=== PATIENT | male | born 1980 | race Caucasian/White ===

== ENCOUNTER 2016-08-07 13:08 | Inpatient (IN) | payer MEDICAID, OTHER ==
[2016-08-07] MEDS ORDERED: LORazepam 1 MG TAB PO STA ×2 (13:43→16:32)
--- NOTE | 2016-08-07 13:45 | ED ---
General Adult HPI - General Chief complaint: Psychiatric Symptoms Stated complaint: mental health Time Seen by Provider: 08/07/16 13:29 Source: patient, RN notes reviewed Mode of arrival: ambulatory Limitations: no limitations - History of Present Illness Initial comments: Patient's a 5-year-old male who presents emergency room today with a chief complaint of increased anxiety with depression and suicidal ideation. Patient states that has been under increased stress. States he forced to move. States she's been threats towards him and his family. States he's been out of his medication of Cymbalta over the last 3 or 4 months. States it's currently not seen a therapist or counselor. Patient states he has had thoughts of hurting himself. Does not give any specific examples but states "anything you can think of". Patient denies any homicidal thoughts or plans. Denies any other physical complaints. Patient denies any recent fever, chills, shortness of breath, chest pain, back pain, abdominal pain, nausea or vomiting, numbness or tingling, dysuria or hematuria, constipation or diarrhea, headaches or visual changes, or any other complaints. - Related Data Home Medications Medication Instructions Recorded Confirmed Albuterol Sulfate [Proair Hfa] 1 puff INHALATION RT-QID PRN 08/07/16 08/07/16 Amoxic-Pot Clav 875-125Mg 1 tab PO BID 08/07/16 08/07/16 [Augmentin 875-125] Allergies Allergy/AdvReac Type Severity Reaction Status Date / Time No Known Allergies Allergy Verified 08/07/16 16:56 Review of Systems ROS Statement: Those systems with pertinent positive or pertinent negative responses have been documented in the HPI. ROS Other: All systems not noted in ROS Statement are negative. Past Medical History Past Medical History: No Reported History History of Any Multi-Drug Resistant Organisms: None Reported Additional Past Surgical History / Comment(s): gastric bypass, craniotomy Past Psychological History: ADD/ADHD, Anxiety, Depression Smoking Status: Current every day smoker Past Alcohol Use History: Abuse Past Drug Use History: Opiates General Exam - General Exam Comments Initial Comments: General: The patient is awake and alert, in no distress, and does not appear acutely ill. Eye: Pupils are equal, round and reactive to light, extra-ocular movements are intact. No nystagmus. There is normal conjunctiva bilaterally. No signs of icterus. Ears, nose, mouth and throat: There are moist mucous membranes and no oral lesions. Neck: The neck is supple, there is no tenderness or JVD. Cardiovascular: There is a regular rate and rhythm. No murmur, rub or gallop is appreciated. Respiratory: Lungs are clear to auscultation, respirations are non-labored, breath sounds are equal. No wheezes, stridor, rales, or rhonchi. Musculoskeletal: Normal ROM, no tenderness. Strength 5/5. Sensation intact. Pulses equal bilaterally 2+. Neurological: A&O x 3. CN II-XII intact, There are no obvious motor or sensory deficits. Coordination appears grossly intact. Speech is normal. Skin: Skin is warm and dry and no rashes or lesions are noted. Psychiatric: Depressed affect. Limitations: no limitations Course Vital Signs 08/07/16 13:15 Temperature 98.7 F Pulse Rate 95 Respiratory 20 Rate Blood Pressure 142/93 O2 Sat by Pulse 97 Oximetry Medical Decision Making - Medical Decision Making Patient examined here in the emergency room by [facility]. They've recommended admission for the patient. He is willing to sign himself in. - Lab Data Lab Results 08/07/16 Range/Units 15:49 Urine Opiates Screen Not Detected (NotDetected) Ur Oxycodone Screen Not Detected (NotDetected) Urine Methadone Screen Not Detected (NotDetected) Ur Propoxyphene Screen Not Detected (NotDetected) Ur Barbiturates Screen Not Detected (NotDetected) U Tricyclic Antidepress Not Detected (NotDetected) Ur Phencyclidine Scrn Not Detected (NotDetected) Ur Amphetamines Screen Not Detected (NotDetected) U Methamphetamines Scrn Not Detected (NotDetected) U Benzodiazepines Scrn Not Detected (NotDetected) Urine Cocaine Screen Not Detected (NotDetected) U Marijuana (THC) Screen Detected H (NotDetected) Disposition Clinical Impression: Depression Disposition: TRANSFER TO PSYCH HOSP/UNIT Condition: Stable
[2016-08-07] MEDS ORDERED: ACETAMINOPHEN TAB 325 MG TAB PO PRN (17:24)
[2016-08-07] MEDS ORDERED: MAGNESIUM HYDROXIDE 2,400 MG/10 ML CUP PO PRN (17:24)
[2016-08-07 17:40] VITALS: BMI 33.2
[2016-08-07 18:26] LABS: Appearance,Urine Clear (Clear); Bilirubin,Urine Negative (Negative); Glucose,Urine (UA) Negative (Negative); Ketones,Urine Trace (Negative); Leukocyte Esterase,Urine Negative (Negative); Nitrite,Urine Negative (Negative); Protein,Urine Negative (Negative); UA Billing (MACRO vs. MICRO) CHEM; Urobilinogen,Urine <2.0 mg/dL (<2.0)
[2016-08-07] MEDS ORDERED: LORazepam 2 MG/ML SYRINGE IM PRN (19:35)
[2016-08-07] MEDS: LORazepam 1 MG TAB PO PRN (21:13)
[2016-08-07] MEDS ORDERED: ZIPRASIDONE 20 MG VIAL IM ONE (23:05)
[2016-08-07] MEDS: ZIPRASIDONE 20 MG VIAL IM PRN (23:05)
[2016-08-07] MEDS ORDERED: WATER FOR INJECTION, STERILE 10 ML IV ONE (23:05)
[2016-08-08] MEDS: NICOTINE 14MG/24HR PATCH TRANSDERM SCH (08:51)
[2016-08-08] MEDS: LORazepam 1 MG TAB PO PRN ×2 (08:52→16:42)
[2016-08-08 09:50] LABS: ALT 42 U/L (21-72); AST 80 U/L (17-59); Alkaline Phosphatase 49 U/L (38-126); Anion Gap 10 mmol/L; Blood Urea Nitrogen 9 mg/dL (9-20); Calcium 9.9 mg/dL (8.4-10.2); Carbon Dioxide 30 mmol/L (22-30); Chloride 103 mmol/L (98-107); Glucose 90 mg/dL (74-99); Non-African American GFR(MDRD) >60 (>60 ml/min/1.73 sqM); Potassium 5.1 mmol/L (3.5-5.1); Sodium 143 mmol/L (137-145); Total Protein 7.6 g/dL (6.3-8.2)
[2016-08-08 10:28] LABS: Anisocytosis Slight; CH 19.9; CHCM 27.7; HCT 39.8 % (39.0-53.0); HDW 3.34; HGB 11.3 gm/dL (13.0-17.5); Hypochromasia Marked; MCH 20.5 pg (25.0-35.0); MCHC 28.4 g/dL (31.0-37.0); MCV 72.1 fL (80.0-100.0); Mean Platelet Volume 7.2; Microcytosis Moderate; RBC 5.51 m/uL (4.30-5.90); RDW 17.6 % (11.5-15.5); WBC 3.9 k/uL (3.8-10.6); WBC (Perox) 4.03
[2016-08-08] MEDS ORDERED: traZODone HCL 50 MG TAB PO PRN (10:50)
--- NOTE | 2016-08-08 11:09 | P.HP ---
Psychiatric H&P - . H&P Date: 08/08/16 History & Physical: Allergies Allergy/AdvReac Type Severity Reaction Status Date / Time No Known Allergies Allergy Verified 08/07/16 16:56 Vital Signs Temp 97.7 F 08/08/16 06:46 Pulse 54 L 08/08/16 06:46 Resp 18 08/08/16 06:46 BP 129/70 08/08/16 06:46 Pulse Ox 97 08/07/16 17:34 Intake & Output 08/07/16 08/08/16 08/08/16 18:59 06:59 18:59 Weight 117.3 kg Laboratory Last Values WBC 3.9 k/uL (3.8-10.6) 08/08/16 08:57 RBC 5.51 m/uL (4.30-5.90) 08/08/16 08:57 Hgb 11.3 gm/dL (13.0-17.5) L 08/08/16 08:57 Hct 39.8 % (39.0-53.0) 08/08/16 08:57 MCV 72.1 fL (80.0-100.0) L 08/08/16 08:57 MCH 20.5 pg (25.0-35.0) L 08/08/16 08:57 MCHC 28.4 g/dL (31.0-37.0) L 08/08/16 08:57 RDW 17.6 % (11.5-15.5) H 08/08/16 08:57 Plt Count 324 k/uL (150-450) 08/08/16 08:57 Sodium 143 mmol/L (137-145) 08/08/16 08:57 Potassium 5.1 mmol/L (3.5-5.1) 08/08/16 08:57 Chloride 103 mmol/L (98-107) 08/08/16 08:57 Carbon Dioxide 30 mmol/L (22-30) 08/08/16 08:57 Anion Gap 10 mmol/L 08/08/16 08:57 BUN 9 mg/dL (9-20) 08/08/16 08:57 Creatinine 0.60 mg/dL (0.66-1.25) L 08/08/16 08:57 Est GFR (MDRD) Af Amer >60 (>60 ml/min/1.73 sqM) 08/08/16 08:57 Est GFR (MDRD) Non-Af >60 (>60 ml/min/1.73 sqM) 08/08/16 08:57 Glucose 90 mg/dL (74-99) 08/08/16 08:57 Calcium 9.9 mg/dL (8.4-10.2) 08/08/16 08:57 Total Bilirubin 1.0 mg/dL (0.2-1.3) 08/08/16 08:57 AST 80 U/L (17-59) H 08/08/16 08:57 ALT 42 U/L (21-72) 08/08/16 08:57 Alkaline Phosphatase 49 U/L (38-126) 08/08/16 08:57 Total Protein 7.6 g/dL (6.3-8.2) 08/08/16 08:57 Albumin 4.3 g/dL (3.5-5.0) 08/08/16 08:57 TSH 1.180 mIU/L (0.465-4.680) 08/08/16 08:57 Urine Color Yellow 08/07/16 15:49 Urine Appearance Clear (Clear) 08/07/16 15:49 Urine pH 6.0 (5.0-8.0) 08/07/16 15:49 Ur Specific Dumont 1.010 (1.001-1.035) 08/07/16 15:49 Urine Protein Negative (Negative) 08/07/16 15:49 Urine Glucose (UA) Negative (Negative) 08/07/16 15:49 Urine Ketones Trace (Negative) H 08/07/16 15:49 Urine Blood Negative (Negative) 08/07/16 15:49 Urine Nitrate Negative (Negative) 08/07/16 15:49 Urine Bilirubin Negative (Negative) 08/07/16 15:49 Urine Urobilinogen <2.0 mg/dL (<2.0) 08/07/16 15:49 Ur Leukocyte Esterase Negative (Negative) 08/07/16 15:49 Urine Opiates Screen Not Detected (NotDetected) 08/07/16 15:49 Ur Oxycodone Screen Not Detected (NotDetected) 08/07/16 15:49 Urine Methadone Screen Not Detected (NotDetected) 08/07/16 15:49 Ur Propoxyphene Screen Not Detected (NotDetected) 08/07/16 15:49 Ur Barbiturates Screen Not Detected (NotDetected) 08/07/16 15:49 U Tricyclic Antidepress Not Detected (NotDetected) 08/07/16 15:49 Ur Phencyclidine Scrn Not Detected (NotDetected) 08/07/16 15:49 Ur Amphetamines Screen Not Detected (NotDetected) 08/07/16 15:49 U Methamphetamines Scrn Not Detected (NotDetected) 08/07/16 15:49 U Benzodiazepines Scrn Not Detected (NotDetected) 08/07/16 15:49 Urine Cocaine Screen Not Detected (NotDetected) 08/07/16 15:49 U Marijuana (THC) Screen Detected (NotDetected) H 08/07/16 15:49 08/08/16 10:53 IDENTIFYING DATA: 35 year old single engaged patient HPI: Patient is admitted to the inpatient psychiatric unit [facility] on a voluntary basis with depression and concern of thoughts of suicide. Patient states he's been dealing with a lot of stress and he started getting really depressed. Regarding thoughts of suicide he states that there was no plan, but he had thoughts that he would be better off if he were not here. He says his fiance brought him to the hospital. He says the stressors of probably they are going to be homeless, they're losing the place that they are living in and threats have been thrown their way. He also relays some financial stress. He does also describe that he has anxiety and tends to be a worrier. PAST PSYCHIATRIC HISTORY: He has been on Cymbalta which was helpful for him and Adderall for history of ADHD but he's been off of those medications for 3-5 months. He has not had any previous psychiatric hospitalizations. He has no history of suicide attempts. With discussion of history of mood symptoms he initially does seem to relate to some manic-type symptoms, although I do not see historical evidence of acute type manic episodes and he then relays that he probably has a history of recurrent depression. He does give a history of trazodone helping him with sleep in the past. PMH: History of anemia ALLERGIES: No known ALLERGIES MEDICATIONS: Tylenol when necessary, Maalox when necessary, Ativan when necessary, milk of magnesia when necessary, Habitrol patch, Geodon when necessary CHEMICAL DEPENDENCY HISTORY: Patient reports recent alcohol use daily, says he started drinking again about 3 months ago. He did go to rehab in 2014 at [place] and had 11 months sobriety. He was on Vivitrol which seemed to be helpful for him. He does use marijuana kind of daily. FAMILY PSYCHIATRIC HISTORY: Mom with bipolar disorder. FAMILY CHEMICAL DEPENDENCY HISTORY: Not known at this time. SOCIAL HISTORY: Not currently working. He has been with his fiance for 5-6 years. He says the relationship is going well. He has been once and . He is [id number] son. Talks about recent stress of they're probably going to be homeless as they're losing the place that they are living in. MENTAL STATUS EXAM: He is alert and cooperative with the interview. Speech is fluent, not rapid or pressured. Thought processes organized. His mood is described as "tired." His affect is restricted. He does describe being a little bit of alcohol withdrawal with some shakiness and does appear to have some mild hand tremor he denies any thoughts of harm to self or others, he denies any hallucinations. Cognitively appears to be grossly intact. I do not note any significant disorientation or memory disturbance. Insight is adequate , judgment shows evidence of recent impairment. STRENGTHS/WEAKNESSES: Strengths-seeking treatment, support; weaknesses-coping skills INTELLECTUAL FUNCTIONING: Average IMPRESSIONS: AXIS I : Major depressive disorder, recurrent; generalized anxiety disorder; alcohol use disorder; rule out cannabis use disorder AXIS II: Deferred AXIS III: History of anemia AXIS IV: Living situation, unemployed, financial AXIS V: 30 PLAN: Patient will be admitted to the inpatient psychiatric unit at [facility] on a voluntary basis. He will be placed on SP 15 minute precautions. Baseline laboratory workup will be done the patient and medical consultation will be ordered. We will initiate low dose Effexor XR 37.5 mg daily to help with depression and anxiety, may also give benefit for history of ADHD. We will initiate trazodone 50 mg at bedtime as needed for insomnia. Monitor for any medication side effects and monitor his ongoing response. Continue to monitor regarding any suicidal ideations. We will look into support systems. Estimated length of stay is 3-5 days. We'll monitor for any alcohol withdrawal, he is on Ativan as needed. Dr. Prado will initiate care this patient starting tomorrow. Prognosis is guarded. We'll repeat liver enzymes tomorrow as he did have some elevation of AST at 80.
[2016-08-08 11:10] LABS: Add Differential Manual Differential
[2016-08-08] MEDS: VENLAFAXINE HCL ER 37.5 MG CAP PO SCH (11:17)
[2016-08-08 11:28] LABS: Nucleated Red Blood Cells 1 /100 WBC (0-0); Total Cells Counted 100
[2016-08-08 11:29] LABS: Large Platelets Present; Polychromasia Present; Target Cells Present
--- NOTE | 2016-08-08 11:32 | HP ---
DATE OF ADMISSION: CHIEF COMPLAINT: Depression with suicidal ideation. HISTORY OF PRESENT ILLNESS: This is a 35-year-old male with past medical history significant for depression and alcoholism, presents to the hospital with worsening depression and suicidal ideation, but no plan. The patient said that for the last one year he was sober from alcohol, went to the rehab and received detoxification and was successful for 11 months but 3 months ago, he went back to drinking and was drinking 1 to 2 pints a day of vodka. Patient felt very frustrated, depressed and had suicidal ideation and presented to the emergency department. REVIEW OF SYSTEMS: All 14 systems reviewed and negative except as above. ALLERGIES: No known drug allergies. HOME MEDICATIONS: None. SOCIAL HISTORY: Patient smokes half-pack per day. Drinks alcohol 1 to 2 pints every day of vodka, smokes marijuana on occasional basis. Used to have problem with opioid dependence but quit 5 years ago for good. PAST MEDICAL HISTORY: 1. Asthma as a child. 2. Gastroesophageal reflux disease with history of bleeding ulcer and peptic ulcer disease secondary to bleeding a few years ago. 3. Left shoulder pain. 4. Scoliosis. 5. Chronic back pain. 6. Lower extremity pain on the left. PAST SURGICAL HISTORY: 1. Positive for gastric bypass in 2005 as patient's weight was 550 pounds. 2. 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 3. Left tibia/fibula surgery with chronic lower extremity pain. FAMILY HISTORY: Mother with breast cancer. Father with pacemaker, grandfather with aneurysm and his son with diabetes type 1 age 10. PHYSICAL EXAMINATION: VITAL SIGNS: Reviewed and stable. GENERAL: In his stated age, in no acute distress. Head Atraumatic, normocephalic. PERRLA. NECK: Supple, no masses. No thyromegaly. LUNGS: Clear to auscultation bilaterally. HEART: S1, S2. No murmur, rubs, or gallops. Left shoulder positive for bulging bone on the upper part of his shoulder, limited range of motion as patient difficult to raise his left arm beyond his shoulder level. EXTREMITIES: Lower extremity no edema. Positive for a left knee deformities, which have been chronic since his surgery. PSYCH: Alert and oriented x3. Relaxed mood and affect. Normal remote and recent memory. NEURO: Cranial nerves 2 through 12 intact. Normal deep tendon reflexes and sensation. IMAGING AND LABS: CBC revealed hemoglobin 11.3 but normal otherwise. Chem-7 revealed normal findings. UA was negative. Urine drug screen was positive for marijuana only. ASSESSMENT AND PLAN: 1. Suicidal ideation with acute depression per your management. 2. Alcoholism. Patient said that he never had delirium tremens in the past and he can go days without drinking. Will monitor closely. If patient start having withdrawal symptoms, we would like to start him on CIWA protocol. Discussed with nursing staff. 3. Asthma. Will continue albuterol as needed. 4. Left shoulder pain. I would like to obtain x-ray of the left shoulder. Patient said that he received x-ray back in [place] 3 months ago and still having the pain. I would like to the repeat it and ensure safety and stability. 5. Insomnia per your management. 6. Tobacco dependency. Consultation regarding smoking cessation, offered nicotine patch on as-needed basis. 7. Alcohol dependence. Will continue counseling patient during this hospital stay. 8. History of gastroesophageal reflux disease and peptic ulcer disease. Will continue with Pepcid. 9. Chronic back pain, lower extremity pain and scoliosis. The patient said that he is not taking any pain medication at this point and will monitor closely.
--- NOTE | 2016-08-08 12:57 | XR ---
Left shoulder HISTORY: Trauma and pain 3 views of the left shoulder No comparisons There is superior displacement of the distal clavicle relation to the acromion. No evident fracture. Left lung apex as visualized is normal IMPRESSION: Acromioclavicular separation
[2016-08-08] MEDS: MAG HYDROX/AL HYDROX/SIMETH 30 ML CUP PO PRN (16:42)
[2016-08-08] MEDS ORDERED: WATER FOR INJECTION, STERILE 10 ML IV ONE (22:18)
[2016-08-08] MEDS ORDERED: ZIPRASIDONE 20 MG VIAL IM ONE (22:18)
[2016-08-08] MEDS: ZIPRASIDONE 20 MG VIAL IM PRN (22:29)
[2016-08-09] MEDS: VENLAFAXINE HCL ER 37.5 MG CAP PO SCH (08:39)
[2016-08-09] MEDS: NICOTINE 14MG/24HR PATCH TRANSDERM SCH (08:39)
[2016-08-09] MEDS: LORazepam 1 MG TAB PO PRN ×2 (08:40→17:37)
[2016-08-09 10:12] LABS: AST 99 U/L (17-59)
[2016-08-09 10:18] LABS: ALT 64 U/L (21-72)
--- NOTE | 2016-08-09 10:50 | P.PN ---
Progress Note - Text Interval history: The patient is found in group he follows me to an interview room. He was admitted over the weekend for hopeless thinking and suicidal ideation. This occurred in the context of being off of an antidepressant for 3 months and he had restarted alcohol use. He was started on Effexor XR by Dr. Ta we discussed that medication in detail. We also discussed his diagnosis and it does not appear he has had any history of hypomanic or manic episodes. He has previously been on Vivitrol and found that effective for maintaining abstinence from alcohol. Mental status exam: The patient is a overweight balding male he is dressed in his own clothing he has a disheveled appearance. He is missing his upper front teeth. He reports that his mood is better since he's in the hospital but has been struggling with depressive symptoms. He is reporting no current acute suicidal or homicidal ideation intent or plan there is no report or evidence of psychosis he endorses no auditory or visual hallucinations. He reports no specific delusions. He does not appear to have hypomanic or manic symptoms at this time. Insight and judgment limited. Cognitively he is alert and oriented to person place and date. Plan: The patient will continue on the Effexor XR we will titrate the dose to 75 mg. Social work was asked to see if he'll qualify for many mental health services. If we are able we could give the Vivitrol injection on the mental health unit or at least start naltrexone orally. Social work will arrange a support meeting. We will continue to monitor him for safety. I expect he'll be appropriate for discharge in the next 1-2 days and would benefit from transition back to outpatient psychiatric care. We discussed the importance of maintaining his psychotropic medication his questions were answered.
--- NOTE | 2016-08-09 20:30 | P.CNOR ---
History of Present Illness - [facility] Consult date: 08/09/16 Requesting physician: Thiago Marion Consult reason: joint pain History of present illness: Patient is 35 yo male seen today, 08/09/16 on floor in consultation for left shoulder pain. 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 He states he was seen at a hospital in [place] where he was discharged in a sling. He states that he has had intermittent shoulder discomfort since but has been able to use it. He denies numbness, tingling or weakness. His pain is minimal today. Symptoms worsen with lifting activities. ROS is negative for fever, chills, chest pain. shortness of breath or other. Review of Systems All systems: negative Constitutional: Denies chills, Denies fever Eyes: denies blurred vision, denies pain Ears, nose, mouth and throat: Denies headache, Denies sore throat Cardiovascular: Denies chest pain, Denies shortness of breath Respiratory: Denies cough Gastrointestinal: Denies abdominal pain, Denies diarrhea, Denies nausea, Denies vomiting Musculoskeletal: Denies myalgias Integumentary: Denies pruritus, Denies rash Neurological: Denies numbness, Denies weakness Psychiatric: Reports anxiety, Reports depression Endocrine: Denies fatigue, Denies weight change Past Medical History Past Medical History: No Reported History History of Any Multi-Drug Resistant Organisms: None Reported Additional Past Surgical History / Comment(s): gastric bypass, craniotomy-bron without a soft spot Past Anesthesia/Blood Transfusion Reactions: No Reported Reaction Past Psychological History: ADD/ADHD, Anxiety, Depression Smoking Status: Current every day smoker Past Alcohol Use History: Abuse Past Drug Use History: Opiates Medications and Allergies Home Medications Medication Instructions Recorded Confirmed Type Albuterol Sulfate [Proair Hfa] 1 puff INHALATION RT-QID PRN 08/07/16 08/07/16 History Amoxic-Pot Clav 875-125Mg 1 tab PO BID 08/07/16 08/07/16 History [Augmentin 875-125] Allergies Allergy/AdvReac Type Severity Reaction Status Date / Time No Known Allergies Allergy Verified 08/07/16 16:56 Physical Examination Inspection of left shoulder reveals a separation bump at the AC joint. There is no bruising, erythema or wounds. Mild tenderness to palpation at the AC joint. No fluid collection or edema. ROM of the shoulder includes active elevation to 160 degrees, abducion to 90, IR to 30, ER to 40. Negative Mccullough, Apprehension and Speeds. Negative lift off. Negative winged scapula. Motor is 5/5 throughout left upper extremity. Sensation C5-T1 intact to light touch. 2+ radial pulse and less than 2 sec cap refill present. Results - Labs Labs: Abnormal Lab Results - Last 24 Hours (Table) 08/09/16 Range/Units 09:20 AST 99 H (17-59) U/L H & H 08/08/16 Range/Units 08:57 Hgb 11.3 L (13.0-17.5) gm/dL Hct 39.8 (39.0-53.0) % Result Diagrams: 08/08/16 08:57 08/08/16 08:57 - Diagnostic results Shoulder x-ray: report reviewed, image reviewed (Grade III AC joint separation. No fractures) Assessment and Plan (1) Acromioclavicular joint separation, type 3 Narrative/Plan: The patient and his findings have been reviewed with Dr. Marion. No surgical intervention is warranted at this time regarding his AC joint separation. He may do activities as tolerated. He may follow up as an outpatient for evaluation and recommendations regarding possible rotator cuff injury should he worsen with symptoms. Thank you for the consultation. Status: Acute Time with Patient: Less than 30
[2016-08-09] MEDS: traZODone HCL 100 MG TAB PO SCH (22:02)
--- NOTE | 2016-08-10 08:51 | P.PN ---
Progress Note - Text Interval history: The patient is found in the hallway he follows me to an interview room. He reports that he slept better last evening getting 6-8 hours. Appetite stable. He reports she's been attending most groups. The internal medicine physician ordered a orthopedics consultation which was completed no surgical intervention is required at this time but there is noted acromioclavicular separation. The patient notes that his mood is improving. He is tolerating the Effexor without any side effects so far. He states that there is a support meeting scheduled for tomorrow. Mental status exam: The patient is alert he is an overweight balding male appearing his stated age. He is dressed in his own clothing he has a mildly disheveled appearance. Eye contact is appropriate speech is fluent spontaneous nonpressured. He is reporting some improvement of his depressed and anxious mood. Hopelessness thinking is improving. He states he does struggle with anger but feels that he is trying to gain insight into it. No auditory or visual hallucinations he does not appear hypomanic or manic. Insight and judgment improving. Plan: The patient will continue on his current medication Effexor XR has been titrated to 75 mg starting today. We will continue to monitor him for safety. We will consider discharging him tomorrow if he is clinically stable and demonstrates sufficient clinical improvement. He is encouraged to continue participating in the milieu. Vital signs reviewed.
[2016-08-10] MEDS: NICOTINE 14MG/24HR PATCH TRANSDERM SCH (08:53)
[2016-08-10] MEDS: VENLAFAXINE HCL ER 75 MG CAP PO SCH (08:54)
[2016-08-10] MEDS: LORazepam 1 MG TAB PO PRN ×2 (08:54→16:39)
[2016-08-10] MEDS: MAG HYDROX/AL HYDROX/SIMETH 30 ML CUP PO PRN (08:55)
[2016-08-10] MEDS: traZODone HCL 100 MG TAB PO SCH (21:00)
[2016-08-11] MEDS: LORazepam 1 MG TAB PO PRN (01:21)
[2016-08-11 03:31] VITALS: BP 122/79; PULSE 68; RESP 12; TEMP 97.5
--- NOTE | 2016-08-11 08:50 | P.DS ---
Providers Date of admission: 08/07/16 17:10 Expected date of discharge: 08/11/16 Attending physician: Jose Prado Consults: 08/07/16 17:24 Consult Physician Routine Consulting Provider: Amando Nino Reason/Comments: Follow up H & P-Please view left shoulder and varicose veins bilateral legs Do you want consulting provider notified?: Yes 08/08/16 16:18 Consult Physician Routine Consulting Provider: Thiago Marion Consult Reason/Comments: Acromiclavicular Separation Left side Do you want consulting provider notified?: Already Contacted Primary care physician: Stated None - Discharge Diagnosis(es) (1) Major depressive disorder, recurrent Current Visit: Yes Status: Acute (2) Generalized anxiety disorder Current Visit: Yes Status: Acute (3) Alcohol use disorder Current Visit: Yes Status: Acute Hospital Course: Brief summary of admission note: This patient is a 35-year-old male who was admitted to the mental health unit with worsening symptoms of depression and thoughts of suicide. Him and his fiance have been dealing with significant financial stress he expected that they will be losing their home and would be homeless. He described having excessive anxiety on a regular basis. The symptoms occur in the context of him having an alcohol use disorder with a recent increase in alcohol consumption. The patient was admitted by Dr. Ta please refer to his psychiatric evaluation dated 08/08/2016. Summary of hospital course: The patient was admitted to the mental health unit voluntarily. He was initially seen by Dr. Ta. The patient had previously been treated with Cymbalta and trazodone but his medication was changed to Effexor XR. Trazodone was continued for sleep and we increased the dose to 100 mg at bedtime. The Effexor XR was titrated to 75 mg daily. We discussed potential benefits and side effects of both medications and his questions were answered. The patient had previously been on Vivitrol injections and we were able to obtain a sample from [facility] and that will be administered today. He has found that medication very helpful and abstaining from alcohol in the past. The patient was seen by the community action worker for routine medical consultation. There was some concern related to an AC joint separation and orthopedics was subsequently consulted. They recommended no immediate intervention at this time. The patient demonstrated no agitated behavior. He reported a progressive improvement of symptoms while on the mental health unit and a resolution of any suicidal ideation. His fiance will be participating in a support meeting that will occur late this morning. Mental status exam: The patient is an alert male appearing his stated age. He is dressed in his own clothing eye contact is appropriate speech is fluent spontaneous nonpressured. He demonstrates no flight of ideas loose associations or tangential thinking. Thought process is linear. He reports his mood is "good" affect is euthymic in appearance. He denies having any suicidal or homicidal ideation intent or plan. He is endorsing no auditory or visual hallucinations he is endorsing no specific delusions. There is no evidence of psychosis. He does not appear hypomanic or manic. He demonstrates no verbal or physical aggressiveness. Cognitively he remains oriented to person place and date. There is no tremulous activity no other psychomotor agitation or slowing. Insight and judgment grossly intact. Impressions 1. Major depressive disorder recurrent severe without psychosis, generalized anxiety disorder, alcohol use disorder, rule out cannabis use disorder 2. History of anemia, suspected shoulder pathology that was evaluated by orthopedics 3. Psychosocial dysfunction due to psychiatric symptoms and recent financial stressors Plan: The patient will be discharged today to return home with his fiance. The patient will continue on Effexor XR 75 mg daily, trazodone 100 mg at bedtime. He will receive a Vivitrol 380 mg injection today. We discussed his use of alcohol he does not wish to participate in inpatient chemical dependency treatment. He plans on addressing his alcohol use symptoms with his outpatient clinician's when he follows up with [facility]. There is no imminent safety risk the patient is appropriate for transition back to outpatient care. We discussed that his safety risk is elevated with use of alcohol marijuana or other substances. He is instructed to return to the hospital with any acute safety concerns. He will follow-up with his primary care physician as needed. Patient Condition at Discharge: Stable Plan - Discharge Summary New Discharge Prescriptions: Nicotine 14Mg/24Hr Patch [Habitrol] 1 patch TRANSDERM DAILY #14 patch Venlafaxine HCl ER [Effexor XR] 75 mg PO DAILY #30 cap.er.24h traZODone HCL [Desyrel] 100 mg PO HS #30 tab Discharge Medication List Albuterol Sulfate [Proair Hfa] 1 puff INHALATION RT-QID PRN 08/07/16 [History] Nicotine 14Mg/24Hr Patch [Habitrol] 1 patch TRANSDERM DAILY #14 patch 08/11/16 [ Rx] Venlafaxine HCl ER [Effexor XR] 75 mg PO DAILY #30 cap.er.24h 08/11/16 [Rx] traZODone HCL [Desyrel] 100 mg PO HS #30 tab 08/11/16 [Rx] Follow up Appointment(s)/Referral(s): None,Stated [Primary Care Provider] - 1 Week Activity/Diet/Wound Care/Special Instructions: Information from your orthopedic consult report states that you may follow up as an outpatient for evaluation and recommendations regarding possible rotator cuff injury should your symptoms worsen.
[2016-08-11] MEDS ORDERED: VIVITROL IM SCH (09:00)
[2016-08-11] MEDS: VENLAFAXINE HCL ER 75 MG CAP PO SCH (09:10)
[2016-08-11] MEDS: NICOTINE 14MG/24HR PATCH TRANSDERM SCH (09:11)
[2016-08-11] MEDS: MAG HYDROX/AL HYDROX/SIMETH 30 ML CUP PO PRN (09:20)
== END 2016-08-11 12:00 | disposition home or self-care (01) | DRG 885 ==
LOC: EC 13:08 → 3MHU 17:10
PROVIDERS: ADMIT Psychiatry & Neurology Psychiatry; ATTEND Psychiatry & Neurology Psychiatry
DX: F33.2 Major depressive disorder, recurrent severe without psychotic features (principal); M41.9 Scoliosis, unspecified; R45.851 Suicidal ideations; F41.1 Generalized anxiety disorder; F10.20 Alcohol dependence, uncomplicated; F12.90 Cannabis use, unspecified, uncomplicated; G47.00 Insomnia, unspecified; G89.29 Other chronic pain; I83.93 Asymptomatic varicose veins of bilateral lower extremities; K21.9 Gastro-esophageal reflux disease without esophagitis; S43.109A Unspecified dislocation of unspecified acromioclavicular joint, initial encounter; Z59.0 Homelessness; Z81.8 Family history of other mental and behavioral disorders; Z98.84 Bariatric surgery status; F59 Unspecified behavioral syndromes associated with physiological disturbances and physical factors; J45.909 Unspecified asthma, uncomplicated; M54.9 Dorsalgia, unspecified; K27.9 Peptic ulcer, site unspecified, unspecified as acute or chronic, without hemorrhage or perforation; Z72.0 Tobacco use
CPT/HCPCS: 80053; 80306; 81003; 82075; 84443; 84450; 84460; 85025; 99285

== ENCOUNTER 2016-11-03 22:07 | Emergency (ER) | payer OTHER ==
[2016-11-03] MEDS ORDERED: SODIUM CHLORIDE 0.9% 1,000 ML IV STA (23:46)
--- NOTE | 2016-11-03 23:52 | ED ---
General Adult HPI - General Chief complaint: Anxiety Stated complaint: Hypertension Time Seen by Provider: 11/03/16 23:37 Source: patient, RN notes reviewed Mode of arrival: ambulatory Limitations: no limitations - History of Present Illness Initial comments: 36-year-old male presents to the emergency department with a chief complaint of hypertension. Patient has been having this started today with his teeth done by the dentist. The patient is an alcoholic as well as suffers from depression. Patient was recently placed on Flexeril. He did have vomiting earlier today. He states he has drank today as well. He states he just does not feel right. He states everything just feels off. He denies any falls he denies any head injury. Please see the resident. Please of weakness but he feels weak and he feels more agitated than normal. They state that he is talking a lot more than normal as well. Family states he is concerned because of his behavior so that they should be evaluated.Patient denies any recent fever , chills, shortness of breath, chest pain, back pain, abdominal pain, nausea vomiting, numbness or tingling, dysuria or hematuria, constipation or diarrhea, headaches or visual changes, or any other current symptoms. - Related Data Home Medications Medication Instructions Recorded Confirmed Gabapentin [Neurontin] 300 mg PO QID 11/03/16 11/03/16 Penicillin V Potassium [Pen Vee K] 500 mg PO Q6H 11/03/16 11/03/16 Venlafaxine HCl [Effexor XR] 300 mg PO QAM 11/03/16 11/03/16 Previous Rx's Medication Instructions Recorded traZODone HCL [Desyrel] 100 mg PO HS #30 tab 08/11/16 Allergies Allergy/AdvReac Type Severity Reaction Status Date / Time No Known Allergies Allergy Verified 11/03/16 23:47 Review of Systems ROS Statement: Those systems with pertinent positive or pertinent negative responses have been documented in the HPI. ROS Other: All systems not noted in ROS Statement are negative. Past Medical History Past Medical History: Hypertension Additional Past Medical History / Comment(s): morbid obesity 550lbs History of Any Multi-Drug Resistant Organisms: None Reported Additional Past Surgical History / Comment(s): gastric bypass, craniotomy-bron without a soft spot Past Anesthesia/Blood Transfusion Reactions: No Reported Reaction Past Psychological History: ADD/ADHD, Anxiety, Depression Smoking Status: Current every day smoker Past Alcohol Use History: Abuse Past Drug Use History: Opiates General Exam - General Exam Comments Initial Comments: General: The patient is awake and alert, in no distress, and does not appear acutely ill. Eye: Pupils are equal, round and reactive to light, extra-ocular movements are intact; there is normal conjunctiva bilaterally. No signs of icterus. Ears, nose, mouth and throat: There are moist mucous membranes and no oral lesions. Neck: The neck is supple, there is no tenderness. Cardiovascular: There is a regular rate and rhythm. No murmur, rub or gallop is appreciated. Respiratory: Lungs are clear to auscultation, respirations are non-labored, breath sounds are equal. No wheezes, stridor, rales, or rhonchi. Gastrointestinal: Soft, non-distended, non-tender abdomen without masses or organomegaly noted. There is no rebound or guarding present. No CVA tenderness. Bowel sounds are unremarkable. Back: There is no tenderness to palpation in the midline. There is no obvious deformity. No rashes noted. Musculoskeletal: Normal ROM, no tenderness, There is no pedal edema. There is no calf tenderness or swelling. Sensation intact. Pulses equal bilaterally 2+. Neurological: CN II-XII intact, There are no obvious motor or sensory deficits. Coordination appears grossly intact. Speech is normal. Skin: Skin is warm and dry and no rashes or lesions are noted. Psychiatric: Cooperative, appropriate mood & affect, normal judgment. Limitations: no limitations Course Vital Signs 11/03/16 11/03/16 11/04/16 22:42 23:34 00:57 Temperature 99.3 F 98.2 F 98.7 F Pulse Rate 100 99 79 Respiratory 20 20 16 Rate Blood Pressure 162/95 166/92 155/74 O2 Sat by Pulse 97 99 97 Oximetry Medical Decision Making - Medical Decision Making 36-year-old male presents emergency department with a chief complaint of hypertension. Coronary to all lab work being resulted and reviewed with the patient he stated that he wanted to leave. Patient left AGAINST MEDICAL ADVICE to the fact we do not know where his anxiety and hypertension are coming from we were unable to give him appropriate treatment. We did discuss the risks of leaving AGAINST MEDICAL ADVICE and the patient stated he understood and he takes monthly forward these risks. The fianc says that he takes responsibility for him as well. The Patient Left AGAINST MEDICAL ADVICE. - Lab Data Result diagrams: 11/04/16 00:34 11/04/16 00:34 Lab Results 11/04/16 11/04/16 11/04/16 Range/Units 00:34 00:34 00:34 WBC 7.4 (3.8-10.6) k/uL RBC 5.53 (4.30-5.90) m/uL Hgb 11.1 L (13.0-17.5) gm/dL Hct 39.0 (39.0-53.0) % MCV 70.5 L (80.0-100.0) fL MCH 20.1 L (25.0-35.0) pg MCHC 28.6 L (31.0-37.0) g/dL RDW 19.1 H (11.5-15.5) % Plt Count 354 (150-450) k/uL Neutrophils % 63 % Lymphocytes % 26 % Monocytes % 7 % Eosinophils % 1 % Basophils % 1 % Neutrophils # 4.7 (1.3-7.7) k/uL Lymphocytes # 1.9 (1.0-4.8) k/uL Monocytes # 0.6 (0-1.0) k/uL Eosinophils # 0.1 (0-0.7) k/uL Basophils # 0.1 (0-0.2) k/uL Hypochromasia Marked Poikilocytosis Slight Anisocytosis Slight Microcytosis Marked Sodium 142 (137-145) mmol/L Potassium 4.0 (3.5-5.1) mmol/L Chloride 104 (98-107) mmol/L Carbon Dioxide 25 (22-30) mmol/L Anion Gap 13 mmol/L BUN 6 L (9-20) mg/dL Creatinine 0.70 (0.66-1.25) mg/dL Est GFR (MDRD) Af Amer >60 (>60 ml/min/1.73 sqM) Est GFR (MDRD) Non-Af >60 (>60 ml/min/1.73 sqM) Glucose 92 (74-99) mg/dL Plasma Lactic Acid Shane 2.9 H* (0.7-2.0) mmol/L Calcium 9.3 (8.4-10.2) mg/dL Phosphorus 3.2 (2.5-4.5) mg/dL Magnesium 1.7 (1.6-2.3) mg/dL Total Bilirubin 0.7 (0.2-1.3) mg/dL AST 111 H (17-59) U/L ALT 47 (21-72) U/L Alkaline Phosphatase 62 (38-126) U/L Ammonia 14 (<30) umol/L Creatine Kinase 398 H (55-170) U/L Troponin I (0.000-0.034) ng/mL Total Protein 7.3 (6.3-8.2) g/dL Albumin 4.5 (3.5-5.0) g/dL Amylase 57 (30-110) U/L Lipase 383 H (23-300) U/L Urine Color Urine Appearance (Clear) Urine pH (5.0-8.0) Ur Specific [place] (1.001-1.035) Urine Protein (Negative) Urine Glucose (UA) (Negative) Urine Ketones (Negative) Urine Blood (Negative) Urine Nitrite (Negative) Urine Bilirubin (Negative) Urine Urobilinogen (<2.0) mg/dL Ur Leukocyte Esterase (Negative) Urine RBC (0-5) /hpf Urine WBC (0-5) /hpf Ur Squamous Epith Cells (0-4) /hpf Amorphous Sediment (None) /hpf Hyaline Casts (0-2) /lpf Urine Mucus (None) /hpf Urine Opiates Screen (NotDetected) Ur Oxycodone Screen (NotDetected) Urine Methadone Screen (NotDetected) Ur Propoxyphene Screen (NotDetected) Ur Barbiturates Screen (NotDetected) U Tricyclic Antidepress (NotDetected) Ur Phencyclidine Scrn (NotDetected) Ur Amphetamines Screen (NotDetected) U Methamphetamines Scrn (NotDetected) U Benzodiazepines Scrn (NotDetected) Urine Cocaine Screen (NotDetected) U Marijuana (THC) Screen (NotDetected) Serum Alcohol 182 mg/dL 11/04/16 11/04/16 Range/Units 00:34 00:34 WBC (3.8-10.6) k/uL RBC (4.30-5.90) m/uL Hgb (13.0-17.5) gm/dL Hct (39.0-53.0) % MCV (80.0-100.0) fL MCH (25.0-35.0) pg MCHC (31.0-37.0) g/dL RDW (11.5-15.5) % Plt Count (150-450) k/uL Neutrophils % % Lymphocytes % % Monocytes % % Eosinophils % % Basophils % % Neutrophils # (1.3-7.7) k/uL Lymphocytes # (1.0-4.8) k/uL Monocytes # (0-1.0) k/uL Eosinophils # (0-0.7) k/uL Basophils # (0-0.2) k/uL Hypochromasia Poikilocytosis Anisocytosis Microcytosis Sodium (137-145) mmol/L Potassium (3.5-5.1) mmol/L Chloride (98-107) mmol/L Carbon Dioxide (22-30) mmol/L Anion Gap mmol/L BUN (9-20) mg/dL Creatinine (0.66-1.25) mg/dL Est GFR (MDRD) Af Amer (>60 ml/min/1.73 sqM) Est GFR (MDRD) Non-Af (>60 ml/min/1.73 sqM) Glucose (74-99) mg/dL Plasma Lactic Acid Shane (0.7-2.0) mmol/L Calcium (8.4-10.2) mg/dL Phosphorus (2.5-4.5) mg/dL Magnesium (1.6-2.3) mg/dL Total Bilirubin (0.2-1.3) mg/dL AST (17-59) U/L ALT (21-72) U/L Alkaline Phosphatase (38-126) U/L Ammonia (<30) umol/L Creatine Kinase (55-170) U/L Troponin I <0.012 (0.000-0.034) ng/mL Total Protein (6.3-8.2) g/dL Albumin (3.5-5.0) g/dL Amylase (30-110) U/L Lipase (23-300) U/L Urine Color Yellow Urine Appearance Cloudy (Clear) Urine pH 6.0 (5.0-8.0) Ur Specific [place] 1.014 (1.001-1.035) Urine Protein 1+ H (Negative) Urine Glucose (UA) Negative (Negative) Urine Ketones Negative (Negative) Urine Blood Negative (Negative) Urine Nitrite Negative (Negative) Urine Bilirubin Negative (Negative) Urine Urobilinogen 4.0 (<2.0) mg/dL Ur Leukocyte Esterase Negative (Negative) Urine RBC 4 (0-5) /hpf Urine WBC 3 (0-5) /hpf Ur Squamous Epith Cells 2 (0-4) /hpf Amorphous Sediment Rare H (None) /hpf Hyaline Casts 5 H (0-2) /lpf Urine Mucus Moderate H (None) /hpf Urine Opiates Screen Not Detected (NotDetected) Ur Oxycodone Screen Not Detected (NotDetected) Urine Methadone Screen Not Detected (NotDetected) Ur Propoxyphene Screen Not Detected (NotDetected) Ur Barbiturates Screen Not Detected (NotDetected) U Tricyclic Antidepress Not Detected (NotDetected) Ur Phencyclidine Scrn Not Detected (NotDetected) Ur Amphetamines Screen Not Detected (NotDetected) U Methamphetamines Scrn Not Detected (NotDetected) U Benzodiazepines Scrn Not Detected (NotDetected) Urine Cocaine Screen Not Detected (NotDetected) U Marijuana (THC) Screen Detected H (NotDetected) Serum Alcohol mg/dL Disposition Clinical Impression: Hypertension, Alcohol use disorder Disposition: Left Against Medical Advice Instructions: Generalized Anxiety Disorder (ED) Referrals: Nonstaff,Physician [REFERRING] - 1-2 days
--- NOTE | 2016-11-04 00:44 | CT ---
History: Reason: Pain Exam: CT HEAD Without Contrast axial noncontrast images through the brain with multiplanar reformatted images Technique more: CTDI is 57.40 mGy and DLP is 1133.30 mGy-cm. Technique more: This CT exam was performed using one or more of the following dose reduction techniques: automated exposure control, adjustment of the mA and/or kV according to patient size, and/or use of iterative reconstruction technique. Comparison: None available FINDINGS: No intracranial hemorrhage, mass effect or CT evidence of acute infarct. The garcia-white differentiation appears preserved. The ventricles are within limits and midline. Mild convexity volume loss noted. Opacification of a right ethmoid air cell. The visualized mastoids and orbits appear within limits. IMPRESSION: No intracranial hemorrhage, mass effect or CT evidence of acute infarct.
[2016-11-04 01:15] VITALS: RESP 16
[2016-11-04 01:19] LABS: Anisocytosis Slight; Basophils # (A) 0.1 k/uL (0-0.2); Basophils % (A) 1 %; CHCM 28.6; Eosinophils # (A) 0.1 k/uL (0-0.7); Eosinophils % (A) 1 %; HDW 3.44; HGB 11.1 gm/dL (13.0-17.5); Hypochromasia Marked; Luc # (Auto) 0.19; Luc % (Auto) 3; Lymphocytes # (A) 1.9 k/uL (1.0-4.8); Lymphocytes % (A) 26 %; MCH 20.1 pg (25.0-35.0); MCHC 28.6 g/dL (31.0-37.0); MCV 70.5 fL (80.0-100.0); Mean Platelet Volume 7.1; Microcytosis Marked; Monocytes # (A) 0.6 k/uL (0-1.0); Monocytes % (A) 7 %; Neutrophils # (A) 4.7 k/uL (1.3-7.7); Neutrophils % (A) 63 %; Poikilocytosis Slight; RBC 5.53 m/uL (4.30-5.90); RDW 19.1 % (11.5-15.5); WBC 7.4 k/uL (3.8-10.6); WBC (Perox) 7.15
[2016-11-04 01:36] LABS: Amorphous Sediment,Urine Rare /hpf; Appearance,Urine Cloudy (Clear); Bilirubin,Urine Negative (Negative); Glucose,Urine (UA) Negative (Negative); Ketones,Urine Negative (Negative); Leukocyte Esterase,Urine Negative (Negative); Mucus,Urine Moderate /hpf; Nitrite,Urine Negative (Negative); Particle Count 8659; Protein,Urine 1+ (Negative); RBC,Urine 4 /hpf (0-5); Specific Gravity,Urine 1.014 (1.001-1.035); Squamous Epithelial Cell,Urine 2 /hpf (0-4); UA Billing (MACRO vs. MICRO) MICRO; WBC,Urine 3 /hpf (0-5)
[2016-11-04 01:44] LABS: ALT 47 U/L (21-72); AST 111 U/L (17-59); Alkaline Phosphatase 62 U/L (38-126); Amylase 57 U/L (30-110); Anion Gap 13 mmol/L; Blood Urea Nitrogen 6 mg/dL (9-20); Calcium 9.3 mg/dL (8.4-10.2); Carbon Dioxide 25 mmol/L (22-30); Chloride 104 mmol/L (98-107); Creatine Kinase 398 U/L (55-170); Glucose 92 mg/dL (74-99); Magnesium 1.7 mg/dL (1.6-2.3); Non-African American GFR(MDRD) >60 (>60 ml/min/1.73 sqM); Phosphorous 3.2 mg/dL (2.5-4.5); Sodium 142 mmol/L (137-145); Total Bilirubin 0.7 mg/dL (0.2-1.3); Total Protein 7.3 g/dL (6.3-8.2)
[2016-11-04] MEDS ORDERED: SODIUM CHLORIDE 0.9% 1,000 ML IV STA (01:44)
[2016-11-04 01:47] LABS: Alcohol 182 mg/dL
[2016-11-04 01:48] VITALS: TEMP 98.7
[2016-11-04 02:26] VITALS: BP 135/66; PULSE 76
== END 2016-11-04 02:23 | disposition left against medical advice (07) ==
LOC: EC 22:07
DX: I10 Essential (primary) hypertension (principal); F10.988 Alcohol use, unspecified with other alcohol-induced disorder; R11.10 Vomiting, unspecified; F41.9 Anxiety disorder, unspecified; F32.9 Major depressive disorder, single episode, unspecified; E66.01 Morbid (severe) obesity due to excess calories; F17.200 Nicotine dependence, unspecified, uncomplicated; Z79.899 Other long term (current) drug therapy; Z68.44 Body mass index [BMI] 60.0-69.9, adult
CPT/HCPCS: 36415; 70450; 80053; 80306; 80320; 81001; 82140; 82150; 82550; 83605; 83690; 83735; 84100; 84484; 85025; 93005; 99284

== ENCOUNTER 2016-11-09 12:50 | Inpatient (IN) | payer MEDICAID, OTHER ==
[2016-11-09] MEDS ORDERED: LORazepam 2 MG/ML SYRINGE IV STA (13:26)
--- NOTE | 2016-11-09 13:26 | ED ---
General Adult HPI - General Chief complaint: Psychiatric Symptoms Stated complaint: Psych Eval Time Seen by Provider: 11/09/16 13:03 Source: patient, family, RN notes reviewed Mode of arrival: ambulatory Limitations: no limitations - History of Present Illness Initial comments: Patient is a pleasant 36-year-old male presenting to the emergency department complaining of anxiety. Patient states symptoms have been severe for the past week. Patient does have a history of depression. Patient saw his doctor and had his Effexor increased from 150 mg now to 300 mg. Patient started becoming very anxious. Patient has not taken this however in the past 3-4 days. No improvement of symptoms. Patient did see his psychiatrist again for this and was told to restart it at 150 mg. Patient complaints of pain tends and shaking all over. Patient complains of diffuse aches and his body including the chest. This is also in his arms and legs. Patient is not sleeping well. Patient has racing thoughts. Patient is not eating or drinking well. Patient denies specific suicidal thoughts. No homicidal thoughts. Patient does drink alcohol. No street drug use. No hallucinations. - Related Data Home Medications Medication Instructions Recorded Confirmed Gabapentin [Neurontin] 300 mg PO QID 11/03/16 11/09/16 Venlafaxine HCl [Effexor XR] 300 mg PO QAM 11/03/16 11/09/16 Vivitrol 380 mg IM Q28D 11/09/16 11/09/16 cloNIDine HCL [Catapres] 0.1 mg PO BID@0800,1400 11/09/16 11/09/16 cloNIDine HCL [Catapres] 0.2 mg PO HS 11/09/16 11/09/16 Previous Rx's Medication Instructions Recorded traZODone HCL [Desyrel] 100 mg PO HS #30 tab 08/11/16 Allergies Allergy/AdvReac Type Severity Reaction Status Date / Time No Known Allergies Allergy Verified 11/09/16 13:01 Review of Systems ROS Statement: Those systems with pertinent positive or pertinent negative responses have been documented in the HPI. ROS Other: All systems not noted in ROS Statement are negative. Constitutional: Reports: other (Diffuse pain). Denies: fever Eyes: Denies: eye pain ENT: Denies: ear pain Respiratory: Denies: cough Cardiovascular: Reports: chest pain Endocrine: Denies: fatigue Gastrointestinal: Denies: abdominal pain Genitourinary: Denies: dysuria Musculoskeletal: Denies: arthralgia Skin: Denies: rash Neurological: Denies: weakness Psychiatric: Reports: anxiety, depression. Denies: auditory hallucinations, visual hallucinations Past Medical History Past Medical History: Hypertension Additional Past Medical History / Comment(s): morbid obesity 550lbs History of Any Multi-Drug Resistant Organisms: None Reported Additional Past Surgical History / Comment(s): gastric bypass, craniotomy-bron without a soft spot Past Anesthesia/Blood Transfusion Reactions: No Reported Reaction Past Psychological History: ADD/ADHD, Anxiety, Depression Smoking Status: Current every day smoker Past Alcohol Use History: Abuse Past Drug Use History: Opiates General Exam Limitations: no limitations Course Vital Signs 11/09/16 11/09/16 12:58 14:45 Temperature 98.5 F Pulse Rate 73 55 L Respiratory 18 18 Rate Blood Pressure 147/76 149/70 O2 Sat by Pulse 99 98 Oximetry - Reevaluation(s) Reevaluation #1: 11/09/16 14:53 Patient updated on labs. Patient is medically clear for psychiatric evaluation. EKG Findings - EKG Comments: EKG Findings:: Normal sinus rhythm at 66. MA 142. QRS 114. QTC 446. QTc 467. Normal axis. Normal QRS. Normal ST-T. Medical Decision Making - Medical Decision Making Patient was seen by mental health services, who will admit. - Lab Data Result diagrams: 11/09/16 13:45 11/09/16 13:45 Lab Results 11/09/16 11/09/16 11/09/16 Range/Units 13:45 13:45 13:45 WBC 3.5 L (3.8-10.6) k/uL RBC 4.80 (4.30-5.90) m/uL Hgb 10.0 L (13.0-17.5) gm/dL Hct 35.1 L (39.0-53.0) % MCV 73.2 L (80.0-100.0) fL MCH 20.9 L (25.0-35.0) pg MCHC 28.6 L (31.0-37.0) g/dL RDW 20.2 H (11.5-15.5) % Plt Count 180 (150-450) k/uL Neutrophils % 71 % Lymphocytes % 16 % Monocytes % 9 % Eosinophils % 2 % Basophils % 1 % Neutrophils # 2.5 (1.3-7.7) k/uL Lymphocytes # 0.6 L (1.0-4.8) k/uL Monocytes # 0.3 (0-1.0) k/uL Eosinophils # 0.1 (0-0.7) k/uL Basophils # 0.0 (0-0.2) k/uL Hypochromasia Marked Anisocytosis Moderate Microcytosis Marked PT (9.0-12.0) sec INR (<1.1) APTT (22.0-30.0) sec Sodium 142 (137-145) mmol/L Potassium 4.2 (3.5-5.1) mmol/L Chloride 108 H (98-107) mmol/L Carbon Dioxide 25 (22-30) mmol/L Anion Gap 9 mmol/L BUN 9 (9-20) mg/dL Creatinine 0.60 L (0.66-1.25) mg/dL Est GFR (MDRD) Af Amer >60 (>60 ml/min/1.73 sqM) Est GFR (MDRD) Non-Af >60 (>60 ml/min/1.73 sqM) Glucose 99 (74-99) mg/dL Calcium 8.6 (8.4-10.2) mg/dL Magnesium 1.6 (1.6-2.3) mg/dL Total Bilirubin 0.9 (0.2-1.3) mg/dL AST 227 H (17-59) U/L ALT 86 H (21-72) U/L Alkaline Phosphatase 57 (38-126) U/L Total Creatine Kinase 120 (55-170) U/L CK-MB (CK-2) 1.9 (0.0-2.4) ng/mL CK-MB (CK-2) Rel Index 1.6 Troponin I <0.012 (0.000-0.034) ng/mL Total Protein 6.1 L (6.3-8.2) g/dL Albumin 3.6 (3.5-5.0) g/dL Urine Opiates Screen (NotDetected) Ur Oxycodone Screen (NotDetected) Urine Methadone Screen (NotDetected) Ur Propoxyphene Screen (NotDetected) Ur Barbiturates Screen (NotDetected) U Tricyclic Antidepress (NotDetected) Ur Phencyclidine Scrn (NotDetected) Ur Amphetamines Screen (NotDetected) U Methamphetamines Scrn (NotDetected) U Benzodiazepines Scrn (NotDetected) Urine Cocaine Screen (NotDetected) U Marijuana (THC) Screen (NotDetected) Serum Alcohol 28 mg/dL 11/09/16 11/09/16 Range/Units 13:45 14:30 WBC (3.8-10.6) k/uL RBC (4.30-5.90) m/uL Hgb (13.0-17.5) gm/dL Hct (39.0-53.0) % MCV (80.0-100.0) fL MCH (25.0-35.0) pg MCHC (31.0-37.0) g/dL RDW (11.5-15.5) % Plt Count (150-450) k/uL Neutrophils % % Lymphocytes % % Monocytes % % Eosinophils % % Basophils % % Neutrophils # (1.3-7.7) k/uL Lymphocytes # (1.0-4.8) k/uL Monocytes # (0-1.0) k/uL Eosinophils # (0-0.7) k/uL Basophils # (0-0.2) k/uL Hypochromasia Anisocytosis Microcytosis PT 10.5 (9.0-12.0) sec INR 1.0 (<1.1) APTT 24.4 (22.0-30.0) sec Sodium (137-145) mmol/L Potassium (3.5-5.1) mmol/L Chloride (98-107) mmol/L Carbon Dioxide (22-30) mmol/L Anion Gap mmol/L BUN (9-20) mg/dL Creatinine (0.66-1.25) mg/dL Est GFR (MDRD) Af Amer (>60 ml/min/1.73 sqM) Est GFR (MDRD) Non-Af (>60 ml/min/1.73 sqM) Glucose (74-99) mg/dL Calcium (8.4-10.2) mg/dL Magnesium (1.6-2.3) mg/dL Total Bilirubin (0.2-1.3) mg/dL AST (17-59) U/L ALT (21-72) U/L Alkaline Phosphatase (38-126) U/L Total Creatine Kinase (55-170) U/L CK-MB (CK-2) (0.0-2.4) ng/mL CK-MB (CK-2) Rel Index Troponin I (0.000-0.034) ng/mL Total Protein (6.3-8.2) g/dL Albumin (3.5-5.0) g/dL Urine Opiates Screen Not Detected (NotDetected) Ur Oxycodone Screen Not Detected (NotDetected) Urine Methadone Screen Not Detected (NotDetected) Ur Propoxyphene Screen Not Detected (NotDetected) Ur Barbiturates Screen Not Detected (NotDetected) U Tricyclic Antidepress Not Detected (NotDetected) Ur Phencyclidine Scrn Not Detected (NotDetected) Ur Amphetamines Screen Not Detected (NotDetected) U Methamphetamines Scrn Not Detected (NotDetected) U Benzodiazepines Scrn Detected H (NotDetected) Urine Cocaine Screen Not Detected (NotDetected) U Marijuana (THC) Screen Detected H (NotDetected) Serum Alcohol mg/dL - Radiology Data Radiology results: image reviewed (Chest x-ray shows no acute process. Chronic left AC separation.) Disposition Clinical Impression: Depression, Generalized anxiety disorder Disposition: TRANSFER TO PSYCH HOSP/UNIT
[2016-11-09 13:59] LABS: Anisocytosis Moderate; Basophils % (A) 1 %; CH 20.3; Eosinophils # (A) 0.1 k/uL (0-0.7); Eosinophils % (A) 2 %; HCT 35.1 % (39.0-53.0); HDW 3.27; Hypochromasia Marked; Luc # (Auto) 0.07; Luc % (Auto) 2; Lymphocytes # (A) 0.6 k/uL (1.0-4.8); Lymphocytes % (A) 16 %; MCH 20.9 pg (25.0-35.0); MCHC 28.6 g/dL (31.0-37.0); MCV 73.2 fL (80.0-100.0); Mean Platelet Volume 9.7; Microcytosis Marked; Monocytes # (A) 0.3 k/uL (0-1.0); Monocytes % (A) 9 %; Neutrophils # (A) 2.5 k/uL (1.3-7.7); Neutrophils % (A) 71 %; RDW 20.2 % (11.5-15.5); WBC 3.5 k/uL (3.8-10.6); WBC (Perox) 3.19
[2016-11-09 14:04] LABS: ALT 86 U/L (21-72); AST 227 U/L (17-59); Alcohol 28 mg/dL; Alkaline Phosphatase 57 U/L (38-126); Anion Gap 9 mmol/L; Blood Urea Nitrogen 9 mg/dL (9-20); Calcium 8.6 mg/dL (8.4-10.2); Carbon Dioxide 25 mmol/L (22-30); Chloride 108 mmol/L (98-107); Glucose 99 mg/dL (74-99); Magnesium 1.6 mg/dL (1.6-2.3); Non-African American GFR(MDRD) >60 (>60 ml/min/1.73 sqM); Potassium 4.2 mmol/L (3.5-5.1); Sodium 142 mmol/L (137-145); Total Bilirubin 0.9 mg/dL (0.2-1.3); Total Protein 6.1 g/dL (6.3-8.2)
[2016-11-09 14:05] LABS: Partial Thromboplastin Time 24.4 sec (22.0-30.0); Prothrombin Time 10.5 sec (9.0-12.0)
[2016-11-09 14:19] LABS: Creatine Kinase 120 U/L (55-170)
[2016-11-09 14:32] LABS: Creatine Kinase MB 1.9 ng/mL (0.0-2.4); Troponin I <0.012 ng/mL (0.000-0.034)
--- NOTE | 2016-11-09 14:49 | XR ---
EXAMINATION TYPE: XR chest 2V DATE OF EXAM: 11/09/2016 2:26 PM COMPARISON: Left shoulder July HISTORY: Chest pain, anxiety TECHNIQUE: Frontal and lateral views of the chest are obtained on 3 images. FINDINGS: There is no focal air space opacity, pleural effusion, or pneumothorax seen. The cardiac silhouette size is within normal limits. The osseous structures are remarkable for superior displac ement of the left distal clavicle relation to the acromion. IMPRESSION: Acromioclavicular separation on the left shoulder as previously described. No acute card iopulmonary disease
[2016-11-09] MEDS ORDERED: ACETAMINOPHEN TAB 325 MG TAB PO PRN (17:08)
[2016-11-09] MEDS ORDERED: MAGNESIUM HYDROXIDE 2,400 MG/10 ML CUP PO PRN (17:08)
[2016-11-09] MEDS ORDERED: ZIPRASIDONE 20 MG VIAL IM PRN (17:08)
[2016-11-09] MEDS ORDERED: LORazepam 2 MG/ML SYRINGE IM PRN (17:13)
[2016-11-09 18:04] VITALS: BMI 34.0
[2016-11-09 18:31] LABS: Appearance,Urine Clear (Clear); Bilirubin,Urine Negative (Negative); Glucose,Urine (UA) Negative (Negative); Ketones,Urine Trace (Negative); Leukocyte Esterase,Urine Negative (Negative); Nitrite,Urine Negative (Negative); Protein,Urine Trace (Negative); Specific Gravity,Urine 1.022 (1.001-1.035); UA Billing (MACRO vs. MICRO) CHEM
[2016-11-09] MEDS: GABAPENTIN 300 MG CAP PO SCH ×2 (19:06→20:50)
[2016-11-09] MEDS ORDERED: PNEUMOCOCCAL VACC-PNEUMOVAX 23 25 MCG/0.5 ML VIAL IM ONE (20:13)
[2016-11-09] MEDS: cloNIDine HCL 0.2 MG TAB PO SCH (20:50)
[2016-11-09] MEDS: traZODone HCL 100 MG TAB PO SCH (20:50)
[2016-11-09] MEDS: LORazepam 1 MG TAB PO PRN (20:50)
[2016-11-10 06:49] VITALS: TEMP 98
[2016-11-10] MEDS: GABAPENTIN 300 MG CAP PO SCH ×4 (08:59→21:08)
[2016-11-10] MEDS: NALTREXONE HCL 50 MG TAB PO SCH (08:59)
[2016-11-10] MEDS: cloNIDine HCL 0.1 MG TAB PO SCH ×2 (08:59→13:49)
[2016-11-10] MEDS: NICOTINE 14MG/24HR PATCH TRANSDERM SCH ×2 (09:00→13:32)
[2016-11-10] MEDS: LORazepam 1 MG TAB PO PRN ×2 (09:01→17:33)
[2016-11-10] MEDS: MAG HYDROX/AL HYDROX/SIMETH 30 ML CUP PO PRN (09:01)
--- NOTE | 2016-11-10 13:07 | P.HP ---
Psychiatric H&P - . H&P Date: 11/10/16 History & Physical: IDENTIFYING DATA: Mr. Aguilar is 36-year-old male who presented to unit voluntarily with complaints of increased anxiety. HISTORY OF PRESENT ILLNESS: He complained of the acute onset of several symptoms including marked anxiety, restlessness, diaphoresis, poor sleep, tremor and muscle twitching since his outpatient psychiatrist increased venlafaxine to 300 mg per day. He presented to our ER and 11/03/2016 with the complaint of feeling unwell, feeling weak and being more agitated than normal. He also reported that he was talking more than usual and his family became concerned about his behavior. His blood pressure was elevated in the range of 155-162/74-95. His pulse rate ranged from 79-100. He left the emergency room AGAINST MEDICAL ADVICE. His discharge diagnoses were hypertension alcohol use disorder. He spoke with his brother, who is a physician, and his brother told him he thought that he was experiencing "serotonin syndrome" and recommended he stop Effexor. He stopped Effexor then met with outpatient psychiatrist. They outpatient psychiatrist recommended that he resume the Effexor but at a lower dose. However, he is afraid to restart medication. His outpatient psychotropic medications included Effexor XL 300 mg daily, trazodone 100 mg at bedtime, Catapres 0.1 mg twice a day and 0.2 mg at bedtime, Neurontin 300 mg 4 times a day and Vivitrol 380 mg IM every 28 days. He feels depressed but denied thoughts of or suicide. He is anxious about resuming treatment for his depression. He denied feelings of hopelessness , helplessness or worthlessness. He denied psychotic symptoms such as auditory or visual hallucinations, ideas reference, thought insertion, thought broadcasting or thought control. He denied obsessions or compulsions. She denied use of drugs with the exception of marijuana. He has a history of a alcohol use disorder. He stated that on the average she drinks about 1 pint of alcohol, usually vodka, per day but over the last week or 2 has been drinking up to one fifth of alcohol per day. The alcohol was the only treatment they decreased his anxiety, restlessness and hyperactivity. PAST PSYCHIATRIC HISTORY: He was discharged from this unit on 08/11/2016 with the diagnoses of major depressive disorder recurrent, generalized anxiety disorder and an alcohol use disorder. His discharge medications include Effexor ER 75 mg daily and trazodone 100 mg at bedtime. We referred him to [facility] for continued outpatient treatment. He stated that [facility] consumer insights intern referred him to the [facility]. PAST MEDICAL HISTORY: He has a history of hypertension and morbid obesity. His surgeries include gastric bypass. ALLERGIES: NO KNOWN DRUG ALLERGIES. SUBSTANCE USE HISTORY: His history of an alcohol use disorder. He began drinking when he was 15 or 16 years old. In retrospect, his alcohol use became a problem and he was 22 years old. He is attended 3 substance abuse treatment programs; one at [facility] and 2 at [facility]. His last admission to [facility] was " September or October" on 2016. He reported that he maintained one year of abstinence from 2014 to 2015 following his first discharge from [facility]. This is when he was first placed on Vivitrolfor the treatment of his alcohol use disorder. He has been inconsistent with Vivitrol injections since his discharge from this unit. He talked about some difficulty with obtaining the order from the physician at [facility] and recently held the injection because he had dental surgery. He smokes marijuana daily basis. He reported a problem with oral opiate drugs for several years. He stopped using oral opiates 5 years ago. He denied use of heroin. FAMILY PSYCHIATRIC/SUBSTANCE USE HISTORY: He is family history of substance use problems. His mother became severely addicted to narcotics after a automobile accident. She by and overdose with alcohol and prescription pain medications. LEGAL HISTORY: He has pending charges for driving on a suspended license. He is a past conviction eviction for disorderly conduct.. SOCIAL HISTORY: His born and raised by an intact family. He has 1 brother. His mother is and he has no strange relationship with his father. He completed high school and received some college education but not a degree. He is and has one child who is in the custody of his ex-. He is currently unemployed and has no income. He lives with his girlfriend's family. MENTAL STATUS EXAM: He presented as a casually groomed 36-year-old male who was pleasant on approach. He made eye contact and attended to the interview. He had no distinguishing features or prominent physical abnormalities. He had an anxious facial expression. He had a slight hand tremor but no abnormal involuntary movements. Speech was spontaneous with normal rate, rhythm and volume. His affect was anxious but stable and appropriate. He denied suicidal ideation or wishes. He denied homicidal ideation. He denied depressive cognitions such as hopelessness, helplessness or worthlessness. He ruminated about the physical symptoms that developed after increase in the Effexor. He did not express ideas reference, phobias, paranoid ideation or delusional beliefs. His thinking was abstract and associations were coherent and logical. He did not demonstrate clang associations, perseveration, neologisms or blocking. He denied hallucinations and did not appear to be responding to internal stimuli. Global impression of intellect is average to above. He is aware of his illness and need for mental health treatment. STRENGTHS: Stable housing, supportive relationship, involved with mental health treatment. WEAKNESSES: Alcohol use problems. IMPRESSION: He is a 36-year-old male who has a history of an alcohol use disorder. He presented with signs and symptoms consistent with serotonin syndrome. He was taking 2 antidepressants Effexor XR and trazodone. His symptoms developed after the Effexor dose was increased 300 mg per day. Since stopping the Effexor the symptoms have gradually abated. He also has a history of alcohol use disorder and described increased use of alcohol. We should discontinue Effexor and he requires treatment with antidepressant consider a single agent. 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 Suicide precautions with 15 minute checks. Continue Neurontin 300 mg by mouth 4 times a day for treatment of anxiety and alcohol use disorder, 50 mg daily for the treatment of alcohol use disorder, trazodone 100 mg at bedtime for sleep, clonidine 0.1 mg twice a day and 0.2 mg at bedtime for treatment of hypertension. If he requires an antidepressant consider changing trazodone to mirtazapine . Consult medicine for initial physical exam and medical history. Encourage participation in therapeutic groups and activities. Evaluate clinical status response to treatment on a daily basis Allergies Allergy/AdvReac Type Severity Reaction Status Date / Time No Known Allergies Allergy Verified 11/09/16 13:01 Vital Signs Temp 98.0 F 11/10/16 06:49 Pulse 49 L 11/10/16 06:49 Resp 16 11/10/16 06:49 BP 115/57 11/10/16 06:49 Pulse Ox 97 11/09/16 17:27 Intake & Output 11/09/16 11/10/16 11/10/16 18:59 06:59 18:59 Weight 120.208 kg Laboratory Last Values WBC 3.5 k/uL (3.8-10.6) L 11/09/16 13:45 RBC 4.80 m/uL (4.30-5.90) 11/09/16 13:45 Hgb 10.0 gm/dL (13.0-17.5) L 11/09/16 13:45 Hct 35.1 % (39.0-53.0) L 11/09/16 13:45 MCV 73.2 fL (80.0-100.0) L 11/09/16 13:45 MCH 20.9 pg (25.0-35.0) L 11/09/16 13:45 MCHC 28.6 g/dL (31.0-37.0) L 11/09/16 13:45 RDW 20.2 % (11.5-15.5) H 11/09/16 13:45 Plt Count 180 k/uL (150-450) 11/09/16 13:45 Neutrophils % 71 % 11/09/16 13:45 Lymphocytes % 16 % 11/09/16 13:45 Monocytes % 9 % 11/09/16 13:45 Eosinophils % 2 % 11/09/16 13:45 Basophils % 1 % 11/09/16 13:45 Neutrophils # 2.5 k/uL (1.3-7.7) 11/09/16 13:45 Lymphocytes # 0.6 k/uL (1.0-4.8) L 11/09/16 13:45 Monocytes # 0.3 k/uL (0-1.0) 11/09/16 13:45 Eosinophils # 0.1 k/uL (0-0.7) 11/09/16 13:45 Basophils # 0.0 k/uL (0-0.2) 11/09/16 13:45 Hypochromasia Marked 11/09/16 13:45 Anisocytosis Moderate 11/09/16 13:45 Microcytosis Marked 11/09/16 13:45 PT 10.5 sec (9.0-12.0) 11/09/16 13:45 INR 1.0 (<1.1) 11/09/16 13:45 APTT 24.4 sec (22.0-30.0) 11/09/16 13:45 Sodium 142 mmol/L (137-145) 11/09/16 13:45 Potassium 4.2 mmol/L (3.5-5.1) 11/09/16 13:45 Chloride 108 mmol/L (98-107) H 11/09/16 13:45 Carbon Dioxide 25 mmol/L (22-30) 11/09/16 13:45 Anion Gap 9 mmol/L 11/09/16 13:45 BUN 9 mg/dL (9-20) 11/09/16 13:45 Creatinine 0.60 mg/dL (0.66-1.25) L 11/09/16 13:45 Est GFR (MDRD) Af Amer >60 (>60 ml/min/1.73 sqM) 11/09/16 13:45 Est GFR (MDRD) Non-Af >60 (>60 ml/min/1.73 sqM) 11/09/16 13:45 Glucose 99 mg/dL (74-99) 11/09/16 13:45 Calcium 8.6 mg/dL (8.4-10.2) 11/09/16 13:45 Magnesium 1.6 mg/dL (1.6-2.3) 11/09/16 13:45 Total Bilirubin 0.9 mg/dL (0.2-1.3) 11/09/16 13:45 AST 227 U/L (17-59) H 11/09/16 13:45 ALT 86 U/L (21-72) H 11/09/16 13:45 Alkaline Phosphatase 57 U/L (38-126) 11/09/16 13:45 Total Creatine Kinase 120 U/L (55-170) 11/09/16 13:45 CK-MB (CK-2) 1.9 ng/mL (0.0-2.4) 11/09/16 13:45 CK-MB (CK-2) Rel Index 1.6 11/09/16 13:45 Troponin I <0.012 ng/mL (0.000-0.034) 11/09/16 13:45 Total Protein 6.1 g/dL (6.3-8.2) L 11/09/16 13:45 Albumin 3.6 g/dL (3.5-5.0) 11/09/16 13:45 TSH 0.332 mIU/L (0.465-4.680) L 11/09/16 13:45 Urine Color Yellow 11/09/16 14:50 Urine Appearance Clear (Clear) 11/09/16 14:50 Urine pH 8.0 (5.0-8.0) 11/09/16 14:50 Ur Specific Johnston 1.022 (1.001-1.035) 11/09/16 14:50 Urine Protein Trace (Negative) H 11/09/16 14:50 Urine Glucose (UA) Negative (Negative) 11/09/16 14:50 Urine Ketones Trace (Negative) H 11/09/16 14:50 Urine Blood Negative (Negative) 11/09/16 14:50 Urine Nitrite Negative (Negative) 11/09/16 14:50 Urine Bilirubin Negative (Negative) 11/09/16 14:50 Urine Urobilinogen 6.0 mg/dL (<2.0) 11/09/16 14:50 Ur Leukocyte Esterase Negative (Negative) 11/09/16 14:50 Urine Opiates Screen Not Detected (NotDetected) 11/09/16 14:30 Ur Oxycodone Screen Not Detected (NotDetected) 11/09/16 14:30 Urine Methadone Screen Not Detected (NotDetected) 11/09/16 14:30 Ur Propoxyphene Screen Not Detected (NotDetected) 11/09/16 14:30 Ur Barbiturates Screen Not Detected (NotDetected) 11/09/16 14:30 U Tricyclic Antidepress Not Detected (NotDetected) 11/09/16 14:30 Ur Phencyclidine Scrn Not Detected (NotDetected) 11/09/16 14:30 Ur Amphetamines Screen Not Detected (NotDetected) 11/09/16 14:30 U Methamphetamines Scrn Not Detected (NotDetected) 11/09/16 14:30 U Benzodiazepines Scrn Detected (NotDetected) H 11/09/16 14:30 Urine Cocaine Screen Not Detected (NotDetected) 11/09/16 14:30 U Marijuana (THC) Screen Detected (NotDetected) H 11/09/16 14:30 Serum Alcohol 28 mg/dL 11/09/16 13:45 11/10/16 07:58 11/10/16 12:30
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
[2016-11-10] MEDS: traZODone HCL 100 MG TAB PO SCH (21:08)
[2016-11-10] MEDS: cloNIDine HCL 0.2 MG TAB PO SCH (21:08)
[2016-11-11] MEDS: NALTREXONE HCL 50 MG TAB PO SCH (09:14)
[2016-11-11] MEDS: cloNIDine HCL 0.1 MG TAB PO SCH (09:14)
[2016-11-11] MEDS: GABAPENTIN 300 MG CAP PO SCH (09:14)
[2016-11-11] MEDS: NICOTINE 14MG/24HR PATCH TRANSDERM SCH (09:14)
[2016-11-11 09:17] VITALS: BP 135/81; PULSE 104; RESP 20
[2016-11-11] MEDS: MAG HYDROX/AL HYDROX/SIMETH 30 ML CUP PO PRN (09:23)
--- NOTE | 2016-11-11 12:27 | P.DS ---
Providers Date of admission: 11/09/16 17:04 Attending physician: Amando Parrish MD Consults: 11/09/16 17:08 Consult Physician Routine Consulting Provider: Blane Melara Consult Reason/Comments: Follow UP H & P Do you want consulting provider notified?: Yes Primary care physician: Stated None - Discharge Diagnosis(es) (1) Serotonin syndrome Current Visit: Yes Status: Acute Priority: High (2) Acromioclavicular joint separation, type 3 Current Visit: No Status: Chronic Priority: Low (3) Alcohol use disorder Current Visit: No Status: Chronic Priority: High (4) Hypertension Current Visit: No Status: Chronic Priority: Medium Hospital Course: Mr. Aguilar is 36-year-old male who presented to unit voluntarily with complaints of increased anxiety. He complained of the acute onset of several symptoms including marked anxiety, restlessness, diaphoresis, poor sleep, tremor and muscle twitching since his outpatient psychiatrist increased venlafaxine to 300 mg per day. He presented to our ER and 11/03/2016 with the complaint of feeling unwell, feeling weak and being more agitated than normal. He also reported that he was talking more than usual and his family became concerned about his behavior. His blood pressure was elevated in the range of 155-162/74-95. His pulse rate ranged from 79-100. He left the emergency room AGAINST MEDICAL ADVICE. His discharge diagnoses were hypertension alcohol use disorder. He spoke with his brother, who is a physician, and his brother told him he thought that he was experiencing "serotonin syndrome" and recommended he stop Effexor. He stopped Effexor then met with outpatient psychiatrist. They outpatient psychiatrist recommended that he resume the Effexor but at a lower dose. However, he is afraid to restart medication. His outpatient psychotropic medications included Effexor XL 300 mg daily, trazodone 100 mg at bedtime, Catapres 0.1 mg twice a day and 0.2 mg at bedtime, Neurontin 300 mg 4 times a day and Vivitrol 380 mg IM every 28 days. He feels depressed but denied thoughts of or suicide. He is anxious about resuming treatment for his depression. He denied feelings of hopelessness , helplessness or worthlessness. He denied psychotic symptoms such as auditory or visual hallucinations, ideas reference, thought insertion, thought broadcasting or thought control. He denied obsessions or compulsions. She denied use of drugs with the exception of marijuana. He has a history of a alcohol use disorder. He stated that on the average she drinks about 1 pint of alcohol, usually vodka, per day but over the last week or 2 has been drinking up to one fifth of alcohol per day. The alcohol was the only treatment they decreased his anxiety, restlessness and hyperactivity. He was discharged from this unit on 08/11/2016 with the diagnoses of major depressive disorder recurrent, generalized anxiety disorder and an alcohol use disorder. His discharge medications include Effexor ER 75 mg daily and trazodone 100 mg at bedtime. We referred him to [facility] for continued outpatient treatment. He stated that [facility] academic intern referred him to the [facility]. He has a history of an alcohol use disorder. He began drinking when he was 15 or 16 years old. In retrospect, his alcohol use became a problem and he was 22 years old. He is attended 3 substance abuse treatment programs; one at [facility] and 2 at [facility]. His last admission to [facility] was" September or October" on 2016. He reported that he maintained one year of abstinence from 2014 to 2015 following his first discharge from [facility]. This is when he was first placed on Vivitrol for the treatment of his alcohol use disorder. He has been inconsistent with Vivitrol injections since his discharge from this unit. He talked about some difficulty with obtaining the order from the physician at [facility] and recently held the injection because he had dental surgery. He smokes marijuana daily basis. He reported a problem with oral opiate drugs for several years. He stopped using oral opiates 5 years ago. He denied use of heroin. We admitted him to the psychiatric unit under the care of this science writer. Provided a biopsychosocial assessment. The supply chain consultant completed the initial physical exam and medical history and diagnosed alcohol abuse with withdrawal, abdominal discomfort and vomiting possibly related to mild pancreatitis, tobacco use disorder, deformity of left clavicle and marijuana use. We discontinued venlafaxine of concern that his presenting complaints were related to a serotonin syndrome but continue trazodone 100 mg at bedtime. We treated his alcohol withdrawal with a CIWA protocol and lorazepam. He had mild symptoms of alcohol withdrawal uncomplicated by delirium or psychosis. The presenting complaints including anxiety, tremor, restlessness and poor sleep resolved once he stopped the venlafaxine. He recommended ReVia 50 mg daily for the treatment of his alcohol use disorder because he can can discontinue the ReVia 3 days before his oral surgery and once he stops the oral pain medications he can resume ReVia. Once his oral surgery is complete he can resume Vivatrol. At the time of discharge denied feeling depressed or having thoughts of or suicide. He denied anxiety. He denied psychotic symptoms. He denied alcohol withdrawal symptoms. 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 He will follow-up with his outpatient mental health clinic. Patient Condition at Discharge: Stable Plan - Discharge Summary New Discharge Prescriptions: Naltrexone HCl [Revia] 50 mg PO DAILY #30 tab Nicotine 14Mg/24Hr Patch [Habitrol] 1 patch TRANSDERM DAILY #14 patch Discharge Medication List traZODone HCL [Desyrel] 100 mg PO HS #30 tab 08/11/16 [Rx] Gabapentin [Neurontin] 300 mg PO QID 11/03/16 [History] Vivitrol 380 mg IM Q28D 11/09/16 [History] cloNIDine HCL [Catapres] 0.1 mg PO BID@0800,1400 11/09/16 [History] cloNIDine HCL [Catapres] 0.2 mg PO HS 11/09/16 [History] Naltrexone HCl [Revia] 50 mg PO DAILY #30 tab 11/11/16 [Rx] Nicotine 14Mg/24Hr Patch [Habitrol] 1 patch TRANSDERM DAILY #14 patch 11/11/16 [ Rx] Follow up Appointment(s)/Referral(s): [facility] [Outside] - 11/26/16 10:00 am ([place] due to holiday past 7 day window. ) None,Stated [Primary Care Provider] - 1-2 days Patient Instructions/Handouts: How to Stop Smoking (DC), Generalized Anxiety Disorder (DC), Suicide Prevention for Adults (DC) Activity/Diet/Wound Care/Special Instructions: Activity and diet as tolerated. No alcohol or street drugs, remove firearms from the home. Follow up with your outpatient provider and PCP within 1-2 days. Call 911 or the crisis hotline ( ) if you feel like harming yourself or someone else. Discharge Disposition: HOME SELF-CARE
== END 2016-11-11 12:10 | disposition home or self-care (01) | DRG 884 ==
LOC: EC 12:50 → 3MHU 17:04
PROVIDERS: ADMIT Psychiatry & Neurology Psychiatry; ATTEND Psychiatry & Neurology Psychiatry
DX: F06.4 Anxiety disorder due to known physiological condition (principal); F33.9 Major depressive disorder, recurrent, unspecified; I10 Essential (primary) hypertension; F10.10 Alcohol abuse, uncomplicated; T50.995A Adverse effect of other drugs, medicaments and biological substances, initial encounter; F12.90 Cannabis use, unspecified, uncomplicated; F17.200 Nicotine dependence, unspecified, uncomplicated; S43.109A Unspecified dislocation of unspecified acromioclavicular joint, initial encounter; Z79.899 Other long term (current) drug therapy; Z98.84 Bariatric surgery status
CPT/HCPCS: 36415; 71020; 80053; 80306; 80320; 81003; 82075; 82550; 82553; 83690; 83735; 84443; 84484; 85025; 85610; 85730; 90732; 93005; 96374; 99285

== ENCOUNTER 2016-12-13 09:31 | Day surgery (SDC) | payer OTHER ==
[2016-12-10 14:03] VITALS: BMI 32.9
[~2016-12-13 09:31] MED LIST: HEPARIN SODIUM,PORCINE 5,000 UNIT/ML 1 ML VIAL SQ ONE
--- NOTE | 2016-12-13 09:42 | P.GSHP ---
History of Present Illness H&P Date: 12/13/16 Chief Complaint: Right upper quadrant pain Is a 36-year-old male who presents today for laparoscopic cholecystectomy. Patient complaints of abdominal pain. His recent HIDA scan shows abnormal ejection fraction consistent with cholecystitis. 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 Mother Family Medical History: Cancer Additional Family Medical History / Comment(s): breast Brother(s) Additional Family Medical History / Comment(s): Patient has one brother with history of anxiety and depression. Patient does not have any sisters. Patient has 1 son that is 10 years old with diabetes mellitus type 1. Medications and Allergies Home Medications Medication Instructions Recorded Confirmed Type Gabapentin [Neurontin] 300 mg PO QID 11/03/16 12/10/16 History Acetaminophen [Tylenol Extra 1,000 mg PO DIRECTED PRN 12/10/16 12/10/16 History Strength] Calcium Carbonate [Tums] 500 mg PO TID PRN 12/10/16 12/10/16 History Allergies Allergy/AdvReac Type Severity Reaction Status Date / Time No Known Allergies Allergy Verified 12/10/16 13:47 Surgical - Exam - General well developed, no distress - Eyes PERRL - ENT normal pinna - Neck no masses - Respiratory normal expansion - Cardiovascular Rhythm: regular - Abdomen Abdomen: soft, non tender Assessment and Plan Plan: Chronic cholecystitis. We'll perform laparoscopic cholecystectomy.
[2016-12-13] MEDS ORDERED: LACTATED RINGERS 1,000 ML IV ONE ×2 (09:53→10:52)
[2016-12-13] MEDS ORDERED: LIDOCAINE 1% 20 ML VIAL (10MG/ML) FOR IV START SQ ONE (09:53)
[2016-12-13] MEDS ORDERED: DEXAMETHASONE SOD PHOSPHATE 10 MG/ML 1 ML VIAL IV ONE (09:54)
[2016-12-13] MEDS ORDERED: ONDANSETRON 4 MG/2 ML VIAL IVP ONE (09:54)
[2016-12-13] MEDS ORDERED: BUPIVACAIN-EPI 0.5%-1:200,000 30 ML VIAL SQ ONE ×2 (10:01→10:39)
[2016-12-13 10:16] LABS: ALT 197 U/L (21-72); AST 373 U/L (17-59); Alkaline Phosphatase 57 U/L (38-126); Anion Gap 13 mmol/L; Blood Urea Nitrogen 9 mg/dL (9-20); Carbon Dioxide 27 mmol/L (22-30); Chloride 107 mmol/L (98-107); Glucose 87 mg/dL (74-99); Non-African American GFR(MDRD) >60 (>60 ml/min/1.73 sqM); Potassium 3.9 mmol/L (3.5-5.1); Sodium 147 mmol/L (137-145); Total Bilirubin 0.8 mg/dL (0.2-1.3); Total Protein 7.5 g/dL (6.3-8.2)
[2016-12-13] MEDS ORDERED: MIDAZOLAM 2 MG/2 ML VIAL ONE (10:18)
[2016-12-13] MEDS ORDERED: LIDOCAINE 1% INJ 10MG/ML (20 ML MDV) ONE (10:18)
[2016-12-13] MEDS ORDERED: SUCCINYLCHOLINE CHLORIDE 100 MG/5 ML SYR IV ONE (10:18)
[2016-12-13] MEDS ORDERED: PROPOFOL 10 MG/ML 20 ML VIAL IV ONE (10:18)
[2016-12-13] MEDS ORDERED: ROCURONIUM BROMIDE 10 MG/ML 10 ML VIAL IV ONE (10:18)
[2016-12-13] MEDS ORDERED: fentaNYL (PF) 50 MCG/ML 2 ML AMP ONE (10:18)
[2016-12-13] MEDS ORDERED: HYDROmorphone (PF) 1 MG/ML ONE (10:18)
[2016-12-13] MEDS ORDERED: NEOSTIGMINE 1 MG/ML 10 ML VIAL ONE (10:18)
[2016-12-13] MEDS ORDERED: GLYCOPYRROLATE 0.2 MG/ML 2 ML VIAL ONE (10:18)
[2016-12-13 10:19] LABS: Anisocytosis Slight; Basophils # (A) 0.1 k/uL (0-0.2); Basophils % (A) 1 %; CH 20.9; CHCM 27.9; Eosinophils # (A) 0.2 k/uL (0-0.7); Eosinophils % (A) 5 %; HCT 41.1 % (39.0-53.0); HDW 3.04; HGB 11.5 gm/dL (13.0-17.5); Hypochromasia Marked; Luc # (Auto) 0.17; Luc % (Auto) 4; Lymphocytes # (A) 1.1 k/uL (1.0-4.8); Lymphocytes % (A) 27 %; MCH 21.2 pg (25.0-35.0); MCHC 28.1 g/dL (31.0-37.0); MCV 75.4 fL (80.0-100.0); Mean Platelet Volume 8.3; Microcytosis Moderate; Monocytes # (A) 0.3 k/uL (0-1.0); Monocytes % (A) 8 %; Neutrophils # (A) 2.2 k/uL (1.3-7.7); Neutrophils % (A) 54 %; RBC 5.44 m/uL (4.30-5.90); RDW 19.6 % (11.5-15.5); WBC (Perox) 4.46
[2016-12-13] MEDS: ceFAZolin 2 GM in SODIUM CHLORIDE 0.9% 100 ML IVPB ONE ×2 (10:20→10:21)
--- NOTE | 2016-12-13 11:02 | P.OP ---
Date of Procedure: 12/13/16 Preoperative Diagnosis: Cholecystitis Postoperative Diagnosis: Cholecystitis Procedure(s) Performed: Laparoscopic cholecystectomy Implants: Anesthesia: CHELLE Surgeon: Anand Arias Estimated Blood Loss (ml): 5 Pathology: other (Gallbladder) Condition: stable Disposition: PACU Indications for Procedure: Operative Findings: Description of Procedure: The patient was placed on the operating table. The patient received a general endotracheal tube anesthesia. The patients abdomen was prepped and draped in the usual sterile fashion. Through an infraumbilical stab incision, the fascia of the anterior abdominal wall was grasped with a pair of Kochers and then the Veress needle was placed in the peritoneal cavity. Position of the Veress needle was confirmed with positive drop test. The abdomen was then insufflated. After adequate insufflation, the 10 mm trocar was placed in the peritoneal cavity. Following this the laparoscope was placed in the peritoneal cavity. The patient was placed in the head-up, right side up position and then a 5 mm trocar was placed in the right lateral and right subcostal position under direct visualization. A 8 mm trocar was placed in the epigastric position. The gallbladder was grasped in the fundus and infundibulum. Traction on the gallbladder was placed in the lateral and the cephalad positions. The triangle of Calot was visualized.. The cystic duct was bluntly dissected until the union of the cystic duct and common bile duct was seen. The cystic duct was then divided and sealed with the Harmonic scissors. A PDS Endoloop was then placed throughout the cystic duct stump. The cystic artery divided and sealed with the Harmonic scissors. The gallbladder was then removed from the liver bed using Harmonic scissors. The gallbladder was then extracted through the epigastric port site. Operative field was checked for any bleeding spots and Harmonic scissors was used to coagulate the liver bed. The abdomen was irrigated. The trocars were removed. The skin was closed using interrupted 3-0 Vicryl suture. Dermabond dressing were applied. The patient tolerated the procedure well.
[2016-12-13 11:19] VITALS: TEMP 98
[2016-12-13 11:32] VITALS: RESP 16
[2016-12-13] MEDS ORDERED: HYDROmorphone 1 MG/ML 1 ML SYRINGE IVP ONE ×4 (11:40→12:53)
[2016-12-13] MEDS ORDERED: KETOROLAC 30 MG/ML 1 ML VIAL IVP ONE (11:43)
[2016-12-13 13:53] VITALS: BP 135/71; PULSE 61
== END 2016-12-13 14:10 | disposition home or self-care (01) ==
LOC: OR 09:31
PROVIDERS: ATTEND Surgery
DX: K81.1 Chronic cholecystitis (principal); I10 Essential (primary) hypertension; K21.9 Gastro-esophageal reflux disease without esophagitis; M19.90 Unspecified osteoarthritis, unspecified site; F17.200 Nicotine dependence, unspecified, uncomplicated; Z79.899 Other long term (current) drug therapy; Z98.84 Bariatric surgery status
CPT/HCPCS: 47562; 93005; 88304; 80053; 85025; J2250; J1644; J1100; J2710; J0690; J2405; J2001; J3010; J1885; J1170; J0330; J2704

== ENCOUNTER 2018-06-27 14:58 | Emergency (ER) | payer OTHER ==
[2018-06-27] MEDS ORDERED: THIAMINE 100 MG/ML 2 ML VIAL IM STA (15:46)
[2018-06-27] MEDS ORDERED: LORazepam 2 MG/ML INJ IV PRN ×2 (15:46)
[2018-06-27] MEDS ORDERED: SODIUM CHLORIDE 0.9% 1,000 ML with MVI, ADULT NO.4 WITH VIT K 10 ML, THIAMINE 100 MG, F... IV ONE ×4 (15:47)
[2018-06-27 15:52] LABS: Appearance,Urine Clear (Clear); Bilirubin,Urine Negative (Negative); Blood,Urine Negative (Negative); Color,Urine Light Yellow; Glucose,Urine (UA) Negative (Negative); Ketones,Urine Negative (Negative); Leukocyte Esterase,Urine Negative (Negative); Nitrite,Urine Negative (Negative); PH, Urine 6.5 (5.0-8.0); Protein,Urine Negative (Negative); Specific Gravity,Urine 1.002 (1.001-1.035); Urobilinogen,Urine <2.0 mg/dL (<2.0)
[2018-06-27 16:01] LABS: Amphetamine Screen,Urine Not Detected (NotDetected); Barbiturate Screen,Urine Not Detected (NotDetected); Benzodiazepines Screen,Urine Not Detected (NotDetected); Cocaine Screen,Urine Not Detected (NotDetected); Methadone Screen, Urine Not Detected (NotDetected); Opiate Screen,Urine Not Detected (NotDetected); Oxycodone Screen, Urine Not Detected (NotDetected); Phencyclidine Screen,Urine Not Detected (NotDetected); Tricyclic Antidepressant,Urine Not Detected (NotDetected); Urn Cannabinoid Scrn Detected (NotDetected)
--- NOTE | 2018-06-27 16:38 | ED ---
Psych HPI <David Choe - Last Filed: 06/28/18 05:26> - General Source: patient, police Mode of arrival: ambulatory <Josette Rodriguez - Last Filed: 06/28/18 18:47> - General Chief Complaint: Psychiatric Symptoms Stated Complaint: Mental health Time Seen by Provider: 06/27/18 15:07 - History of Present Illness Initial Comments: 37-year-old male presenting today brought in by [place] [employer] for suicidal thoughts. Patient states he woke up this morning feeling not right. He states he felt sad and had suicidal thoughts. He expressed these thoughts to a friend who called the [place] placed department. Patient denies any specific plan. He does not express how he would commit suicide. Patient states he occasionally has these thoughts about once a year. Patient states he struggles with alcohol addiction, states he drinks vodka daily. Patient states he's been drinking back all morning, with last drink 30 minutes ago. Patient states he has a family history of addiction and would like help. Patient denies any ingestion of drugs, pills or attempts at suicide today. Patient denies any homicidal ideations. Patient denies any inciting events to cause increased depression and sadness today. Remainder of ROS negative, patient denies any health issues aside from a previous left shoulder injury. Patient denies any recent fever, chills, shortness of breath, chest pain, back pain, abdominal pain, nausea or vomiting, numbness or tingling, dysuria or hematuria, constipation or diarrhea, headaches or visual changes, or any other complaints. Upon arrival I consult a call on patient's breath. Breathalyzer revealed a call level of 0.307. Patient's blood pressure, and heart rate are elevated. (Josette Rodriguez) - Related Data Home Medications Medication Instructions Recorded Confirmed Gabapentin [Neurontin] 300 mg PO BID 11/03/16 06/27/18 DULoxetine HCL [Cymbalta] 60 mg PO DAILY 06/27/18 06/27/18 Dextroamphetamine/Amphetamine 30 mg PO BID 06/27/18 06/27/18 [Adderall] traZODone HCL 50 mg PO HS 06/27/18 06/27/18 Previous Rx's Medication Instructions Recorded LORazepam [Ativan] 1 mg PO TID 3 Days #9 tab 06/28/18 Allergies Allergy/AdvReac Type Severity Reaction Status Date / Time No Known Allergies Allergy Verified 06/27/18 16:07 Review of Systems ROS Other: All systems not noted in ROS Statement are negative. <David Choe - Last Filed: 06/28/18 05:26> ROS Other: All systems not noted in ROS Statement are negative. <Josette Rodriguez - Last Filed: 06/28/18 18:47> ROS Statement: Those systems with pertinent positive or pertinent negative responses have been documented in the HPI. 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 Mother Family Medical History: Cancer Additional Family Medical History / Comment(s): breast Brother(s) Additional Family Medical History / Comment(s): Patient has one brother with history of anxiety and depression. Patient does not have any sisters. Patient has 1 son that is 10 years old with diabetes mellitus type 1. <MichaelJosette L - Last Filed: 06/28/18 18:47> General Exam <David Choe - Last Filed: 06/28/18 05:26> Limitations: no limitations <JungenaroMarianneJosette L - Last Filed: 06/28/18 18:47> - General Exam Comments Initial Comments: General: The patient is awake and alert, in no distress, and does not appear acutely ill. No evidence of tremor. Eye: +3 mm pupils are equal, round and reactive to light, extra-ocular movements are intact. No nystagmus. There is normal conjunctiva bilaterally. No signs of icterus. Ears, nose, mouth and throat: There are moist mucous membranes and no oral lesions. Neck: The neck is supple, there is no tenderness or JVD. Cardiovascular: There is a regular rate and rhythm. No murmur, rub or gallop is appreciated. Respiratory: Lungs are clear to auscultation, respirations are non-labored, breath sounds are equal. No wheezes, stridor, rales, or rhonchi. Gastrointestinal: Soft, non-distended, non-tender abdomen without masses or organomegaly noted. There is no rebound or guarding present. No CVA tenderness. Bowel sounds are unremarkable. Musculoskeletal: Normal ROM, no tenderness. Strength 5/5. Sensation intact. Pulses equal bilaterally 2+. Neurological: A&O x 3. CN II-XII intact, There are no obvious motor or sensory deficits. Coordination appears grossly intact. Speech is normal. Skin: Skin is warm and dry and no rashes or lesions are noted. Psychiatric: Cooperative, appropriate mood & affect, normal judgment. (Josette Rodriguez) Course <David Choe - Last Filed: 06/28/18 05:26> <Josette Rodriguez - Last Filed: 06/28/18 18:47> Vital Signs 06/27/18 06/27/18 06/28/18 15:01 22:09 05:14 Temperature 97.3 F L 97.8 F 97.7 F Pulse Rate 108 H 79 72 Respiratory 18 17 18 Rate Blood Pressure 166/100 128/68 136/63 O2 Sat by Pulse 98 97 96 Oximetry - Reevaluation(s) Reevaluation #1: Patient alcohol 0.307. Patient is placed on CIWA protocols. Patient given a banana bag as well as 100 mg of IM thiamine. 06/27/18 (Josette Rodriguez) Medical Decision Making <David Choe - Last Filed: 06/28/18 05:26> <Josette Rodriguez - Last Filed: 06/28/18 18:47> - Medical Decision Making 37-year-old male presented for suicidal ideations. Patient intoxicated. CIWA protocols initiated. Patient not sober for EPS evaluation until 3:30 AM. Patient care physician at end of shift with who will evaluate/treat patient going forward. (Josette Rodriguez) - Lab Data Lab Results 06/27/18 Range/Units 15:29 Urine Color Light Yellow Urine Appearance Clear (Clear) Urine pH 6.5 (5.0-8.0) Ur Specific Vass 1.002 (1.001-1.035) Urine Protein Negative (Negative) Urine Glucose (UA) Negative (Negative) Urine Ketones Negative (Negative) Urine Blood Negative (Negative) Urine Nitrite Negative (Negative) Urine Bilirubin Negative (Negative) Urine Urobilinogen <2.0 (<2.0) mg/dL Ur Leukocyte Esterase Negative (Negative) Urine Opiates Screen Not Detected (NotDetected) Ur Oxycodone Screen Not Detected (NotDetected) Urine Methadone Screen Not Detected (NotDetected) Ur Propoxyphene Screen Not Detected (NotDetected) Ur Barbiturates Screen Not Detected (NotDetected) U Tricyclic Antidepress Not Detected (NotDetected) Ur Phencyclidine Scrn Not Detected (NotDetected) Ur Amphetamines Screen Not Detected (NotDetected) U Methamphetamines Scrn Not Detected (NotDetected) U Benzodiazepines Scrn Not Detected (NotDetected) Urine Cocaine Screen Not Detected (NotDetected) U Marijuana (THC) Screen Detected H (NotDetected) Disposition Is patient prescribed a controlled substance at d/c from ED?: No <David Choe - Last Filed: 06/28/18 05:26> <Josette Rodriguez - Last Filed: 06/28/18 18:47> Clinical Impression: Alcohol intoxication, Mood disorder Disposition: HOME SELF-CARE Condition: Fair Instructions: Mood Disorders (ED), Alcohol Intoxication (ED) Prescriptions: LORazepam [Ativan] 1 mg PO TID 3 Days #9 tab Referrals: None,Stated [Primary Care Provider] - 1-2 days
[2018-06-27] MEDS ORDERED: THIAMINE 100 MG TAB PO SCH (17:00)
[2018-06-27] MEDS: LORazepam 2 MG/ML INJ IV PRN ×2 (19:56→21:55)
[2018-06-28] MEDS: LORazepam 2 MG/ML INJ IV PRN (04:40)
[2018-06-28 05:15] VITALS: BP 136/63; PULSE 72; RESP 18; TEMP 97.7
== END 2018-06-28 05:38 | disposition home or self-care (01) ==
LOC: EC 14:58
DX: F10.129 Alcohol abuse with intoxication, unspecified (principal); F39 Unspecified mood [affective] disorder; F90.9 Attention-deficit hyperactivity disorder, unspecified type; F32.9 Major depressive disorder, single episode, unspecified; F41.9 Anxiety disorder, unspecified; F17.200 Nicotine dependence, unspecified, uncomplicated; Z79.899 Other long term (current) drug therapy
CPT/HCPCS: 82075; 81003; 80306; 99285; 96365; 96366 ×8; 96375; 96376; 96372; J2060 ×2; J3411

== ENCOUNTER 2019-04-08 19:06 | Observation (INO) | payer OTHER ==
[2019-04-08] MEDS ORDERED: ASPIRIN 81 MG PO STA (19:16)
[2019-04-08] MEDS ORDERED: SODIUM CHLORIDE 0.9% 500 ML 500 ML IV STA (19:16)
[2019-04-08] MEDS ORDERED: ONDANSETRON 4 MG/2 ML VIAL IVP STA (19:16)
--- NOTE | 2019-04-08 19:20 | ED ---
General Adult HPI - General Chief complaint: Chest Pain Stated complaint: NVD Time Seen by Provider: 04/08/19 19:10 Source: patient, EMS Mode of arrival: EMS Limitations: no limitations - History of Present Illness Initial comments: Dictation was produced using [employer] dictation software. please excuse any grammatical, word or spelling errors. Chief Complaint: 38-year-old male presents with chest pain. History of Present Illness: 38-year-old male presents today with chest pain. Patient states his symptoms have been ongoing today. He also has been having flulike symptoms. Patient describes the pain as a burning sensation to the substernal area. Patient reports no radiation of symptoms to his extremities, back or jaw. No associated diaphoresis. Patient reports that he's been having mild runny nose. He does report a family history of cardiac disease. His father was diagnosed with heart problems at the age of 55. Patient called EMS because he felt like he was having a heart attack. Patient reports that he is a alcohol drinker. He had some alcohol today. The ROS documented in this emergency department record has been reviewed and confirmed by me. Those systems with pertinent positive or negative responses have been documented in the HPI. All other systems are other negative and/or noncontributory. PHYSICAL EXAM: General Impression: Alert and oriented x3, not in acute distress HEENT: Normocephalic atraumatic, extra-ocular movements intact, pupils equal and reactive to light bilaterally, mucous membranes moist. Cardiovascular: Heart regular rate and rhythm, S1&S2 audible, no murmurs, rubs or gallops Chest: Lungs clear to auscultation bilaterally, no rhonchi, no wheeze, no rales Abdomen: Bowel sounds present, abdomen soft, non-tender, non-distended, no organomegaly Musculoskeletal: Pulses present and equal in all extremities, no peripheral edema Motor: no focal deficits noted Neurological: CN II-XII grossly intact, no focal motor or sensory deficits noted Skin: Intact with no visualized rashes Psych: Anxious ED course: 38-year-old male presents with atypical chest pain with typical features. Vital signs upon arrival shows heart rate of 106, rest of vital signs within acceptable limits. EKG does not show any signs of ischemia or infarction. Patient's fianc was at bedside and patient was reevaluated. He did mention that he was feeling suicidal for the last week. He has no specific plan. Patient isn't suicidal past. Patient also has been having visual hallucinations where he has been seeing flies on the wall. Laboratory evaluation obtained. CBC, coag panel unremarkable. Patient has a hemoglobin of 9.2. This appears to be around patient's baseline. Metabolic p keyshawn shows sodium 146. Anion gap. Lipase is 363. Her enzymes elevated with predilection for a STD. Serum alcohol is 43. Patient will be admitted for suicidal ideation, acute EtOH intoxication, acute psychosis and chest pain. We will order serial troponins, consultation to psychiatry. EKG interpretation: Ventricular rate 107, sinus tachycardia,. 176, QRS 108, QTC 488. No CA prolongation, no QTC prolongation, no ST or T-wave changes noted. EKG compared to 12/13/2016 showing no changes. Overall, this EKG is unremarkable - Related Data Home Medications Medication Instructions Recorded Confirmed No Known Home Medications 04/08/19 04/08/19 Allergies Allergy/AdvReac Type Severity Reaction Status Date / Time No Known Allergies Allergy Verified 04/08/19 19:45 Review of Systems ROS Statement: Those systems with pertinent positive or pertinent negative responses have been documented in the HPI. ROS Other: All systems not noted in ROS Statement are negative. 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 Mother Family Medical History: Cancer Additional Family Medical History / Comment(s): breast Brother(s) Additional Family Medical History / Comment(s): Patient has one brother with history of anxiety and depression. Patient does not have any sisters. Patient has 1 son that is 10 years old with diabetes mellitus type 1. 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4 (1.0-4.8) k/uL Monocytes # 0.4 (0-1.0) k/uL Eosinophils # 0.1 (0-0.7) k/uL Basophils # 0.0 (0-0.2) k/uL Hypochromasia Marked Anisocytosis Slight Microcytosis Marked PT 10.6 (9.0-12.0) sec INR 1.0 (<1.2) APTT 25.2 (22.0-30.0) sec Sodium 146 H (137-145) mmol/L Potassium 4.0 (3.5-5.1) mmol/L Chloride 109 H (98-107) mmol/L Carbon Dioxide 23 (22-30) mmol/L Anion Gap 14 mmol/L BUN 7 L (9-20) mg/dL Creatinine 0.60 L (0.66-1.25) mg/dL Est GFR (CKD-EPI)AfAm >90 (>60 ml/min/1.73 sqM) Est GFR (CKD-EPI)NonAf >90 (>60 ml/min/1.73 sqM) Glucose 118 H (74-99) mg/dL Calcium 8.7 (8.4-10.2) mg/dL Magnesium 1.7 (1.6-2.3) mg/dL Total Bilirubin 1.0 (0.2-1.3) mg/dL AST 236 H (17-59) U/L ALT 104 H (21-72) U/L Alkaline Phosphatase 51 (38-126) U/L Troponin I (0.000-0.034) ng/mL Total Protein 7.1 (6.3-8.2) g/dL Albumin 4.1 (3.5-5.0) g/dL Lipase 363 H (23-300) U/L Serum Alcohol 403 H* mg/dL Influenza Type A RNA (Not Detectd) Influenza Type B (PCR) (Not Detectd) 04/08/19 04/08/19 Range/Units 19:09 19:21 WBC (3.8-10.6) k/uL RBC (4.30-5.90) m/uL Hgb (13.0-17.5) gm/dL Hct (39.0-53.0) % MCV (80.0-100.0) fL MCH (25.0-35.0) pg MCHC (31.0-37.0) g/dL RDW (11.5-15.5) % Plt Count (150-450) k/uL Neutrophils % % Lymphocytes % % Monocytes % % Eosinophils % % Basophils % % Neutrophils # (1.3-7.7) k/uL Lymphocytes # (1.0-4.8) k/uL Monocytes # (0-1.0) k/uL Eosinophils # (0-0.7) k/uL Basophils # (0-0.2) k/uL Hypochromasia Anisocytosis Microcytosis PT (9.0-12.0) sec INR (<1.2) APTT (22.0-30.0) sec Sodium (137-145) mmol/L Potassium (3.5-5.1) mmol/L Chloride (98-107) mmol/L Carbon Dioxide (22-30) mmol/L Anion Gap mmol/L BUN (9-20) mg/dL Creatinine (0.66-1.25) mg/dL Est GFR (CKD-EPI)AfAm (>60 ml/min/1.73 sqM) Est GFR (CKD-EPI)NonAf (>60 ml/min/1.73 sqM) Glucose (74-99) mg/dL Calcium (8.4-10.2) mg/dL Magnesium (1.6-2.3) mg/dL Total Bilirubin (0.2-1.3) mg/dL AST (17-59) U/L ALT (21-72) U/L Alkaline Phosphatase (38-126) U/L Troponin I <0.012 (0.000-0.034) ng/mL Total Protein (6.3-8.2) g/dL Albumin (3.5-5.0) g/dL Lipase (23-300) U/L Serum Alcohol mg/dL Influenza Type A RNA Not Detected (Not Detectd) Influenza Type B (PCR) Not Detected (Not Detectd) Disposition Clinical Impression: Alcohol intoxication, Suicidal ideations, Visual hallucination, Chest pain Disposition: ADMITTED IP TO THIS HOSP Condition: Fair Referrals: Angeline Nelson MD [Primary Care Provider] - 1-2 days Decision Time: 20:21
[2019-04-08 19:39] LABS: Anisocytosis Slight; Basophils % (A) 1 %; Eosinophils # (A) 0.1 k/uL (0-0.7); Eosinophils % (A) 2 %; HCT 33.9 % (39.0-53.0); HGB 9.2 gm/dL (13.0-17.5); Hypochromasia Marked; Lymphocytes # (A) 1.4 k/uL (1.0-4.8); Lymphocytes % (A) 30 %; MCH 18.4 pg (25.0-35.0); MCHC 27.2 g/dL (31.0-37.0); MCV 67.4 fL (80.0-100.0); Mean Platelet Volume 7.5; Microcytosis Marked; Monocytes # (A) 0.4 k/uL (0-1.0); Monocytes % (A) 8 %; Neutrophils # (A) 2.7 k/uL (1.3-7.7); Neutrophils % (A) 57 %; Platelet Count 247 k/uL (150-450); RBC 5.03 m/uL (4.30-5.90); RDW 18.7 % (11.5-15.5); WBC 4.7 k/uL (3.8-10.6)
[2019-04-08] MEDS ORDERED: LORazepam 2 MG/ML INJ IV STA (19:49)
[2019-04-08 19:50] LABS: ALT 104 U/L (21-72); AST 236 U/L (17-59); African American GFR (CKD) >90 (>60 ml/min/1.73 sqM); Albumin 4.1 g/dL (3.5-5.0); Alkaline Phosphatase 51 U/L (38-126); Anion Gap 14 mmol/L; Blood Urea Nitrogen 7 mg/dL (9-20); Calcium 8.7 mg/dL (8.4-10.2); Carbon Dioxide 23 mmol/L (22-30); Chloride 109 mmol/L (98-107); Glucose 118 mg/dL (74-99); Magnesium 1.7 mg/dL (1.6-2.3); Non-African American GFR(CKD) >90 (>60 ml/min/1.73 sqM); Partial Thromboplastin Time 25.2 sec (22.0-30.0); Prothrombin Time 10.6 sec (9.0-12.0); Sodium 146 mmol/L (137-145); Total Protein 7.1 g/dL (6.3-8.2)
[2019-04-08 20:09] LABS: Alcohol 403 mg/dL
[2019-04-08 20:23] LABS: Amphetamine Screen,Urine Detected (NotDetected); Barbiturate Screen,Urine Not Detected (NotDetected); Benzodiazepines Screen,Urine Not Detected (NotDetected); Cocaine Screen,Urine Not Detected (NotDetected); Methadone Screen, Urine Not Detected (NotDetected); Opiate Screen,Urine Not Detected (NotDetected); Oxycodone Screen, Urine Not Detected (NotDetected); Phencyclidine Screen,Urine Not Detected (NotDetected); Tricyclic Antidepressant,Urine Not Detected (NotDetected); Urn Cannabinoid Scrn Detected (NotDetected)
--- NOTE | 2019-04-08 20:48 | XR ---
EXAMINATION TYPE: XR chest 2V DATE OF EXAM: 04/08/2019 COMPARISON: 11/09/2016 HISTORY: Chest pain TECHNIQUE: Frontal and lateral views of the chest are obtained. FINDINGS: Heart and mediastinum are normal. Lungs are clear. Diaphragm is normal. Bony thorax appear s normal. Pulmonary vascularity is normal. IMPRESSION: Normal chest. No change.
[2019-04-08] MEDS ORDERED: LORazepam 2 MG/ML INJ IV PRN (23:06)
[2019-04-08] MEDS: chlordiazePOXIDE 25 MG CAP PO SCH (23:22)
[2019-04-08] MEDS: LORazepam 2 MG/ML INJ IV PRN (23:22)
[2019-04-09] MEDS ORDERED: SODIUM CHLORIDE 0.9% 1,000 ML with MVI, ADULT NO.4 WITH VIT K 10 ML, THIAMINE 100 MG, F... IV SCH ×4
[2019-04-09] MEDS: LORazepam 2 MG/ML INJ IV PRN ×7 (02:00→23:00)
[2019-04-09] MEDS: [UNRECOGNIZED DRUG - REMARK] IV SCH ×8 (06:30→16:16)
--- NOTE | 2019-04-09 08:16 | P.CRDCN ---
History of Present Illness Consult date: 04/09/19 Requesting physician: Javier Harris Consult reason: chest pain Chief complaint: Chest pain History of present illness: This is a pleasant 38-year-old gentleman with history of alcohol abuse nicotine dependence, prior gastric surgery with Jonatan-en-Y, subsequent chronic anemia, patient also had a history of GI bleed approximately 3 years ago, hemoglobin was down to 3 at that time, who presents to the hospital with symptoms of chest discomfort. Patient describes his discomfort as a dull ache in the center of his chest, he states that it was coming and going over the past couple of days. He did get some mild associated diaphoresis and shortness of breath with this. He denies any prior history of any cardiac problems. No significant family history of premature coronary artery disease. Patient states that he had a problem with alcohol in the past, he had been clean for approxim ately 6 months, and recently lost his best friend and states that he started drinking again. His chest x-ray on presentation here showed a sinus tachycardia with nonspecific ST-T wave changes, morning EKG shows a normal sinus rhythm with no acute changes. Chest x-ray is normal. Blood pressure on arrival 150/80 with a heart rate of 106, 98% on room air. Let pressure this morning 148/70 with a h eart rate in the 80s, 95% on room air. He is afebrile. White blood cell count 4.7, hemoglobin 9.2, platelet count 247. Sodium 146, potassium 4.0, BUN 7 and creatinine 0.6. Magnesium 1.7. AST 236, ALT 104, lipase 363, troponins are negative 3. Drug screen positive for amphetamines and marijuana, alcohol level on admission 403. Influenza A and B-. At the time of my examination this morning, the patient denies any chest discomfort, he is noted to have some mild tremors and is mildly diaphoretic. 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, corrective surgery as child for pigeon toe on bilat legs, corrective surgery on leg and shoulder Past Anesthesia/Blood Transfusion Reactions: No Reported Reaction Past Psychological History: ADD/ADHD, Anxiety, Bipolar, Depression, PTSD Additional Psychological History / Comment(s): borderline personality disorder Smoking Status: Current every day smoker Past Alcohol Use History: Abuse, Heavy Additional Past Alcohol Use History / Comment(s): smokes 1/2 PPD for 14 yrs, Daily alcohol use- 1 pint daily Past Drug Use History: None Reported Additional Drug Use History / Comment(s): occ use - Past Family History Father Additional Family Medical History / Comment(s): Father is alive at age 60 with heart problems including a pacemaker ordered for later. Mother Family Medical History: Cancer Additional Family Medical History / Comment(s): breast Brother(s) Additional Family Medical History / Comment(s): Patient has one brother with h istory of anxiety and depression. Patient does not have any sisters. Patient has 1 son that is 10 years old with diabetes mellitus type 1. Medications and Allergies Home Medications Medication Instructions Recorded Confirmed Type No Known Home Medications 04/08/19 04/08/19 History Allergies Allergy/AdvReac Type Severity Reaction Status Date / Time No Known Allergies Allergy Verified 04/08/19 19:45 Physical Exam Vitals: Vital Signs Temp Pulse Pulse Resp BP BP Pulse Ox 04/09/19 03:00 97.7 F 85 18 148/72 95 04/09/19 02:59 91 18 04/09/19 00:00 98.0 F 91 18 135/75 93 L 04/08/19 22:38 98.1 F 96 18 148/78 95 04/08/19 22:34 96 18 04/08/19 21:00 97.8 F 102 H 18 122/78 98 04/08/19 19:19 106 H 04/08/19 19:11 98.1 F 106 H 16 151/86 98 Intake and Output 04/08/19 04/09/19 04/09/19 22:59 06:59 14:59 Other: Voiding Method Toilet Toilet # Voids 1 Weight 116.12 kg 114.3 kg PHYSICAL EXAMINATION: GENERAL: 38-year-old gentleman in no acute distress at the time of my examination HEENT: Head is atraumatic, normocephalic. Pupils equal, round. Sclera anicteric. Conjunctiva are clear. Mucous membranes of the mouth are moist. Neck is supple. There is no elevated jugular venous pressure. No carotid bruit is heard. HEART EXAMINATION: Heart S1, S2 normal. No murmur or gallop heard. CHEST EXAMINATION: Lungs are clear to auscultation and precussion. No chest wall tenderness is noted on palpation or with deep breathing. ABDOMEN: Soft, nontender. Bowel sounds are heard. No organomegaly noted. EXTREMITIES: 2+ peripheral pulses with no evidence of peripheral edema and no calf tenderness noted. NEUROLOGIC patient is awake, alert and oriented 3 . . Results 04/08/19 19:09 04/08/19 19:09 Cardiac Enzymes 04/08/19 04/08/19 04/09/19 Range/Units 19:09 19:09 00:53 AST 236 H (17-59) U/L Troponin I <0.012 <0.012 (0.000-0.034) ng/mL 04/09/19 Range/Units 06:46 AST (17-59) U/L Troponin I <0.012 (0.000-0.034) ng/mL Coagulation 04/08/19 Range/Units 19:09 PT 10.6 (9.0-12.0) sec APTT 25.2 (22.0-30.0) sec CBC 04/08/19 Range/Units 19:09 WBC 4.7 (3.8-10.6) k/uL RBC 5.03 (4.30-5.90) m/uL Hgb 9.2 L (13.0-17.5) gm/dL Hct 33.9 L (39.0-53.0) % Plt Count 247 (150-450) k/uL Comprehensive Metabolic Panel 04/08/19 Range/Units 19:09 Sodium 146 H (137-145) mmol/L Potassium 4.0 (3.5-5.1) mmol/L Chloride 109 H (98-107) mmol/L Carbon Dioxide 23 (22-30) mmol/L BUN 7 L (9-20) mg/dL Creatinine 0.60 L (0.66-1.25) mg/dL Glucose 118 H (74-99) mg/dL Calcium 8.7 (8.4-10.2) mg/dL AST 236 H (17-59) U/L ALT 104 H (21-72) U/L Alkaline Phosphatase 51 (38-126) U/L Total Protein 7.1 (6.3-8.2) g/dL Albumin 4.1 (3.5-5.0) g/dL Current Medications Generic Name Dose Route Start Last Admin Trade Name Freq PRN Reason Stop Dose Admin Chlordiazepoxide HCl 25 mg 04/08/19 23:15 04/08/19 23:22 Librium PO 25 mg TID ARLIN Administration Parenteral Vitamin Supplement 1,011.2 mls @ 150 mls/hr 04/09/19 06:45 10 ml/ Folic Acid 1 mg/ IV Thiamine HCl 100 mg/ Sodium .BY DURATION ARLIN Chloride Sodium Chloride 1,000 mls @ 150 mls/hr 04/09/19 06:45 04/09/19 06:30 Saline 0.9% IV 150 mls/hr .BY DURATION ARLIN Administration Lorazepam 1 mg 04/08/19 23:06 04/09/19 02:00 Ativan IV 1 mg Q2HR PRN Administration CIWA 8 or 9 Lorazepam 1 mg 04/08/19 23:06 04/09/19 05:23 Ativan IV 1 mg Q1HR PRN Administration CIWA 10 to 15 Lorazepam 2 mg 04/08/19 23:06 Ativan IV 04/10/19 23:07 Q10M PRN CIWA 16 or higher Intake and Output 04/08/19 04/09/19 04/09/19 22:59 06:59 14:59 Other: Voiding Method Toilet Toilet # Voids 1 Weight 116.12 kg 114.3 kg 04/08/19 19:09 04/08/19 19:09 EKG Interpretations (text) Initial EKG showed a sinus tachycardia with no acute changes. Assessment and Plan Plan: Assessment and plan #1 chest pain, with atypical features for acute coronary syndrome. Troponins were negative 3. Initial EKG showed a sinus tachycardia, subsequent sinus rhythm with no acute changes. #2 nicotine dependence #3 alcohol abuse #4 history of gastric surgery with Jonatan-en-Y, subsequent chronic anemia Plan We will obtain an echocardiogram with Doppler study. Discontinue the aspirin. Patient has been recommended to undergo stress testing however he is having some mild tremors with associated diaphoresis likely from withdrawal of alcohol this morning. Further recommendations to follow. DNP note has been reviewed, I agree with a documented findings and plan of care. Patient was seen and examined.
[2019-04-09] MEDS: chlordiazePOXIDE 25 MG CAP PO SCH ×3 (08:52→20:06)
[2019-04-09 12:35] LABS: African American GFR (CKD) >90 (>60 ml/min/1.73 sqM); Anion Gap 9 mmol/L; Blood Urea Nitrogen 9 mg/dL (9-20); Calcium 8.6 mg/dL (8.4-10.2); Carbon Dioxide 24 mmol/L (22-30); Chloride 107 mmol/L (98-107); Glucose 84 mg/dL (74-99); Non-African American GFR(CKD) >90 (>60 ml/min/1.73 sqM); Potassium 4.1 mmol/L (3.5-5.1); Sodium 140 mmol/L (137-145)
[2019-04-09 12:36] LABS: Anisocytosis Slight; Basophils # (A) 0.1 k/uL (0-0.2); Basophils % (A) 2 %; Eosinophils # (A) 0.1 k/uL (0-0.7); Eosinophils % (A) 3 %; HCT 29.9 % (39.0-53.0); HGB 7.8 gm/dL (13.0-17.5); Hypochromasia Marked; Lymphocytes # (A) 0.9 k/uL (1.0-4.8); Lymphocytes % (A) 28 %; MCH 18.4 pg (25.0-35.0); MCHC 26.2 g/dL (31.0-37.0); MCV 70.2 fL (80.0-100.0); Mean Platelet Volume 7.3; Microcytosis Marked; Monocytes # (A) 0.3 k/uL (0-1.0); Monocytes % (A) 9 %; Neutrophils # (A) 1.8 k/uL (1.3-7.7); Neutrophils % (A) 57 %; Platelet Count 164 k/uL (150-450); RBC 4.25 m/uL (4.30-5.90); RDW 18.9 % (11.5-15.5); WBC 3.2 k/uL (3.8-10.6)
[2019-04-09] MEDS: FAMOTIDINE 20 MG/2 ML VIAL IV SCH ×2 (16:15→20:06)
[2019-04-09] MEDS: FOLIC ACID 1 MG TAB PO SCH (16:15)
[2019-04-09] MEDS: THIAMINE 100 MG TAB PO SCH (16:15)
[2019-04-09] MEDS: SODIUM CHLORIDE 0.9% 1,000 ML IV SCH (16:16)
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
[2019-04-09 21:06] LABS: Ferritin 8.4 ng/mL (22.0-322.0); Iron Saturation 3.49 (15.00-50.00)
--- NOTE | 2019-04-09 21:45 | P.HPIM ---
History of Present Illness H&P Date: 04/09/19 Chief Complaint: Chest pain Patient is a 38-year-old male with a known history of GI bleed, hypertension, osteoarthritis, ADD/ADHD, anxiety/depression, bipolar and PTSD and severe alcohol abuse with 1 pint of alcohol daily and prior history of gastric bypass surgery and subsequent chronic anemia came to ER with complaints of chest pain mainly left retrosternal and epigastric region. Patient has been having dull pain for the past 3 days. Associated with shortness of breath and diaphoresis. Patient was also having nausea and no episodes of vomiting or hematemesis. P atient denied any cough or sputum production. No fever no chills. No headache or dizziness or lightheadedness. On admission patient was confused and hallucinating. Patient continues to drink otherwise. Alcohol level was greater than 400 on admission. Lipase level 363 EKG showed sinus tachycardia with nonspecific ST-T wave changes. Chest x-ray showed no acute cardiopulmonary process. UDS is positive for amphetamines, marijuana, Influenza A and B- Troponin 3 negative Review of Systems Constitutional: Patient denies any fever or chills . No generalized weakness or weight loss. Abdomen: Patient denied nausea vomiting and diarrhea and abdominal pain. Cardiovascular: Patient denies any chest pain or short of breath no palpitations. Respiratory: patient denied any cough is from production. No shortness of breath Neurologic: Patient denied any numbness or tingling headache. Musculoskeletal: Patient denies any complaints of joint swelling or deformity. Skin: Negative Psychiatric: Negative Endocrine: No heat or cold intolerance. No recent weight gain. Genitourinary: No dysuria or hematuria. 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, corrective surgery as child for pigeon toe on bilat legs, corrective surgery on leg and shoulder Past Anesthesia/Blood Transfusion Reactions: No Reported Reaction Past Psychological History: ADD/ADHD, Anxiety, Bipolar, Depression, PTSD Additional Psychological History / Comment(s): borderline personality disorder Smoking Status: Current every day smoker Past Alcohol Use History: Abuse, Heavy Additional Past Alcohol Use History / Comment(s): smokes 1/2 PPD for 14 yrs, Daily alcohol use- 1 pint daily Past Drug Use History: None Reported Additional Drug Use History / Comment(s): occ use - Past Family History Father Additional Family Medical History / Comment(s): Father is alive at age 60 with heart problems including a pacemaker ordered for later. Mother Family Medical History: Cancer Additional Family Medical History / Comment(s): breast Brother(s) Additional Family Medical History / Comment(s): Patient has one brother with history of anxiety and depression. Patient does not have any sisters. Patient has 1 son that is 10 years old with diabetes mellitus type 1. Medications and Allergies Home Medications Medication Instructions Recorded Confirmed Type No Known Home Medications 04/08/19 04/08/19 History Allergies Allergy/AdvReac Type Severity Reaction Status Date / Time No Known Allergies Allergy Verified 04/08/19 19:45 Physical Exam Vitals: Vital Signs Temp Pulse Pulse Resp BP BP Pulse Ox 04/09/19 03:00 97.7 F 85 18 148/72 95 04/09/19 02:59 91 18 04/09/19 00:00 98.0 F 91 18 135/75 93 L 04/08/19 22:38 98.1 F 96 18 148/78 95 04/08/19 22:34 96 18 04/08/19 21:00 97.8 F 102 H 18 122/78 98 04/08/19 19:19 106 H 04/08/19 19:11 98.1 F 106 H 16 151/86 98 Intake and Output 04/08/19 04/09/19 04/09/19 22:59 06:59 14:59 Intake Total 0 Balance 0 Intake: Oral 0 Other: Voiding Method Toilet Toilet # Voids 1 Weight 116.12 kg 114.3 kg PHYSICAL EXAMINATION: Patient is lying in the bed comfortably, no acute distress, awake alert and oriented.. HEENT: Normocephalic. Neck is supple. Pupils reactive. Nostrils clear. Oral cavity is moist. Ears reveal no drainage. Neck reveals no JVD, carotid bruits, or thyromegaly. CHEST EXAMINATION: Trachea is central. Symmetrical expansion. Lung rangel clear to auscultation and percussion. CARDIAC: Normal S1, S2 with no gallops. No murmurs ABDOMEN: Soft. Mild epigastric tenderness. No guarding no rigidity. Bowel sounds normal. No organomegaly. No abdominal bruits. Extremities: reveal no edema. No clubbing or cyanosis Neurologically awake, alert, oriented x3 with well-coordinated movements. No focal deficits noted Skin: No rash or skin lesions. Psychiatric: Coperative. Nonsuicidal. Anxious Musculoskeletal: No joint swelling or deformity. Normal range of motion. Results CBC & Chem 7: 04/09/19 06:46 04/09/19 06:46 Labs: Abnormal Lab Results - Last 24 Hours (Table) 04/08/19 04/08/19 04/08/19 Range/Units 19:09 19:09 19:59 Hgb 9.2 L (13.0-17.5) gm/dL Hct 33.9 L (39.0-53.0) % MCV 67.4 L (80.0-100.0) fL MCH 18.4 L (25.0-35.0) pg MCHC 27.2 L (31.0-37.0) g/dL RDW 18.7 H (11.5-15.5) % Sodium 146 H (137-145) mmol/L Chloride 109 H (98-107) mmol/L BUN 7 L (9-20) mg/dL Creatinine 0.60 L (0.66-1.25) mg/dL Glucose 118 H (74-99) mg/dL AST 236 H (17-59) U/L ALT 104 H (21-72) U/L Lipase 363 H (23-300) U/L Ur Amphetamines Screen Detected H (NotDetected) U Marijuana (THC) Screen Detected H (NotDetected) Serum Alcohol 403 H* mg/dL Thrombosis Risk Factor Assmnt - DVT/VTE Prophylaxis DVT/VTE Prophylaxis: Pharmacologic Prophylaxis ordered - Choose All That Apply Any of the Below Risk Factors Present?: No Other Risk Factors: No Other congenital or acquired thrombophilia - If yes, enter type in comment: No Thrombosis Risk Factor Assessment Level: Very Low Risk Assessment and Plan Assessment: Epigastric abdominal pain. Possible alcoholic gastritis Mild acute pancreatitis likely alcohol induced Atypical chest pain. Ruled out ACS. Acute on chronic anemia with Iron deficiency Acute alcohol intoxication on admission Acute alcohol withdrawal symptoms Severe alcohol abuse Hallucinations and suicidal ideation on admission currently denied any suicidal thoughts. History of gastric bypass surgery History of cholecystectomy Ongoing nicotine addiction Hypertension History of GI bleed and bleeding ulcer Bradycardia, was on heart monitor. Osteoarthritis Anxiety/depression/bipolar/PTSD DVT prophylaxis with SCDs Plan: Patient will be converted on IV hydration and thiamine, multivitamins. Monitor for alcohol withdrawal symptoms. Continue with Protonix IV twice a day.. Cardiac Cardiology has seen the patient and ACS has been ruled out. Follow-up 2-D echocardiogram. Recommends stress test was clinically stable. Continue with alcohol withdrawal symptoms protocol Monitor H&H and follow up closely. Further recommendations based on the clinical course. Time with Patient: Greater than 30
[2019-04-09] MEDS: PANTOPRAZOLE 40 MG/10 ML VIAL IVP SCH (22:50)
[2019-04-09] MEDS ORDERED: diphenhydrAMINE 25 MG CAP PO STA (23:17)
[2019-04-10] MEDS: [UNRECOGNIZED DRUG - REMARK] IV SCH ×12 (02:26→08:23)
[2019-04-10] MEDS: LORazepam 2 MG/ML INJ IV PRN ×2 (03:05→08:23)
[2019-04-10] MEDS: SODIUM CHLORIDE 0.9% 1,000 ML IV SCH (04:17)
[2019-04-10 08:13] LABS: African American GFR (CKD) >90 (>60 ml/min/1.73 sqM); Anion Gap 9 mmol/L; Blood Urea Nitrogen 7 mg/dL (9-20); Calcium 9.2 mg/dL (8.4-10.2); Carbon Dioxide 25 mmol/L (22-30); Chloride 105 mmol/L (98-107); Glucose 138 mg/dL (74-99); Non-African American GFR(CKD) >90 (>60 ml/min/1.73 sqM); Potassium 3.9 mmol/L (3.5-5.1); Sodium 139 mmol/L (137-145)
[2019-04-10] MEDS: THIAMINE 100 MG TAB PO SCH (08:15)
[2019-04-10] MEDS: chlordiazePOXIDE 25 MG CAP PO SCH (08:15)
[2019-04-10] MEDS: PANTOPRAZOLE 40 MG/10 ML VIAL IVP SCH (08:15)
[2019-04-10] MEDS: FOLIC ACID 1 MG TAB PO SCH (08:15)
[2019-04-10 08:39] VITALS: RESP 16; TEMP 98
[2019-04-10 08:48] LABS: Anisocytosis Slight; Basophils % (A) 1 %; Eosinophils # (A) 0.1 k/uL (0-0.7); Eosinophils % (A) 4 %; HCT 30.6 % (39.0-53.0); HGB 8.3 gm/dL (13.0-17.5); Hypochromasia Marked; Lymphocytes # (A) 0.8 k/uL (1.0-4.8); Lymphocytes % (A) 27 %; MCH 18.8 pg (25.0-35.0); MCHC 27.1 g/dL (31.0-37.0); MCV 69.3 fL (80.0-100.0); Mean Platelet Volume 7.4; Microcytosis Marked; Monocytes # (A) 0.2 k/uL (0-1.0); Monocytes % (A) 8 %; Neutrophils # (A) 1.7 k/uL (1.3-7.7); Neutrophils % (A) 57 %; Platelet Count 148 k/uL (150-450); RBC 4.41 m/uL (4.30-5.90); RDW 18.8 % (11.5-15.5)
[2019-04-10] MEDS ORDERED: SODIUM FERRIC GLUCONAT-SUCROSE 125 MG in SODIUM CHLORIDE 0.9% 100 ML IVPB SCH (09:00)
[2019-04-10] MEDS ORDERED: MAGNESIUM SULFATE-D5W PMX 1 GM in DEXTROSE/WATER 1 100ML.BAG IVPB SCH (14:00)
[2019-04-10 14:04] VITALS: BP 137/86; PULSE 79
--- NOTE | 2019-04-10 14:58 | P.PN ---
Subjective Progress Note Date: 04/10/19 This is a pleasant 38-year-old gentleman with history of alcohol abuse nicotine dependence, prior gastric surgery with Jonatan-en-Y, subsequent chronic anemia, patient also had a history of GI bleed approximately 3 years ago, hemoglobin was down to 3 at that time, who presents to the hospital with symptoms of chest discomfort. Patient describes his discomfort as a dull ache in the center of his chest, he states that it was coming and going over the past couple of days. He did get some mild associated diaphoresis and shortness of breath with this. He denies any prior history of any cardiac problems. No significant family history of premature coronary artery disease. Patient states that he had a problem with alcohol in the past, he had been clean for approximately 6 months, and recently lost his best friend and states that he started drinking again. His chest x-ray on presentation here showed a sinus tachycardia with nonspecific ST-T wave changes, morning EKG shows a normal sinus rhythm with no acute changes. Chest x-ray is normal. Blood pressure on arrival 150/80 with a heart rate of 106, 98% on room air. Let pressure this morning 148/70 with a heart rate in the 80s, 95% on room air. He is afebrile. White blood cell count 4.7, hemoglobin 9.2, platelet count 247. Sodium 146, potassium 4.0, BUN 7 and creatinine 0.6. Magnesium 1.7. AST 236, ALT 104, lipase 363, troponins are negative 3. Drug screen positive for amphetamines and marijuana, alcohol level on admission 403. Influenza A and B-. At the time of my examination this morning, the patient denies any chest discomfort, he is noted to have some mild tremors and is mildly diaphoretic. 04/10/2019 Patient was seen and examined this morning, denies any chest pain, breathing is stable. His echocardiogram with Doppler study was performed, the verbal report we received is at his LV function was normal, the actual report has not yet come through. Patient was also noted to have 2 episodes of pauses of 3 seconds, asymptomatic. He is currently on Librium which can cause significant bradycardia. Our recommendations as at the Librium be discontinued. From our perspective once the patient is off the Librium he may be able to be discharged home. Objective - Vital Signs Vital signs: Vital Signs Temp 98 F 04/10/19 12:00 Pulse 79 04/10/19 12:00 Resp 16 04/10/19 12:00 BP 137/86 04/10/19 12:00 Pulse Ox 99 04/10/19 12:00 Intake & Output 04/09/19 04/10/19 04/10/19 18:59 06:59 18:59 Intake Total 555 240 Balance 555 240 Weight 114.6 kg Intake: Intake, IV Titration 75 Amount Sodium Chloride 0.9% 1, 75 000 ml @ 75 mls/hr IV . [id number] [facility] Rx#:[id number] Oral 480 240 Other: Voiding Method Toilet Toilet # Voids 1 - Exam PHYSICAL EXAMINATION: GENERAL: 38-year-old gentleman in no acute distress at the time of my examination HEENT: Head is atraumatic, normocephalic. Pupils equal, round. Sclera anicteric. Conjunctiva are clear. Mucous membranes of the mouth are moist. Neck is supple. There is no elevated jugular venous pressure. No carotid bruit is heard. HEART EXAMINATION: Heart S1, S2 normal. No murmur or gallop heard. CHEST EXAMINATION: Lungs are clear to auscultation and precussion. No chest wall tenderness is noted on palpation or with deep breathing. ABDOMEN: Soft, nontender. Bowel sounds are heard. No organomegaly noted. EXTREMITIES: 2+ peripheral pulses with no evidence of peripheral edema and no calf tenderness noted. NEUROLOGIC patient is awake, alert and oriented 3 . - Labs CBC & Chem 7: 04/10/19 07:18 04/10/19 07:18 Labs: Abnormal Lab Results - Last 24 Hours (Table) 04/09/19 04/10/19 04/10/19 Range/Units 06:46 07:18 07:18 WBC 3.0 L (3.8-10.6) k/uL Hgb 8.3 L (13.0-17.5) gm/dL Hct 30.6 L (39.0-53.0) % MCV 69.3 L (80.0-100.0) fL MCH 18.8 L (25.0-35.0) pg MCHC 27.1 L (31.0-37.0) g/dL RDW 18.8 H (11.5-15.5) % Plt Count 148 L (150-450) k/uL Lymphocytes # 0.8 L (1.0-4.8) k/uL BUN 7 L (9-20) mg/dL Creatinine 0.58 L (0.66-1.25) mg/dL Glucose 138 H (74-99) mg/dL Iron 15 L (65-175) ug/dL Iron Saturation 3.49 L (15.00-50.00) Ferritin 8.4 L (22.0-322.0) ng/mL Assessment and Plan Plan: Assessment and plan #1 chest pain, with atypical features for acute coronary syndrome. Troponins were negative 3. Initial EKG showed a sinus tachycardia, subsequent sinus rhythm with no acute changes. #2 nicotine dependence #3 alcohol abuse #4 history of gastric surgery with Jonatan-en-Y, subsequent chronic anemia #5 sinus pauses, likely secondary Librium Plan Verbal report on echocardiogram with Doppler study was that the patient had a normal LV function. From our perspective patient may be able to be discharged home, off of Librium. DNP note has been reviewed, I agree with a documented findings and plan of care. Patient was seen and examined.
--- NOTE | 2019-04-10 17:49 | ECHOF ---
Referral Reason:chest pain MEASUREMENTS -------- HEIGHT: 162.6 cm WEIGHT: 114.3 kg BP: 143/83 RVIDd: 3.5 cm (< 3.3) IVSd: 1.6 cm (0.6 - 1.1) LVIDd: 4.5 cm (3.9 - 5.3) LVPWd: 1.9 cm (0.6 - 1.1) IVSs: 2.4 cm LVIDs: 3.1 cm LVPWs: 2.4 cm LAESV Index (A-L): 31.42 ml/m Ao Diam: 4.0 cm (2.0 - 3.7) AV Cusp: 2.9 cm (1.5 - 2.6) LA Diam: 3.4 cm (2.7 - 3.8) MV EXCURSION: 24.599 mm (> 18.000) MV EF SLOPE: 121 mm/s (70 - 150) EPSS: 1.1 cm MV E Sunday: 0.88 m/s MV DecT: 287 ms MV A Sunday: 0.59 m/s MV E/A Ratio: 1.50 RAP: 5.00 mmHg RVSP: 15.48 mmHg TAPSE: 26.79 mm FINDINGS -------- Sinus rhythm. This was a technically adequate study. The left ventricular size is normal. There is moderate concentric left ventricular hypertrophy. O verall left ventricular systolic function is low-normal with, an EF between 50 - 55 %. The diastoli c filling pattern is normal for the age of the patient 11.66. The right ventricle is mildly enlarged. LA is midly dilated 29-33ml/m2. The right atrial size is normal. The aortic valve is trileaflet and appears structurally normal. The mitral valve is normal. The mitral valve leaflets are mildly thickened. Mild mitral regurgita tion is present. The tricuspid valve appears structurally normal. Trace tricuspid regurgitation present. Right boubacar tricular systolic pressure is normal at < 35 mmHg. There is no pulmonic regurgitation present. The aortic root size is normal. IVC Not well visulized. There is no pericardial effusion. CONCLUSIONS -------- 1. Sinus rhythm. 2. This was a technically adequate study. 3. The left ventricular size is normal. 4. There is moderate concentric left ventricular hypertrophy. 5. Overall left ventricular systolic function is low-normal with, an EF between 50 - 55 %. 6. The diastolic filling pattern is normal for the age of the patient 11.66 7. The right ventricle is mildly enlarged. 8. LA is midly dilated 29-33ml/m2. 9. The right atrial size is normal. 10. The aortic valve is trileaflet and appears structurally normal. 11. The mitral valve is normal. 12. The mitral valve leaflets are mildly thickened. 13. Mild mitral regurgitation is present. 14. The tricuspid valve appears structurally normal. 15. Trace tricuspid regurgitation present. 16. Right ventricular systolic pressure is normal at < 35 mmHg. 17. There is no pulmonic regurgitation present. 18. The aortic root size is normal. 19. IVC Not well visulized. 20. There is no pericardial effusion. MICROBIOLOGY LAB ASSISTANT: Farida Ramon RDCS
--- NOTE | 2019-04-22 22:11 | P.DS ---
Providers Date of admission: 04/08/19 20:19 Expected date of discharge: 04/10/19 Attending physician: Javier Harris Consults: 04/08/19 20:13 Consult Physician Routine Consulting Provider: Travis Pham Consult Reason/Comments: suicidal, visual hallucinations Do you want consulting provider notified?: Yes 04/08/19 23:07 Consult Physician Routine Consulting Provider: Riley Gaitan Consult Reason/Comments: Chest Pain Do you want consulting provider notified?: Yes, Notify in am Primary care physician: Angeline Clifton-Fine Hospital Course: Discharge diagnosis Epigastric abdominal pain. Possible alcoholic gastritis Mild acute pancreatitis likely alcohol induced Atypical chest pain. Ruled out ACS. Acute on chronic anemia with Iron deficiency Acute alcohol intoxication on admission Acute alcohol withdrawal symptoms Severe alcohol abuse Hallucinations and suicidal ideation on admission currently denied any suicidal thoughts. History of gastric bypass surgery History of cholecystectomy Ongoing nicotine addiction Hypertension History of GI bleed and bleeding ulcer Bradycardia, was on heart monitor. Osteoarthritis Anxiety/depression/bipolar/PTSD DVT prophylaxis with SCDs Hospital course. Patient is a 38-year-old male with a known history of GI bleed, hypertension, osteoarthritis, ADD/ADHD, anxiety/depression, bipolar and PTSD and severe alcohol abuse with 1 pint of alcohol daily and prior history of gastric bypass surgery and subsequent chronic anemia came to ER with complaints of chest pain mainly left retrosternal and epigastric region. Patient has been having dull pain for the past 3 days. Associated with shortness of breath and diaphoresis. Patient was also having nausea and no episodes of vomiting or hematemesis. Patient denied any cough or sputum production. No fever no chills. No headache or dizziness or lightheadedness. On admission patient was confused and hallucinating. Patient continues to drink otherwise. Alcohol level was greater than 400 on admission. Lipase level 363 EKG showed sinus tachycardia with nonspecific ST-T wave changes. Chest x-ray showed no acute cardiopulmonary process. UDS is positive for amphetamines, marijuana, Influenza A and B- Troponin 3 negative Patient was continued on IV hydration and thiamine, multivitamins. Monitor for alcohol withdrawal symptoms. Continue with Protonix IV twice a day.. Cardiac Cardiology has seen the patient and ACS has been ruled out. Follow-up 2-D echocardiogram. Recommends stress test was clinically stable. Continue with alcohol withdrawal symptoms protocol. Patient was seen by cardiology intake once 2D echocardiogram. 2D echocardiogram showed normal ejection fraction and no significant wall motion abnormalities noted. Patient did not improve clinically. Patient was cleared from cardiology standpoint. Librium has been discontinued due to pauses in the EKG. Vital Signs Temp 98 F 04/10/19 12:00 Pulse 79 04/10/19 12:00 Resp 16 04/10/19 12:00 BP 137/86 04/10/19 12:00 Pulse Ox 99 04/10/19 12:00 Intake & Output 04/09/19 04/10/19 04/10/19 18:59 06:59 18:59 Intake Total 555 240 Balance 555 240 Weight 114.6 kg Intake: Intake, IV Titration 75 Amount Sodium Chloride 0.9% 1, 75 000 ml @ 75 mls/hr IV . [id number] [facility] Rx#:[id number] Oral 480 240 Other: Voiding Method Toilet Toilet # Voids 1 - Exam PHYSICAL EXAMINATION: GENERAL: 38-year-old gentleman in no acute distress at the time of my examination HEENT: Head is atraumatic, normocephalic. Pupils equal, round. Sclera anicteric. Conjunctiva are clear. Mucous membranes of the mouth are moist. Neck is supple. There is no elevated jugular venous pressure. No carotid bruit is heard. HEART EXAMINATION: Heart S1, S2 normal. No murmur or gallop heard. CHEST EXAMINATION: Lungs are clear to auscultation and precussion. No chest wall tenderness is noted on palpation or with deep breathing. ABDOMEN: Soft, nontender. Bowel sounds are heard. No organomegaly noted. EXTREMITIES: 2+ peripheral pulses with no evidence of peripheral edema and no calf tenderness noted. NEUROLOGIC patient is awake, alert and oriented 3 . - Labs CBC & Chem 7: 04/10/19 07:18 04/10/19 07:18 Labs: Abnormal Lab Results - Last 24 Hours (Table) 04/09/19 04/10/19 04/10/19 Range/Units 06:46 07:18 07:18 WBC 3.0 L (3.8-10.6) k/uL Hgb 8.3 L (13.0-17.5) gm/dL Hct 30.6 L (39.0-53.0) % MCV 69.3 L (80.0-100.0) fL MCH 18.8 L (25.0-35.0) pg MCHC 27.1 L (31.0-37.0) g/dL RDW 18.8 H (11.5-15.5) % Plt Count 148 L (150-450) k/uL Lymphocytes # 0.8 L (1.0-4.8) k/uL BUN 7 L (9-20) mg/dL Creatinine 0.58 L (0.66-1.25) mg/dL Glucose 138 H (74-99) mg/dL Iron 15 L (65-175) ug/dL Iron Saturation 3.49 L (15.00-50.00) Ferritin 8.4 L (22.0-322.0) ng/mL Patient Condition at Discharge: Stable Plan - Discharge Summary Discharge Rx Participant: No New Discharge Prescriptions: New Ferrous Sulfate [Feosol] 325 mg PO DAILY #30 tab Folic Acid 1 mg PO DAILY #30 tab Pantoprazole Sodium [Protonix] 40 mg PO AC-BRKFST #30 tablet. Thiamine [Vitamin B-1] 100 mg PO DAILY #30 tab No Action DULoxetine HCL [Cymbalta] 60 mg PO DAILY traZODone HCL [TraZODone HCl] 50 mg PO HS PRN PRN Reason: SLEEP Gabapentin [Neurontin] 300 mg PO BID Dextroamphetamine/Amphetamine [Adderall] 30 mg PO BID Acetaminophen [Tylenol] 650 mg PO Q4H PRN PRN Reason: Pain Naltrexone HCl [Revia] 50 mg PO DAILY chlordiazePOXIDE HCl [Librium] 20 mg PO HS 15 Days #24 capsule Discharge Medication List Ferrous Sulfate [Feosol] 325 mg PO DAILY #30 tab 04/10/19 [Rx] Folic Acid 1 mg PO DAILY #30 tab 04/10/19 [Rx] Pantoprazole Sodium [Protonix] 40 mg PO AC-BRKFST #30 tablet. 04/10/19 [Rx] Thiamine [Vitamin B-1] 100 mg PO DAILY #30 tab 04/10/19 [Rx] Acetaminophen [Tylenol] 650 mg PO Q4H PRN 04/11/19 [History] DULoxetine HCL [Cymbalta] 60 mg PO DAILY 04/11/19 [History] Dextroamphetamine/Amphetamine [Adderall] 30 mg PO BID 04/11/19 [History] Gabapentin [Neurontin] 300 mg PO BID 04/11/19 [History] Naltrexone HCl [Revia] 50 mg PO DAILY 04/11/19 [History] chlordiazePOXIDE HCl [Librium] 20 mg PO HS 15 Days #24 capsule 04/11/19 [Rx] traZODone HCL [TraZODone HCl] 50 mg PO HS PRN 04/11/19 [History] Follow up Appointment(s)/Referral(s): Greg Armas MD [STAFF PHYSICIAN] - (Please bring in photo ID, insurance card and a list of your medications. Office will call with a follow up appointment before noon.) Angeline Nelson MD [Primary Care Provider] - 04/16/19 10:30 am () Patient Instructions/Handouts: Chest Pain (DC), Abuse of Alcohol (DC) Activity/Diet/Wound Care/Special Instructions: Please continue outpatient counseling, and continue your current medications. Discharge Disposition: HOME SELF-CARE
== END 2019-04-10 16:50 | disposition home or self-care (01) ==
LOC: EC 19:06 → 3SCARD 20:19
PROVIDERS: ADMIT Hospitalist; ATTEND Hospitalist
DX: R07.89 Other chest pain (principal); F10.129 Alcohol abuse with intoxication, unspecified; R10.13 Epigastric pain; F23 Brief psychotic disorder; Y90.8 Blood alcohol level of 240 mg/100 ml or more; K85.90 Acute pancreatitis without necrosis or infection, unspecified; R82.5 Elevated urine levels of drugs, medicaments and biological substances; R45.851 Suicidal ideations; M19.90 Unspecified osteoarthritis, unspecified site; I10 Essential (primary) hypertension; D50.9 Iron deficiency anemia, unspecified; R00.1 Bradycardia, unspecified; I83.90 Asymptomatic varicose veins of unspecified lower extremity; F90.9 Attention-deficit hyperactivity disorder, unspecified type; F17.200 Nicotine dependence, unspecified, uncomplicated; R61 Generalized hyperhidrosis; R06.02 Shortness of breath; R00.0 Tachycardia, unspecified; F43.10 Post-traumatic stress disorder, unspecified; F31.9 Bipolar disorder, unspecified; F41.9 Anxiety disorder, unspecified; F60.3 Borderline personality disorder; F17.210 Nicotine dependence, cigarettes, uncomplicated; Z87.11 Personal history of peptic ulcer disease; Z90.49 Acquired absence of other specified parts of digestive tract; Z87.19 Personal history of other diseases of the digestive system; Z98.84 Bariatric surgery status; Z80.3 Family history of malignant neoplasm of breast; Z83.3 Family history of diabetes mellitus; Z82.49 Family history of ischemic heart disease and other diseases of the circulatory system; Z81.8 Family history of other mental and behavioral disorders
CPT/HCPCS: 93005 ×2; 96361 ×2; 96365; 96375 ×3; 96376 ×3; 82075; 99285; 36415; 93306; 80053; 80048 ×2; 82728; 83540; 83550; 83690; 83735; 84443; 84484 ×2; 85025 ×3; 85610; 85730; 80306; 87502; 71046; G0378 ×3; G0480; J2060 ×3; J3411; J2405; J2916; J3475; C9113; 80320

== ENCOUNTER 2019-04-11 13:25 | Emergency (ER) | payer OTHER ==
[2019-04-11 14:56] LABS: Anisocytosis Slight; Basophils % (A) 1 %; Eosinophils % (A) 0 %; HCT 31.4 % (39.0-53.0); HGB 8.7 gm/dL (13.0-17.5); Hypochromasia Marked; Lymphocytes # (A) 0.7 k/uL (1.0-4.8); Lymphocytes % (A) 9 %; MCH 18.9 pg (25.0-35.0); MCHC 27.6 g/dL (31.0-37.0); MCV 68.5 fL (80.0-100.0); Mean Platelet Volume 7.1; Microcytosis Marked; Monocytes # (A) 0.7 k/uL (0-1.0); Monocytes % (A) 8 %; Neutrophils # (A) 6.3 k/uL (1.3-7.7); Neutrophils % (A) 80 %; Platelet Count 236 k/uL (150-450); RBC 4.58 m/uL (4.30-5.90); WBC 7.9 k/uL (3.8-10.6)
[2019-04-11 14:57] LABS: Partial Thromboplastin Time 23.1 sec (22.0-30.0); Prothrombin Time 10.7 sec (9.0-12.0)
--- NOTE | 2019-04-11 14:59 | ED ---
Dizziness HPI - General Chief Complaint: Dizziness Stated Complaint: poss med reaction/dizzines, leg & arm cramping Time Seen by Provider: 04/11/19 13:58 Source: patient Mode of arrival: ambulatory Limitations: no limitations - History of Present Illness Initial Comments: 38-year-old male presenting today for chief complaint of cramping of the upper or lower extremities x 1 month, pre-syncopal episode x 1 day. Patient states that earlier today he felt shaky, he had cramping of the upper or lower extremities that has been going on for quite some time (>1 month). He states that earlier while working on his apartment he felt sweaty and warm, he states he felt like he was going to pass out. He states he is unsure if he did pass out. Patient states he hadnt had anything to eat all day. Patient Patient states he was recently admitted for ETOH intoxication, and was "detoxed" in the hospital. Patient denies chest pain or shortness of breath. States he felt light headed earlier. He denies dizziness or sensation that the room is spinning. Denies vomiting, visual changes. Patient also states around the time he was light headed he had impede doom feeling as though he was going to and high anxiety. Patient states what really made him come to the ER was that he cannot tolerate the cramping that has been ongoing greater than 1 month. Patient re maining ROS (-) Upon arrival patient appears well there is no signs of acute distress. - Related Data Home Medications Medication Instructions Recorded Confirmed Acetaminophen [Tylenol] 650 mg PO Q4H PRN 04/11/19 04/11/19 DULoxetine HCL [Cymbalta] 60 mg PO DAILY 04/11/19 04/11/19 Dextroamphetamine/Amphetamine 30 mg PO BID 04/11/19 04/11/19 [Adderall] Gabapentin [Neurontin] 300 mg PO BID 04/11/19 04/11/19 Naltrexone HCl [Revia] 50 mg PO DAILY 04/11/19 04/11/19 traZODone HCL [TraZODone HCl] 50 mg PO HS PRN 04/11/19 04/11/19 Previous Rx's Medication Instructions Recorded Ferrous Sulfate [Feosol] 325 mg PO DAILY #30 tab 04/10/19 Folic Acid 1 mg PO DAILY #30 tab 04/10/19 Pantoprazole Sodium [Protonix] 40 mg PO AC-BRKFST #30 tablet. 04/10/19 Thiamine [Vitamin B-1] 100 mg PO DAILY #30 tab 04/10/19 chlordiazePOXIDE HCl [Librium] 20 mg PO HS 15 Days #24 capsule 04/11/19 Allergies Allergy/AdvReac Type Severity Reaction Status Date / Time No Known Allergies Allergy Verified 04/11/19 15:00 Review of Systems ROS Statement: Those systems with pertinent positive or pertinent negative responses have been documented in the HPI. ROS Other: All systems not noted in ROS Statement are negative. 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 Mother Family Medical History: Cancer Additional Family Medical History / Comment(s): breast Brother(s) Additional Family Medical History / Comment(s): Patient has one brother with history of anxiety and depression. Patient does not have any sisters. Patient has 1 son that is 10 years old with diabetes mellitus type 1. General Exam - General Exam Comments Initial Comments: General: The patient is awake and alert, in no distress, and does not appear acutely ill. Eye: +3 mm pupils are equal, round and reactive to light, extra-ocular movements are intact. No nystagmus. There is normal conjunctiva bilaterally. No signs of icterus. Ears, nose, mouth and throat: There are moist mucous membranes and no oral lesions. No raccoon or Leyva sign. No scalp hematomas noted. Neck: The neck is supple, there is no tenderness or JVD. No midline tenderness to patient the cervical spine full range of motion of the cervical spine. Cardiovascular: There is a regular rate and rhythm. No murmur, rub or gallop is appreciated. Respiratory: Lungs are clear to auscultation, respirations are non-labored, breath sounds are equal. No wheezes, stridor, rales, or rhonchi. Gastrointestinal: Soft, non-distended, non-tender abdomen without masses or organomegaly noted. There is no rebound or guarding present. Musculoskeletal: Normal ROM, no tenderness. Strength 5/5. Sensation intact. Radial and DP pulses equal bilaterally 2+. Neurological: A&O x 3. CN II-XII intact, There are no obvious motor or sensory deficits. Coordination appears grossly intact. Speech is normal. No tremors Skin: Skin is warm and dry and no rashes or lesions are noted. No lower extremity edema. Negative Homans sign no masses or redness of the calf bilaterally. Psychiatric: Cooperative, anxious appearing Limitations: no limitations Course Vital Signs 04/11/19 04/11/19 04/11/19 13:54 15:00 16:00 Temperature 99.3 F Pulse Rate 124 H 100 Respiratory 20 20 Rate Blood Pressure 137/82 149/104 144/106 O2 Sat by Pulse 98 97 Oximetry 04/11/19 04/11/19 04/11/19 16:30 17:00 17:30 Temperature Pulse Rate 98 101 H 92 Respiratory 20 17 17 Rate Blood Pressure 150/91 145/95 149/104 O2 Sat by Pulse 98 98 98 Oximetry 04/11/19 18:00 Temperature 97.3 F L Pulse Rate 91 Respiratory 20 Rate Blood Pressure 142/93 O2 Sat by Pulse 99 Oximetry EKG Findings - EKG Comments: EKG Findings:: Ventricular rate 102 beats minute, DC interval 184 ms, QR administration 110 ms, QT/QTC 364/476 ms, no ST eelvation or depression. Sinus. Low voltage. artifact noed. Medical Decision Making - Medical Decision Making 38[facility] cramping of the upper and lower extremities has been ongoing for months as well as a lightheaded sensation, syncope vs presyncope. Unsure if he passed out or had head injury. CT (-). No focal deficits. No tremors. No nystagmus. Patient recently admitted for detox. Increased in Cr. 1.68, patient producing urine. No flank pain/abdominal pain. Fever. Patient has normal BUN. Dry on exam. CK (-). Given IVF. EKG no acute findings, no Chest pain, troponin (-), low risk factors. Co rosita (-) urine. CXR WNL. No murmur on heart exam. Patient case discussed at length with Dr. Huynh who reviewed labs and evaluated the patient in person. He recommends discharge of patient. Patient will be discharged with Librium qhs 20mg x 15 days. Patient family member at bedside states she will ensure repeat lab draw of Cr/BUN and have patient f/u with PCP. Patient is agreeable with discharge at this time. Return parameters discussed patient discharged appearing well. - Lab Data Result diagrams: 04/11/19 14:30 04/11/19 14:30 Lab Results 04/11/19 04/11/19 04/11/19 Range/Units 14:30 14:30 14:30 WBC 7.9 (3.8-10.6) k/uL RBC 4.58 (4.30-5.90) m/uL Hgb 8.7 L (13.0-17.5) gm/dL Hct 31.4 L (39.0-53.0) % MCV 68.5 L (80.0-100.0) fL MCH 18.9 L (25.0-35.0) pg MCHC 27.6 L (31.0-37.0) g/dL RDW 20.0 H (11.5-15.5) % Plt Count 236 (150-450) k/uL Neutrophils % 80 % Lymphocytes % 9 % Monocytes % 8 % Eosinophils % 0 % Basophils % 1 % Neutrophils # 6.3 (1.3-7.7) k/uL Lymphocytes # 0.7 L (1.0-4.8) k/uL Monocytes # 0.7 (0-1.0) k/uL Eosinophils # 0.0 (0-0.7) k/uL Basophils # 0.0 (0-0.2) k/uL Hypochromasia Marked Anisocytosis Slight Microcytosis Marked PT (9.0-12.0) sec INR (<1.2) APTT (22.0-30.0) sec Sodium 141 (137-145) mmol/L Potassium 3.6 (3.5-5.1) mmol/L Chloride 106 (98-107) mmol/L Carbon Dioxide 20 L (22-30) mmol/L Anion Gap 15 mmol/L BUN 19 (9-20) mg/dL Creatinine 1.67 H (0.66-1.25) mg/dL Est GFR (CKD-EPI)AfAm 60 (>60 ml/min/1.73 sqM) Est GFR (CKD-EPI)NonAf 52 (>60 ml/min/1.73 sqM) Glucose 92 (74-99) mg/dL Plasma Lactic Acid Shane 1.3 (0.7-2.0) mmol/L Calcium 10.4 H (8.4-10.2) mg/dL Magnesium 1.8 (1.6-2.3) mg/dL Total Bilirubin 2.2 H (0.2-1.3) mg/dL AST 93 H (17-59) U/L ALT 89 H (21-72) U/L Alkaline Phosphatase 53 (38-126) U/L Creatine Kinase (55-170) U/L Troponin I (0.000-0.034) ng/mL Total Protein 8.0 (6.3-8.2) g/dL Albumin 4.6 (3.5-5.0) g/dL Urine Color Urine Appearance (Clear) Urine pH (5.0-8.0) Ur Specific [place] (1.001-1.035) Urine Protein (Negative) Urine Glucose (UA) (Negative) Urine Ketones (Negative) Urine Blood (Negative) Urine Nitrite (Negative) Urine Bilirubin (Negative) Urine Urobilinogen (<2.0) mg/dL Ur Leukocyte Esterase (Negative) Urine RBC (0-5) /hpf Urine WBC (0-5) /hpf Ur Squamous Epith Cells (0-4) /hpf Urine Bacteria (None) /hpf Hyaline Casts (0-2) /lpf Urine Mucus (None) /hpf Urine Opiates Screen (NotDetected) Ur Oxycodone Screen (NotDetected) Urine Methadone Screen (NotDetected) Ur Propoxyphene Screen (NotDetected) Ur Barbiturates Screen (NotDetected) U Tricyclic Antidepress (NotDetected) Ur Phencyclidine Scrn (NotDetected) Ur Amphetamines Screen (NotDetected) U Methamphetamines Scrn (NotDetected) U Benzodiazepines Scrn (NotDetected) Urine Cocaine Screen (NotDetected) U Marijuana (THC) Screen (NotDetected) Serum Alcohol mg/dL 04/11/19 04/11/19 04/11/19 Range/Units 14:30 14:30 14:30 WBC (3.8-10.6) k/uL RBC (4.30-5.90) m/uL Hgb (13.0-17.5) gm/dL Hct (39.0-53.0) % MCV (80.0-100.0) fL MCH (25.0-35.0) pg MCHC (31.0-37.0) g/dL RDW (11.5-15.5) % Plt Count (150-450) k/uL Neutrophils % % Lymphocytes % % Monocytes % % Eosinophils % % Basophils % % Neutrophils # (1.3-7.7) k/uL Lymphocytes # (1.0-4.8) k/uL Monocytes # (0-1.0) k/uL Eosinophils # (0-0.7) k/uL Basophils # (0-0.2) k/uL Hypochromasia Anisocytosis Microcytosis PT 10.7 (9.0-12.0) sec INR 1.0 (<1.2) APTT 23.1 (22.0-30.0) sec Sodium (137-145) mmol/L Potassium (3.5-5.1) mmol/L Chloride (98-107) mmol/L Carbon Dioxide (22-30) mmol/L Anion Gap mmol/L BUN (9-20) mg/dL Creatinine (0.66-1.25) mg/dL Est GFR (CKD-EPI)AfAm (>60 ml/min/1.73 sqM) Est GFR (CKD-EPI)NonAf (>60 ml/min/1.73 sqM) Glucose (74-99) mg/dL Plasma Lactic Acid Shane (0.7-2.0) mmol/L Calcium (8.4-10.2) mg/dL Magnesium (1.6-2.3) mg/dL Total Bilirubin (0.2-1.3) mg/dL AST (17-59) U/L ALT (21-72) U/L Alkaline Phosphatase (38-126) U/L Creatine Kinase 170 (55-170) U/L Troponin I 0.012 (0.000-0.034) ng/mL Total Protein (6.3-8.2) g/dL Albumin (3.5-5.0) g/dL Urine Color Urine Appearance (Clear) Urine pH (5.0-8.0) Ur Specific [place] (1.001-1.035) Urine Protein (Negative) Urine Glucose (UA) (Negative) Urine Ketones (Negative) Urine Blood (Negative) Urine Nitrite (Negative) Urine Bilirubin (Negative) Urine Urobilinogen (<2.0) mg/dL Ur Leukocyte Esterase (Negative) Urine RBC (0-5) /hpf Urine WBC (0-5) /hpf Ur Squamous Epith Cells (0-4) /hpf Urine Bacteria (None) /hpf Hyaline Casts (0-2) /lpf Urine Mucus (None) /hpf Urine Opiates Screen (NotDetected) Ur Oxycodone Screen (NotDetected) Urine Methadone Screen (NotDetected) Ur Propoxyphene Screen (NotDetected) Ur Barbiturates Screen (NotDetected) U Tricyclic Antidepress (NotDetected) Ur Phencyclidine Scrn (NotDetected) Ur Amphetamines Screen (NotDetected) U Methamphetamines Scrn (NotDetected) U Benzodiazepines Scrn (NotDetected) Urine Cocaine Screen (NotDetected) U Marijuana (THC) Screen (NotDetected) Serum Alcohol mg/dL 04/11/19 04/11/19 Range/Units 14:40 15:51 WBC (3.8-10.6) k/uL RBC (4.30-5.90) m/uL Hgb (13.0-17.5) gm/dL Hct (39.0-53.0) % MCV (80.0-100.0) fL MCH (25.0-35.0) pg MCHC (31.0-37.0) g/dL RDW (11.5-15.5) % Plt Count (150-450) k/uL Neutrophils % % Lymphocytes % % Monocytes % % Eosinophils % % Basophils % % Neutrophils # (1.3-7.7) k/uL Lymphocytes # (1.0-4.8) k/uL Monocytes # (0-1.0) k/uL Eosinophils # (0-0.7) k/uL Basophils # (0-0.2) k/uL Hypochromasia Anisocytosis Microcytosis PT (9.0-12.0) sec INR (<1.2) APTT (22.0-30.0) sec Sodium (137-145) mmol/L Potassium (3.5-5.1) mmol/L Chloride (98-107) mmol/L Carbon Dioxide (22-30) mmol/L Anion Gap mmol/L BUN (9-20) mg/dL Creatinine (0.66-1.25) mg/dL Est GFR (CKD-EPI)AfAm (>60 ml/min/1.73 sqM) Est GFR (CKD-EPI)NonAf (>60 ml/min/1.73 sqM) Glucose (74-99) mg/dL Plasma Lactic Acid Shane (0.7-2.0) mmol/L Calcium (8.4-10.2) mg/dL Magnesium (1.6-2.3) mg/dL Total Bilirubin (0.2-1.3) mg/dL AST (17-59) U/L ALT (21-72) U/L Alkaline Phosphatase (38-126) U/L Creatine Kinase (55-170) U/L Troponin I (0.000-0.034) ng/mL Total Protein (6.3-8.2) g/dL Albumin (3.5-5.0) g/dL Urine Color [place] Urine Appearance Cloudy (Clear) Urine pH 5.5 (5.0-8.0) Ur Specific [place] 1.025 (1.001-1.035) Urine Protein 1+ H (Negative) Urine Glucose (UA) Negative (Negative) Urine Ketones 1+ H (Negative) Urine Blood Negative (Negative) Urine Nitrite Negative (Negative) Urine Bilirubin 1+ H (Negative) Urine Urobilinogen 6.0 (<2.0) mg/dL Ur Leukocyte Esterase Small H (Negative) Urine RBC 2 (0-5) /hpf Urine WBC 14 H (0-5) /hpf Ur Squamous Epith Cells 7 H (0-4) /hpf Urine Bacteria Rare H (None) /hpf Hyaline Casts 49 H (0-2) /lpf Urine Mucus Many H (None) /hpf Urine Opiates Screen Not Detected (NotDetected) Ur Oxycodone Screen Detected H (NotDetected) Urine Methadone Screen Not Detected (NotDetected) Ur Propoxyphene Screen Not Detected (NotDetected) Ur Barbiturates Screen Not Detected (NotDetected) U Tricyclic Antidepress Not Detected (NotDetected) Ur Phencyclidine Scrn Not Detected (NotDetected) Ur Amphetamines Screen Detected H (NotDetected) U Methamphetamines Scrn Not Detected (NotDetected) U Benzodiazepines Scrn Detected H (NotDetected) Urine Cocaine Screen Not Detected (NotDetected) U Marijuana (THC) Screen Detected H (NotDetected) Serum Alcohol <10 mg/dL Disposition Clinical Impression: Leg cramping, Pre-syncope, Weakness, Elevated serum creatinine Disposition: HOME SELF-CARE Condition: Good Instructions (If sedation given, give patient instructions): Leg Cramps (ED), Impaired Kidney Function (ED) Additional Instructions: Please use medication as discussed. Please follow-up with family doctor in the next 24 hours, recommend laboratory draw of creatinine, BUN-as this was elevated today. Please return to emergency room if the symptoms increase or worsen or for any other concerns. Prescriptions: chlordiazePOXIDE HCl [Librium] 20 mg PO HS 15 Days #24 capsule Is patient prescribed a controlled substance at d/c from ED?: No Referrals: Angeline Nelson MD [Primary Care Provider] - 1-2 days Time of Disposition: 18:01
[2019-04-11 15:02] LABS: Potassium 3.6 mmol/L (3.5-5.1)
[2019-04-11 15:03] LABS: Albumin 4.6 g/dL (3.5-5.0); Calcium 10.4 mg/dL (8.4-10.2); Magnesium 1.8 mg/dL (1.6-2.3); Total Bilirubin 2.2 mg/dL (0.2-1.3)
--- NOTE | 2019-04-11 15:19 | CT ---
EXAMINATION TYPE: CT brain wo con DATE OF EXAM: 04/11/2019 COMPARISON: Prior CT brain 11/04/2016 HISTORY: headache and dizziness CT DLP: 1169.4 mGycm. Automated Exposure Control for Dose Reduction was Utilized. TECHNIQUE: CT scan of the head is performed without contrast. FINDINGS: There is no acute intracranial hemorrhage, mass effect, or midline shift identified. The ventricles and sulci are within normal limits in size. The globes are intact and the visualized sin uses are stable, inflammatory change present within the ethmoid air cells. IMPRESSION: No acute intracranial hemorrhage, mass effect, or midline shift is seen.
[2019-04-11] MEDS ORDERED: SODIUM CHLORIDE 0.9% 1,000 ML IV ONE (15:30)
--- NOTE | 2019-04-11 15:50 | XR ---
EXAMINATION TYPE: XR chest 2V DATE OF EXAM: 04/11/2019 COMPARISON: Chest x-ray 3 days ago. HISTORY: Weakness and syncope. TECHNIQUE: Frontal and lateral views of the chest are obtained. FINDINGS: Overlying EKG leads are present. There is no focal air space opacity, pleural effusion, or pneumothorax seen. The cardiac silhouette size is upper limits of normal. The osseous structures a re intact. IMPRESSION: No acute cardiopulmonary process. No significant change from recent prior.
[2019-04-11 16:06] LABS: Appearance,Urine Cloudy (Clear); Bacteria,Urine Rare /hpf; Bilirubin,Urine 1+ (Negative); Blood,Urine Negative (Negative); Color,Urine Orange; Glucose,Urine (UA) Negative (Negative); Hyaline Casts,Urine 49 /lpf (0-2); Ketones,Urine 1+ (Negative); Leukocyte Esterase,Urine Small (Negative); Mucus,Urine Many /hpf; Nitrite,Urine Negative (Negative); PH, Urine 5.5 (5.0-8.0); Protein,Urine 1+ (Negative); RBC,Urine 2 /hpf (0-5); Specific Gravity,Urine 1.025 (1.001-1.035); Squamous Epithelial Cell,Urine 7 /hpf (0-4); WBC,Urine 14 /hpf (0-5)
[2019-04-11 16:18] LABS: Amphetamine Screen,Urine Detected (NotDetected); Barbiturate Screen,Urine Not Detected (NotDetected); Benzodiazepines Screen,Urine Detected (NotDetected); Cocaine Screen,Urine Not Detected (NotDetected); Methadone Screen, Urine Not Detected (NotDetected); Opiate Screen,Urine Not Detected (NotDetected); Oxycodone Screen, Urine Detected (NotDetected); Phencyclidine Screen,Urine Not Detected (NotDetected); Tricyclic Antidepressant,Urine Not Detected (NotDetected); Urn Cannabinoid Scrn Detected (NotDetected)
[2019-04-11] MEDS ORDERED: LORazepam 2 MG/ML INJ IV STA (16:43)
[2019-04-11 18:16] VITALS: BP 142/93; PULSE 91; RESP 20; TEMP 97.3
== END 2019-04-11 18:15 | disposition home or self-care (01) ==
LOC: EC 13:25
DX: R53.1 Weakness (principal); R79.89 Other specified abnormal findings of blood chemistry; R55 Syncope and collapse; R25.2 Cramp and spasm; M19.90 Unspecified osteoarthritis, unspecified site; F31.9 Bipolar disorder, unspecified; F41.9 Anxiety disorder, unspecified; F90.9 Attention-deficit hyperactivity disorder, unspecified type; F17.200 Nicotine dependence, unspecified, uncomplicated; Z79.891 Long term (current) use of opiate analgesic; Z79.899 Other long term (current) drug therapy; Z87.76 Personal history of (corrected) congenital malformations of integument, limbs and musculoskeletal system
CPT/HCPCS: 99284; 96374; 96361; 36415; 93005; 80053; 82550; 83605; 83735; 84484; 85025; 85610; 85730; 81001; 80306; 71046; 70450; G0480; J2060; 80320

== ENCOUNTER 2019-08-06 14:45 | Observation (INO) | payer OTHER ==
[2019-08-06] MEDS ORDERED: DIAZEPAM 5 MG/ML 2 ML INJ IVP STA (15:06)
[2019-08-06] MEDS ORDERED: LORazepam 2 MG/ML INJ IV PRN (15:06)
[2019-08-06] MEDS ORDERED: THIAMINE 100 MG/ML 2 ML VIAL IM STA (15:06)
--- NOTE | 2019-08-06 15:42 | ED ---
General Adult HPI - General Chief complaint: Psychiatric Symptoms Stated complaint: mental health evaluation Time Seen by Provider: 08/06/19 14:53 Source: patient, RN notes reviewed Mode of arrival: ambulatory Limitations: no limitations - History of Present Illness Initial comments: 38-year-old male history of depression, alcoholism presenting for evaluation of suicidal ideation. [facility] [place] with several weeks of thoughts of suicide one to kill himself by over ingestion of alcohol. He states his last drink was 48 hours ago he's been in rehab for the past 48 hours. He denies alcohol consumption today, denies suicide attempt. Denies any physical complaints. He admits to drinking half gallon of liquor daily. - Related Data Home Medications Medication Instructions Recorded Confirmed Acetaminophen [Tylenol] 650 mg PO Q4H PRN 04/11/19 04/11/19 DULoxetine HCL [Cymbalta] 60 mg PO DAILY 04/11/19 04/11/19 Dextroamphetamine/Amphetamine 30 mg PO BID 04/11/19 04/11/19 [Adderall] Gabapentin [Neurontin] 300 mg PO BID 04/11/19 04/11/19 Naltrexone HCl [Revia] 50 mg PO DAILY 04/11/19 04/11/19 traZODone HCL [TraZODone HCl] 50 mg PO HS PRN 04/11/19 04/11/19 Previous Rx's Medication Instructions Recorded Ferrous Sulfate [Feosol] 325 mg PO DAILY #30 tab 04/10/19 Folic Acid 1 mg PO DAILY #30 tab 04/10/19 Pantoprazole Sodium [Protonix] 40 mg PO GRACE-BRKFST #30 tablet. 04/10/19 Thiamine [Vitamin B-1] 100 mg PO DAILY #30 tab 04/10/19 chlordiazePOXIDE HCl [Librium] 20 mg PO HS 15 Days #24 capsule 04/11/19 Allergies Allergy/AdvReac Type Severity Reaction Status Date / Time No Known Allergies Allergy Verified 08/06/19 14:51 Review of Systems ROS Statement: Those systems with pertinent positive or pertinent negative responses have been documented in the HPI. ROS Other: All systems not noted in ROS Statement are negative. 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 Mother Family Medical History: Cancer Additional Family Medical History / Comment(s): breast Brother(s) Additional Family Medical History / Comment(s): Patient has one brother with history of anxiety and depression. Patient does not have any sisters. Patient has 1 son that is 10 years old with diabetes mellitus type 1. General Exam Limitations: no limitations General appearance: alert, in distress Head exam: Present: atraumatic, normocephalic Eye exam: Present: normal appearance, PERRL Neck exam: Present: normal inspection. Absent: tenderness, meningismus Respiratory exam: Present: normal lung sounds bilaterally. Absent: respiratory distress Cardiovascular Exam: Present: normal rhythm, tachycardia GI/Abdominal exam: Present: soft. Absent: distended, tenderness, guarding Extremities exam: Present: normal inspection, normal capillary refill. Absent: pedal edema Neurological exam: Present: alert, oriented X3, CN II-XII intact. Absent: motor sensory deficit Psychiatric exam: Present: depressed, anxious, suicidal ideation Skin exam: Present: warm, dry, intact. Absent: cyanosis, diaphoretic Course Vital Signs 08/06/19 08/06/19 14:49 14:52 Temperature 98.1 F Pulse Rate 104 H Respiratory 20 Rate Blood Pressure 172/108 156/96 O2 Sat by Pulse 100 Oximetry Medical Decision Making - Medical Decision Making 38-year-old male presenting with alcohol withdrawal, concern for impending DTs, suicidal ideation. He started on benzodiazepines he will be admitted with psychiatry on consult. Case is discussed with the admitting physician Dr. Harris. Laboratory studies will be obtained these are pending. - Lab Data Result diagrams: 08/06/19 15:13 Lab Results 08/06/19 08/06/19 08/06/19 Range/Units 15:00 15:13 15:13 PT 11.0 (9.0-12.0) sec INR 1.1 (<1.2) APTT 23.4 (22.0-30.0) sec Sodium 137 (137-145) mmol/L Potassium 4.2 (3.5-5.1) mmol/L Chloride 104 (98-107) mmol/L Carbon Dioxide 21 L (22-30) mmol/L Anion Gap 12 mmol/L BUN 8 L (9-20) mg/dL Creatinine 0.48 L (0.66-1.25) mg/dL Est GFR (CKD-EPI)AfAm >90 (>60 ml/min/1.73 sqM) Est GFR (CKD-EPI)NonAf >90 (>60 ml/min/1.73 sqM) Glucose 71 L (74-99) mg/dL Calcium 9.6 (8.4-10.2) mg/dL Magnesium 1.7 (1.6-2.3) mg/dL Total Bilirubin 2.7 H (0.2-1.3) mg/dL AST 135 H (17-59) U/L ALT 79 H (4-49) U/L Alkaline Phosphatase 55 (38-126) U/L Total Protein 7.7 (6.3-8.2) g/dL Albumin 4.4 (3.5-5.0) g/dL Urine Opiates Screen Not Detected (NotDetected) Ur Oxycodone Screen Not Detected (NotDetected) Urine Methadone Screen Not Detected (NotDetected) Ur Propoxyphene Screen Not Detected (NotDetected) Ur Barbiturates Screen Detected H (NotDetected) U Tricyclic Antidepress Not Detected (NotDetected) Ur Phencyclidine Scrn Not Detected (NotDetected) Ur Amphetamines Screen Not Detected (NotDetected) U Methamphetamines Scrn Not Detected (NotDetected) U Benzodiazepines Scrn Detected H (NotDetected) Urine Cocaine Screen Not Detected (NotDetected) U Marijuana (THC) Screen Detected H (NotDetected) Disposition Clinical Impression: Suicidal ideations, Attempted suicide, Alcohol withdrawal Disposition: ADMITTED IP TO THIS HOSP Condition: Stable Is patient prescribed a controlled substance at d/c from ED?: No Referrals: Angeline Nelson MD [Primary Care Provider] - 1-2 days Decision to Admit Reason: Admit from EC Decision Date: 08/06/19 Decision Time: 16:14
[2019-08-06 15:43] LABS: Amphetamine Screen,Urine Not Detected (NotDetected); Barbiturate Screen,Urine Detected (NotDetected); Benzodiazepines Screen,Urine Detected (NotDetected); Cocaine Screen,Urine Not Detected (NotDetected); Methadone Screen, Urine Not Detected (NotDetected); Opiate Screen,Urine Not Detected (NotDetected); Oxycodone Screen, Urine Not Detected (NotDetected); Phencyclidine Screen,Urine Not Detected (NotDetected); Tricyclic Antidepressant,Urine Not Detected (NotDetected); Urn Cannabinoid Scrn Detected (NotDetected)
[2019-08-06] MEDS ORDERED: NALOXONE 0.4 MG/ML 1 ML VIAL IV PRN (15:54)
[2019-08-06 15:57] LABS: INR 1.1 (<1.2); Partial Thromboplastin Time 23.4 sec (22.0-30.0)
[2019-08-06 16:00] LABS: ALT 79 U/L (4-49); AST 135 U/L (17-59); African American GFR (CKD) >90 (>60 ml/min/1.73 sqM); Albumin 4.4 g/dL (3.5-5.0); Alkaline Phosphatase 55 U/L (38-126); Anion Gap 12 mmol/L; Blood Urea Nitrogen 8 mg/dL (9-20); Calcium 9.6 mg/dL (8.4-10.2); Carbon Dioxide 21 mmol/L (22-30); Chloride 104 mmol/L (98-107); Glucose 71 mg/dL (74-99); Magnesium 1.7 mg/dL (1.6-2.3); Non-African American GFR(CKD) >90 (>60 ml/min/1.73 sqM); Potassium 4.2 mmol/L (3.5-5.1); Sodium 137 mmol/L (137-145); Total Bilirubin 2.7 mg/dL (0.2-1.3); Total Protein 7.7 g/dL (6.3-8.2)
[2019-08-06 16:22] LABS: Anisocytosis Moderate; HCT 36.7 % (39.0-53.0); HGB 10.4 gm/dL (13.0-17.5); Hypochromasia Marked; MCH 20.5 pg (25.0-35.0); MCHC 28.2 g/dL (31.0-37.0); MCV 72.5 fL (80.0-100.0); Mean Platelet Volume 9.2; Microcytosis Marked; Platelet Count 114 k/uL (150-450); RBC 5.06 m/uL (4.30-5.90); RDW 20.8 % (11.5-15.5); WBC 4.2 k/uL (3.8-10.6)
[2019-08-06 16:55] LABS: Lymphocytes # (M) 0.88 k/uL (1.0-4.8); Monocytes # (M) 0.25 k/uL (0-1.0); Neutrophils # (M) 3.07 k/uL (1.3-7.7); Neutrophils % (M) 73 %; Nucleated Red Blood Cells 0 /100 WBC (0-0); Poikilocytosis (M) Present; Polychromasia Present; Target Cells Present; Total Cells Counted 100
[2019-08-06] MEDS: THIAMINE 100 MG TAB PO SCH (18:24)
[2019-08-06] MEDS: SODIUM CHLORIDE 0.9% 1,000 ML IV SCH (18:24)
[2019-08-06] MEDS ORDERED: traZODone HCL 50 MG TAB PO PRN (19:17)
[2019-08-06] MEDS ORDERED: HALOPERIDOL LACTATE 5 MG/ML 1 ML VIAL IM PRN (19:18)
[2019-08-06] MEDS ORDERED: METOCLOPRAMIDE 5 MG/ML 2 ML VIAL IVP PRN (19:19)
[2019-08-06] MEDS: LORazepam 2 MG/ML INJ IV PRN ×3 (19:41→23:45)
--- NOTE | 2019-08-06 20:03 | XR ---
EXAMINATION TYPE: XR chest 1V portable DATE OF EXAM: 08/06/2019 COMPARISON: 04/11/2019 HISTORY: Short of breath TECHNIQUE: FINDINGS: Heart is normal. Lungs are clear. Diaphragm is normal. There are chest leads. There is no h eart failure. Bony thorax is intact. IMPRESSION: Normal chest. No change.
[2019-08-06] MEDS: HYDROcodone/APAP 5-325MG 1 EACH TAB PO PRN (21:22)
[2019-08-06] MEDS: NICOTINE 14MG/24HR PATCH TRANSDERM SCH (21:24)
[2019-08-06] MEDS: HEPARIN SODIUM,PORCINE 5,000 UNIT/ML 1 ML VIAL SQ SCH (21:26)
[2019-08-06] MEDS: GABAPENTIN 300 MG CAP PO SCH (21:26)
--- NOTE | 2019-08-07 00:56 | HP ---
HISTORY AND PHYSICAL DATE OF SERVICE: 08/06/2019. CHIEF COMPLAINT: Alcohol withdrawals and as well as suicidal ideations and depression. HISTORY OF PRESENT ILLNESS: This 38-year-old gentleman with a past medical history of significant alcohol, patient drinks half a gallon alcohol, history hypertension, history of DJD, history of GI bleed, history of bariatric surgery, cholecystectomy, history of ADD, ADHD, anxiety, bipolar depression PTSD being followed by Dr. Nelson in the outpatient setting, was admitted with suicidal ideations. The patient thinking of suicidal and thoughts of suicide according to her and the patient also had significant ingestion of alcohol. The last drink was about 48 hours ago. The patient had significant tremors and other difficulties. The patient came to [facility] and was admitted for further evaluation and treatment. The patient has a water safety teacher. There is no history of fever, rigors or chills. No history of headache, loss of consciousness, seizures. PAST MEDICAL HISTORY: History of hypertension, history of GI bleed, history of bariatric surgery, cholecystectomy, multiple psychiatric issues and alcohol intake history. MEDICATION: Home medications are: 1. Trazodone 50 mg q.h.s. p.r.n. 2. Thiamine 100 mg. 3. Omeprazole 20 mg daily. 4. Ativan 0.5 mg p.o. b.i.d. 5. Neurontin 300 mg p.o. b.i.d. 6. Folic acid 1 mg. 7. Iron sulfate 325 p.o. daily. 8. Adderall 30 mg p.o. b.i.d. ALLERGIES: None. FAMILY HISTORY: History of breast cancer in the family. SOCIAL HISTORY: 1. History of smoking, continued ongoing. 2. History of THC. 3. History of alcohol. REVIEW OF SYSTEMS: ENT: No diminished vision. No diminished hearing. CARDIOVASCULAR: No angina or palpitations. RESPIRATION: No cough or hemoptysis. GI no nausea or vomiting. no dysuria. Nervous system: As mentioned earlier. Allergy/Immunology: No asthma or hayfever. MUSCULOSKELETAL: As mentioned earlier. HEMATOLOGY/ONCOLOGY: No history of anemia. ENDOCRINE: No history of diabetes or hypothyroidism. DERMATOLOGY: Negative. CONSTITUTIONAL: As mentioned earlier. RHEUMATOLOGY: Negative. PSYCHIATRIC: As mentioned earlier. PHYSICAL EXAMINATION: The patient is alert and oriented times three. Pulse 119, regular. Blood pressure is 148/86, respirations 17, temperature 98.7, pulse ox 98% on room air. HEENT: Conjunctivae normal. Oral mucosa moist. NECK is no jugular venous distention. No carotid bruit. No lymph node enlargement. Cardiovascular system: S1, S2 muffled. RESPIRATORY: Breath sounds diminished in the bases. A few scattered rhonchi. No crackles. ABDOMEN: Soft, nontender. No mass palpable, obese. LEGS: No edema. No swelling. NERVOUS SYSTEM: Higher functions as mentioned earlier. Moves all four limbs. No focal motor or sensory deficits. SKIN: No ulcer, no rashes and no bleeding. JOINTS: No active deforming arthropathy. LABS: WBC 4.2, hemoglobin 10.4, platelets 114. Otherwise sodium 137, potassium 4.2, creatinine 0.48, total bilirubin is 2.7, AST is 135, ALT 79. The urine drug screen is positive for benzos, marijuana and as well as barbiturates. ASSESSMENT: 1. Acute alcohol withdrawal and acute delirium tremens. 2. Depression, with suicidal ideations. 3. Acute alcoholic hepatitis with elevated bilirubin, AST, ALT. 4. Anemia, microcytic possibly nutritional. 5. Thrombocytopenia possibly related to alcohol. 6. History of gastrointestinal bleed. 7. Hypertension. 8. History of degenerative joint disease. 9. History of bleeding ulcer. 10.History of bradycardia. 11.History of bariatric surgery. 12.History of cholecystectomy. 13.History attention-deficit disorder, attention-deficit/hyperactivity disorder, anxiety, bipolar depression PTSD. 14.History of borderline personality disorder. 15.History of nicotine dependence. 16.History of THC. 17.FULL CODE. RECOMMENDATIONS AND DISCUSSION: This 38-year-old gentleman who presented with multiple complex medical issues, we will monitor the patient closely, continue the current medications, management and symptomatic treatment. The patient had features of early delirium tremens. At this time, I recommend continue with current medications. Otherwise, [facility] protocol p.r.n. Haldol use in case of extreme emergencies. Otherwise, I would also recommend psychiatric consultation and possible water safety teacher. Resume the rest of the medication. Alcohol cessation. Advised rehab. Social Work consult. Prognosis guarded because of multiple complex medical issues. Copy of this being forwarded to Dr. Nelson who is the primary physician. MMODL / IJN: [id number] /
[2019-08-07] MEDS: LORazepam 2 MG/ML INJ IV PRN ×3 (03:06→20:38)
[2019-08-07] MEDS: HYDROcodone/APAP 5-325MG 1 EACH TAB PO PRN ×2 (03:07→15:39)
[2019-08-07] MEDS: SODIUM CHLORIDE 0.9% 1,000 ML IV SCH ×2 (06:17→20:47)
[2019-08-07] MEDS: FOLIC ACID 1 MG TAB PO SCH (08:08)
[2019-08-07] MEDS: NON FORMULARY DRUG (Dextroamphetamine/Amphetamine [Adderall] 30 MG) PO SCH ×2 (08:08→15:22)
[2019-08-07] MEDS: PANTOPRAZOLE 40 MG TABLET PO SCH (08:08)
[2019-08-07] MEDS: THIAMINE 100 MG TAB PO SCH ×2 (08:08→17:39)
[2019-08-07] MEDS: GABAPENTIN 300 MG CAP PO SCH ×2 (08:08→20:38)
[2019-08-07] MEDS: FERROUS SULFATE 325 MG TAB PO SCH (08:08)
[2019-08-07] MEDS: HEPARIN SODIUM,PORCINE 5,000 UNIT/ML 1 ML VIAL SQ SCH ×2 (08:09→20:38)
[2019-08-07] MEDS: NICOTINE 14MG/24HR PATCH TRANSDERM SCH (08:09)
[2019-08-07 08:36] LABS: ALT 65 U/L (4-49); AST 100 U/L (17-59); African American GFR (CKD) >90 (>60 ml/min/1.73 sqM); Albumin 3.7 g/dL (3.5-5.0); Alkaline Phosphatase 43 U/L (38-126); Anion Gap 6 mmol/L; Blood Urea Nitrogen 7 mg/dL (9-20); Calcium 8.7 mg/dL (8.4-10.2); Carbon Dioxide 27 mmol/L (22-30); Chloride 105 mmol/L (98-107); Glucose 84 mg/dL (74-99); Non-African American GFR(CKD) >90 (>60 ml/min/1.73 sqM); Potassium 3.9 mmol/L (3.5-5.1); Sodium 138 mmol/L (137-145); Total Bilirubin 1.9 mg/dL (0.2-1.3); Total Protein 6.6 g/dL (6.3-8.2)
[2019-08-07 08:58] LABS: Anisocytosis Moderate; Basophils % (A) 1 %; Eosinophils # (A) 0.1 k/uL (0-0.7); Eosinophils % (A) 3 %; HGB 9.6 gm/dL (13.0-17.5); Hypochromasia Marked; Lymphocytes # (A) 1.1 k/uL (1.0-4.8); Lymphocytes % (A) 32 %; MCHC 28.4 g/dL (31.0-37.0); Mean Platelet Volume 11.1; Microcytosis Marked; Monocytes # (A) 0.3 k/uL (0-1.0); Monocytes % (A) 8 %; Neutrophils # (A) 1.8 k/uL (1.3-7.7); Neutrophils % (A) 53 %; Platelet Count 130 k/uL (150-450); RBC 4.59 m/uL (4.30-5.90); RDW 21.1 % (11.5-15.5); WBC 3.3 k/uL (3.8-10.6)
[2019-08-07] MEDS ORDERED: NON FORMULARY DRUG (Omeprazole [Omeprazole] 20 MG) PO SCH (09:00)
[2019-08-07 11:30] LABS: Polychromasia Present
[2019-08-07 11:31] LABS: Target Cells Present
--- NOTE | 2019-08-07 13:51 | P.CN ---
Psychiatric Consult - . Consult date: 08/07/19 Consult:: 08/07/19 13:36 IDENTIFYING DATA: This patient is a 38-year-old male who is currently engaged has 1 kid and is . HISTORY OF PRESENT ILLNESS: The patient [facility] due to concerns of depression and alcohol use. Patient states that he was in rehab for 48 hours and claims that he's also been suicidal and having depressive thoughts for several weeks. He states that he had thoughts of drinking himself to and claims to been drinking approximately 1/2 gallon of vodka a day and states that he struggled with alcohol for approximately 12 years and is gone to rehab a times in the past. Patient states that he has been off of his psychiatric medications for weeks now. Psychiatry was consulted for alcohol use and suicidal ideations. Nurse taking care patient states that julieta diaz is currently withdrawing from alcohol and on CIWA and taking Ativan. Patient was seen at the bedside by radio script writer and eats that he "does not want to live anymore". He states that he's been feeling this for the past 2 weeks. He endorses an increase in his drinking and depression along with anhedonia. He endorses poor sleep. He states that he is feeling more irritable and hopeless at [place]. He describes feeling emotional and and was tearful during the interview. Patient had a soft tone was guarded at times and appeared to be disheveled and sweating. Patient is continuing to have suicidal thoughts however no current plan and endorsed having visual hallucinations seeing "rain inside". He denies any auditory hallucinations at this time and denies any use homicidal ideations intent or plan. He does not endorse any paranoia or delusions. Patients admits to using marijuana occasionally and also cigarettes daily. Patient admitted to having a significant history of delirium tremens including visual hallucinations and tremors. PAST PSYCHIATRIC HISTORY: Depression, significant polysubstance abuse, PTSD, ADHD. He states that he does not have an outpatient psychiatrist that he fo llows up with and states that he was last admitted to a psychiatric hospital several years ago. Patient was previously on trazodone, ReVia, Neurontin, Adderall and Cymbalta. PAST MEDICAL HISTORY: DJD, GI bleeds. ALLERGIES: as per EMR. CHEMICAL DEPENDENCY HISTORY: as per HPI. FAMILY PSYCHIATRIC/SUBSTANCE USE HISTORY: Patient's mother abused opiates and overdosed SOCIAL HISTORY: He states that he was born and raised in [place] and now lives in [place]. She has 1 brother and his mother is . He has some college, completed high school is currently and is now engaged to his fianc. He has 1 kid. MENTAL STATUS EXAM: General Appearance: Patient appears to be tall/overweight, older than stated age is lethargic and attempts to cooperate. Patient appears to have poor hygiene and grooming wearing hospital gown with poor eye contact. Behavior: Patient is calmly lying in bed without any agitated behavior. Guarded. Speech: Patient's speech is fluent and nonpressured. Soft tone. Mood/Affect: Patient reports their mood is "depressed", affect is congruent Suicidality/Homicidality: Patient denies having any homicidal ideation intent or plan. He admits to thoughts of suicide, No intent plan. Perceptions: Patient denies any auditory hallucinations or does endorse visual hallucinations of "seeing a rain inside". Though content/process: There is no evidence of any delusional thought content and thought process is linear and goal-directed. Rambles at times. Memory and concentration: AOX3, grossly intact for the purposes of this session. Can spell "WORLD" backwards Judgment and insight: poor IMPRESSIONS: Major depressive disorder, recurrent, severe Anxiety disorder unspecified Alcohol use disorder, severe, currently in withdrawal Cannabis abuse History of ADHD Nicotine dependence PLAN: -At this time patient DOES meet criteria for inpatient psychiatric admission. Patient is agreeable to sign himself for voluntary admission. -Continue with alcohol withdrawal treatment including CIWA and Ativan when necessary. Continue to monitor vitals and symptoms. Patient has a complicated history of delirium tremens and given the amount of alcohol he consumes he is at high risk for this during this admission. -Would recommend the following medication changes/additions: We'll start Zoloft 50 mg daily for mood/anxiety, trazodone 50 mg daily at bedtime when necessary for insomnia/mood. Will hold off on anti-craving medications at this time given the patient is on opiates and also has elevated LFTs. -Thiamine, folic acid, multivitamin for chronic alcohol use. -Continue 1:1 sitter for safety -Will continue to follow along -When medically stable including consistently stable vitals signs and no IV Ativan, patient is eligible for transfer to a psych bed when available. We'll also order CMP for tomorrow. Anticipate patient will be out of delirium tremens window in approximately 48 hours. 08/07/19 13:51
[2019-08-07] MEDS: MULTIVITAMINS, THERA 1 EACH TAB PO SCH (15:35)
[2019-08-07] MEDS: SERTRALINE 50 MG TAB PO SCH (15:36)
--- NOTE | 2019-08-07 16:38 | P.CRDCN ---
History of Present Illness History of present illness: This is Agatha Eason PA-C dictating a consult on this patient The patient was interviewed and examined by me as well as by Dr. Gaitan Case discussed with Dr. Gaitan and he agrees with the plan of care HPI Patient is a 38-year-old male is a history of alcoholism and depression who was transferred to [facility] from his rehab facility after expressing suicidal ideation. He was admitted for treatment of alcohol withdrawal. Cardiology has been asked to evaluate him for second degree heart block. Telemetry strips reviewed, patient had Mobitz type I and Mobitz type II second-degree heart block overnight while he was sleeping. Patient seen and examined. States he feels a little bit shaky and a some mild intermittent chest tightness. States he has never passed out before. He did not have any symptoms overnight. ROS: positive for tremors no cough, phlegm or expectoration, no nausea, vomiting or diarrhea, no hematuria, dysuria, no musculoskeletal complaints, no strokes or seizures, no skin lesions. EXAMINATION: Patient is afebrile, pulse in the 70s, respirations 16, blood pressure 120/69, oxygen saturation 99% on room air Patient seen and examined resting in bed, not appear to be in any acute distress Lungs are clear to auscultation bilaterally Heart is regular, no audible murmurs No lower extremity edema REVIEW OF LABS, ECG & MEDICAL DATA WBC 3.3, hemoglobin 9.6, platelet 130, sodium 138, potassium 3.9, BUN 7, creatinine 0.5, AST 100, ALT 55 EKG shows sinus mechanism with normal CT IMPRESSION / ASSESSMENT: Second-degree heart block at night, asymptomatic, not on any AV frankie blocking drugs Alcohol abuse, receiving treatment for alcohol withdrawal PLAN: Repeat EKG Continue to monitor telemetry, monitor for symptomatic bradycardia Outpatient assessment for sleep apnea Avoid AV frankie blocking drugs 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, corrective surgery as child for pigeon toe on bilat legs, corrective surgery on leg and shoulder Past Anesthesia/Blood Transfusion Reactions: No Reported Reaction Past Psychological History: ADD/ADHD, Anxiety, Bipolar, Depression, PTSD Additional Psychological History / Comment(s): borderline personality disorder Smoking Status: Current every day smoker Past Alcohol Use History: Abuse, Heavy Additional Past Alcohol Use History / Comment(s): smokes 1/2 PPD for 14 yrs, Daily alcohol use- 1 pint daily Past Drug Use History: Marijuana Additional Drug Use History / Comment(s): occ use - Past Family History Father Additional Family Medical History / Comment(s): Father is alive at age 60 with heart problems including a pacemaker ordered for later. Mother Family Medical History: Cancer Additional Family Medical History / Comment(s): breast Brother(s) Additional Family Medical History / Comment(s): Patient has one brother with history of anxiety and depression. Patient does not have any sisters. Patient has 1 son that is 10 years old with diabetes mellitus type 1. Medications and Allergies Home Medications Medication Instructions Recorded Confirmed Type Ferrous Sulfate [Feosol] 325 mg PO DAILY #30 tab 04/10/19 08/06/19 Rx Folic Acid 1 mg PO DAILY #30 tab 04/10/19 08/06/19 Rx Thiamine [Vitamin B-1] 100 mg PO DAILY #30 tab 04/10/19 08/06/19 Rx Dextroamphetamine/Amphetamine 30 mg PO BID 04/11/19 08/06/19 History [Adderall] Gabapentin [Neurontin] 300 mg PO BID 04/11/19 08/06/19 History traZODone HCL [TraZODone HCl] 50 mg PO HS PRN 04/11/19 08/06/19 History LORazepam [Ativan] 0.5 mg PO BID 08/06/19 08/06/19 History Omeprazole 20 mg PO DAILY 08/06/19 08/06/19 History Allergies Allergy/AdvReac Type Severity Reaction Status Date / Time No Known Allergies Allergy Verified 08/06/19 14:51 Physical Exam Vitals: Vital Signs Temp Pulse Resp BP Pulse Ox 08/07/19 12:35 97.7 F 70 16 120/69 99 08/07/19 05:24 98.7 F 64 16 127/78 91 L 08/06/19 21:18 99.1 F 90 18 150/95 99 08/06/19 17:48 98.7 F 119 H 17 148/86 98 Intake and Output 08/07/19 08/07/19 08/07/19 06:59 14:59 22:59 Intake Total 590 600 Balance 590 600 Intake: Intake, IV Titration 600 Amount Sodium Chloride 0.9% 1, 600 000 ml @ 75 mls/hr IV . [id number] [facility] Rx#:[id number] Oral 590 Other: Voiding Method Toilet # Voids 4 3 Results 08/07/19 07:49 08/07/19 07:49 Cardiac Enzymes 08/07/19 Range/Units 07:49 AST 100 H (17-59) U/L CBC 08/07/19 Range/Units 07:49 WBC 3.3 L (3.8-10.6) k/uL RBC 4.59 (4.30-5.90) m/uL Hgb 9.6 L (13.0-17.5) gm/dL Hct 34.0 L (39.0-53.0) % Plt Count 130 L (150-450) k/uL Comprehensive Metabolic Panel 08/07/19 Range/Units 07:49 Sodium 138 (137-145) mmol/L Potassium 3.9 (3.5-5.1) mmol/L Chloride 105 (98-107) mmol/L Carbon Dioxide 27 (22-30) mmol/L BUN 7 L (9-20) mg/dL Creatinine 0.50 L (0.66-1.25) mg/dL Glucose 84 (74-99) mg/dL Calcium 8.7 (8.4-10.2) mg/dL AST 100 H (17-59) U/L ALT 65 H (4-49) U/L Alkaline Phosphatase 43 (38-126) U/L Total Protein 6.6 (6.3-8.2) g/dL Albumin 3.7 (3.5-5.0) g/dL Current Medications Generic Name Dose Route Start Last Admin Trade Name Freq PRN Reason Stop Dose Admin Hydrocodone Bitart/Acetaminophen 1 each 08/06/19 19:19 08/07/19 15:39 [place] 5-325 PO 1 each Q6HR PRN Administration Pain Ferrous Sulfate 325 mg 08/07/19 08:30 08/07/19 08:08 Feosol PO 325 mg PC-BRKFST ARLIN Administration Folic Acid 1 mg 08/07/19 09:00 08/07/19 08:08 Folic Acid PO 1 mg DAILY ARLIN Administration Gabapentin 300 mg 08/06/19 21:00 08/07/19 08:08 Neurontin PO 300 mg BID ARLIN Administration Haloperidol Lactate 5 mg 08/06/19 19:18 Haldol IM Q6HR PRN Agitation or Acute Psychosis Heparin Sodium (Porcine) 5,000 unit 08/06/19 21:00 08/07/19 08:09 Heparin SQ 5,000 unit Q12HR ARLIN Administration Sodium Chloride 1,000 mls @ 75 mls/hr 08/06/19 16:00 08/07/19 06:17 Saline 0.9% IV 75 mls/hr .[id number] ARLIN Administration Lorazepam 1 mg 08/06/19 15:06 08/07/19 08:26 Ativan IV 1 mg Q2HR PRN Administration CIWA 8 or 9 Lorazepam 1 mg 08/06/19 15:06 08/06/19 21:22 Ativan IV 1 mg Q1HR PRN Administration CIWA 10 to 15 Lorazepam 2 mg 08/06/19 15:06 Ativan IV 08/08/19 15:06 Q10M PRN CIWA 16 or higher Metoclopramide HCl 5 mg 08/06/19 19:19 Reglan IVP Q6HR PRN Nausea And Vomiting Multivitamins 1 each 08/07/19 13:45 08/07/19 15:35 Theragran PO 1 each DAILY ARLIN Administration Naloxone HCl 0.2 mg 08/06/19 15:54 Narcan IV Q2M PRN Opioid Reversal Nicotine 1 patch 08/06/19 19:30 08/07/19 08:09 Habitrol 14mg/24hr Patch TRANSDERM 1 patch DAILY ARLIN Administration Non-Formulary Medication 30 mg 08/07/19 07:30 08/07/19 15:22 Dextroamphetamine/Amphetamine [Adderall] PO Not Given AC-BID ARLIN Pantoprazole Sodium 40 mg 08/07/19 07:30 08/07/19 08:08 Protonix PO 40 mg AC-BRKFST ARLIN Administration Sertraline HCl 50 mg 08/07/19 13:45 08/07/19 15:36 Zoloft PO 50 mg DAILY ARLIN Administration Thiamine HCl 100 mg 08/06/19 17:30 08/07/19 08:08 Vitamin B-1 PO 100 mg BID-W/MEALS ARLIN Administration Trazodone HCl 50 mg 08/06/19 19:17 Desyrel PO HS PRN SLEEP Intake and Output 08/07/19 08/07/19 08/07/19 06:59 14:59 22:59 Intake Total 590 600 Balance 590 600 Intake: Intake, IV Titration 600 Amount Sodium Chloride 0.9% 1, 600 000 ml @ 75 mls/hr IV . [id number] [facility] Rx#:[id number] Oral 590 Other: Voiding Method Toilet # Voids 4 3 08/07/19 07:49 08/07/19 07:49
--- NOTE | 2019-08-08 00:08 | PN ---
PROGRESS NOTE DATE OF SERVICE: 08/07/2019 This 38-year-old gentleman admitted with acute alcohol withdrawal syndrome also had suicidal ideations. The patient is still slightly tremulous and is also complaining of left knee pain, possibly musculoskeletal. Patient had previous surgery at that site. The patient also had a second-degree type 1 AV block while the patient was sleeping after Tate, which the patient took for the leg pain. No chest pain or palpitations. Past medical history reviewed. REVIEW OF SYSTEMS: CARDIOVASCULAR SYSTEM: As mentioned earlier. RESPIRATORY SYSTEM: As mentioned earlier. GI: No nausea, vomiting. : No dysuria or retention. NERVOUS SYSTEM: No numbness, weakness. CURRENT MEDICATIONS: Reviewed. They include: 1. Tate 5 mg. 2. Iron sulfate. 3. Folic acid. 4. Neurontin 300 mg b.i.d. 5. Haldol p.r.n. 6. Heparin. 7. Ativan. 8. Reglan. 9. Multivitamins. 10.Narcan. 11.Protonix. 12.Zoloft. 13.Vitamin B1. 14.Desyrel. PHYSICAL EXAMINATION: Patient is alert, oriented x3. Pulse is 70, blood pressure 120/69, respirations 16, temperature 97.7, pulse ox 99% on room air. HEENT: Conjunctivae normal. NECK: No jugular venous distention. CARDIOVASCULAR SYSTEM: S1, S2 muffled. RESPIRATORY SYSTEM: Breath sounds diminished at the bases. Scattered rhonchi and crackles. ABDOMEN: Soft, non-tender. LEGS: Minimal tenderness on the left knee. NERVOUS SYSTEM: Diffuse tremors present. LABS: WBC 3.3, hemoglobin 9.6, platelets are 130. Sodium 138, potassium 3.9, creatinine 0.5. Total bilirubin is 1.9, AST is 100, ALT is 65. Drug screen is positive for benzodiazepines and THC, barbiturates. ASSESSMENT: 1. Acute alcohol withdrawal as well as acute delirium tremens. 2. Depression with suicidal ideations. 3. Acute alcoholic hepatitis with elevated bilirubin, AST, ALT. 4. Second-degree type 1 AV block. 5. Anemia, microcytic; possibly nutritional. 6. Thrombocytopenia, possibly related to alcohol. 7. History of gastrointestinal bleed. 8. Mild leukopenia. 9. Hypertension. 10.History of degenerative joint disease. 11.History of bleeding ulcer. 12.History of bradycardia. 13.History of bariatric surgery. 14.History of cholecystectomy. 15.History of attention deficit disorder, attention deficit hyperactivity disorder, anxiety, bipolar, depression, post-traumatic stress disorder. 16.History of borderline personality disorder. 17.History of nicotine dependence. 18.History of tetrahydrocannabinol. 19.FULL CODE. RECOMMENDATIONS AND DISCUSSION: I recommend to continue current medications, continue with the monitoring, symptomatic treatment. This 38-year-old gentleman also had multiple other medical problems, including cardiac issues. At this time we will continue to monitor, continue the telemetry and otherwise continue with ADRIANA Flannery protocol. The prognosis is guarded because of multiple complex medical issues. Further recommendations to follow. MMODL / IJN: [id number] /
[2019-08-08] MEDS: HYDROcodone/APAP 5-325MG 1 EACH TAB PO PRN ×3 (00:25→20:23)
[2019-08-08] MEDS: LORazepam 2 MG/ML INJ IV PRN ×2 (02:41→11:05)
[2019-08-08] MEDS: NICOTINE 14MG/24HR PATCH TRANSDERM SCH (08:33)
[2019-08-08] MEDS: THIAMINE 100 MG TAB PO SCH ×2 (08:33→18:16)
[2019-08-08] MEDS: FOLIC ACID 1 MG TAB PO SCH (08:33)
[2019-08-08] MEDS: PANTOPRAZOLE 40 MG TABLET PO SCH (08:33)
[2019-08-08] MEDS: GABAPENTIN 300 MG CAP PO SCH ×2 (08:33→20:18)
[2019-08-08] MEDS: MULTIVITAMINS, THERA 1 EACH TAB PO SCH (08:33)
[2019-08-08] MEDS: FERROUS SULFATE 325 MG TAB PO SCH (08:34)
[2019-08-08] MEDS: SERTRALINE 50 MG TAB PO SCH (08:34)
[2019-08-08] MEDS: HEPARIN SODIUM,PORCINE 5,000 UNIT/ML 1 ML VIAL SQ SCH ×2 (08:34→20:18)
[2019-08-08 08:55] LABS: Anisocytosis Moderate; Basophils % (A) 1 %; Eosinophils # (A) 0.1 k/uL (0-0.7); Eosinophils % (A) 3 %; HCT 33.3 % (39.0-53.0); HGB 9.4 gm/dL (13.0-17.5); Hypochromasia Marked; Lymphocytes # (A) 1.1 k/uL (1.0-4.8); Lymphocytes % (A) 26 %; MCH 20.9 pg (25.0-35.0); MCHC 28.1 g/dL (31.0-37.0); MCV 74.2 fL (80.0-100.0); Mean Platelet Volume 8.8; Microcytosis Marked; Monocytes # (A) 0.4 k/uL (0-1.0); Monocytes % (A) 9 %; Neutrophils # (A) 2.5 k/uL (1.3-7.7); Neutrophils % (A) 58 %; Platelet Count 141 k/uL (150-450); RBC 4.49 m/uL (4.30-5.90); RDW 21.6 % (11.5-15.5); WBC 4.3 k/uL (3.8-10.6)
[2019-08-08 08:56] LABS: ALT 57 U/L (4-49); AST 88 U/L (17-59); African American GFR (CKD) >90 (>60 ml/min/1.73 sqM); Albumin 3.3 g/dL (3.5-5.0); Alkaline Phosphatase 40 U/L (38-126); Anion Gap 4 mmol/L; Blood Urea Nitrogen 8 mg/dL (9-20); Calcium 8.4 mg/dL (8.4-10.2); Carbon Dioxide 25 mmol/L (22-30); Chloride 108 mmol/L (98-107); Glucose 83 mg/dL (74-99); Non-African American GFR(CKD) >90 (>60 ml/min/1.73 sqM); Sodium 137 mmol/L (137-145); Total Bilirubin 1.6 mg/dL (0.2-1.3); Total Protein 6.3 g/dL (6.3-8.2)
[2019-08-08] MEDS: NON FORMULARY DRUG (Dextroamphetamine/Amphetamine [Adderall] 30 MG) PO SCH ×2 (09:04→18:09)
[2019-08-08] MEDS: SODIUM CHLORIDE 0.9% 1,000 ML IV SCH ×2 (09:05→20:19)
[2019-08-08 10:24] LABS: Poikilocytosis (M) Present
--- NOTE | 2019-08-08 11:34 | P.PN ---
Subjective This is a pleasant 38-year-old male past medical history significant for alcoholism, chronic nicotine dependence and depression. He is seen and examined sitting up in bed in no acute distress. Denies symptoms of chest pain, shortness of breath, dizziness or palpitations. Repeat EKG reveals sinus bradycardia with no acute ST or T wave abnormalities noted. Laboratory data reviewed, WBC 4.3, hemoglobin 9.4, platelets 141, sodium 137, potassium 4.0, creatinine 0.51, total bilirubin 1.6, AST 88, ALT 57. Blood pressure 135/85 heart rate 71 afebrile maintaining oxygen saturation on room air. GENERAL: Well-appearing, well-nourished and in no acute distress. NECK: Supple without JVD or thyromegaly. LUNGS: Breath sounds clear to auscultation bilaterally. Respiration equal and unlabored. No wheezes, rales or rhonchi. HEART: Regular rate and rhythm without murmurs, rubs or gallops. S1 and S2 heard. EXTREMITIES: Normal range of motion, no edema. No clubbing or cyanosis. Peripheral pulses intact. ASSESSMENT Second-degree heart block while sleeping, asymptomatic Alcohol abuse currently receiving treatment for alcohol withdrawal PLAN Stable from a cardiac perspective. Avoid AV frankie blocking drugs. Outpatient assessment for sleep apnea. We will continue to follow as needed, please feel free to call with further questions or concerns. Nurse Practitioner note has been reviewed, I agree with a documented findings and plan of care. Patient was seen and examined. Objective - Vital Signs Vital signs: Vital Signs Temp 98.2 F 08/08/19 05:00 Pulse 71 08/08/19 05:00 Resp 18 08/08/19 05:00 BP 135/85 08/08/19 05:00 Pulse Ox 98 08/08/19 05:00 Intake & Output 08/07/19 08/08/19 08/08/19 18:59 06:59 18:59 Intake Total 1180 900 Balance 1180 900 Intake: Intake, IV Titration 600 900 Amount Sodium Chloride 0.9% 1, 600 900 000 ml @ 75 mls/hr IV . [id number] ARLIN Rx#:[id number] Oral 580 Other: Voiding Method Toilet # Voids 3 4 - Labs CBC & Chem 7: 08/08/19 08:04 08/08/19 08:04 Labs: Abnormal Lab Results - Last 24 Hours (Table) 08/07/19 08/08/19 08/08/19 Range/Units 07:49 08:04 08:04 WBC 3.3 L (3.8-10.6) k/uL Hgb 9.6 L 9.4 L (13.0-17.5) gm/dL Hct 34.0 L 33.3 L (39.0-53.0) % MCV 74.0 L 74.2 L (80.0-100.0) fL MCH 21.0 L 20.9 L (25.0-35.0) pg MCHC 28.4 L 28.1 L (31.0-37.0) g/dL RDW 21.1 H 21.6 H (11.5-15.5) % Plt Count 130 L 141 L (150-450) k/uL Chloride 108 H (98-107) mmol/L BUN 8 L (9-20) mg/dL Creatinine 0.51 L (0.66-1.25) mg/dL Total Bilirubin 1.6 H (0.2-1.3) mg/dL AST 88 H (17-59) U/L ALT 57 H (4-49) U/L Albumin 3.3 L (3.5-5.0) g/dL
[2019-08-08] MEDS: SIMETHICONE 80 MG CHEWABLE PO SCH ×3 (12:13→21:46)
--- NOTE | 2019-08-08 16:09 | P.PN ---
Subjective Progress Note Date: 08/08/19 Principal diagnosis: This is a 38-year-old male who was recently admitted with acute alcohol withdrawal symptoms and also was found to have suicidal ideations. Cardiology is following as there was an episode of possible second-degree type I AV block while at rest. No reports of chest pain or palpitations at this time. Patient is maintained on the CIWA although is being transitioned to oral Ativan. Patient states that he has been having suicidal ideations although he feels safe in the hospital and his denying any thoughts of suicidal ideation at this time. Patient is to continue the one-to-one sitter. Objective - Vital Signs Vital signs: Vital Signs Temp 98.7 F 08/08/19 11:27 Pulse 75 08/08/19 11:27 Resp 18 08/08/19 11:27 BP 130/78 08/08/19 11:27 Pulse Ox 97 08/08/19 11:27 Intake & Output 08/07/19 08/08/19 08/08/19 18:59 06:59 18:59 Intake Total 6913 084 1941 Balance 8163 854 0950 Intake: Intake, IV Titration 600 900 525 Amount Sodium Chloride 0.9% 1, 600 900 525 000 ml @ 75 mls/hr IV . [id number] A[facility]IN Rx#:[id number] Oral 580 600 Other: Voiding Method Toilet # Voids 3 4 3 - Exam Gen: This is a 38-year-old male lying in bed awake, alert and oriented 3, well- developed, well-nourished. HEENT: Head is atraumatic, normocephalic. Pupils equal, round. Sclerae is anicteric. NECK: Supple. No JVD. No lymphadenopathy. No thyromegaly. LUNGS: Clear to auscultation. No wheezes or rhonchi. No intercostal retractions. HEART: Regular rate and rhythm. No murmur. ABDOMEN: Soft. Bowel sounds are present. No masses. No tenderness. EXTREMITIES: No pedal edema. No calf tenderness. NEUROLOGICAL: Patient is awake, alert and oriented x3. Cranial nerves 2 through 12 are grossly intact. - Labs CBC & Chem 7: 08/08/19 08:04 08/08/19 08:04 Labs: Abnormal Lab Results - Last 24 Hours (Table) 08/08/19 08/08/19 Range/Units 08:04 08:04 Hgb 9.4 L (13.0-17.5) gm/dL Hct 33.3 L (39.0-53.0) % MCV 74.2 L (80.0-100.0) fL MCH 20.9 L (25.0-35.0) pg MCHC 28.1 L (31.0-37.0) g/dL RDW 21.6 H (11.5-15.5) % Plt Count 141 L (150-450) k/uL Chloride 108 H (98-107) mmol/L BUN 8 L (9-20) mg/dL Creatinine 0.51 L (0.66-1.25) mg/dL Total Bilirubin 1.6 H (0.2-1.3) mg/dL AST 88 H (17-59) U/L ALT 57 H (4-49) U/L Albumin 3.3 L (3.5-5.0) g/dL Assessment and Plan Assessment: Acute alcohol withdrawal as well as acute delirium tremens Depression with suicidal ideations acute alcoholic hepatitis with elevated bilirubin, ALT, AST Second-degree type I AV block Anemia,Microcytic, possibly nutritional History of GI bleed Mild Pini on Hypertension History of DJD History of bleeding ulcer History of bradycardia history of bariatric surgery history of cholecystectomy History of attention deficit disorder, attention deficit hyperactivity disorder History of Anxiety, bipolar, depression, posterior medics stress disorder History of borderline personality disorder History of nicotine dependence History of THC use Full code Plan: Plan is to continue monitoring for any acute alcohol withdrawal symptoms. Ativan has been transitioned oral and will continue to monitor closely. Patient to continue with 1:1 sitter for suicidal ideations. Psychiatry is following. Once patient is stabilized, patient will be transferred to the inpatient psychiatric unit. Patient denies any thoughts of suicide at this time and states that he feels safe while in the hospital. Further recommendations to follow. Possible discharge to inpatient psychiatric unit in 24 hours.
[2019-08-08] MEDS: LORazepam 1 MG TAB PO PRN (18:24)
[2019-08-09] MEDS: LORazepam 1 MG TAB PO PRN ×2 (01:20→10:38)
[2019-08-09] MEDS: HYDROcodone/APAP 5-325MG 1 EACH TAB PO PRN ×2 (01:23→11:35)
[2019-08-09 08:07] LABS: Anisocytosis Moderate; Basophils % (A) 1 %; Eosinophils # (A) 0.1 k/uL (0-0.7); Eosinophils % (A) 3 %; HCT 32.4 % (39.0-53.0); HGB 9.2 gm/dL (13.0-17.5); Hypochromasia Marked; Lymphocytes # (A) 1.1 k/uL (1.0-4.8); Lymphocytes % (A) 28 %; MCH 21.2 pg (25.0-35.0); MCHC 28.3 g/dL (31.0-37.0); MCV 74.7 fL (80.0-100.0); Mean Platelet Volume 8.7; Microcytosis Marked; Monocytes # (A) 0.5 k/uL (0-1.0); Monocytes % (A) 11 %; Neutrophils # (A) 2.2 k/uL (1.3-7.7); Neutrophils % (A) 54 %; Platelet Count 149 k/uL (150-450); RBC 4.33 m/uL (4.30-5.90); RDW 23.2 % (11.5-15.5); WBC 4.2 k/uL (3.8-10.6)
[2019-08-09 08:22] LABS: ALT 55 U/L (4-49); AST 85 U/L (17-59); African American GFR (CKD) >90 (>60 ml/min/1.73 sqM); Albumin 3.3 g/dL (3.5-5.0); Alkaline Phosphatase 40 U/L (38-126); Anion Gap 4 mmol/L; Blood Urea Nitrogen 8 mg/dL (9-20); Calcium 8.5 mg/dL (8.4-10.2); Carbon Dioxide 26 mmol/L (22-30); Chloride 108 mmol/L (98-107); Glucose 82 mg/dL (74-99); Non-African American GFR(CKD) >90 (>60 ml/min/1.73 sqM); Potassium 4.2 mmol/L (3.5-5.1); Sodium 138 mmol/L (137-145); Total Bilirubin 1.5 mg/dL (0.2-1.3); Total Protein 6.1 g/dL (6.3-8.2)
[2019-08-09 08:58] LABS: Poikilocytosis (M) Present
[2019-08-09] MEDS: FERROUS SULFATE 325 MG TAB PO SCH (10:29)
[2019-08-09] MEDS: MULTIVITAMINS, THERA 1 EACH TAB PO SCH (10:29)
[2019-08-09] MEDS: PANTOPRAZOLE 40 MG TABLET PO SCH (10:29)
[2019-08-09] MEDS: FOLIC ACID 1 MG TAB PO SCH (10:29)
[2019-08-09] MEDS: SERTRALINE 50 MG TAB PO SCH (10:29)
[2019-08-09] MEDS: GABAPENTIN 300 MG CAP PO SCH (10:30)
[2019-08-09] MEDS: NON FORMULARY DRUG (Dextroamphetamine/Amphetamine [Adderall] 30 MG) PO SCH (10:30)
[2019-08-09] MEDS: THIAMINE 100 MG TAB PO SCH (10:30)
[2019-08-09] MEDS: HEPARIN SODIUM,PORCINE 5,000 UNIT/ML 1 ML VIAL SQ SCH (10:30)
[2019-08-09] MEDS: SIMETHICONE 80 MG CHEWABLE PO SCH ×2 (10:31→13:22)
[2019-08-09] MEDS: NICOTINE 14MG/24HR PATCH TRANSDERM SCH (11:16)
[2019-08-09 12:43] VITALS: BP 135/77; PULSE 76; RESP 17; TEMP 97.9
[2019-08-09] MEDS: SODIUM CHLORIDE 0.9% 1,000 ML IV SCH (13:22)
--- NOTE | 2019-08-09 13:33 | P.DS ---
Providers Date of admission: 08/06/19 15:54 Attending physician: Javier Harris Consults: 08/06/19 15:06 Consult Physician Routine Consulting Provider: Immanuel Palomo Consult Reason/Comments: SI, Etoh Do you want consulting provider notified?: Yes 08/07/19 09:19 Consult Physician Routine Consulting Provider: Riley Gaitan Consult Reason/Comments: telemetry changes-questionable second/third degree block last night Do you want consulting provider notified?: Yes Primary care physician: Angeline [facility] Course: 38-year-old male who was recently admitted with acute alcohol withdrawal symptoms and also was found to have suicidal ideations. Cardiology is following as there was an episode of possible second-degree type I AV block while at rest. No reports of chest pain or palpitations at this time. Patient is maintained on the CIWA although is being transitioned to oral Ativan. Patient states that he has been having suicidal ideations although he feels safe in the hospital and his denying any thoughts of suicidal ideation at this time. Patient is to continue the one-to-one sitter. 08/09/2019 Patient is doing much better clinically patient will be discharged to psychiatric floor today patient is medically stable to be discharged to psych may require a few doses of Ativan on as-needed basis by mouth. PHYSICAL EXAMINATION: GENERAL: The patient is alert and oriented x3, not in any acute distress. Well developed, well nourished. HEENT: Pupils are round and equally reacting to light. EOMI. No scleral icterus. No conjunctival pallor. Normocephalic, atraumatic. No pharyngeal erythema. No thyromegaly. CARDIOVASCULAR: S1 and S2 present. No murmurs, rubs, or gallops. PULMONARY: Chest is clear to auscultation, no wheezing or crackles. ABDOMEN: Soft, nontender, nondistended, normoactive bowel sounds. No palpable organomegaly. MUSCULOSKELETAL: No joint swelling or deformity. EXTREMITIES: No cyanosis, clubbing, or pedal edema. NEUROLOGICAL: Gross neurological examination did not reveal any focal deficits. SKIN: No rashes. -Alcohol withdrawal next and have an alcohol abuse Major depression and suicidal ideation -Acute alcoholic hepatitis -Second-degree type I AV block improved. No further intervention -Hypertension Patient Condition at Discharge: Stable Plan - Discharge Summary New Discharge Prescriptions: New LORazepam [Ativan] 1 mg PO TID PRN tab PRN Reason: Anxiety Nicotine 14Mg/24Hr Patch [Habitrol] 1 patch TRANSDERM DAILY patch Simethicone Chew [Mylicon Chew] 80 mg PO QID chew Sertraline [Zoloft] 50 mg PO DAILY tab Continue Ferrous Sulfate [Feosol] 325 mg PO DAILY #30 tab Folic Acid 1 mg PO DAILY #30 tab Thiamine [Vitamin B-1] 100 mg PO DAILY #30 tab traZODone HCL 50 mg PO HS PRN PRN Reason: SLEEP Gabapentin [Neurontin] 300 mg PO BID Dextroamphetamine/Amphetamine [Adderall] 30 mg PO BID Omeprazole 20 mg PO DAILY Discontinued LORazepam [Ativan] 0.5 mg PO BID Discharge Medication List Ferrous Sulfate [Feosol] 325 mg PO DAILY #30 tab 04/10/19 [Rx] Folic Acid 1 mg PO DAILY #30 tab 04/10/19 [Rx] Thiamine [Vitamin B-1] 100 mg PO DAILY #30 tab 04/10/19 [Rx] Dextroamphetamine/Amphetamine [Adderall] 30 mg PO BID 04/11/19 [History] Gabapentin [Neurontin] 300 mg PO BID 04/11/19 [History] traZODone HCL 50 mg PO HS PRN 04/11/19 [History] Omeprazole 20 mg PO DAILY 08/06/19 [History] LORazepam [Ativan] 1 mg PO TID PRN tab 08/09/19 [Rx] Nicotine 14Mg/24Hr Patch [Habitrol] 1 patch TRANSDERM DAILY patch 08/09/19 [Rx] Sertraline [Zoloft] 50 mg PO DAILY tab 08/09/19 [Rx] Simethicone Chew [Mylicon Chew] 80 mg PO QID chew 08/09/19 [Rx] Follow up Appointment(s)/Referral(s): Angeline Nelson MD [Primary Care Provider] - 3 Days Discharge Disposition: HOME SELF-CARE
== END 2019-08-09 17:53 | disposition home or self-care (01) ==
LOC: EC 14:45 → 5NMEDONC 15:54 → INTOOBSV 15:54 → UNDODISIN 08-09 17:53
PROVIDERS: ADMIT Hospitalist; ATTEND Hospitalist
DX: F10.231 Alcohol dependence with withdrawal delirium (principal); R45.851 Suicidal ideations; F31.30 Bipolar disorder, current episode depressed, mild or moderate severity, unspecified; I44.1 Atrioventricular block, second degree; K70.10 Alcoholic hepatitis without ascites; F10.288 Alcohol dependence with other alcohol-induced disorder; I10 Essential (primary) hypertension; M19.90 Unspecified osteoarthritis, unspecified site; D50.9 Iron deficiency anemia, unspecified; F90.9 Attention-deficit hyperactivity disorder, unspecified type; D72.819 Decreased white blood cell count, unspecified; I83.90 Asymptomatic varicose veins of unspecified lower extremity; Z91.5 Personal history of self-harm; D69.6 Thrombocytopenia, unspecified; F41.9 Anxiety disorder, unspecified; F43.10 Post-traumatic stress disorder, unspecified; F17.210 Nicotine dependence, cigarettes, uncomplicated; Z87.11 Personal history of peptic ulcer disease; Z98.84 Bariatric surgery status; Z87.76 Personal history of (corrected) congenital malformations of integument, limbs and musculoskeletal system; Z90.49 Acquired absence of other specified parts of digestive tract; F60.3 Borderline personality disorder; Z87.19 Personal history of other diseases of the digestive system; M25.562 Pain in left knee; Z80.3 Family history of malignant neoplasm of breast; Z83.3 Family history of diabetes mellitus; Z81.8 Family history of other mental and behavioral disorders; Z82.49 Family history of ischemic heart disease and other diseases of the circulatory system; Z79.891 Long term (current) use of opiate analgesic; Z79.899 Other long term (current) drug therapy
CPT/HCPCS: 96376 ×3; 96361 ×2; 96372 ×5; 96375; 82075; 96374; 99285; 36415; 93005 ×2; 80053 ×4; 83735 ×2; 85025 ×4; 85610; 85730; 80306; 71045; G0378 ×4; S4990 ×3; J2060 ×3; J1644 ×4; J3411; J3360; 99284

== ENCOUNTER 2019-08-09 17:08 | Inpatient (IN) | payer MEDICAID, OTHER ==
[2019-08-09] MEDS ORDERED: MAGNESIUM HYDROXIDE 2,400 MG/10 ML CUP PO PRN (17:37)
[2019-08-09] MEDS ORDERED: ZIPRASIDONE 20 MG VIAL IM PRN (17:37)
[2019-08-09] MEDS ORDERED: MAG HYDROX/AL HYDROX/SIMETH 30 ML CUP PO PRN (17:37)
[2019-08-09] MEDS: HYDROcodone/APAP 5-325MG 1 EACH TAB PO PRN (19:01)
[2019-08-09] MEDS: LORazepam 1 MG TAB PO PRN (20:08)
[2019-08-09] MEDS: GABAPENTIN 300 MG CAP PO SCH (21:47)
[2019-08-09] MEDS: traZODone HCL 50 MG TAB PO PRN (21:47)
[2019-08-10] MEDS ORDERED: PANTOPRAZOLE 40 MG TABLET PO SCH (07:30)
[2019-08-10 08:07] LABS: Anisocytosis Moderate; HCT 34.3 % (39.0-53.0); HGB 9.4 gm/dL (13.0-17.5); Hypochromasia Marked; MCHC 27.5 g/dL (31.0-37.0); MCV 76.4 fL (80.0-100.0); Mean Platelet Volume 9.1; Microcytosis Moderate; Platelet Count 191 k/uL (150-450); RBC 4.49 m/uL (4.30-5.90); RDW 22.7 % (11.5-15.5)
[2019-08-10] MEDS: FOLIC ACID 1 MG TAB PO SCH (08:07)
[2019-08-10] MEDS: FERROUS SULFATE 325 MG TAB PO SCH (08:07)
[2019-08-10] MEDS: PANTOPRAZOLE 40 MG TABLET PO SCH (08:07)
[2019-08-10] MEDS: GABAPENTIN 300 MG CAP PO SCH (08:07)
[2019-08-10] MEDS: THIAMINE 100 MG TAB PO SCH (08:07)
[2019-08-10] MEDS: SERTRALINE 50 MG TAB PO SCH (08:07)
[2019-08-10] MEDS: NICOTINE 14MG/24HR PATCH TRANSDERM SCH (08:07)
[2019-08-10] MEDS: MULTIVITAMINS, THERA 1 EACH TAB PO SCH (08:07)
[2019-08-10] MEDS: HYDROcodone/APAP 5-325MG 1 EACH TAB PO PRN (08:09)
[2019-08-10 08:30] LABS: Basophils # (M) 0.04 k/uL (0-0.2); Eosinophils # (M) 0.16 k/uL (0-0.7); Lymphocytes # (M) 1.36 k/uL (1.0-4.8); Monocytes # (M) 0.28 k/uL (0-1.0); Neutrophils # (M) 2.16 k/uL (1.3-7.7); Neutrophils % (M) 54 %; Nucleated Red Blood Cells 0 /100 WBC (0-0); Total Cells Counted 100
[2019-08-10 08:31] LABS: Poikilocytosis (M) Present; Target Cells Present
[2019-08-10] MEDS ORDERED: SERTRALINE 50 MG TAB PO SCH (09:00)
[2019-08-10] MEDS: LORazepam 1 MG TAB PO PRN (09:04)
[2019-08-10] MEDS: OLANZapine 5 MG TAB PO SCH ×3 (10:47→21:04)
[2019-08-10] MEDS: NICOTINE POLACRILEX 2 MG GUM BUCCAL PRN (10:54)
--- NOTE | 2019-08-10 12:29 | P.CONS ---
History of Present Illness - Reason for Consult Medical clearance - History of Present Illness Patient was transferred murmurs from my service to psychiatric floor yesterday after he was treated for alcohol withdrawal patient was a depressed and was having suicidal ideation patient looks better today patient did receive 1 dose of Ativan today morning as per the patient otherwise denied any fever chills n ausea vomiting abdominal pain dysuria patient doesn't have any withdrawals when I evaluated the patient. Review of Systems REVIEW OF SYSTEMS: CONSTITUTIONAL: No fever, no malaise, no fatigue. HEENT: No recent visual problems or hearing problems. Denied any sore throat. CARDIOVASCULAR: No chest pain, orthopnea, PND, no palpitations, no syncope. PULMONARY: No shortness of breath, no cough, no hemoptysis. GASTROINTESTINAL: No diarrhea, no nausea, no vomiting, no abdominal pain. NEUROLOGICAL: No headaches, no weakness, no numbness. HEMATOLOGICAL: Denies any bleeding or petechiae. GENITOURINARY: Denies any burning micturition, frequency, or urgency. MUSCULOSKELETAL/RHEUMATOLOGICAL: Denies any joint pain, swelling, or any muscle pain. ENDOCRINE: Denies any polyuria or polydipsia. The rest of the 14-point review of systems is negative. 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 Mother Family Medical History: Cancer Additional Family Medical History / Comment(s): breast Brother(s) Additional Family Medical History / Comment(s): Patient has one brother with history of anxiety and depression. Patient does not have any sisters. Patient has 1 son that is 10 years old with diabetes mellitus type 1. Medications and Allergies Home Medications Medication Instructions Recorded Confirmed Type Ferrous Sulfate [Feosol] 325 mg PO DAILY #30 tab 04/10/19 08/09/19 Rx Folic Acid 1 mg PO DAILY #30 tab 04/10/19 08/09/19 Rx Thiamine [Vitamin B-1] 100 mg PO DAILY #30 tab 04/10/19 08/09/19 Rx Dextroamphetamine/Amphetamine 30 mg PO BID 04/11/19 08/09/19 History [Adderall] Gabapentin [Neurontin] 300 mg PO BID 04/11/19 08/09/19 History traZODone HCL 50 mg PO HS PRN 04/11/19 08/09/19 History Omeprazole 20 mg PO DAILY 08/06/19 08/09/19 History LORazepam [Ativan] 1 mg PO TID PRN tab 08/09/19 08/09/19 Rx Nicotine 14Mg/24Hr Patch [Habitrol] 1 patch TRANSDERM DAILY patch 08/09/19 08/09/19 Rx Sertraline [Zoloft] 50 mg PO DAILY tab 08/09/19 08/09/19 Rx Simethicone Chew [Mylicon Chew] 80 mg PO QID chew 08/09/19 08/09/19 Rx Allergies Allergy/AdvReac Type Severity Reaction Status Date / Time No Known Allergies Allergy Verified 08/09/19 19:02 Physical Exam Vitals: Vital Signs Temp Pulse Resp BP Pulse Ox 08/10/19 09:00 128/75 08/10/19 06:55 98.2 F 82 16 136/83 08/09/19 18:20 97.9 F 74 18 146/91 100 Intake and Output 08/09/19 08/10/19 08/10/19 22:59 06:59 14:59 Other: Weight 116.573 kg PHYSICAL EXAMINATION: GENERAL: The patient is alert and oriented x3, not in any acute distress. Well developed, well nourished. HEENT: Pupils are round and equally reacting to light. EOMI. No scleral icterus. No conjunctival pallor. Normocephalic, atraumatic. No pharyngeal erythema. No thyromegaly. CARDIOVASCULAR: S1 and S2 present. No murmurs, rubs, or gallops. PULMONARY: Chest is clear to auscultation, no wheezing or crackles. ABDOMEN: Soft, nontender, nondistended, normoactive bowel sounds. No palpable organomegaly. MUSCULOSKELETAL: No joint swelling or deformity. EXTREMITIES: No cyanosis, clubbing, or pedal edema. NEUROLOGICAL: Gross neurological examination did not reveal any focal deficits. SKIN: No rashes. Results CBC & Chem 7: 08/10/19 07:17 Labs: Abnormal Lab Results - Last 24 Hours (Table) 08/10/19 08/10/19 Range/Units 07:17 07:17 Hgb 9.4 L (13.0-17.5) gm/dL Hct 34.3 L (39.0-53.0) % MCV 76.4 L (80.0-100.0) fL MCH 21.0 L (25.0-35.0) pg MCHC 27.5 L (31.0-37.0) g/dL RDW 22.7 H (11.5-15.5) % GGT 792 H (15-73) U/L Assessment and Plan Plan: -Depression and suicidal ideation management as per primary service -" Acute on chronic hepatitis which improved -Mild call withdrawal which resolved -Second degree type I AV block which improved and no further intervention at this time not symptomatic -Hypertension: Patient doesn't appear to have essential hypertension patient elevated blood pressures are probably because of withdrawal patient blood pressures are stable will not require any medications at this time -Alcohol abuse: Counseling was provided
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
[2019-08-10 15:09] LABS: Hemoglobin A1C 4.3 % (4.0-6.0)
[2019-08-10 15:49] LABS: Glucose,Whole Blood 63 mg/dL (75-99)
[2019-08-10 15:56] LABS: Glucose,Whole Blood 110 mg/dL (75-99)
[2019-08-10] MEDS: ACETAMINOPHEN TAB 325 MG TAB PO PRN (21:05)
[2019-08-10] MEDS: traZODone HCL 50 MG TAB PO PRN (21:12)
[2019-08-10 23:09] LABS: Glucose,Whole Blood 88 mg/dL (75-99)
[2019-08-10 23:09] LABS: Glucose,Whole Blood 47 mg/dL (75-99)
[2019-08-10 23:59] LABS: Anisocytosis Moderate; Basophils % (A) 1 %; Eosinophils # (A) 0.1 k/uL (0-0.7); Eosinophils % (A) 3 %; HCT 34.3 % (39.0-53.0); HGB 9.4 gm/dL (13.0-17.5); Hypochromasia Marked; Lymphocytes # (A) 1.1 k/uL (1.0-4.8); Lymphocytes % (A) 29 %; MCH 21.3 pg (25.0-35.0); MCHC 27.5 g/dL (31.0-37.0); MCV 77.6 fL (80.0-100.0); Microcytosis Moderate; Monocytes # (A) 0.4 k/uL (0-1.0); Monocytes % (A) 11 %; Neutrophils % (A) 52 %; Platelet Count 188 k/uL (150-450); RBC 4.43 m/uL (4.30-5.90); RDW 22.6 % (11.5-15.5); WBC 3.9 k/uL (3.8-10.6)
[2019-08-11 00:03] LABS: ALT 63 U/L (4-49); AST 92 U/L (17-59); African American GFR (CKD) >90 (>60 ml/min/1.73 sqM); Albumin 3.5 g/dL (3.5-5.0); Alkaline Phosphatase 46 U/L (38-126); Amylase 60 U/L (30-110); Anion Gap 8 mmol/L; Blood Urea Nitrogen 10 mg/dL (9-20); Calcium 8.6 mg/dL (8.4-10.2); Carbon Dioxide 26 mmol/L (22-30); Chloride 104 mmol/L (98-107); Glucose 172 mg/dL (74-99); Non-African American GFR(CKD) >90 (>60 ml/min/1.73 sqM); Potassium 4.4 mmol/L (3.5-5.1); Sodium 138 mmol/L (137-145); Total Protein 6.4 g/dL (6.3-8.2)
[2019-08-11 03:05] LABS: Glucose,Whole Blood 105 mg/dL (75-99)
[2019-08-11] MEDS: NICOTINE 14MG/24HR PATCH TRANSDERM SCH (08:08)
[2019-08-11] MEDS: OLANZapine 5 MG TAB PO SCH (08:09)
[2019-08-11] MEDS: MULTIVITAMINS, THERA 1 EACH TAB PO SCH (08:09)
[2019-08-11] MEDS: FERROUS SULFATE 325 MG TAB PO SCH (08:09)
[2019-08-11] MEDS: THIAMINE 100 MG TAB PO SCH (08:09)
[2019-08-11] MEDS: SERTRALINE 50 MG TAB PO SCH (08:09)
[2019-08-11] MEDS: PANTOPRAZOLE 40 MG TABLET PO SCH (08:09)
[2019-08-11] MEDS: FOLIC ACID 1 MG TAB PO SCH (08:09)
--- NOTE | 2019-08-11 10:59 | P.PN ---
Progress Note - Text Interval history: The patient is found in his room he follows me to an interview room. He was admitted to the mental health unit for suicidal ideation. He does have a history of depression as well as history of alcohol use disorder. He was admitted to [facility] for inpatient chemical dependency treatment his alcohol level at the time was too high he was transferred to a medical facility he went back to [facility] and then came to our facility I believe. He states that he did attend groups yesterday. He reports feeling tired as his blood pressure seemed to go quite low twice in the last 24 hours. He states with snacks and use his blood sugar has come up appropriately. He states he typically snacks in between meals at home. He reports no history of diabetes. He indicates his mood is better today we reviewed his psychotropic medications. He was started on Zoloft and trazodone by Dr. Palomo as part of a psychiatric consultation. He was seen by Dr. Jarrett yesterday and Zyprexa was started 5 mg 3 times a day. The patient is looking forward to a visit from his fiance this evening. He indicates he will be going back with her in terms of residence upon discharge. He does not wish to attend inpatient chemical dependency treatment at this time. Mental status exam: The patient is a 38-year-old male appearing older than his stated age. He is dressed in his own clothing hygiene adequate grooming is disheveled. Eye contact is appropriate he is pleasant cooperative and easily directed. Speech is fluent and spontaneous nonpressured. Indicates his mood is improving is reporting no suicidal ideation intent or plan no homicidal ideation intent or plan. He is reporting no auditory or visual hallucinations or any specific delusions. With outstretched arms he demonstrates no evidence of tremor. He demonstrates no verbal or physical aggressiveness he demonstrates no involuntary repetitive movements. Insight and judgment improving. Thought process is linear and goal-directed he demonstrates no tangential thinking loose associations or flight of ideas. Plan: The patient will continue on his current psychotropic medications. I will discontinue the Zyprexa. He is encouraged to reconsider inpatient chemical dependency treatment. CIWA scores are 0 vital signs are within normal limits. His last use of alcohol was one week ago. He is encouraged to fully participate in the milieu. We will continue to monitor for safety.
[2019-08-11 13:46] LABS: Glucose,Whole Blood 228 mg/dL (75-99)
[2019-08-11] MEDS: NICOTINE POLACRILEX 2 MG GUM BUCCAL PRN (17:07)
[2019-08-11 20:12] LABS: Glucose,Whole Blood 124 mg/dL (75-99)
[2019-08-11] MEDS: traZODone HCL 50 MG TAB PO PRN (21:03)
[2019-08-11] MEDS: ACETAMINOPHEN TAB 325 MG TAB PO PRN (21:03)
[2019-08-12 02:10] LABS: Glucose,Whole Blood 104 mg/dL (75-99)
[2019-08-12 07:58] LABS: Glucose,Whole Blood 103 mg/dL (75-99)
[2019-08-12] MEDS: NICOTINE 14MG/24HR PATCH TRANSDERM SCH (08:38)
[2019-08-12] MEDS: FERROUS SULFATE 325 MG TAB PO SCH (08:39)
[2019-08-12] MEDS: FOLIC ACID 1 MG TAB PO SCH (08:39)
[2019-08-12] MEDS: MULTIVITAMINS, THERA 1 EACH TAB PO SCH (08:39)
[2019-08-12] MEDS: PANTOPRAZOLE 40 MG TABLET PO SCH (08:39)
[2019-08-12] MEDS: SERTRALINE 50 MG TAB PO SCH (08:39)
[2019-08-12 10:15] LABS: Glucose,Whole Blood 63 mg/dL (75-99)
[2019-08-12 10:33] LABS: Glucose,Whole Blood 152 mg/dL (75-99)
[2019-08-12 12:10] VITALS: BMI 33.0
--- NOTE | 2019-08-12 12:14 | P.PN ---
Progress Note - Text Interval history: The patient is found in the hallway he follows me to an interview room. He states that he is experiencing more anxiety. He asks if his Neurontin can be restarted. We reviewed the purpose of that medication. He states it has helped with chronic pain and also alleviate some anxiety for him. He reports no suicidal ideation is looking forward to being discharged. He indicates that his blood sugar did drop once since I saw him last down to 63. He will follow up on this with his primary care physician. Mental status exam: The patient's a tall overweight male he presents with adequate hygiene grooming eye contact is appropriate speech is fluent spontaneous nonpressured. He indicates his moods improving he notes having some anxiety. No hopelessness thinking and no suicidal ideation intent or plan. He reports no homicidal ideation intent or plan. He is demonstrating no tangential thinking loose associations or flight of ideas. He does not appear hypomanic or manic. He reports no auditory or visual hallucinations or any specific delusions. He demonstrates no objective evidence of psychosis. Insight and judgment improving. Affect is appropriately expresses. Plan: The patient will continue on his current psychotropic medication. We will restart his Neurontin 300 mg twice daily. Vital signs reviewed. He is encouraged to continue participating in the milieu. Continue monitoring for safety.
[2019-08-12] MEDS: ACETAMINOPHEN TAB 325 MG TAB PO PRN ×3 (12:16→23:30)
[2019-08-12] MEDS: GABAPENTIN 300 MG CAP PO SCH ×2 (12:16→21:41)
[2019-08-12 13:03] LABS: Glucose,Whole Blood 110 mg/dL (75-99)
[2019-08-12 17:34] LABS: Glucose,Whole Blood 113 mg/dL (75-99)
[2019-08-12 20:13] LABS: Glucose,Whole Blood 99 mg/dL (75-99)
[2019-08-12] MEDS: traZODone HCL 50 MG TAB PO PRN (23:30)
[2019-08-13 00:57] LABS: Glucose,Whole Blood 166 mg/dL (75-99)
[2019-08-13 07:57] LABS: Glucose,Whole Blood 114 mg/dL (75-99)
[2019-08-13] MEDS: NICOTINE 14MG/24HR PATCH TRANSDERM SCH (08:47)
[2019-08-13] MEDS: FERROUS SULFATE 325 MG TAB PO SCH (08:48)
[2019-08-13] MEDS: SERTRALINE 50 MG TAB PO SCH (08:48)
[2019-08-13] MEDS: PANTOPRAZOLE 40 MG TABLET PO SCH (08:48)
[2019-08-13] MEDS: GABAPENTIN 300 MG CAP PO SCH ×2 (08:48→20:51)
[2019-08-13] MEDS: FOLIC ACID 1 MG TAB PO SCH (08:48)
[2019-08-13] MEDS: MULTIVITAMINS, THERA 1 EACH TAB PO SCH (08:49)
[2019-08-13] MEDS: ACETAMINOPHEN TAB 325 MG TAB PO PRN ×2 (08:51→15:11)
[2019-08-13] MEDS: NALTREXONE HCL 50 MG TAB PO SCH (10:04)
--- NOTE | 2019-08-13 10:07 | P.PN ---
Progress Note - Text Progress Note Date: 08/13/19 Interval History: Patient was seen attending group this morning and was directable and agreeable to hearing and speech assistant in the office. Patient appears to have improved hygiene and was calm and directable during conversation. Patient states that he is feeling stronger and better being off of alcohol and past the withdrawal stage in his treatment. He states that he is attending groups and trying to participate as best he can. At this time publications writer spoke with patient about rehab and patient adamantly declined going to rehab and states that he wants to continue to work and feels that he can do outpatient individual therapy and would like to get restarted back on naltrexone. He states that his mood has been gradually improving and claims that he feels "happier". Patient denies any anxiety at this time however does state that he has mild trembling at times. Patient states that he's had disruptive sleep on the unit and was requesting to have his trazodone increased. At this time patient denies any suicidal or homical ideations, intent or plan. Patient denies any auditory, visual hallucinations and denies any paranoia or delusions. Patient denies any side effects from the medications and has been compliant with meds. Mental Status Exam: General Appearance: Patient appears to be stated age is tall, alert, directable, and cooperative. Fair hygiene and grooming wearing street clothing. Behavior: Patient is calmly seated without any agitated behavior. Minor trembling in his hands. Speech: Patient's speech is fluent and nonpressured. Mood/Affect: Mood is improving mildly, affect is congruent Suicidality/Homicidality: Patient denies having any suicidal or homicidal ideation intent or plan. Perceptions: Patient denies any visual hallucinations and denies any auditory hallucinations Though content/process: There is no evidence of any delusional thought content and thought process is linear and goal-directed. More future oriented. Memory and concentration: AOX3, grossly intact for the purposes of this session Judgment and insight: Improving Assessment Major depressive disorder, recurrent, without psychotic features Anxiety disorder unspecified Alcohol use disorder, severe, currently in withdrawal Cannabis abuse History of ADHD Nicotine dependence Plan: -Patient continues to meet criteria for inpatient psychiatric admission for symptom stabilization and safety. Patient has signed adult voluntary form and medication consent and was placed in patient's chart. -Medications: Will increase trazodone to 100 mg daily at bedtime for insomnia/mood. Patient wishes to continue at same dose of Zoloft 50 mg daily for mood/anxiety. Will start naltrexone 50 mg daily for alcohol cravings. Patient wishes to get vivtrol injection as an outpatient. -Will check hepatic function panel -Multivitamin and folic acid for chronic alcohol use. -When necessary Ativan for agitation/aggression. -NRT - nicotine patch -SW on board for discharge planning. Patient was offered again to go to rehab for his alcohol use disorder however patient declined and states that he wants to do outpatient treatment and the placed back on the vivtrol injection. Patient to be discharged back home tomorrow with follow[facility] at [facility].
[2019-08-13 11:48] LABS: Bilirubin, Delta 0.5 mg/dL (0.0-0.2); Bilirubin,Unconjugated 0.7 mg/dL (0.0-1.1); Total Bilirubin 1.2 mg/dL (0.2-1.3)
[2019-08-13 12:48] LABS: Glucose,Whole Blood 118 mg/dL (75-99)
[2019-08-13 16:43] LABS: Glucose,Whole Blood 105 mg/dL (75-99)
[2019-08-13 17:14] LABS: Glucose,Whole Blood 93 mg/dL (75-99)
[2019-08-13] MEDS ORDERED: traZODone HCL 100 MG TAB PO SCH (21:00)
[2019-08-14 00:31] VITALS: BP 137/75; PULSE 91; RESP 16; TEMP 98.6
[2019-08-14] MEDS: FERROUS SULFATE 325 MG TAB PO SCH (08:26)
[2019-08-14] MEDS: NICOTINE 14MG/24HR PATCH TRANSDERM SCH (08:26)
[2019-08-14] MEDS: PANTOPRAZOLE 40 MG TABLET PO SCH (08:26)
[2019-08-14] MEDS: FOLIC ACID 1 MG TAB PO SCH (08:26)
[2019-08-14] MEDS: SERTRALINE 50 MG TAB PO SCH (08:26)
[2019-08-14] MEDS: NALTREXONE HCL 50 MG TAB PO SCH (08:26)
[2019-08-14] MEDS: GABAPENTIN 300 MG CAP PO SCH (08:26)
[2019-08-14] MEDS: MULTIVITAMINS, THERA 1 EACH TAB PO SCH (08:32)
[2019-08-14] MEDS: ACETAMINOPHEN TAB 325 MG TAB PO PRN (09:00)
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
[2019-08-14] MEDS ORDERED: ACAMPROSATE CALCIUM 333 MG TABLET.DR PO SCH (10:00)
== END 2019-08-14 12:25 | disposition home or self-care (01) | DRG 885 ==
LOC: 3MHU 17:08
PROVIDERS: ADMIT Psychiatry & Neurology Psychiatry; ATTEND Psychiatry & Neurology Psychiatry
DX: F33.9 Major depressive disorder, recurrent, unspecified (principal); F10.231 Alcohol dependence with withdrawal delirium; R45.851 Suicidal ideations; D69.59 Other secondary thrombocytopenia; D50.9 Iron deficiency anemia, unspecified; F17.210 Nicotine dependence, cigarettes, uncomplicated; F12.23 Cannabis dependence with withdrawal; F43.10 Post-traumatic stress disorder, unspecified; F90.9 Attention-deficit hyperactivity disorder, unspecified type; I10 Essential (primary) hypertension; M19.90 Unspecified osteoarthritis, unspecified site; I83.90 Asymptomatic varicose veins of unspecified lower extremity; G47.00 Insomnia, unspecified; G89.29 Other chronic pain; E66.3 Overweight; Z68.33 Body mass index [BMI] 33.0-33.9, adult; R79.89 Other specified abnormal findings of blood chemistry; Z71.6 Tobacco abuse counseling; Z79.899 Other long term (current) drug therapy; Z71.3 Dietary counseling and surveillance; Z87.19 Personal history of other diseases of the digestive system; Z98.84 Bariatric surgery status; Z62.810 Personal history of physical and sexual abuse in childhood; Z87.11 Personal history of peptic ulcer disease; Z90.49 Acquired absence of other specified parts of digestive tract; Z98.890 Other specified postprocedural states
CPT/HCPCS: 80053; 80061; 80076; 82150; 82977; 83036; 83690; 84443; 85025

== ENCOUNTER 2020-02-26 03:07 | Observation (INO) | payer OTHER ==
[2020-02-26] MEDS ORDERED: SODIUM CHLORIDE 0.9% 1,000 ML IV STA (03:22)
[2020-02-26 04:05] LABS: Anisocytosis Slight; Basophils % (A) 1 %; Eosinophils # (A) 0.1 k/uL (0-0.7); Eosinophils % (A) 2 %; HCT 34.1 % (39.0-53.0); Hypochromasia Marked; Lymphocytes # (A) 0.9 k/uL (1.0-4.8); Lymphocytes % (A) 17 %; MCH 21.7 pg (25.0-35.0); MCHC 29.3 g/dL (31.0-37.0); MCV 74.1 fL (80.0-100.0); Mean Platelet Volume 9.1; Microcytosis Moderate; Monocytes # (A) 0.5 k/uL (0-1.0); Monocytes % (A) 9 %; Neutrophils # (A) 3.8 k/uL (1.3-7.7); Neutrophils % (A) 68 %; Platelet Count 229 k/uL (150-450); RDW 19.6 % (11.5-15.5); WBC 5.6 k/uL (3.8-10.6)
[2020-02-26] MEDS ORDERED: ONDANSETRON 4 MG/2 ML VIAL IVP STA (04:18)
[2020-02-26 04:20] LABS: ALT 71 U/L (4-49); AST 153 U/L (17-59); African American GFR (CKD) >90 (>60 ml/min/1.73 sqM); Albumin 3.6 g/dL (3.5-5.0); Alkaline Phosphatase 63 U/L (38-126); Amylase 237 U/L (30-110); Anion Gap 11 mmol/L; Blood Urea Nitrogen 10 mg/dL (9-20); Calcium 8.7 mg/dL (8.4-10.2); Carbon Dioxide 22 mmol/L (22-30); Chloride 102 mmol/L (98-107); Glucose 100 mg/dL (74-99); Non-African American GFR(CKD) >90 (>60 ml/min/1.73 sqM); Sodium 135 mmol/L (137-145); Total Bilirubin 1.5 mg/dL (0.2-1.3); Total Protein 6.6 g/dL (6.3-8.2)
[2020-02-26] MEDS ORDERED: MORPHINE SULFATE 4 MG/ML SYRINGE IVP STA (04:20)
--- NOTE | 2020-02-26 04:23 | ED ---
Abdominal Pain HPI - General Chief Complaint: Abdominal Pain Stated Complaint: Abdominal pain Time Seen by Provider: 02/26/20 03:21 Source: patient Mode of arrival: ambulatory Limitations: no limitations - History of Present Illness Initial Comments: Richard is a 39-year-old male who presents the ER today via private vehicle for evaluation of epigastric abdominal pain. Patient has a history of alcohol abuse, he was sober for a period of time however the stress of quarantine and everything else going on his life was too much for him in about 2 months ago he began drinking again. Patient reports he is drinking about a fifth daily. Patient states that today he developed burning epigastric abdominal pain similar to previous episodes of pancreatitis. He reports nausea but no vomiting. He has been tolerating oral intake. He did drink about a fifth of liquor tonight. - Related Data Home Medications Medication Instructions Recorded Confirmed Gabapentin [Neurontin] 300 mg PO BID 04/11/19 08/09/19 Previous Rx's Medication Instructions Recorded Acamprosate Calcium [Campral] 666 mg PO TID 28 Days tablet. 08/14/19 Ferrous Sulfate [Feosol] 325 mg PO DAILY 30 Days #30 tab 08/14/19 Folic Acid 1 mg PO DAILY 30 Days #30 tab 08/14/19 Multivitamins, Thera [Multivitamin 1 each PO DAILY 28 Days tab 08/14/19 (formulary)] Nicotine 14Mg/24Hr Patch [Habitrol] 1 patch TRANSDERM DAILY #14 patch 08/14/19 Nicotine Polacrilex [Nicorette] 2 mg BUCCAL Q4HR PRN 14 Days gum 08/14/19 Pantoprazole [Protonix] 40 mg PO AC-BRKFST 28 Days 08/14/19 tablet. Sertraline [Zoloft] 50 mg PO DAILY 28 Days tab 08/14/19 traZODone HCL [Desyrel] 100 mg PO HS 28 Days tab 08/14/19 Allergies Allergy/AdvReac Type Severity Reaction Status Date / Time No Known Allergies Allergy Verified 02/26/20 03:13 Review of Systems ROS Statement: Those systems with pertinent positive or pertinent negative responses have been documented in the HPI. ROS Other: All systems not noted in ROS Statement are negative. 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 Mother Family Medical History: Cancer Additional Family Medical History / Comment(s): breast Brother(s) Additional Family Medical History / Comment(s): Patient has one brother with history of anxiety and depression. Patient does not have any sisters. Patient has 1 son that is 10 years old with diabetes mellitus type 1. General Exam - General Exam Comments Initial Comments: Physical Exam GENERAL: Chronically ill-appearing gentleman who appears older than stated age HENT: Normocephalic, Atraumatic. EYES: PERRL, EOMI PULMONARY: Unlabored respirations. CARDIOVASCULAR: RRR Warm and well perfused extremities ABDOMEN: Soft, non-peritoneal, tender to palpation in epigastrium SKIN: No rashes or bruising : Deferred NEUROLOGIC: Alert and oriented Normal speech Normal gait MUSCULOSKELETAL: Moving all extremities with no apparent injury PSYCHIATRIC: No SI/HI Limitations: no limitations Course Vital Signs 02/26/20 03:11 Temperature 98.1 F Pulse Rate 79 Respiratory 20 Rate Blood Pressure 165/88 O2 Sat by Pulse 99 Oximetry Medical Decision Making - Medical Decision Making The patient was seen and evaluated, history is obtained from the patient This is an alcoholic male with a history of alcoholic pancreatitis presents with episode of what he believes is alcoholic pancreatitis Labs were obtained Patient was treated with morphine and Zofran Labs are consistent with alcoholic pancreatitis he has elevated amylase, lipase, AST and ALT with an AST being greater than ALT consistent with alcohol abuse I don't feel there is any indication for imaging at this time as we know the cause of the patient's pancreatitis Patient will be admitted the hospital for IV fluids, pain management, alcohol withdrawal protocol was ordered as well - Lab Data Result diagrams: 02/26/20 03:46 02/26/20 03:46 Lab Results 02/26/20 02/26/20 Range/Units 03:46 03:46 WBC 5.6 (3.8-10.6) k/uL RBC 4.60 (4.30-5.90) m/uL Hgb 10.0 L (13.0-17.5) gm/dL Hct 34.1 L (39.0-53.0) % MCV 74.1 L (80.0-100.0) fL MCH 21.7 L (25.0-35.0) pg MCHC 29.3 L (31.0-37.0) g/dL RDW 19.6 H (11.5-15.5) % Plt Count 229 (150-450) k/uL Neutrophils % 68 % Lymphocytes % 17 % Monocytes % 9 % Eosinophils % 2 % Basophils % 1 % Neutrophils # 3.8 (1.3-7.7) k/uL Lymphocytes # 0.9 L (1.0-4.8) k/uL Monocytes # 0.5 (0-1.0) k/uL Eosinophils # 0.1 (0-0.7) k/uL Basophils # 0.0 (0-0.2) k/uL Hypochromasia Marked Anisocytosis Slight Microcytosis Moderate Sodium 135 L (137-145) mmol/L Potassium 4.0 (3.5-5.1) mmol/L Chloride 102 (98-107) mmol/L Carbon Dioxide 22 (22-30) mmol/L Anion Gap 11 mmol/L BUN 10 (9-20) mg/dL Creatinine 0.45 L (0.66-1.25) mg/dL Est GFR (CKD-EPI)AfAm >90 (>60 ml/min/1.73 sqM) Est GFR (CKD-EPI)NonAf >90 (>60 ml/min/1.73 sqM) Glucose 100 H (74-99) mg/dL Calcium 8.7 (8.4-10.2) mg/dL Total Bilirubin 1.5 H (0.2-1.3) mg/dL AST 153 H (17-59) U/L ALT 71 H (4-49) U/L Alkaline Phosphatase 63 (38-126) U/L Total Protein 6.6 (6.3-8.2) g/dL Albumin 3.6 (3.5-5.0) g/dL Amylase 237 H (30-110) U/L Lipase 3899 H (23-300) U/L Disposition Clinical Impression: Alcohol intoxication, Pancreatitis Disposition: ADMITTED IP TO THIS HOSP Condition: Serious Referrals: Angeline Nelson MD [Primary Care Provider] - 1-2 days
[2020-02-26] MEDS ORDERED: NALOXONE 0.4 MG/ML 1 ML VIAL IV PRN (05:18)
[2020-02-26] MEDS ORDERED: MORPHINE SULFATE 4 MG/ML SYRINGE IV PRN (05:18)
[2020-02-26] MEDS ORDERED: LORazepam 2 MG/ML INJ IV PRN ×2 (05:23)
[2020-02-26] MEDS ORDERED: THIAMINE 100 MG/ML 2 ML VIAL IM STA (05:23)
[2020-02-26] MEDS: SODIUM CHLORIDE 0.9% 1,000 ML IV SCH ×3 (06:09→21:48)
[2020-02-26] MEDS ORDERED: HYDROmorphone 0.5 MG/0.5 ML SYRINGE IVP STA (06:16)
[2020-02-26] MEDS: MULTIVITAMINS, THERA 1 EACH TAB PO SCH (08:36)
[2020-02-26] MEDS: PANTOPRAZOLE 40 MG/10 ML VIAL IV SCH (08:42)
[2020-02-26] MEDS: HYDROmorphone 1 MG/ML 1 ML SYRINGE IVP PRN ×2 (08:42→13:17)
[2020-02-26] MEDS: LORazepam 2 MG/ML INJ IV PRN (13:26)
[2020-02-26] MEDS ORDERED: KETOROLAC 15 MG/ML 1 ML VIAL IVP PRN (15:10)
[2020-02-26] MEDS: THIAMINE 100 MG TAB PO SCH (16:39)
--- NOTE | 2020-02-26 16:58 | P.HPIM ---
History of Present Illness 39-year-old male who presents the ER today via private vehicle for evaluation of epigastric abdominal pain. Patient has a history of alcohol abuse, he was sober for a period of time however the stress of quarantine and everything else going on his life was too much for him in about 2 months ago he began drinking again. Patient reports he is drinking about a fifth daily. Patient states that today he developed burning epigastric abdominal pain similar to previous episodes of pancreatitis. He reports nausea but no vomiting. He has been tolerating oral intake. He did drink about a fifth of liquorlast night. Patient is found to have highly elevated liver enzymes patient had pancreatitis in the past. Patient is on Ativan therapy protocol patient CIWA score is around 9 today. Review of Systems REVIEW OF SYSTEMS: CONSTITUTIONAL: No fever, no malaise, no fatigue. HEENT: No recent visual problems or hearing problems. Denied any sore throat. CARDIOVASCULAR: No chest pain, orthopnea, PND, no palpitations, no syncope. PULMONARY: No shortness of breath, no cough, no hemoptysis. GASTROINTESTINAL: as mentioned in HPI NEUROLOGICAL: No headaches, no weakness, no numbness. HEMATOLOGICAL: Denies any bleeding or petechiae. GENITOURINARY: Denies any burning micturition, frequency, or urgency. MUSCULOSKELETAL/RHEUMATOLOGICAL: Denies any joint pain, swelling, or any muscle pain. ENDOCRINE: Denies any polyuria or polydipsia. The rest of the 14-point review of systems is negative. 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, corrective surgery as child for pigeon toe on bilat legs, corrective surgery on leg and shoulder Past Anesthesia/Blood Transfusion Reactions: No Reported Reaction Past Psychological History: ADD/ADHD, Anxiety, Bipolar, Depression, PTSD Additional Psychological History / Comment(s): borderline personality disorder Smoking Status: Current every day smoker Past Alcohol Use History: Abuse, Daily, Heavy Additional Past Alcohol Use History / Comment(s): smokes 1/2 PPD for 14 yrs, Daily alcohol use- 1 pint daily Past Drug Use History: Marijuana Additional Drug Use History / Comment(s): occ use - Past Family History Father Additional Family Medical History / Comment(s): Father is alive at age 60 with heart problems including a pacemaker ordered for later. Mother Family Medical History: Cancer Additional Family Medical History / Comment(s): breast Brother(s) Additional Family Medical History / Comment(s): Patient has one brother with history of anxiety and depression. Patient does not have any sisters. Patient has 1 son that is 10 years old with diabetes mellitus type 1. Medications and Allergies Home Medications Medication Instructions Recorded Confirmed Type Ferrous Sulfate [Feosol] 325 mg PO DAILY 30 Days #30 tab 08/14/19 02/26/20 Rx Sertraline [Zoloft] 50 mg PO DAILY 28 Days tab 08/14/19 02/26/20 Rx Dextroamphetamine/Amphetamine 30 mg PO BID 02/26/20 02/26/20 History [Adderall] Multivitamins, Thera [Multivitamin 1 tab PO DAILY 02/26/20 02/26/20 History (formulary)] traZODone HCL [Desyrel] 100 mg PO HS PRN 02/26/20 02/26/20 History Allergies Allergy/AdvReac Type Severity Reaction Status Date / Time No Known Allergies Allergy Verified 02/26/20 08:15 Physical Exam Vitals: Vital Signs Temp Pulse Pulse Resp BP BP Pulse Ox 02/26/20 15:08 58 L 16 02/26/20 15:00 98.4 F 65 16 145/86 98 02/26/20 08:10 98.1 F 58 L 16 142/72 97 02/26/20 07:29 18 02/26/20 06:28 98.7 F 73 18 143/87 99 02/26/20 05:30 76 20 147/90 99 02/26/20 03:11 98.1 F 79 20 165/88 99 Intake and Output 02/26/20 02/26/20 02/26/20 06:59 14:59 22:59 Intake Total 800 Balance 800 Intake: Intake, IV Titration 800 Amount Sodium Chloride 0.9% 1, 800 000 ml @ 150 mls/hr IV . Q6H40M [facility] Rx#:[id number] Other: # Voids 2 Weight 113.398 kg 113.398 kg PHYSICAL EXAMINATION: GENERAL: The patient is alert and oriented x3, not in any acute distress. Well developed, well nourished. HEENT: Pupils are round and equally reacting to light. EOMI. No scleral icterus. No conjunctival pallor. Normocephalic, atraumatic. No pharyngeal erythema. No thyromegaly. CARDIOVASCULAR: S1 and S2 present. No murmurs, rubs, or gallops. PULMONARY: Chest is clear to auscultation, no wheezing or crackles. ABDOMEN: Soft,the gastric abdominal tendernessnondistended, normoactive bowel sounds. No palpable organomegaly. MUSCULOSKELETAL: No joint swelling or deformity. EXTREMITIES: No cyanosis, clubbing, or pedal edema. NEUROLOGICAL: Gross neurological examination did not reveal any focal deficits. SKIN: No rashes. Results CBC & Chem 7: 02/26/20 03:46 02/26/20 03:46 Labs: Abnormal Lab Results - Last 24 Hours (Table) 02/26/20 02/26/20 Range/Units 03:46 03:46 Hgb 10.0 L (13.0-17.5) gm/dL Hct 34.1 L (39.0-53.0) % MCV 74.1 L (80.0-100.0) fL MCH 21.7 L (25.0-35.0) pg MCHC 29.3 L (31.0-37.0) g/dL RDW 19.6 H (11.5-15.5) % Lymphocytes # 0.9 L (1.0-4.8) k/uL Sodium 135 L (137-145) mmol/L Creatinine 0.45 L (0.66-1.25) mg/dL Glucose 100 H (74-99) mg/dL Total Bilirubin 1.5 H (0.2-1.3) mg/dL AST 153 H (17-59) U/L ALT 71 H (4-49) U/L Amylase 237 H (30-110) U/L Lipase 3899 H (23-300) U/L Thrombosis Risk Factor Assmnt - Choose All That Apply Any of the Below Risk Factors Present?: No Assessment and Plan Plan: -acute alcoholic pancreatitis: All call cessation counseling was provided patient will be on IV fluidspatient will remain nothing by mouth today. Patient is clinically doing better patient will be started on diet tomorrow -Acute alcoholic hepatitis -alcohol abuse -alcohol withdrawal patient is on Ativan CIWA protocol with the seizure precautions -major depression without any suicidal ideations: Continue with antidepressants but antidepressants will not be helpful as long as he drinks -Nicotine abuse: Counseling was provided -DVT prophylaxis with Lovenox GI prophylaxis with Protonix
[2020-02-26] MEDS: MORPHINE SULFATE 4 MG/ML SYRINGE IV PRN (20:23)
[2020-02-27] MEDS: MORPHINE SULFATE 4 MG/ML SYRINGE IV PRN ×4 (03:25→21:16)
[2020-02-27] MEDS: PANTOPRAZOLE 40 MG/10 ML VIAL IV SCH (08:36)
[2020-02-27] MEDS: THIAMINE 100 MG TAB PO SCH ×2 (08:36→17:53)
[2020-02-27] MEDS: SODIUM CHLORIDE 0.9% 1,000 ML IV SCH ×3 (08:36→22:10)
[2020-02-27] MEDS: ENOXAPARIN 40 MG/0.4 ML SYRINGE SQ SCH (08:36)
[2020-02-27] MEDS: SERTRALINE 50 MG TAB PO SCH (08:36)
[2020-02-27] MEDS: MULTIVITAMINS, THERA 1 EACH TAB PO SCH (08:36)
[2020-02-27 09:33] LABS: Anisocytosis Slight; HCT 37.6 % (39.0-53.0); HGB 10.5 gm/dL (13.0-17.5); Hypochromasia Marked; MCH 21.4 pg (25.0-35.0); MCV 76.3 fL (80.0-100.0); Mean Platelet Volume 9.3; Microcytosis Moderate; Platelet Count 222 k/uL (150-450); RBC 4.92 m/uL (4.30-5.90); RDW 19.8 % (11.5-15.5); WBC 5.9 k/uL (3.8-10.6)
[2020-02-27 10:03] LABS: ALT 86 U/L (4-49); AST 168 U/L (17-59); African American GFR (CKD) >90 (>60 ml/min/1.73 sqM); Albumin 3.6 g/dL (3.5-5.0); Alkaline Phosphatase 55 U/L (38-126); Anion Gap 5 mmol/L; Blood Urea Nitrogen 6 mg/dL (9-20); Carbon Dioxide 30 mmol/L (22-30); Chloride 102 mmol/L (98-107); Glucose 90 mg/dL (74-99); Non-African American GFR(CKD) >90 (>60 ml/min/1.73 sqM); Potassium 4.3 mmol/L (3.5-5.1); Sodium 137 mmol/L (137-145); Total Bilirubin 3.6 mg/dL (0.2-1.3); Total Protein 6.6 g/dL (6.3-8.2)
[2020-02-27 11:31] VITALS: RESP 18
[2020-02-27] MEDS: LORazepam 2 MG/ML INJ IV PRN (17:08)
[2020-02-27] MEDS ORDERED: LORazepam 1 MG TAB PO PRN (18:37)
--- NOTE | 2020-02-27 18:51 | P.PN ---
Subjective Progress Note Date: 02/27/20 Principal diagnosis: 39-year-old male who presents the ER today via private vehicle for evaluation of epigastric abdominal pain. Patient has a history of alcohol abuse, he was sober for a period of time however the stress of quarantine and everything else going on his life was too much for him in about 2 months ago he began drinking again. Patient reports he is drinking about a fifth daily. Patient states that today he developed burning epigastric abdominal pain similar to previous episodes of pancreatitis. He reports nausea but no vomiting. He has been tolerating oral intake. He did drink about a fifth of liquorlast night. Patient is found to have highly elevated liver enzymes patient had pancreatitis in the past. Patient is on Ativan therapy protocol patient CIWA score is around 9 today. 02/27/2020 Patient is seen and evaluated in follow up and continues to have mid epigastric abdominal pain that he states is constant although patient was sleeping upon ar rival into the room and resting comfortably in no acute distress. Patient was not requiring any ativan for withdrawals, but prior to discharge stated he wasn't feeling well and was having withdrawals and given a dose of IV ativan. Patient was not requiring any all day. IV ativan will be discontinued and will be transitioned to oral. Patient will be monitored for withdrawals. Patient is tolerating clear liquids and will be advanced to full liquids. Patient lipase improved today and is currently 905. Will continue with IV fluids and repeat labs in the am. Review of systems: Constitutional: No reports of fatigue, no reports of fevers or chills Cardiovascular: No reports of chest pain or palpitations Respiratory: No reports of shortness of breath, occasional cough GI: no reports of nausea or vomiting, reports abdominal discomfort : no reports of dysuria or retention Neurovascular: no reports of weakness or numbness All medications have been reviewed. Objective - Vital Signs Vital signs: Vital Signs Temp 98.8 F 02/27/20 11:31 Pulse 86 02/27/20 11:31 Resp 18 02/27/20 11:31 BP 149/81 02/27/20 11:31 Pulse Ox 96 02/27/20 11:31 Intake & Output 02/26/20 02/27/20 02/27/20 18:59 06:59 18:59 Intake Total 800 1200 Balance 800 1200 Weight 113.398 kg Intake: Intake, IV Titration 800 1200 Amount Sodium Chloride 0.9% 1, 800 1200 000 ml @ 100 mls/hr IV . Q10H [facility] Rx#:[id number] Other: Voiding Method Toilet Toilet # Voids 2 - Exam GENERAL: The patient is alert and oriented x3, not in any acute distress. Well developed, well nourished. HEENT: Pupils are round and equally reacting to light. EOMI. No scleral icterus. No conjunctival pallor. Normocephalic, atraumatic. No pharyngeal erythema. No thyromegaly. CARDIOVASCULAR: S1 and S2 present. No murmurs, rubs, or gallops. PULMONARY: Chest is clear to auscultation, no wheezing or crackles. ABDOMEN: Soft, epigastric abdominal tenderness, nondistended, normoactive bowel sounds. No palpable organomegaly. MUSCULOSKELETAL: No joint swelling or deformity. EXTREMITIES: No cyanosis, clubbing, or pedal edema. NEUROLOGICAL: Gross neurological examination did not reveal any focal deficits. SKIN: No rashes. - Labs CBC & Chem 7: 02/27/20 08:58 02/27/20 08:58 Labs: Abnormal Lab Results - Last 24 Hours (Table) 02/27/20 02/27/20 Range/Units 08:58 08:58 Hgb 10.5 L (13.0-17.5) gm/dL Hct 37.6 L (39.0-53.0) % MCV 76.3 L (80.0-100.0) fL MCH 21.4 L (25.0-35.0) pg MCHC 28.0 L (31.0-37.0) g/dL RDW 19.8 H (11.5-15.5) % BUN 6 L (9-20) mg/dL Creatinine 0.53 L (0.66-1.25) mg/dL Total Bilirubin 3.6 H (0.2-1.3) mg/dL AST 168 H (17-59) U/L ALT 86 H (4-49) U/L Lipase 905 H (23-300) U/L Assessment and Plan Assessment: -acute alcoholic pancreatitis: Alcohol cessation counseling was provided patient will be on IV fluids and will repeat lipase in the am. Current lipase improved and is 905 today. Clear liquid diet tolerated and will advance to full liguids. -Acute alcoholic hepatitis -alcohol abuse -alcohol withdrawal patient is on Ativan CIWA protocol along with the seizure precautions -major depression without any suicidal ideations: Continue with antidepressants but antidepressants will not be helpful as long as he drinks -Nicotine abuse: Counseling was provided -DVT prophylaxis with Lovenox . -GI prophylaxis with Protonix Plan: continue current medications, management, and symptomatic treatment. IV ativan discontinued and will transition to oral. continue with clear liquids and may advance to full liquids as tolerated. Continue with IV fluids and will repeat am labs. further recommendations to follow. Anticipate discharge in the am.
[2020-02-28] MEDS: THIAMINE 100 MG TAB PO SCH (07:36)
[2020-02-28] MEDS: ENOXAPARIN 40 MG/0.4 ML SYRINGE SQ SCH (07:36)
[2020-02-28] MEDS: SERTRALINE 50 MG TAB PO SCH (07:36)
[2020-02-28] MEDS: SODIUM CHLORIDE 0.9% 1,000 ML IV SCH (07:36)
[2020-02-28] MEDS: PANTOPRAZOLE 40 MG/10 ML VIAL IV SCH (07:36)
[2020-02-28] MEDS: MULTIVITAMINS, THERA 1 EACH TAB PO SCH (07:36)
[2020-02-28] MEDS: MORPHINE SULFATE 4 MG/ML SYRINGE IV PRN (07:42)
[2020-02-28 11:53] VITALS: BP 146/73; PULSE 61; TEMP 98.1
--- NOTE | 2020-02-29 08:26 | P.DS ---
Providers Date of admission: 02/26/20 05:24 Expected date of discharge: 02/28/20 Attending physician: Javier Harris Primary care physician: Angeline Nelson [facility] Course: Final Diagnosis -acute alcoholic pancreatitis: Alcohol cessation counseling was provided -Acute alcoholic hepatitis -alcohol abuse -alcohol withdrawal patient is on Ativan CIWA protocol along with the seizure precautions -major depression without any suicidal ideations -Nicotine abuse: Counseling was provided -DVT prophylaxis -GI prophylaxis Discharge disposition Patient is being discharged in a stable condition with guarded prognosis to home. Patient will follow-up with Dr. Angeline Nelson in the outpatient setting upon discharge. Patient also instructed to avoid alcohol intake. Patient to continue on Protonix daily. Total time taken is greater than 35 minutes. History of present illness This is a 39-year-old male who was recently admitted with epigastric abdominal pain and was found to have acute alcoholic pancreatitis and was being closely monitored. Patient was maintained on CIWA protocol and was made nothing by mouth and closely monitored on IV hydration. Patient did improve and was able to tolerate clear liquids and was advanced to full liquids. Patient instructed to continue with full liquids to low fiber and advance slowly as tolerated. Lengthy discussion with the patient about avoiding alcohol intake. Lipase trending down and is currently 790. Prescription provided for repeat labs in a few days to monitor the lipase trend. Patient instructed to follow-up with primary care provider upon discharge. No active EtOH withdrawals noted on exam. Currently no reports of chest pain, shortness of breath, or palpitations. Patient is afebrile. No reports of nausea or vomiting and patient is tolerating diet. Patient will be discharged home today. On exam vital signs are stable. Temp is 98.1F, pulse is 61, respirations are 18, blood pressure is 146/73, oxygen saturation is 97% on room air. Cardio S1, S2 are muffled. Respiratory system shows diminished breath sounds at the bases with no wheezing or rhonchi noted. Abdomen is soft and nontender. Nervous system shows no focal deficits. Please refer to medication reconciliation sheet for a list of medications. Patient Condition at Discharge: Good Plan - Discharge Summary Discharge Rx Participant: Yes New Discharge Prescriptions: New Pantoprazole Sodium [Protonix] 40 mg PO DAILY #30 tablet. Thiamine [Vitamin B-1] 100 mg PO BID-W/MEALS 30 Days #60 tab Continue Sertraline [Zoloft] 50 mg PO DAILY 28 Days tab Ferrous Sulfate [Feosol] 325 mg PO DAILY 30 Days #30 tab Multivitamins, Thera [Multivitamin (formulary)] 1 tab PO DAILY Dextroamphetamine/Amphetamine [Adderall] 30 mg PO BID traZODone HCL [Desyrel] 100 mg PO HS PRN PRN Reason: Insomnia Discharge Medication List Ferrous Sulfate [Feosol] 325 mg PO DAILY 30 Days #30 tab 08/14/19 [Rx] Sertraline [Zoloft] 50 mg PO DAILY 28 Days tab 08/14/19 [Rx] Dextroamphetamine/Amphetamine [Adderall] 30 mg PO BID 02/26/20 [History] Multivitamins, Thera [Multivitamin (formulary)] 1 tab PO DAILY 02/26/20 [History] traZODone HCL [Desyrel] 100 mg PO HS PRN 02/26/20 [History] Pantoprazole Sodium [Protonix] 40 mg PO DAILY #30 tablet. 02/27/20 [Rx] Thiamine [Vitamin B-1] 100 mg PO BID-W/MEALS 30 Days #60 tab 02/27/20 [Rx] Follow up Appointment(s)/Referral(s): Angeline Nelson MD [Primary Care Provider] - 03/04/20 11:00 am Ambulatory/Diagnostic Orders: Lipase [LAB.AMB] Time Frame: 2 Days, Location: None Selected Patient Instructions/Handouts: Thiamine (By mouth), Pantoprazole (By mouth), Pancreatitis (DC), Low Fiber Diet (DC), Full Liquid Diet (DC) Activity/Diet/Wound Care/Special Instructions: ok to discharge Activity Limited until follow-up Avoid alcohol intake Continue with full liquid diet for the next 2 days and advance slowly to low fiber diet Continue with Protonix daily Labs in 2-3 days Follow-up with primary care provider upon discharge Discharge Disposition: HOME SELF-CARE
== END 2020-02-28 13:30 | disposition home or self-care (01) ==
LOC: EC 03:07 → INTOOBSV 05:24 → 6NMEDSUR 05:24 → UNDODISIN 02-28 13:30
PROVIDERS: ADMIT Hospitalist; ATTEND Hospitalist
DX: K85.20 Alcohol induced acute pancreatitis without necrosis or infection (principal); K70.10 Alcoholic hepatitis without ascites; F10.239 Alcohol dependence with withdrawal, unspecified; I10 Essential (primary) hypertension; M19.90 Unspecified osteoarthritis, unspecified site; D64.9 Anemia, unspecified; R74.8 Abnormal levels of other serum enzymes; F60.3 Borderline personality disorder; I83.90 Asymptomatic varicose veins of unspecified lower extremity; Z90.49 Acquired absence of other specified parts of digestive tract; Z98.84 Bariatric surgery status; F90.9 Attention-deficit hyperactivity disorder, unspecified type; F41.9 Anxiety disorder, unspecified; F31.9 Bipolar disorder, unspecified; F43.10 Post-traumatic stress disorder, unspecified; F17.200 Nicotine dependence, unspecified, uncomplicated; Z98.890 Other specified postprocedural states; Z87.19 Personal history of other diseases of the digestive system; Z82.49 Family history of ischemic heart disease and other diseases of the circulatory system; Z80.3 Family history of malignant neoplasm of breast; Z83.3 Family history of diabetes mellitus; Z81.8 Family history of other mental and behavioral disorders; Z79.899 Other long term (current) drug therapy
CPT/HCPCS: 96376 ×4; 96361 ×4; 96372 ×3; 96374; 96375; 99285; 36415; 80053 ×2; 82150; 83690 ×3; 85025; 85027; G0378 ×3; J2060 ×2; J2270 ×3; J3411; J2405; J1650 ×2; J1170 ×2; C9113 ×3

== ENCOUNTER 2020-04-18 14:39 | Emergency (ER) | payer OTHER ==
[2020-04-18 14:43] VITALS: BP 155/90; PULSE 80; RESP 20; TEMP 98.6
--- NOTE | 2020-04-18 14:46 | ED ---
URI HPI - General Chief Complaint: Upper Respiratory Infection Stated Complaint: fever/congestion/nausea Time Seen by Provider: 04/18/20 14:46 Source: patient Mode of arrival: ambulatory Limitations: no limitations - History of Present Illness Initial Comments: Patient 39-year-old male presenting to the emergency department for chief complaint of Covid testing. Patient reports for about a days been having upper respiratory infection like symptoms. This includes clear bilateral rhinorrhea and occasional sore throat. She does report a couple states that is only to clear his throat. Cough is nonproductive. States he felt chills today but denies any fevers. Denies taking medication to alleviate the symptoms. States she was recently in [facility] and is concerned for Covid. No chest pain or shortness of breath. Patient is a smoker but no history of asthma or COPD. - Related Data Home Medications Medication Instructions Recorded Confirmed Dextroamphetamine/Amphetamine 30 mg PO BID 02/26/20 02/26/20 [Adderall] Multivitamins, Thera [Multivitamin 1 tab PO DAILY 02/26/20 02/26/20 (formulary)] traZODone HCL [Desyrel] 100 mg PO HS PRN 02/26/20 02/26/20 Previous Rx's Medication Instructions Recorded Ferrous Sulfate [Feosol] 325 mg PO DAILY 30 Days #30 tab 08/14/19 Sertraline [Zoloft] 50 mg PO DAILY 28 Days tab 08/14/19 Pantoprazole Sodium [Protonix] 40 mg PO DAILY #30 tablet. 02/27/20 Thiamine [Vitamin B-1] 100 mg PO BID-W/MEALS 30 Days #60 02/27/20 tab Allergies Allergy/AdvReac Type Severity Reaction Status Date / Time No Known Allergies Allergy Verified 04/18/20 14:43 Review of Systems ROS Statement: Those systems with pertinent positive or pertinent negative responses have been documented in the HPI. ROS Other: All systems not noted in ROS Statement are negative. 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 Mother Family Medical History: Cancer Additional Family Medical History / Comment(s): breast Brother(s) Additional Family Medical History / Comment(s): Patient has one brother with history of anxiety and depression. Patient does not have any sisters. Patient has 1 son that is 10 years old with diabetes mellitus type 1. General Exam Limitations: no limitations General appearance: alert, in no apparent distress, obese Head exam: Present: atraumatic, normocephalic, normal inspection Eye exam: Present: normal appearance, PERRL, EOMI Pupils: Present: normal accommodation Neck exam: Present: normal inspection, tenderness, full ROM. Absent: lymphadenopathy Respiratory exam: Present: normal lung sounds bilaterally. Absent: respiratory distress, wheezes, rales, rhonchi, stridor, chest wall tenderness, accessory muscle use, decreased breath sounds, prolonged expiratory Cardiovascular Exam: Present: regular rate, normal rhythm, normal heart sounds. Absent: bradycardia, tachycardia, irregular rhythm GI/Abdominal exam: Present: soft. Absent: distended, tenderness, guarding, rebound Extremities exam: Present: normal inspection, full ROM, normal capillary refill. Absent: tenderness, pedal edema, joint swelling Back exam: Present: normal inspection, full ROM. Absent: tenderness, CVA tenderness (R), CVA tenderness (L) Neurological exam: Present: alert, oriented X3, normal gait Psychiatric exam: Present: normal affect, normal mood Skin exam: Present: warm, dry, intact, normal color Course Vital Signs 04/18/20 14:40 Temperature 98.6 F Pulse Rate 80 Respiratory 20 Rate Blood Pressure 155/90 O2 Sat by Pulse 100 Oximetry Medical Decision Making - Medical Decision Making Patient is a 39-year-old male presenting to emergency Department with chief complaint of Covid testing. Vital signs are within normal limits. Patient is not in any respiratory distress. No chest pain or shortness of breath. Covid testing pending. He was advised to self isolate until he receives the results of the Covid testing. He was also advised to take Tylenol only for develops a fever. Strict return parameters were thoroughly discussed with patient was understanding and agreeable. Case discussed with physician. Disposition Clinical Impression: Upper respiratory infection, Rhinorrhea, Sinus congestion Disposition: HOME SELF-CARE Condition: Stable Instructions (If sedation given, give patient instructions): Upper Respiratory Infection (ED) Additional Instructions: Take Tylenol if he develops a fever. Follow-up with her primary care physician. Self-isolation until the covid-19 testing has resulted. Return to emergency department if symptoms worsen. Is patient prescribed a controlled substance at d/c from ED?: No Referrals: Angeline Nelson MD [Primary Care Provider] - 1-2 days Time of Disposition: 15:10
== END 2020-04-18 15:21 | disposition home or self-care (01) ==
LOC: EC 14:39
DX: J06.9 Acute upper respiratory infection, unspecified (principal); F90.9 Attention-deficit hyperactivity disorder, unspecified type; F41.9 Anxiety disorder, unspecified; F32.9 Major depressive disorder, single episode, unspecified; F17.200 Nicotine dependence, unspecified, uncomplicated; Z79.899 Other long term (current) drug therapy; Z20.828 Contact with and (suspected) exposure to other viral communicable diseases
CPT/HCPCS: 99283; U0003

== ENCOUNTER 2020-12-09 01:50 | Observation (INO) | payer OTHER ==
[2020-12-09 01:59] VITALS: RESP 18
[2020-12-09] MEDS ORDERED: SODIUM CHLORIDE 0.9% 1,000 ML IV STA (02:11)
[2020-12-09] MEDS ORDERED: LORazepam 2 MG/ML INJ IV STA (02:11)
[2020-12-09 02:35] LABS: Anisocytosis Slight; Basophils % (A) 1 %; Eosinophils # (A) 0.1 k/uL (0-0.7); Eosinophils % (A) 3 %; HCT 30.7 % (39.0-53.0); HGB 9.1 gm/dL (13.0-17.5); Hypochromasia Marked; Lymphocytes # (A) 1.6 k/uL (1.0-4.8); Lymphocytes % (A) 34 %; MCH 19.7 pg (25.0-35.0); MCHC 29.7 g/dL (31.0-37.0); MCV 66.3 fL (80.0-100.0); Mean Platelet Volume 7.9; Microcytosis Marked; Monocytes # (A) 0.4 k/uL (0-1.0); Monocytes % (A) 8 %; Neutrophils # (A) 2.4 k/uL (1.3-7.7); Neutrophils % (A) 51 %; Platelet Count 220 k/uL (150-450); Poikilocytosis Slight; RBC 4.63 m/uL (4.30-5.90); RDW 19.9 % (11.5-15.5); WBC 4.6 k/uL (3.8-10.6)
[2020-12-09 02:52] LABS: ALT 51 U/L (4-49); AST 101 U/L (17-59); African American GFR (CKD) >90 (>60 ml/min/1.73 sqM); Albumin 3.6 g/dL (3.5-5.0); Alkaline Phosphatase 63 U/L (38-126); Anion Gap 9 mmol/L; Blood Urea Nitrogen 9 mg/dL (9-20); Calcium 8.5 mg/dL (8.4-10.2); Carbon Dioxide 26 mmol/L (22-30); Chloride 110 mmol/L (98-107); Glucose 99 mg/dL (74-99); INR 1.1 (<1.2); Lipase 248 U/L (23-300); Magnesium 1.8 mg/dL (1.6-2.3); Non-African American GFR(CKD) >90 (>60 ml/min/1.73 sqM); Partial Thromboplastin Time 25.3 sec (22.0-30.0); Potassium 3.8 mmol/L (3.5-5.1); Prothrombin Time 11.9 sec (9.0-12.0); Sodium 145 mmol/L (137-145); Total Bilirubin 0.9 mg/dL (0.2-1.3); Total Protein 6.5 g/dL (6.3-8.2)
[2020-12-09 02:55] LABS: Alcohol 271 mg/dL
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
--- NOTE | 2020-12-09 03:07 | XR ---
EXAMINATION TYPE: XR chest 2V DATE OF EXAM: 12/09/2020 COMPARISON: 08/06/2019 HISTORY: Chest pain TECHNIQUE: 2 views FINDINGS: Heart and mediastinum are normal. Lungs are clear. Diaphragm is normal. Bony thorax is inta ct. IMPRESSION: Normal chest. No change.
[2020-12-09] MEDS ORDERED: NITROGLYCERIN SL TABS 0.4 MG TAB SUBLINGUAL PRN (03:17)
[2020-12-09] MEDS ORDERED: LORazepam 2 MG/ML INJ IV PRN ×3 (03:20)
[2020-12-09] MEDS ORDERED: THIAMINE 100 MG/ML 2 ML VIAL IM ONE (03:30)
[2020-12-09] MEDS ORDERED: ALPRAZolam 0.5 MG TAB PO PRN (10:27)
[2020-12-09 10:57] VITALS: TEMP 97.6
[2020-12-09 11:35] VITALS: BP 111/57; PULSE 69
--- NOTE | 2020-12-09 12:24 | P.CRDCN ---
History of Present Illness History of present illness: HISTORY OF PRESENTING ILLNESS Patient is a 38-year-old male is a history of obesity, hypertension (previously on medication), alcoholism, depression, chronic nicotine dependence (smokes 1/3 ppd), history of GI bleed. Patient presented to the emergency department by EMS due to shortness of breath and increasing chest pain. He states he's been having increased chest pain over the past 2 days. He states that he had increased stressors at home when he started to have midsternal chest pain radiating to his left chest and his left arm. This pain is nonexertional. He had associated shortness of breath, nausea and diaphoresis. He denies any relieving or aggravating factors to his pain. He states he used to drink a gallon of liquor a day, was sober for 9 months, but recently began drinking again. He consumed about 1 pint of liquor yesterday. He denies weakness, lightheadedness, syncope, fatigue, denies symptoms of orthopnea or PND. He endorses possibly having a CVA/TIA years ago. He states that he's never had this pain before. His chest has some mild tenderness to palpation He denies history of coronary artery disease, MS, diabetes. He states he has had some lower extremity swelling recently but not currently. He is currently on adderall daily, cymbalta, and gabapentin. He also smokes 1/3 PPD of cigarrettes and smokes marijuana occasionally. Denies illicit drug use. Family history includes his father having cardiac history and having a pacemaker placed but unsure of exact details. DIAGNOSTICS EKG reveals sinus rhythm, heart rate 74, no significant ST and T wave a bnormalities. Telemetry tracings indicate sinus mechanism, heart rate 60-80s. Overnight patient is bradycardic HR 45-50's. Chest xray no acute cardiopulmonary process. Most recent echocardiogram 03/2019 revealed EF 50-55%, RV is mildly enlarged, LA is mildly dilated, mild mitral regurgitation, trace tricuspid regurgitation. Laboratory reviewed, troponin negative 3, sodium 145, potassium 3.8, BUN 9, serum creatinine 0.66, magnesium 1.8, serum alcohol level CCLXXI, proBNP 79, lipase within normal limits, COVID-19 negative, WBC 4.6, hemoglobin 9.1, platelets 220 REVIEW OF SYSTEMS At the time of my exam: CONSTITUTIONAL: Denies fever or chills. CARDIOVASCULAR: +chest pain, +shortness of breath, +diaphoresis Denies orthopnea, PND or palpitations. RESPIRATORY: Denies cough. GASTROINTESTINAL: +nausea Denies abdominal pain, diarrhea, constipation, vomiting. MUSCULOSKELETAL: Denies myalgias. NEUROLOGIC: Denies numbness, tingling, headacbe or weakness. ENDOCRINE: Denies fatigue, weight change, polydipsia or polyurina. GENITOURINARY: Denies burning, hematuria or urgency with micturation. HEMATOLOGIC: Denies history of anemia or bleeding. PHYSICAL EXAMINATION Blood pressure 109/57 heart rate 70 afebrile and maintaining oxygen saturation 100% on room air CONSTITUTIONAL: No apparent distress. HEENT: Head is normocephalic. Pupils are equal, round. Sclerae anicteric. Mucous membranes of the mouth are moist. No JVD. No carotid bruit. CHEST EXAMINATION: Lungs are clear to auscultation. No chest wall tenderness is noted on palpation or with deep breathing. HEART EXAMINATION: Regular rate and rhythm. S1, S2 heard. No murmurs, gallops or rub. ABDOMEN: Soft, nontender. Positive bowel sounds. EXTREMITIES: 2+ peripheral pulses, no lower extremity edema and no calf tenderness. SKIN: intact NEUROLOGIC EXAMINATION: Patient is awake, alert and oriented x3. ASSESSMENT Chest pain, atypical, acute coronary syndrome has been ruled out History of hypertension Alcohol dependence Chronic nicotine dependence History of Depression PLAN An acute coronary event has been ruled out with no EKG evidence of ischemia and negative cardiac enzymes. No further cardiac workup while inpatient Recommend patient follow up outpatient for further workup including stress test and possible echocardiogram Smoking cessation and Marijuana and alcohol cessation discussed and highly recommended. Follow up with Dr. Armas in the outpatient office We will sign off at this time. Please reach out with further questions or concerns Thank you kindly for this consultation. Nurse Practitioner note has been reviewed, I agree with a documented findings and plan of care. Patient was seen and examined. 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, corrective surgery as child for pigeon toe on bilat legs, corrective surgery on leg and shoulder Past Anesthesia/Blood Transfusion Reactions: No Reported Reaction Past Psychological History: ADD/ADHD, Anxiety, Bipolar, Depression, PTSD Additional Psychological History / Comment(s): borderline personality disorder Smoking Status: Current every day smoker Past Alcohol Use History: Abuse, Daily, Heavy Additional Past Alcohol Use History / Comment(s): smokes 1/2 PPD for 14 yrs, Daily alcohol use- 1 pint daily Past Drug Use History: Marijuana Additional Drug Use History / Comment(s): occ use - Past Family History Father Additional Family Medical History / Comment(s): Father is alive at age 60 with heart problems including a pacemaker ordered for later. Mother Family Medical History: Cancer Additional Family Medical History / Comment(s): breast Brother(s) Additional Family Medical History / Comment(s): Patient has one brother with history of anxiety and depression. Patient does not have any sisters. Patient has 1 son that is 10 years old with diabetes mellitus type 1. Medications and Allergies Home Medications Medication Instructions Recorded Confirmed Type Dextroamphetamine/Amphetamine 30 mg PO BID 02/26/20 12/09/20 History [Adderall] DULoxetine HCL [Cymbalta] 30 mg PO DAILY 12/09/20 12/09/20 History Gabapentin 300 mg PO TID 12/09/20 12/09/20 History Allergies Allergy/AdvReac Type Severity Reaction Status Date / Time No Known Allergies Allergy Verified 12/09/20 06:57 Physical Exam Vitals: Vital Signs Temp Pulse Pulse Resp BP Pulse Ox 12/09/20 03:46 99.0 F 89 18 122/66 96 12/09/20 02:00 84 12/09/20 01:52 99.1 F 84 18 124/84 98 Intake and Output 12/08/20 12/09/20 12/09/20 22:59 06:59 14:59 Intake Total 0 Balance 0 Intake: Oral 0 Other: # Voids 1 Weight 115.6 kg Results 12/09/20 02:23 12/09/20 02:23 Cardiac Enzymes 12/09/20 12/09/20 12/09/20 Range/Units 02:23 02:23 05:16 AST 101 H (17-59) U/L Troponin I <0.012 <0.012 (0.000-0.034) ng/mL Coagulation 12/09/20 Range/Units 02:23 PT 11.9 (9.0-12.0) sec APTT 25.3 (22.0-30.0) sec CBC 12/09/20 Range/Units 02:23 WBC 4.6 (3.8-10.6) k/uL RBC 4.63 (4.30-5.90) m/uL Hgb 9.1 L (13.0-17.5) gm/dL Hct 30.7 L (39.0-53.0) % Plt Count 220 (150-450) k/uL Comprehensive Metabolic Panel 12/09/20 Range/Units 02:23 Sodium 145 (137-145) mmol/L Potassium 3.8 (3.5-5.1) mmol/L Chloride 110 H (98-107) mmol/L Carbon Dioxide 26 (22-30) mmol/L BUN 9 (9-20) mg/dL Creatinine 0.66 (0.66-1.25) mg/dL Glucose 99 (74-99) mg/dL Calcium 8.5 (8.4-10.2) mg/dL AST 101 H (17-59) U/L ALT 51 H (4-49) U/L Alkaline Phosphatase 63 (38-126) U/L Total Protein 6.5 (6.3-8.2) g/dL Albumin 3.6 (3.5-5.0) g/dL Current Medications Generic Name Dose Route Start Last Admin Trade Name Freq PRN Reason Stop Dose Admin Lorazepam 1 mg 12/09/20 03:20 12/09/20 04:19 Lorazepam 2 Mg/Ml Inj IV 1 mg Q2HR PRN Administration CIWA 8 or 9 Lorazepam 1 mg 12/09/20 03:20 Lorazepam 2 Mg/Ml Inj IV Q1HR PRN CIWA 10 to 15 Lorazepam 2 mg 12/09/20 03:20 Lorazepam 2 Mg/Ml Inj IV 12/11/20 03:20 Q10M PRN CIWA 16 or higher Nitroglycerin 0.4 mg 12/09/20 03:17 Nitroglycerin Sl Tabs 0.4 Mg Tab SUBLINGUAL Q5M PRN Chest Pain Thiamine HCl 100 mg 12/09/20 17:30 Thiamine 100 Mg Tab PO BID-W/MEALS ARLIN Intake and Output 12/08/20 12/09/20 12/09/20 22:59 06:59 14:59 Intake Total 0 Balance 0 Intake: Oral 0 Other: # Voids 1 Weight 115.6 kg 12/09/20 02:23 12/09/20 02:23
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
[2020-12-09] MEDS ORDERED: THIAMINE 100 MG TAB PO SCH (17:30)
== END 2020-12-09 15:34 | disposition home or self-care (01) ==
LOC: EC 01:50 → 3SCARD 03:22
PROVIDERS: ADMIT Hospitalist; ATTEND Hospitalist
DX: R07.2 Precordial pain (principal); K70.10 Alcoholic hepatitis without ascites; F10.229 Alcohol dependence with intoxication, unspecified; D50.9 Iron deficiency anemia, unspecified; Z87.19 Personal history of other diseases of the digestive system; I10 Essential (primary) hypertension; M19.90 Unspecified osteoarthritis, unspecified site; R00.1 Bradycardia, unspecified; Z98.84 Bariatric surgery status; Z90.49 Acquired absence of other specified parts of digestive tract; F60.3 Borderline personality disorder; F90.9 Attention-deficit hyperactivity disorder, unspecified type; F41.9 Anxiety disorder, unspecified; F31.30 Bipolar disorder, current episode depressed, mild or moderate severity, unspecified; F43.10 Post-traumatic stress disorder, unspecified; F17.210 Nicotine dependence, cigarettes, uncomplicated; E66.01 Morbid (severe) obesity due to excess calories; Z68.32 Body mass index [BMI] 32.0-32.9, adult; R06.02 Shortness of breath; R11.0 Nausea; R61 Generalized hyperhidrosis; I83.90 Asymptomatic varicose veins of unspecified lower extremity; Z20.822 Contact with and (suspected) exposure to COVID-19; Z63.8 Other specified problems related to primary support group; Z79.899 Other long term (current) drug therapy; Z82.49 Family history of ischemic heart disease and other diseases of the circulatory system; Z83.3 Family history of diabetes mellitus; Z81.8 Family history of other mental and behavioral disorders
CPT/HCPCS: 96376; 96372; 96374; 99285; 36415; 93005; 83880; 80053; 83690; 83735; 84484; 85025; 85610; 85730; 87635; 71046; G0378; G0480; J2060; J3411; 80320

== ENCOUNTER 2021-02-19 16:27 | Observation (INO) | payer OTHER ==
[2021-02-19] MEDS ORDERED: LORazepam 2 MG/ML INJ IV PRN (19:19)
[2021-02-19] MEDS ORDERED: THIAMINE 100 MG/ML 2 ML VIAL IM STA (19:19)
--- NOTE | 2021-02-19 19:22 | ED ---
General Adult HPI - General Chief complaint: Psychiatric Symptoms Stated complaint: Mental Health Time Seen by Provider: 02/19/21 19:03 Source: patient Mode of arrival: ambulatory Limitations: no limitations - History of Present Illness Initial comments: Dictation was produced using [employer] dictation software. please excuse any grammatical, word or spelling errors. Chief Complaint: 40-year-old male presents to emergency Department for suicidal ideation and alcohol intoxication History of Present Illness: Patient is 40-year-old male presents to the emergency Department with his significant other. Patient states for the last several days he's been feeling suicidal. Patient states he wants to drink himself to . Patient also has plans to overdose. Patient states he is a daily drinker. He states that he went 8 months clean from alcohol over relapsed recently. Patient states he has had withdrawals in the past. The ROS documented in this emergency department record has been reviewed and confirmed by me. Those systems with pertinent positive or negative responses have been documented in the HPI. All other systems are other negative and/or noncontributory. PHYSICAL EXAM: General Impression: Alert and oriented x3, not in acute distress, inebriated HEENT: Normocephalic atraumatic, extra-ocular movements intact, pupils equal and reactive to light bilaterally, mucous membranes moist. Cardiovascular: Heart regular rate and rhythm Chest: Able to complete full sentences, no retractions, no tachypnea Abdomen: abdomen soft, non-tender, non-distended, no organomegaly Musculoskeletal: Pulses present and equal in all extremities, no peripheral edema Motor: no focal deficits noted Neurological: CN II-XII grossly intact, no focal motor or sensory deficits noted Skin: Intact with no visualized rashes Psych: Tearful ED course: 40 year Old male presents with acute alcohol intoxication and suicidal ideation. Vital signs upon arrival are within acceptable limits. Patient clinical stable at the bedside. After evaluation obtained. CBC shows microcytic anemia. Metabolic panel shows sodium 146 acidosis. Return for be reported anand. Serum alcohol is 346. Toxicology labs are negative. Patient be admitted for acute alcohol intoxication. Psychiatry will be consulted for suicidal ideation. Discussed wi th Dr. Yeboah who is willing to accept patient care on behalf of [facility] hospitalist group. EKG interpretation: Ventricular rate 73, normal sinus rhythm,. 172, QRS 114, QTc 480. No KS prolongation, no QTC prolongation, no ST or T-wave changes noted. Overall, this EKG is unremarkable - Related Data Home Medications Medication Instructions Recorded Confirmed Dextroamphetamine/Amphetamine 30 mg PO BID 02/26/20 02/19/21 [Adderall] DULoxetine HCL [Cymbalta] 30 mg PO DAILY 12/09/20 02/19/21 Gabapentin 300 mg PO TID 12/09/20 02/19/21 Previous Rx's Medication Instructions Recorded Folic Acid 1 mg PO DAILY #30 tablet 12/09/20 Multivitamins, Thera [Multivitamin] 1 tab PO DAILY #30 tablet 12/09/20 Thiamine [Vitamin B-1] 100 mg PO DAILY #30 tablet 12/09/20 Allergies Allergy/AdvReac Type Severity Reaction Status Date / Time No Known Allergies Allergy Verified 02/19/21 18:52 Review of Systems ROS Statement: Those systems with pertinent positive or pertinent negative responses have been documented in the HPI. ROS Other: All systems not noted in ROS Statement are negative. 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 Mother Family Medical History: Cancer Additional Family Medical History / Comment(s): breast Brother(s) Additional Family Medical History / Comment(s): Patient has one brother with history of anxiety and depression. Patient does not have any sisters. Patient has 1 son that is 10 years old with diabetes mellitus type 1. General Exam Limitations: no limitations Course Vital Signs 02/19/21 18:43 Temperature 98.4 F Pulse Rate 94 Respiratory 18 Rate Blood Pressure 135/84 O2 Sat by Pulse 97 Oximetry Medical Decision Making - Lab Data Result diagrams: 02/19/21 19:32 02/19/21 19:32 Lab Results 02/19/21 02/19/21 Range/Units 19:32 19:32 WBC 4.9 (3.8-10.6) k/uL RBC 5.30 (4.30-5.90) m/uL Hgb 11.0 L (13.0-17.5) gm/dL Hct 37.0 L (39.0-53.0) % MCV 69.9 L (80.0-100.0) fL MCH 20.7 L (25.0-35.0) pg MCHC 29.7 L (31.0-37.0) g/dL RDW 19.6 H (11.5-15.5) % Plt Count 313 (150-450) k/uL MPV 7.8 Neutrophils % 60 % Lymphocytes % 27 % Monocytes % 6 % Eosinophils % 2 % Basophils % 1 % Neutrophils # 2.9 (1.3-7.7) k/uL Lymphocytes # 1.3 (1.0-4.8) k/uL Monocytes # 0.3 (0-1.0) k/uL Eosinophils # 0.1 (0-0.7) k/uL Basophils # 0.0 (0-0.2) k/uL Hypochromasia Marked Anisocytosis Slight Microcytosis Marked Sodium 146 H (137-145) mmol/L Potassium 4.2 (3.5-5.1) mmol/L Chloride 112 H (98-107) mmol/L Carbon Dioxide 23 (22-30) mmol/L Anion Gap 11 mmol/L BUN 11 (9-20) mg/dL Creatinine 0.55 L (0.66-1.25) mg/dL Est GFR (CKD-EPI)AfAm >90 (>60 ml/min/1.73 sqM) Est GFR (CKD-EPI)NonAf >90 (>60 ml/min/1.73 sqM) Glucose 107 H (74-99) mg/dL Calcium 8.9 (8.4-10.2) mg/dL Total Bilirubin 1.2 (0.2-1.3) mg/dL AST 93 H (17-59) U/L ALT 44 (4-49) U/L Alkaline Phosphatase 65 (38-126) U/L Total Protein 7.2 (6.3-8.2) g/dL Albumin 4.2 (3.5-5.0) g/dL Salicylates <1.0 mg/dL Acetaminophen <10.0 ug/mL Serum Alcohol 346 H* mg/dL Disposition Clinical Impression: Alcohol intoxication, Suicidal ideations Disposition: ADMITTED IP TO THIS HOSP Condition: Fair Referrals: Angeline Nelson MD [Primary Care Provider] - 1-2 days
[2021-02-19 19:41] LABS: Anisocytosis Slight; Basophils % (A) 1 %; Eosinophils # (A) 0.1 k/uL (0-0.7); Eosinophils % (A) 2 %; Hypochromasia Marked; Lymphocytes # (A) 1.3 k/uL (1.0-4.8); Lymphocytes % (A) 27 %; MCH 20.7 pg (25.0-35.0); MCHC 29.7 g/dL (31.0-37.0); MCV 69.9 fL (80.0-100.0); Mean Platelet Volume 7.8; Microcytosis Marked; Monocytes # (A) 0.3 k/uL (0-1.0); Monocytes % (A) 6 %; Neutrophils # (A) 2.9 k/uL (1.3-7.7); Neutrophils % (A) 60 %; Platelet Count 313 k/uL (150-450); RDW 19.6 % (11.5-15.5); WBC 4.9 k/uL (3.8-10.6)
[2021-02-19] MEDS: LORazepam 2 MG/ML INJ IV PRN (19:43)
[2021-02-19 19:53] LABS: ALT 44 U/L (4-49); AST 93 U/L (17-59); Acetaminophen <10.0 ug/mL; African American GFR (CKD) >90 (>60 ml/min/1.73 sqM); Albumin 4.2 g/dL (3.5-5.0); Alkaline Phosphatase 65 U/L (38-126); Anion Gap 11 mmol/L; Blood Urea Nitrogen 11 mg/dL (9-20); Calcium 8.9 mg/dL (8.4-10.2); Carbon Dioxide 23 mmol/L (22-30); Chloride 112 mmol/L (98-107); Glucose 107 mg/dL (74-99); Non-African American GFR(CKD) >90 (>60 ml/min/1.73 sqM); Potassium 4.2 mmol/L (3.5-5.1); Salicylate <1.0 mg/dL; Sodium 146 mmol/L (137-145); Total Bilirubin 1.2 mg/dL (0.2-1.3); Total Protein 7.2 g/dL (6.3-8.2)
[2021-02-19 20:03] LABS: Alcohol 346 mg/dL
[2021-02-19] MEDS ORDERED: NALOXONE 0.4 MG/ML 1 ML VIAL IV PRN (20:12)
[2021-02-20] MEDS: LORazepam 2 MG/ML INJ IV PRN ×6 (00:12→21:45)
[2021-02-20] MEDS: SODIUM CHLORIDE 0.9% 1,000 ML IV SCH ×3 (00:12→21:46)
[2021-02-20] MEDS: THIAMINE 100 MG TAB PO SCH ×2 (11:33→21:46)
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
[2021-02-20 15:56] LABS: African American GFR (CKD) >90 (>60 ml/min/1.73 sqM); Alcohol <10 mg/dL; Anion Gap 7 mmol/L; Blood Urea Nitrogen 13 mg/dL (9-20); Calcium 9.3 mg/dL (8.4-10.2); Carbon Dioxide 24 mmol/L (22-30); Chloride 108 mmol/L (98-107); Glucose 103 mg/dL (74-99); Non-African American GFR(CKD) >90 (>60 ml/min/1.73 sqM); Potassium 4.2 mmol/L (3.5-5.1); Sodium 139 mmol/L (137-145)
[2021-02-21] MEDS: LORazepam 2 MG/ML INJ IV PRN ×5 (02:21→23:23)
[2021-02-21 07:14] LABS: African American GFR (CKD) >90 (>60 ml/min/1.73 sqM); Alcohol <10 mg/dL; Anion Gap 4 mmol/L; Blood Urea Nitrogen 10 mg/dL (9-20); Calcium 9.1 mg/dL (8.4-10.2); Carbon Dioxide 25 mmol/L (22-30); Chloride 107 mmol/L (98-107); Glucose 94 mg/dL (74-99); Non-African American GFR(CKD) >90 (>60 ml/min/1.73 sqM); Potassium 3.8 mmol/L (3.5-5.1); Sodium 136 mmol/L (137-145)
[2021-02-21] MEDS: THIAMINE 100 MG TAB PO SCH ×2 (08:28→17:23)
[2021-02-21] MEDS: SODIUM CHLORIDE 0.9% 1,000 ML IV SCH ×2 (08:30→23:23)
--- NOTE | 2021-02-21 09:36 | P.HPIM ---
History of Present Illness H&P Date: 02/20/21 Chief Complaint: EtOH intoxication and suicidal ideation 40-year-old male patient with history of EtOH abuse presented to ED with acute alcohol intoxication and suicidal ideation; patient reported that he has had suicidal thoughts for past several days and wants to drink himself to ; patient also reports plans to overdose Patient does have history of daily drinking; patient reports being sober for 8 months but recently relapsed; does have history of withdrawals in the past Workup in ED revealed sodium of 146, potassium 4.2, BUN/creatinine of 11/0.55, WBC 4.9, hemoglobin 11.0, platelet count of 313; AST elevated at 93, blood alcohol level of 346 Review of Systems REVIEW OF SYSTEMS: CONSTITUTIONAL: No fever, no malaise, no fatigue. HEENT: No recent visual problems or hearing problems. Denied any sore throat. CARDIOVASCULAR: No chest pain, orthopnea, PND, no palpitations, no syncope. PULMONARY: No shortness of breath, no cough, no hemoptysis. GASTROINTESTINAL: No diarrhea, no nausea, no vomiting, no abdominal pain. NEUROLOGICAL: No headaches, no weakness, no numbness. HEMATOLOGICAL: Denies any bleeding or petechiae. GENITOURINARY: Denies any burning micturition, frequency, or urgency. MUSCULOSKELETAL/RHEUMATOLOGICAL: Denies any joint pain, swelling, or any muscle pain. ENDOCRINE: Denies any polyuria or polydipsia. The rest of the 14-point review of systems is negative. 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 Mother Family Medical History: Cancer Additional Family Medical History / Comment(s): breast Brother(s) Additional Family Medical History / Comment(s): Patient has one brother with history of anxiety and depression. Patient does not have any sisters. Patient has 1 son that is 10 years old with diabetes mellitus type 1. Medications and Allergies Home Medications Medication Instructions Recorded Confirmed Type Dextroamphetamine/Amphetamine 30 mg PO BID 02/26/20 02/19/21 History [Adderall] DULoxetine HCL [Cymbalta] 30 mg PO DAILY 12/09/20 02/19/21 History Folic Acid 1 mg PO DAILY #30 tablet 12/09/20 02/19/21 Rx Gabapentin 300 mg PO TID 12/09/20 02/19/21 History Multivitamins, Thera [Multivitamin] 1 tab PO DAILY #30 tablet 12/09/20 02/19/21 Rx Thiamine [Vitamin B-1] 100 mg PO DAILY #30 tablet 12/09/20 02/19/21 Rx Allergies Allergy/AdvReac Type Severity Reaction Status Date / Time No Known Allergies Allergy Verified 02/19/21 18:52 Physical Exam Vitals: Vital Signs Temp Pulse Resp BP Pulse Ox 02/20/21 13:00 98.4 F 61 18 122/67 98 02/20/21 07:34 98.3 F 108 H 18 143/75 97 02/20/21 04:32 98.6 F 81 18 123/66 95 02/19/21 18:43 98.4 F 94 18 135/84 97 Intake and Output 02/19/21 02/20/21 02/20/21 22:59 06:59 14:59 Other: Weight 108.862 kg - Constitutional General appearance: Present: average body habitus, cooperative, no acute distress - EENT Eyes: Present: anicteric sclerae, EOMI, PERRLA, normal appearance ENT: Present: hearing grossly normal, normal oropharynx Ears: bilateral: normal - Neck Neck: Present: normal ROM. Absent: lymphadenopathy, rigidity, thyromegaly Carotids: negative: bruit present Thyroid: bilateral: normal size, negative: enlarged, nodule - Respiratory Respiratory: bilateral: CTA, negative: rales, rhonchi, wheezing - Cardiovascular Rhythm: regular Heart sounds: normal: S1, S2 Abnormal Heart Sounds: Absent: systolic murmur, diastolic murmur - Gastrointestinal General gastrointestinal: Present: normal bowel sounds, soft. Absent: disten ded, organomegaly, tenderness - Genitourinary Genitourinary Comment(s): deferred - Integumentary Integumentary: Present: normal turgor. Absent: jaundiced, rash, ulcer - Neurologic Neurologic: Present: CNII-XII intact. Absent: focal deficits - Musculoskeletal Musculoskeletal: Present: gait normal, strength equal bilaterally - Psychiatric Psychiatric: Present: A&O x's 3, appropriate affect, intact judgment & insight Results CBC & Chem 7: 02/19/21 19:32 02/21/21 06:40 Labs: Abnormal Lab Results - Last 24 Hours (Table) 02/19/21 02/19/21 Range/Units 19:32 19:32 Hgb 11.0 L (13.0-17.5) gm/dL Hct 37.0 L (39.0-53.0) % MCV 69.9 L (80.0-100.0) fL MCH 20.7 L (25.0-35.0) pg MCHC 29.7 L (31.0-37.0) g/dL RDW 19.6 H (11.5-15.5) % Sodium 146 H (137-145) mmol/L Chloride 112 H (98-107) mmol/L Creatinine 0.55 L (0.66-1.25) mg/dL Glucose 107 H (74-99) mg/dL AST 93 H (17-59) U/L Serum Alcohol 346 H* mg/dL Assessment and Plan Assessment: 1. EtOH abuse/intoxication; pending withdrawals - Patient is started on IV fluid resuscitation; supplement thiamine and folic acid; CIWA protocol with Ativan 2. Suicidal ideation; consult psych; one-on-one sitter till patient is evaluated by psych 3. Transaminitis; possibly related to EtOH abuse; counseling done for cessation of drinking; we'll continue to monitor liver enzymes with further recommendations accordingly 4. History of hypertension; currently not on any antihypertensive therapy; we will monitor blood pressure closely and make further recommendations 5. Osteoarthritis; Tylenol when necessary 6. History of GI bleed; we will monitor CBC and avoid NSAIDs 7. ADD/ ADHD/anxiety/bipolar depression; patient takes Adderall 30 mg twice a day, Cymbalta 30 mg daily and Neurontin 300 mg 3 times a day; we will continue with Neurontin at this time and hold off on Cymbalta and Adderall till further recommendations from psych 8. Substance abuse; patient does drink heavily every day and does have history of marijuana use in the past DVT prophylaxis; SCDs CODE STATUS; full code
[2021-02-21 10:30] LABS: Anisocytosis Slight; Basophils % (A) 1 %; Eosinophils # (A) 0.1 k/uL (0-0.7); Eosinophils % (A) 3 %; HCT 32.7 % (39.0-53.0); HGB 9.7 gm/dL (13.0-17.5); Hypochromasia Marked; Lymphocytes % (A) 25 %; MCH 21.1 pg (25.0-35.0); MCHC 29.6 g/dL (31.0-37.0); MCV 71.1 fL (80.0-100.0); Mean Platelet Volume 8.5; Microcytosis Marked; Monocytes # (A) 0.4 k/uL (0-1.0); Monocytes % (A) 11 %; Neutrophils # (A) 2.2 k/uL (1.3-7.7); Neutrophils % (A) 57 %; Platelet Count 201 k/uL (150-450); RBC 4.59 m/uL (4.30-5.90); RDW 19.6 % (11.5-15.5); WBC 3.8 k/uL (3.8-10.6)
[2021-02-21 10:43] LABS: Albumin 3.5 g/dL (3.5-5.0); Albumin/Globulin Ratio 1.2; Bilirubin,Unconjugated 2.3 mg/dL (0.0-1.1); Globulin 2.9 g/dL; Total Bilirubin 3.1 mg/dL (0.2-1.3); Total Protein 6.4 g/dL (6.3-8.2)
[2021-02-21 13:28] LABS: Anisocytosis Slight; Basophils % (A) 1 %; Eosinophils # (A) 0.1 k/uL (0-0.7); Eosinophils % (A) 2 %; HCT 33.9 % (39.0-53.0); HGB 9.9 gm/dL (13.0-17.5); Hypochromasia Marked; Lymphocytes # (A) 0.6 k/uL (1.0-4.8); Lymphocytes % (A) 17 %; MCHC 29.3 g/dL (31.0-37.0); MCV 71.7 fL (80.0-100.0); Mean Platelet Volume 11.2; Microcytosis Marked; Monocytes # (A) 0.3 k/uL (0-1.0); Monocytes % (A) 8 %; Neutrophils # (A) 2.4 k/uL (1.3-7.7); Neutrophils % (A) 69 %; Platelet Count 195 k/uL (150-450); RBC 4.73 m/uL (4.30-5.90); RDW 19.7 % (11.5-15.5); WBC 3.5 k/uL (3.8-10.6)
[2021-02-21] MEDS: PANTOPRAZOLE 40 MG/10 ML VIAL IVP SCH (14:00)
[2021-02-21] MEDS: GABAPENTIN 300 MG CAP PO SCH ×2 (14:00→21:24)
--- NOTE | 2021-02-21 14:53 | P.CON ---
Consult Note - . Consult date: 02/21/21 Assessment/Plan:: Clinical Problems: Alcohol withdrawal dictated, alcohol use disorder severe, alcohol induced mood disorder, history of ADHD, history of major depressive disorder Interim history: I reviewed the medical record and interviewed the patient. He feels impatient and wished to be discharged. He understands reason for continued hospitalization and agrees to remain in the hospital until discharge by his attending. He denies significant alcohol withdrawal symptoms; specifically denies nausea, vomiting, diaphoresis, diarrhea, tremulousness visual, olfactory or tactile disturbances. He denied feeling depressed and denied thoughts of or suicide. We discussed his alcohol use. He is not interested in a residential substance abuse treatment program but was open to referral for an outpatient substance abuse treatment program. Mental status exam: He presented as a tall somewhat disheveled appearing male who was pleasant on approach. He made eye contact and attended to the interview. He had a blunted facial expression. He is alert and oriented to person, place and time. He had psychomotor retardation but no abnormal involuntary movements his. His gait was slow but steady. His speech was spontaneous with decreased rate and volume. His affect was blunted but stable and appropriate. He denied suicidal ideation and wishes. He denied homicidal ideation. He denied feeling hopeless, helpless or worthless. He did not express ideas reference, paranoid ideation or delusions. His thinking was concrete but his associations were coherent, logical and goal directed. He denied hallucinations did not appear to responding Assessment: There is no indication for transfer to psychiatry service time. He would benefit from participation in substance abuse treatment program. He is unwilling to enter a residential substance abuse treatment but expressed an interest in outpatient treatment offered trough [facility]. Plan: Please consult social sciences research scientist to arrange an intake assessment for admission to [facility]. Restart Cymbalta 30 mg daily. He may resume Adderall after his discharge from the hospital. Thank you for this consult.
[2021-02-22 07:45] VITALS: BP 123/68; PULSE 59; RESP 18; TEMP 99.1
[2021-02-22] MEDS: PANTOPRAZOLE 40 MG/10 ML VIAL IVP SCH (08:55)
[2021-02-22] MEDS: THIAMINE 100 MG TAB PO SCH (08:55)
[2021-02-22] MEDS: GABAPENTIN 300 MG CAP PO SCH (08:55)
[2021-02-22] MEDS ORDERED: DULoxetine HCL 30 MG CAPSULE.DR PO SCH (09:00)
--- NOTE | 2021-02-22 10:13 | P.PN ---
Subjective Progress Note Date: 02/21/21 Principal diagnosis: EtOH abuse/intoxication/pending blood draw Suicidal ideation Transaminitis 40-year-old male patient with history of EtOH abuse presented to ED with acute alcohol intoxication and suicidal ideation; patient reported that he has had moreno icidal thoughts for past several days and wants to drink himself to ; patient also reports plans to overdose Patient does have history of daily drinking; patient reports being sober for 8 months but recently relapsed; does have history of withdrawals in the past Workup in ED revealed sodium of 146, potassium 4.2, BUN/creatinine of 11/0.55, WBC 4.9, hemoglobin 11.0, platelet count of 313; AST elevated at 93, blood alcohol level of 346 02/21/2021 Patient is seen and evaluated resting comfortably in bed; has been evaluated by psychiatry; not interested in a residential substance abuse treatment program but was open to referral for an outpatient substance abuse treatment program. no indication for transfer to psychiatry service time. He would benefit from participation in substance abuse treatment program. He is unwilling to enter a residential substance abuse treatment but expressed an interest in outpatient treatment offered trough [facility]. Patient has been restarted on Cymbalta 30 mg daily; psych recommending to resume Medrol after discharge from hospital Patient remains on IV fluids and CIWA protocol with Ativan; continue to monitor closely Objective - Vital Signs Vital signs: Vital Signs Temp 98.0 F 02/21/21 06:15 Pulse 58 L 02/21/21 06:15 Resp 16 02/21/21 06:15 BP 123/72 02/21/21 06:15 Pulse Ox 98 02/21/21 06:15 Intake & Output 02/20/21 02/21/21 02/21/21 18:59 06:59 18:59 Weight 108.862 kg Other: Voiding Method Toilet # Voids 1 - Exam - Constitutional General appearance: Present: average body habitus, cooperative, no acute distress - EENT Eyes: Present: anicteric sclerae, EOMI, PERRLA, normal appearance ENT: Present: hearing grossly normal, normal oropharynx Ears: bilateral: normal - Neck Neck: Present: normal ROM. Absent: lymphadenopathy, rigidity, thyromegaly Carotids: negative: bruit present Thyroid: bilateral: normal size, negative: enlarged, nodule - Respiratory Respiratory: bilateral: CTA, negative: rales, rhonchi, wheezing - Cardiovascular Rhythm: regular Heart sounds: normal: S1, S2 Abnormal Heart Sounds: Absent: systolic murmur, diastolic murmur - Gastrointestinal General gastrointestinal: Present: normal bowel sounds, soft. Absent: distended, organomegaly, tenderness - Genitourinary Genitourinary Comment(s): deferred - Integumentary Integumentary: Present: normal turgor. Absent: jaundiced, rash, ulcer - Neurologic Neurologic: Present: CNII-XII intact. Absent: focal deficits - Musculoskeletal Musculoskeletal: Present: gait normal, strength equal bilaterally - Psychiatric Psychiatric: Present: A&O x's 3, appropriate affect, intact judgment & insight - Labs CBC & Chem 7: 02/21/21 13:17 02/21/21 06:40 Labs: Abnormal Lab Results - Last 24 Hours (Table) 02/20/21 02/21/21 02/21/21 Range/Units 15:20 06:40 06:40 Hgb 9.7 L (13.0-17.5) gm/dL Hct 32.7 L (39.0-53.0) % MCV 71.1 L (80.0-100.0) fL MCH 21.1 L (25.0-35.0) pg MCHC 29.6 L (31.0-37.0) g/dL RDW 19.6 H (11.5-15.5) % Sodium 136 L (137-145) mmol/L Chloride 108 H (98-107) mmol/L Creatinine 0.46 L 0.48 L (0.66-1.25) mg/dL Glucose 103 H (74-99) mg/dL Total Bilirubin (0.2-1.3) mg/dL Unconjugated Bilirubin (0.0-1.1) mg/dL AST (17-59) U/L 02/21/21 Range/Units 06:40 Hgb (13.0-17.5) gm/dL Hct (39.0-53.0) % MCV (80.0-100.0) fL MCH (25.0-35.0) pg MCHC (31.0-37.0) g/dL RDW (11.5-15.5) % Sodium (137-145) mmol/L Chloride (98-107) mmol/L Creatinine (0.66-1.25) mg/dL Glucose (74-99) mg/dL Total Bilirubin 3.1 H (0.2-1.3) mg/dL Unconjugated Bilirubin 2.3 H (0.0-1.1) mg/dL AST 71 H (17-59) U/L Assessment and Plan Assessment: 1. EtOH abuse/intoxication; pending withdrawals - Patient is started on IV fluid resuscitation; supplement thiamine and folic acid; CIWA protocol with Ativan 2. Suicidal ideation; consult psych; one-on-one sitter till patient is evaluated by psych 3. Transaminitis; possibly related to EtOH abuse; counseling done for cessation of drinking; we'll continue to monitor liver enzymes with further recommendations accordingly 4. History of hypertension; currently not on any antihypertensive therapy; we will monitor blood pressure closely and make further recommendations 5. Osteoarthritis; Tylenol when necessary 6. History of GI bleed; we will monitor CBC and avoid NSAIDs 7. ADD/ ADHD/anxiety/bipolar depression; patient takes Adderall 30 mg twice a day, Cymbalta 30 mg daily and Neurontin 300 mg 3 times a day; we will continue with Neurontin at this time and hold off on Cymbalta and Adderall till further recommendations from psych 8. Substance abuse; patient does drink heavily every day and does have history of marijuana use in the past DVT prophylaxis; SCDs CODE STATUS; full code
[2021-02-22 12:06] LABS: Anisocytosis (M) 2+; Basophils # (A) 0.08 X 10*3/uL (0.00-0.10); Basophils % (A) 1.8 %; Eosinophils # (A) 0.16 X 10*3/uL (0.04-0.35); Eosinophils % (A) 3.6 %; HCT 33.2 % (39.6-50.0); HGB 9.3 g/dL (13.0-17.0); Hypochromasia (M) 2+; Lymphocytes # (A) 1.19 X 10*3/uL (0.90-5.00); Lymphocytes % (A) 26.9 %; MCH 19.5 pg (27.0-32.0); MCV 69.7 fL (80.0-97.0); Monocytes # (A) 0.56 X 10*3/uL (0.20-1.00); Monocytes % (A) 12.7 %; Neutrophils # (A) 2.42 X 10*3/uL (1.80-7.70); Neutrophils % (A) 54.8 %; Platelet Count 231 X 10*3/uL (140-440); RBC 4.76 X 10*6/uL (4.40-5.60); RDW 21.5 % (11.5-14.5); WBC 4.42 X 10*3/uL (4.50-10.00)
[2021-02-22 12:25] LABS: African American GFR (CKD) 146.8 (60.0-200.0); Anion Gap 5.1 mmol/L (4.00-12.00); BUN/Creat Ratio 16.67 Ratio (12.00-20.00); Carbon Dioxide 22.9 mmol/L (21.6-31.8); Non-African American GFR(CKD) 126.7 (60.0-200.0); Potassium 3.8 mmol/L (3.5-5.5)
== END 2021-02-22 13:45 | disposition home or self-care (01) ==
LOC: EC 16:27 → 6NMEDSUR 20:12 → 5NMEDONC 02-20 10:25 → 6NMEDSUR 02-20 12:22 → 4SSUR 02-20 13:48
PROVIDERS: ADMIT Internal Medicine; ATTEND Internal Medicine
DX: F10.129 Alcohol abuse with intoxication, unspecified (principal); F10.139 Alcohol abuse with withdrawal, unspecified; F10.14 Alcohol abuse with alcohol-induced mood disorder; R45.851 Suicidal ideations; Y90.8 Blood alcohol level of 240 mg/100 ml or more; R74.01 Elevation of levels of liver transaminase levels; I10 Essential (primary) hypertension; F17.200 Nicotine dependence, unspecified, uncomplicated; F12.90 Cannabis use, unspecified, uncomplicated; D50.9 Iron deficiency anemia, unspecified; M19.90 Unspecified osteoarthritis, unspecified site; E87.2 Acidosis; F31.30 Bipolar disorder, current episode depressed, mild or moderate severity, unspecified; F43.10 Post-traumatic stress disorder, unspecified; F90.9 Attention-deficit hyperactivity disorder, unspecified type; I83.90 Asymptomatic varicose veins of unspecified lower extremity; Z98.84 Bariatric surgery status; Z71.41 Alcohol abuse counseling and surveillance of alcoholic; Z79.899 Other long term (current) drug therapy; Z90.49 Acquired absence of other specified parts of digestive tract; Z80.3 Family history of malignant neoplasm of breast; Z82.49 Family history of ischemic heart disease and other diseases of the circulatory system; Z87.19 Personal history of other diseases of the digestive system; Z81.3 Family history of other psychoactive substance abuse and dependence
CPT/HCPCS: 99285; 96376 ×4; 96361 ×3; 96375 ×2; 82075; 96372; 96374; 36415; 93005; 80053; 80048 ×3; 80076; 85025 ×3; 80143; 80179; G0378 ×5; G0480 ×3; J2060 ×3; J3411; C9113 ×2; 80320

== ENCOUNTER 2021-07-01 15:33 | Inpatient (IN) | payer OTHER ==
--- NOTE | 2021-07-01 16:58 | ED ---
General Adult HPI - General Chief complaint: Recheck/Abnormal Lab/Rx Stated complaint: jaundice, chest & abd pain Time Seen by Provider: 07/01/21 16:22 Source: patient, RN notes reviewed, old records reviewed Mode of arrival: ambulatory Limitations: no limitations - History of Present Illness Initial comments: 40-year-old male history of alcohol abuse, last drink was approximately 8 days ago. Patient is currently incarcerated. He's developed some generalized myalgia, as well as cramping. He has some intermittent abdominal pain. He states that he has been jaundiced for approximately one month. He denies any recent change in this. He is currently diagnosed with coronavirus and states he has been doing quite well with this, no significant cough or dyspnea. No fevers. No vomiting. - Related Data Home Medications Medication Instructions Recorded Confirmed Acetaminophen [Tylenol] 650 mg PO BID PRN 07/01/21 07/01/21 Erythromycin Ophth Oint [Romycin 1 applic BOTH EYES BID 07/01/21 07/01/21 Ophth Oint] Allergies Allergy/AdvReac Type Severity Reaction Status Date / Time No Known Allergies Allergy Verified 07/01/21 17:02 Review of Systems ROS Statement: Those systems with pertinent positive or pertinent negative responses have been documented in the HPI. ROS Other: All systems not noted in ROS Statement are negative. 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 Mother Family Medical History: Cancer Additional Family Medical History / Comment(s): breast Brother(s) Additional Family Medical History / Comment(s): Patient has one brother with history of anxiety and depression. Patient does not have any sisters. Patient has 1 son that is 10 years old with diabetes mellitus type 1. General Exam Limitations: no limitations General appearance: alert, in no apparent distress Head exam: Present: atraumatic, normocephalic Eye exam: Present: PERRL, scleral icterus ENT exam: Present: mucous membranes dry Neck exam: Present: normal inspection. Absent: tenderness, meningismus Respiratory exam: Present: normal lung sounds bilaterally. Absent: respiratory distress, wheezes Cardiovascular Exam: Present: regular rate, normal rhythm GI/Abdominal exam: Present: soft. Absent: distended, tenderness, guarding, rebound Extremities exam: Present: pedal edema Neurological exam: Present: alert, oriented X3, CN II-XII intact. Absent: motor sensory deficit Psychiatric exam: Present: normal affect, normal mood Skin exam: Present: warm, dry, intact, other (Jaundice). Absent: cyanosis, diaphoretic Course Vital Signs 07/01/21 16:06 Temperature 98.9 F Pulse Rate 91 Respiratory 18 Rate Blood Pressure 129/69 O2 Sat by Pulse 100 Oximetry EKG Findings - EKG Comments: EKG Findings:: Rate is 77 HI interval 152, QRS duration 106, QTC 511, no ST segment elevation. Tremor artifact. Medical Decision Making - Medical Decision Making 40-year-old male presenting with myalgia, jaundice, and muscle cramping. Patient has previous history of alcohol abuse, he has abstained from alcohol for the past 8 days. He is currently incarcerated local [facility]way. He's had some intermittent chest pain as well as abdominal pain. He previously had his gallbladder resected. Workup is initiated. He has a stable anemia hemoglobin 9 .7. His INR is 1.5 he has significantly elevated bilirubin at 12. Urinalysis is pending. Patient had an ultrasound which was negative for an obstructive process in the common bile duct. Patient will be admitted to this institution, for hydration, and consultation with gastroenterology. Case discussed with Dr. Harris who is able to evaluate the patient emergency department. - Lab Data Result diagrams: 07/01/21 17:04 07/01/21 17:04 Lab Results 07/01/21 07/01/21 07/01/21 Range/Units 17:04 17:04 17:04 WBC 5.3 (3.8-10.6) k/uL RBC 4.09 L (4.30-5.90) m/uL Hgb 9.7 L (13.0-17.5) gm/dL Hct 33.5 L (39.0-53.0) % MCV 81.9 (80.0-100.0) fL MCH 23.7 L (25.0-35.0) pg MCHC 28.9 L (31.0-37.0) g/dL RDW 20.5 H (11.5-15.5) % Plt Count 244 (150-450) k/uL MPV 9.2 Neutrophils % (Manual) 78 % Lymphocytes % 14 % Lymphocytes % (Manual) 14 % Monocytes % 12 % Monocytes % (Manual) 8 % Eosinophils % 1 % Basophils % 0 % Neutrophils # 3.8 (1.3-7.7) k/uL Lymphocytes # 0.7 L (1.0-4.8) k/uL Monocytes # 0.6 (0-1.0) k/uL Eosinophils # 0.0 (0-0.7) k/uL Basophils # 0.0 (0-0.2) k/uL Nucleated RBCs 0 (0-0) /100 WBC Manual Slide Review Performed Large Platelets Present Hypochromasia Marked Hypochromasia (manual) Present Anisocytosis Moderate Anisocytosis (manual) Present Microcytosis Slight Target Cells Present PT 14.9 H (9.0-12.0) sec INR 1.5 H (<1.2) APTT 27.0 (22.0-30.0) sec Sodium 137 (137-145) mmol/L Potassium 3.8 (3.5-5.1) mmol/L Chloride 104 (98-107) mmol/L Carbon Dioxide 22 (22-30) mmol/L Anion Gap 11 mmol/L BUN 13 (9-20) mg/dL Creatinine 0.73 (0.66-1.25) mg/dL Est GFR (CKD-EPI)AfAm >90 (>60 ml/min/1.73 sqM) Est GFR (CKD-EPI)NonAf >90 (>60 ml/min/1.73 sqM) Glucose 99 (74-99) mg/dL Plasma Lactic Acid Shane (0.7-2.0) mmol/L Calcium 8.9 (8.4-10.2) mg/dL Magnesium 1.8 (1.6-2.3) mg/dL Total Bilirubin 12.2 H (0.2-1.3) mg/dL Conjugated Bilirubin 3.7 H (0.0-0.3) mg/dL Unconjugated Bilirubin 3.8 H (0.0-1.1) mg/dL Delta Bilirubin 4.7 H (0.0-0.2) mg/dL AST 101 H (17-59) U/L ALT 28 (4-49) U/L Alkaline Phosphatase 96 (38-126) U/L Troponin I (0.000-0.034) ng/mL NT-Pro-B Natriuret Pep pg/mL Total Protein 7.5 (6.3-8.2) g/dL Albumin 3.7 (3.5-5.0) g/dL Lipase 1303 H (23-300) U/L 07/01/21 07/01/21 07/01/21 Range/Units 17:04 17:04 17:04 WBC (3.8-10.6) k/uL RBC (4.30-5.90) m/uL Hgb (13.0-17.5) gm/dL Hct (39.0-53.0) % MCV (80.0-100.0) fL MCH (25.0-35.0) pg MCHC (31.0-37.0) g/dL RDW (11.5-15.5) % Plt Count (150-450) k/uL MPV Neutrophils % (Manual) % Lymphocytes % % Lymphocytes % (Manual) % Monocytes % % Monocytes % (Manual) % Eosinophils % % Basophils % % Neutrophils # (1.3-7.7) k/uL Lymphocytes # (1.0-4.8) k/uL Monocytes # (0-1.0) k/uL Eosinophils # (0-0.7) k/uL Basophils # (0-0.2) k/uL Nucleated RBCs (0-0) /100 WBC Manual Slide Review Large Platelets Hypochromasia Hypochromasia (manual) Anisocytosis Anisocytosis (manual) Microcytosis Target Cells PT (9.0-12.0) sec INR (<1.2) APTT (22.0-30.0) sec Sodium (137-145) mmol/L Potassium (3.5-5.1) mmol/L Chloride (98-107) mmol/L Carbon Dioxide (22-30) mmol/L Anion Gap mmol/L BUN (9-20) mg/dL Creatinine (0.66-1.25) mg/dL Est GFR (CKD-EPI)AfAm (>60 ml/min/1.73 sqM) Est GFR (CKD-EPI)NonAf (>60 ml/min/1.73 sqM) Glucose (74-99) mg/dL Plasma Lactic Acid Shane 1.7 (0.7-2.0) mmol/L Calcium (8.4-10.2) mg/dL Magnesium (1.6-2.3) mg/dL Total Bilirubin (0.2-1.3) mg/dL Conjugated Bilirubin (0.0-0.3) mg/dL Unconjugated Bilirubin (0.0-1.1) mg/dL Delta Bilirubin (0.0-0.2) mg/dL AST (17-59) U/L ALT (4-49) U/L Alkaline Phosphatase (38-126) U/L Troponin I <0.012 (0.000-0.034) ng/mL NT-Pro-B Natriuret Pep 289 pg/mL Total Protein (6.3-8.2) g/dL Albumin (3.5-5.0) g/dL Lipase (23-300) U/L Disposition Clinical Impression: Pancreatitis, Hyperbilirubinemia Disposition: ADMITTED IP TO THIS [facility] Condition: Stable Is patient prescribed a controlled substance at d/c from ED?: No Referrals: Angeline Nelson MD [Primary Care Provider] - 1-2 days Time of Disposition: 18:09 Decision to Admit Reason: Admit from EC Decision Date: 07/01/21 Decision Time: 18:09
--- NOTE | 2021-07-01 17:08 | XR ---
EXAMINATION TYPE: XR chest 2V DATE OF EXAM: 07/01/2021 COMPARISON: 12/09/2020 HISTORY: Weakness and Covid positive. TECHNIQUE: Frontal and lateral views of the chest are obtained. FINDINGS: There is no focal air space opacity, pleural effusion, or pneumothorax seen. The cardiac silhouette size is within normal limits. The osseous structures are intact. Skin artifact about the right lower chest seen. IMPRESSION: No acute cardiopulmonary process.
[2021-07-01 17:28] LABS: INR 1.5 (<1.2); Prothrombin Time 14.9 sec (9.0-12.0)
[2021-07-01 17:35] LABS: Anisocytosis Moderate; Basophils % (A) 0 %; Eosinophils % (A) 1 %; HCT 33.5 % (39.0-53.0); HGB 9.7 gm/dL (13.0-17.5); Hypochromasia Marked; Lymphocytes # (A) 0.7 k/uL (1.0-4.8); Lymphocytes % (A) 14 %; MCH 23.7 pg (25.0-35.0); MCHC 28.9 g/dL (31.0-37.0); MCV 81.9 fL (80.0-100.0); Mean Platelet Volume 9.2; Microcytosis Slight; Monocytes # (A) 0.6 k/uL (0-1.0); Monocytes % (A) 12 %; Neutrophils # (A) 3.8 k/uL (1.3-7.7); Platelet Count 244 k/uL (150-450); RBC 4.09 m/uL (4.30-5.90); RDW 20.5 % (11.5-15.5); WBC 5.3 k/uL (3.8-10.6)
[2021-07-01 17:36] LABS: ALT 28 U/L (4-49); AST 101 U/L (17-59); African American GFR (CKD) >90 (>60 ml/min/1.73 sqM); Albumin 3.7 g/dL (3.5-5.0); Alkaline Phosphatase 96 U/L (38-126); Anion Gap 11 mmol/L; Bilirubin, Conjugated 3.7 mg/dL (0.0-0.3); Bilirubin, Delta 4.7 mg/dL (0.0-0.2); Bilirubin,Unconjugated 3.8 mg/dL (0.0-1.1); Blood Urea Nitrogen 13 mg/dL (9-20); Calcium 8.9 mg/dL (8.4-10.2); Carbon Dioxide 22 mmol/L (22-30); Chloride 104 mmol/L (98-107); Glucose 99 mg/dL (74-99); Lipase 1303 U/L (23-300); Magnesium 1.8 mg/dL (1.6-2.3); Non-African American GFR(CKD) >90 (>60 ml/min/1.73 sqM); Potassium 3.8 mmol/L (3.5-5.1); Sodium 137 mmol/L (137-145); Total Bilirubin 12.2 mg/dL (0.2-1.3); Total Protein 7.5 g/dL (6.3-8.2)
[2021-07-01 17:47] LABS: Anisocytosis (M) Present; Hypochromasia (M) Present; Target Cells Present
[2021-07-01 17:54] LABS: Neutrophils % (M) 78 %; Nucleated Red Blood Cells 0 /100 WBC (0-0); Total Cells Counted 100
[2021-07-01 17:55] LABS: Large Platelets Present
--- NOTE | 2021-07-01 17:58 | US ---
EXAMINATION TYPE: US gallbladder DATE OF EXAM: 07/01/2021 COMPARISON: NONE CLINICAL HISTORY: ab pain, jaundice. Jaundice, h/o ETOH abuse, GB removed EXAM MEASUREMENTS: Liver Length: 24.2 cm CBD: 0.7 cm Right Kidney: 13.4 x 5.7 x 6.6 cm Pancreas: Obscured by bowel gas, and enlarged liver Liver: Enlarged, heterogeneous, difficult to penetrate. No definite hepatic lesion seen. Gallbladder: Surgically absent Evidence for sonographic Marcelino's sign: No CBD: wnl, post quiana Right Kidney: wnl IMPRESSION: Heterogeneous enlarged liver, may relate to chronic disease. Otherwise no acute sonographic abnormality. Cholecystectomy.
[2021-07-01] MEDS ORDERED: SODIUM CHLORIDE 0.9% 500 ML 500 ML IV ONE (18:00)
[2021-07-01] MEDS ORDERED: NALOXONE 0.4 MG/ML 1 ML VIAL IV PRN (18:10)
[2021-07-01 19:27] LABS: Appearance,Urine Turbid (Clear); Bacteria,Urine Rare /hpf; Bilirubin,Urine 3+ (Negative); Blood,Urine Trace (Negative); Calcium Oxalate Crystals,Urine Few /hpf; Color,Urine Dark Brown; Glucose,Urine (UA) Negative (Negative); Hyaline Casts,Urine 78 /lpf (0-2); Ketones,Urine Negative (Negative); Leukocyte Esterase,Urine Negative (Negative); Mucus,Urine Many /hpf; Nitrite,Urine Negative (Negative); Protein,Urine 1+ (Negative); RBC,Urine 2 /hpf (0-5); Specific Gravity,Urine 1.026 (1.001-1.035); Squamous Epithelial Cell,Urine 4 /hpf (0-4); Urobilinogen,Urine >12.0 mg/dL (<2.0); WBC,Urine 26 /hpf (0-5)
--- NOTE | 2021-07-01 19:47 | HP ---
HISTORY AND PHYSICAL CHIEF COMPLAINT: Jaundice and diffuse aches and pains. HISTORY OF PRESENT ILLNESS: 40-year-old gentleman with a past medical history of multiple medical problems, including GI bleed, hypertension, history of DJD, history of alcohol use, history of bleeding ulcer, history of bradycardia, history of bariatric surgery, history of anxiety, bipolar depression, being followed by Dr. Nelson in the outpatient setting, was previously admitted here a few months ago with alcohol abuse intoxication and suicidal ideations and transaminitis. Currently, patient is in senior care. The patient was noted to have severely jaundice and patient also had diffuse aches and pains. The patient was taken to [facility] and being admitted for further evaluation and treatment. Bilirubin is elevated to 12.2. The total bilirubin was 12.2 and mostly conjugated 3.7 bilirubin and AST is also elevated. The last drink was about 8 days ago prior to going to the senior care, according to him. Lipase also elevated. There is no history of fever, rigors or chills. No history of headache, loss of consciousness or seizures at this time. PAST MEDICAL HISTORY: History of GI bleed, hypertension, DJD, history of bleeding ulcer, ADD, anxiety, bipolar, depression, PTSD. MEDICATIONS: Home medications are: Erythromycin and Tylenol . ALLERGIES: None. FAMILY HISTORY: History of cancer, heart problems in the family. Pacemaker in father. SOCIAL HISTORY: History of alcohol. History of smoking. History of THC. REVIEW OF SYSTEMS: ENT: No diminished vision. No diminished hearing. CARDIOVASCULAR: No angina or palpitations. RESPIRATIONS: No cough. GI: As mentioned earlier. : No dysuria. NERVOUS SYSTEM: No numbness or weakness. ALLERGY/IMMUNOLOGY: No asthma or hayfever. MUSCULOSKELETAL: As mentioned earlier. HEMATOLOGY/ONCOLOGY: No history of anemia. ENDOCRINE: No history of diabetes mellitus or hypothyroidism. CONSTITUTIONAL: As mentioned earlier. DERMATOLOGY: Negative. RHEUMATOLOGY: Negative. PSYCHIATRIC: As mentioned earlier. PHYSICAL EXAMINATION: Alert and oriented times three. Pulse is 91, blood pressure 129/69, respiration 18, temperature 98.9. Pulse ox 100 percent on room air. HEENT: Conjunctivae normal. NECK: No JVD. CARDIOVASCULAR: S1, S2 muffled. RESPIRATORY: Breath sounds diminished in the bases. A few rhonchi. No crackles. ABDOMEN: Soft. Mild diffuse discomfort on palpation. No guarding. No rigidity. No mass palpable. LEGS: No edema. No swelling. NERVOUS SYSTEM: Higher functions as mentioned earlier. Moves all four limbs. No focal deficits. LYMPHATICS: No lymph nodes palpable in the neck, axillae or groin. SKIN: No ulcer, no rash and no bleeding. JOINTS: No active deforming arthropathy. LABS: As mentioned earlier. INR 1.5, sodium 130 potassium 3.8. Other labs are noted. ASSESSMENT: 1. Severe jaundice with acute alcoholic hepatitis with hyperbilirubinemia. 2. Elevated AST. 3. Elevated lipase possible acute pancreatitis secondary to alcoholism. 4. Elevated INR coagulopathy secondary to chronic liver disease. 5. History of ETOH. 6. Gastrointestinal bleed. 7. Hypertension. 8. History of degenerative joint disease. 9. History of bleeding ulcer. 10.History of varicose veins. 11.History of bariatric surgery. 12.History of cholecystectomy. 13.History of attention-deficit disorder, attention-deficit/hyperactivity disorder. 14.Anxiety, bipolar depression, PTSD. 15.History of borderline personality disorder. 16.History of nicotine dependence. 17.History of THC. RECOMMENDATIONS AND DISCUSSION: This 40-year-old gentleman who presented with multiple complex medical issues, we will monitor the patient closely, continue the current medications, management and symptomatic treatment. We will monitor the LFTs closely. Acute hepatitis panel. Otherwise consult Dr. Pretty. We will hold off any hepatotoxic medications. Guarded prognosis because of multiple complex medical issues. Further recommendations to follow. A copy of dictation being forwarded to Dr. Nelson who is the primary physician. JOHNATHAN / ELIZABETHN: [id number] / MELI
[2021-07-01 21:51] VITALS: BP 127/74; PULSE 89; RESP 17; TEMP 99.3
[2021-07-01] MEDS: SODIUM CHLORIDE 0.9% 1,000 ML IV SCH (22:00)
[2021-07-01] MEDS ORDERED: traMADol 50 MG TAB PO STA (22:17)
[2021-07-02] MEDS: SODIUM CHLORIDE 0.9% 1,000 ML IV SCH (01:14)
[2021-07-02 04:28] LABS: Hepatitis A Antibody IgM Nonreactive (Nonreactive); Hepatitis B Core IgM Nonreactive (Nonreactive); Hepatitis B Surface Antigen Nonreactive (Nonreactive); Hepatitis C IgG Antibody Nonreactive (Nonreactive)
== END 2021-07-02 03:41 | disposition left against medical advice (07) | DRG 438 ==
LOC: EC 15:33 → 4SSUR 18:10
PROVIDERS: ADMIT Hospitalist; ATTEND Hospitalist
DX: K85.20 Alcohol induced acute pancreatitis without necrosis or infection (principal); U07.1 COVID-19; D68.4 Acquired coagulation factor deficiency; F31.30 Bipolar disorder, current episode depressed, mild or moderate severity, unspecified; K70.10 Alcoholic hepatitis without ascites; F10.20 Alcohol dependence, uncomplicated; F60.3 Borderline personality disorder; F90.9 Attention-deficit hyperactivity disorder, unspecified type; F43.10 Post-traumatic stress disorder, unspecified; I10 Essential (primary) hypertension; D64.9 Anemia, unspecified; I83.90 Asymptomatic varicose veins of unspecified lower extremity; M19.90 Unspecified osteoarthritis, unspecified site; F17.200 Nicotine dependence, unspecified, uncomplicated; Z98.84 Bariatric surgery status; Z90.49 Acquired absence of other specified parts of digestive tract; Z87.19 Personal history of other diseases of the digestive system; Z87.11 Personal history of peptic ulcer disease; Z91.51 Personal history of suicidal behavior; Z98.890 Other specified postprocedural states; Z82.49 Family history of ischemic heart disease and other diseases of the circulatory system; Z80.3 Family history of malignant neoplasm of breast; Z81.8 Family history of other mental and behavioral disorders; Z83.3 Family history of diabetes mellitus
CPT/HCPCS: 36415; 71046; 76705; 80053; 80074; 80143; 81001; 82248; 83605; 83690; 83735; 83880; 84484; 85025; 85610; 85730; 87086; 87635; 93005; 99285

== ENCOUNTER 2021-12-02 08:58 | Day surgery (SDC) | payer BC, OTHER ==
[2021-11-30 11:31] VITALS: BMI 36.1
[~2021-12-02 08:58] MED LIST changes: -HEPARIN SODIUM,PORCINE 5,000 UNIT/ML 1 ML VIAL SQ ONE; +LACTATED RINGERS 1,000 ML IV SCH; +LIDOCAINE 1% (10MG/ML) FOR IV START INTRADERMA PRN
[2021-12-02 09:12] VITALS: TEMP 98.1
[2021-12-02] MEDS ORDERED: PROPOFOL 10 MG/ML 20 ML VIAL IV ONE (09:33)
[2021-12-02] MEDS ORDERED: LIDOCAINE 2% INJ 20 MG/ML (2 ML VIAL) ONE (09:33)
[2021-12-02] MEDS ORDERED: fentaNYL (PF) 50 MCG/ML 2 ML AMP ONE (09:33)
[2021-12-02] MEDS ORDERED: MIDAZOLAM 2 MG/2 ML VIAL ONE (09:33)
--- NOTE | 2021-12-02 09:52 | P.PCN ---
Date of Procedure: 12/02/21 Procedure(s) Performed: BRIEF HISTORY: Patient is a 41-year-old pleasant white male with history of gastric bypass surgery scheduled for an elective colonoscopy as a part of evaluation of iron deficiency anemia. PROCEDURE PERFORMED: Colonoscopy. PREOPERATIVE DIAGNOSIS: Iron deficiency anemia. IV sedation per Anesthesia. PROCEDURE: After informed consent was obtained, the patient, was brought into the endoscopy unit. IV sedation was administered by Anesthesia under continuous monitoring. Digital rectal examination was normal. Initially the Olympus CF-160 flexible video colonoscope was then inserted in the rectum, gradually advanced into the cecum without any difficulty. Careful examination was performed as the scope was gradually being withdrawn. Ileocecal valve and the appendiceal orifice were visualized and appeared normal. Prep was excellent. Mucosa of the cecum, ascending colon, transverse colon, descending colon, sigmoid colon, and rectum appeared normal. Retroflexion was performed in the rectum and no lesions were seen. The patient tolerated the procedure well. IMPRESSION: Normal-appearing colon from rectum to cecum with no evidence of colorectal neoplasia. RECOMMENDATIONS: Findings of this examination were discussed with the patient well as his family. He was advised to continue with iron supplements. Repeat colonoscopy in 10 years..
[2021-12-02 10:01] VITALS: BP 101/61
[2021-12-02 10:18] VITALS: PULSE 58; RESP 15
== END 2021-12-02 10:45 | disposition other institution (70) ==
LOC: ORWHC2ENDO 08:58
PROVIDERS: ATTEND Internal Medicine Gastroenterology
DX: D50.9 Iron deficiency anemia, unspecified (principal); E11.9 Type 2 diabetes mellitus without complications; K76.9 Liver disease, unspecified; Z79.899 Other long term (current) drug therapy; Z98.84 Bariatric surgery status; Z90.49 Acquired absence of other specified parts of digestive tract; Z88.6 Allergy status to analgesic agent; F17.200 Nicotine dependence, unspecified, uncomplicated
CPT/HCPCS: 45378; J2250; J3010; J2704; J2001

== ENCOUNTER 2022-05-28 15:55 | Emergency (ER) | payer OTHER ==
[2022-05-28 16:47] VITALS: TEMP 97
--- NOTE | 2022-05-28 17:24 | XR ---
EXAMINATION TYPE: XR chest 2V DATE OF EXAM: 05/28/2022 5:12 PM COMPARISON: Chest radiographs from 07/01/2021. TECHNIQUE: XR chest 2V Frontal and lateral views of the chest. CLINICAL INDICATION:Male, 41 years old with history of difficulty breathing; FINDINGS: Lungs/Pleura: There is no evidence of pleural effusion, focal consolidation, or pneumothorax. Pulmonary vascularity: Unremarkable. Heart/mediastinum: Cardiomediastinal silhouette is unremarkable. Musculoskeletal: No acute osseous pathology. IMPRESSION: No acute cardiopulmonary disease/process.
[2022-05-28 17:26] LABS: ALT 23 U/L (4-49); AST 46 U/L (17-59); African American GFR (CKD) >90 (>60 ml/min/1.73 sqM); Albumin 3.1 g/dL (3.5-5.0); Alkaline Phosphatase 153 U/L (38-126); Anion Gap 6 mmol/L; Blood Urea Nitrogen 10 mg/dL (9-20); Calcium 8.2 mg/dL (8.4-10.2); Carbon Dioxide 22 mmol/L (22-30); Chloride 111 mmol/L (98-107); Glucose 172 mg/dL (74-99); Magnesium 1.9 mg/dL (1.6-2.3); Non-African American GFR(CKD) >90 (>60 ml/min/1.73 sqM); Potassium 4.1 mmol/L (3.5-5.1); Sodium 139 mmol/L (137-145); Total Bilirubin 3.9 mg/dL (0.2-1.3); Total Protein 6.4 g/dL (6.3-8.2)
[2022-05-28 17:27] LABS: Basophils % (A) 0 %; Eosinophils # (A) 0.2 k/uL (0-0.7); Eosinophils % (A) 2 %; HCT 43.2 % (39.0-53.0); HGB 14.1 gm/dL (13.0-17.5); Hypochromasia Slight; INR 1.4 (<1.2); Lymphocytes # (A) 1.4 k/uL (1.0-4.8); Lymphocytes % (A) 19 %; MCH 33.1 pg (25.0-35.0); MCHC 32.7 g/dL (31.0-37.0); MCV 100.9 fL (80.0-100.0); Macrocytosis Slight; Mean Platelet Volume 10.9; Monocytes # (A) 0.5 k/uL (0-1.0); Monocytes % (A) 7 %; Neutrophils # (A) 5.3 k/uL (1.3-7.7); Neutrophils % (A) 70 %; Partial Thromboplastin Time 29.6 sec (22.0-30.0); Platelet Count 123 k/uL (150-450); Poikilocytosis Slight; Prothrombin Time 13.9 sec (9.0-12.0); RBC 4.28 m/uL (4.30-5.90); RDW 15.7 % (11.5-15.5); WBC 7.6 k/uL (3.8-10.6)
[2022-05-28 19:25] LABS: Amylase 39 U/L (30-110); Lipase 143 U/L (23-300)
--- NOTE | 2022-05-28 20:05 | ED ---
SOB HPI - General Chief Complaint: Shortness of Breath Stated Complaint: abd labs/leg pain Time Seen by Provider: 05/28/22 19:01 Source: patient, RN notes reviewed Mode of arrival: ambulatory Limitations: no limitations - History of Present Illness Initial Comments: This is a 41-year-old male who presents to the emergency department for difficulty breathing and swelling in his lower extremities. States that he had been incarcerated for 11 months and was just released one week ago. He has a long-standing history of alcohol abuse, and subsequently developed liver disease. He has struggled with jaundice for many years because of this. However, he has abstained from alcohol since he was released from residential. Also states that his urine is very dark. Since being released from residential, he states that he has had increasing swelling to the lower extremities, swelling to the abdomen, and shortness of breath with exertion. He is unsure if he has a history of ascites, but states that he does have pain in the abdomen as well as the lower extremities. His primary care provider scheduled an outpatient ultrasound of his liver, which is scheduled for 06/07. He spoke with his brother, who is a pharmacist, and he advised him to come to the emergency department due to the increasing swelling and shortness of breath. He denies any chest pain associated with this. His primary care provider did put him on Lasix due to the swelling, and he believes that he takes 40 mg daily. He thinks that the swelling has improved to some extent with the lasix. Denies any fevers, chills, sore throat, cough, chest pain, palpitations, nausea, vomiting, diarrhea, back pain, or headaches. MD Complaint: shortness of breath Onset/Timin -: week(s) - Related Data Home Medications Medication Instructions Recorded Confirmed DULoxetine HCL [Cymbalta] 60 mg PO DAILY 11/30/21 05/28/22 Furosemide [Lasix] 40 mg PO DAILY 05/28/22 05/28/22 Gabapentin [Neurontin] 100 mg PO BID 05/28/22 05/28/22 Mirtazapine [Remeron] 15 mg PO HS 05/28/22 05/28/22 hydrOXYzine HCL [Atarax] 25 mg PO BID PRN 05/28/22 05/28/22 Previous Rx's Medication Instructions Recorded Albuterol Sulfate [Proair Hfa] 1 - 2 puff INHALATION Q6HR PRN 05/28/22 #8.5 gm Allergies Allergy/AdvReac Type Severity Reaction Status Date / Time acetaminophen [From Tylenol] Allergy LIVER Verified 05/28/22 22:34 ISSUES " Review of Systems ROS Statement: Those systems with pertinent positive or pertinent negative responses have been documented in the HPI. ROS Other: All systems not noted in ROS Statement are negative. 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 Patient does not have any sisters. Patient has 1 son that is 10 years old with diabetes mellitus type 1. General Exam Limitations: no limitations General appearance: alert, in no apparent distress Head exam: Present: atraumatic, normocephalic, normal inspection Eye exam: Present: scleral icterus Respiratory exam: Present: normal lung sounds bilaterally. Absent: respiratory distress, wheezes, rales, rhonchi, stridor Cardiovascular Exam: Present: regular rate, normal rhythm, normal heart sounds. Absent: systolic murmur, diastolic murmur, rubs, gallop, clicks GI/Abdominal exam: Present: soft, normal bowel sounds. Absent: distended, tenderness, mass Extremities exam: Present: other (Nonpitting edema bilaterally. There is no calf tenderness, overlying erythema, or increased heat. 2+ dorsalis pedis and tibialis posterior pulses bilaterally, capillary refill less than 1 second.) Neurological exam: Present: alert, oriented X3, CN II-XII intact Psychiatric exam: Present: normal affect, normal mood Skin exam: Present: other (Very mild jaundice to the face and neck.) Course Vital Signs 05/28/22 05/28/22 05/28/22 16:43 20:10 23:14 Temperature 97 F L Pulse Rate 100 83 86 Respiratory 20 18 18 Rate Blood Pressure 135/77 116/60 122/72 O2 Sat by Pulse 97 98 97 Oximetry Medical Decision Making - Medical Decision Making This is a 41-year-old male who presents to the emergency department for difficulty breathing and swelling in his legs and abdomen. Ultrasound of the liver was obtained, however evaluation was very limited due to the patient's body habitus and overlying bowels. Lab work is notable for hyperbilirubinemia at 3.9 and elevated alkaline phosphatase. However, his bilirubin is much improved from his prior values. His d-dimer was also found to be elevated. CTA of the chest as well as CT of the abdomen and pelvis were obtained. My interpre tation of the CTA of the chest reveals no localized consolidations or infiltrates. I also do not identify any signs of an aortic aneurysm. The radiologist states that this is nondiagnostic for a pulmonary embolus due to the timing of the bolus. My interpretation of the computed tomography scan of the abdomen and pelvis identifies no signs of free air or ascites. The radiologist makes note of a dilated pulmonary trunk suggestive of portal hypertension as well as cirrhosis. These findings were discussed with the patient. Advised that the bilateral lower extremity swelling is most likely related to the liver problems, such as the portal hypertension. Because his current bilirubin value is improved and his labs are otherwise stable when compared with prior, patient is stable for discharge home with close follow-up with gastroenterology. He was given Dr. Pretty's information for follow-up. Prescription for albuterol inhaler provided, advised he try using this when he feels short of breath. He was encouraged to continue to abstain from alcohol. Recommended he contact his primary care provider to see if she wants to increase his current Lasix dosage. Return precautions reviewed in depth, the patient is instructed to return to the emergency department with any new, worsening, or concerning symptoms. Patient verbalized understanding. This case was discussed in detail with the attending ED physician. Presentation, findings, and treatment plan discussed in detail as well. - Lab Data Result diagrams: 05/28/22 17:01 12/09/22 17:01 Lab Results 05/28/22 05/28/22 05/28/22 Range/Units 17:01 17:01 17:01 WBC 7.6 (3.8-10.6) k/uL RBC 4.28 L (4.30-5.90) m/uL Hgb 14.1 (13.0-17.5) gm/dL Hct 43.2 (39.0-53.0) % MCV 100.9 H (80.0-100.0) fL MCH 33.1 (25.0-35.0) pg MCHC 32.7 (31.0-37.0) g/dL RDW 15.7 H (11.5-15.5) % Plt Count 123 L (150-450) k/uL MPV 10.9 Neutrophils % 70 % Lymphocytes % 19 % Monocytes % 7 % Eosinophils % 2 % Basophils % 0 % Neutrophils # 5.3 (1.3-7.7) k/uL Lymphocytes # 1.4 (1.0-4.8) k/uL Monocytes # 0.5 (0-1.0) k/uL Eosinophils # 0.2 (0-0.7) k/uL Basophils # 0.0 (0-0.2) k/uL Hypochromasia Slight Poikilocytosis Slight Macrocytosis Slight PT 13.9 H (9.0-12.0) sec INR 1.4 H (<1.2) APTT 29.6 (22.0-30.0) sec D-Dimer (<0.60) mg/L FEU Sodium 139 (137-145) mmol/L Potassium 4.1 (3.5-5.1) mmol/L Chloride 111 H (98-107) mmol/L Carbon Dioxide 22 (22-30) mmol/L Anion Gap 6 mmol/L BUN 10 (9-20) mg/dL Creatinine 0.61 L (0.66-1.25) mg/dL Est GFR (CKD-EPI)AfAm >90 (>60 ml/min/1.73 sqM) Est GFR (CKD-EPI)NonAf >90 (>60 ml/min/1.73 sqM) Glucose 172 H (74-99) mg/dL Calcium 8.2 L (8.4-10.2) mg/dL Magnesium 1.9 (1.6-2.3) mg/dL Total Bilirubin 3.9 H (0.2-1.3) mg/dL AST 46 (17-59) U/L ALT 23 (4-49) U/L Alkaline Phosphatase 153 H (38-126) U/L Troponin I (0.000-0.034) ng/mL NT-Pro-B Natriuret Pep pg/mL Total Protein 6.4 (6.3-8.2) g/dL Albumin 3.1 L (3.5-5.0) g/dL Amylase (30-110) U/L Lipase (23-300) U/L Urine Color Urine Appearance (Clear) Urine pH (5.0-8.0) Ur Specific [place] (1.001-1.035) Urine Protein (Negative) Urine Glucose (UA) (Negative) Urine Ketones (Negative) Urine Blood (Negative) Urine Nitrite (Negative) Urine Bilirubin (Negative) Urine Urobilinogen (<2.0) mg/dL Ur Leukocyte Esterase (Negative) Urine RBC (0-5) /hpf Urine WBC (0-5) /hpf Ur Squamous Epith Cells (0-4) /hpf Calcium Oxalate Crystal (None) /hpf Hyaline Casts (0-2) /lpf Urine Mucus (None) /hpf 05/28/22 05/28/22 05/28/22 Range/Units 17:01 17:01 17:01 WBC (3.8-10.6) k/uL RBC (4.30-5.90) m/uL Hgb (13.0-17.5) gm/dL Hct (39.0-53.0) % MCV (80.0-100.0) fL MCH (25.0-35.0) pg MCHC (31.0-37.0) g/dL RDW (11.5-15.5) % Plt Count (150-450) k/uL MPV Neutrophils % % Lymphocytes % % Monocytes % % Eosinophils % % Basophils % % Neutrophils # (1.3-7.7) k/uL Lymphocytes # (1.0-4.8) k/uL Monocytes # (0-1.0) k/uL Eosinophils # (0-0.7) k/uL Basophils # (0-0.2) k/uL Hypochromasia Poikilocytosis Macrocytosis PT (9.0-12.0) sec INR (<1.2) APTT (22.0-30.0) sec D-Dimer (<0.60) mg/L FEU Sodium (137-145) mmol/L Potassium (3.5-5.1) mmol/L Chloride (98-107) mmol/L Carbon Dioxide (22-30) mmol/L Anion Gap mmol/L BUN (9-20) mg/dL Creatinine (0.66-1.25) mg/dL Est GFR (CKD-EPI)AfAm (>60 ml/min/1.73 sqM) Est GFR (CKD-EPI)NonAf (>60 ml/min/1.73 sqM) Glucose (74-99) mg/dL Calcium (8.4-10.2) mg/dL Magnesium (1.6-2.3) mg/dL Total Bilirubin (0.2-1.3) mg/dL AST (17-59) U/L ALT (4-49) U/L Alkaline Phosphatase (38-126) U/L Troponin I <0.012 (0.000-0.034) ng/mL NT-Pro-B Natriuret Pep 128 pg/mL Total Protein (6.3-8.2) g/dL Albumin (3.5-5.0) g/dL Amylase 39 (30-110) U/L Lipase 143 (23-300) U/L Urine Color Urine Appearance (Clear) Urine pH (5.0-8.0) Ur Specific [place] (1.001-1.035) Urine Protein (Negative) Urine Glucose (UA) (Negative) Urine Ketones (Negative) Urine Blood (Negative) Urine Nitrite (Negative) Urine Bilirubin (Negative) Urine Urobilinogen (<2.0) mg/dL Ur Leukocyte Esterase (Negative) Urine RBC (0-5) /hpf Urine WBC (0-5) /hpf Ur Squamous Epith Cells (0-4) /hpf Calcium Oxalate Crystal (None) /hpf Hyaline Casts (0-2) /lpf Urine Mucus (None) /hpf 05/28/22 05/28/22 Range/Units 17:01 20:07 WBC (3.8-10.6) k/uL RBC (4.30-5.90) m/uL Hgb (13.0-17.5) gm/dL Hct (39.0-53.0) % MCV (80.0-100.0) fL MCH (25.0-35.0) pg MCHC (31.0-37.0) g/dL RDW (11.5-15.5) % Plt Count (150-450) k/uL MPV Neutrophils % % Lymphocytes % % Monocytes % % Eosinophils % % Basophils % % Neutrophils # (1.3-7.7) k/uL Lymphocytes # (1.0-4.8) k/uL Monocytes # (0-1.0) k/uL Eosinophils # (0-0.7) k/uL Basophils # (0-0.2) k/uL Hypochromasia Poikilocytosis Macrocytosis PT (9.0-12.0) sec INR (<1.2) APTT (22.0-30.0) sec D-Dimer 0.79 H (<0.60) mg/L FEU Sodium (137-145) mmol/L Potassium (3.5-5.1) mmol/L Chloride (98-107) mmol/L Carbon Dioxide (22-30) mmol/L Anion Gap mmol/L BUN (9-20) mg/dL Creatinine (0.66-1.25) mg/dL Est GFR (CKD-EPI)AfAm (>60 ml/min/1.73 sqM) Est GFR (CKD-EPI)NonAf (>60 ml/min/1.73 sqM) Glucose (74-99) mg/dL Calcium (8.4-10.2) mg/dL Magnesium (1.6-2.3) mg/dL Total Bilirubin (0.2-1.3) mg/dL AST (17-59) U/L ALT (4-49) U/L Alkaline Phosphatase (38-126) U/L Troponin I (0.000-0.034) ng/mL NT-Pro-B Natriuret Pep pg/mL Total Protein (6.3-8.2) g/dL Albumin (3.5-5.0) g/dL Amylase (30-110) U/L Lipase (23-300) U/L Urine Color [place] Urine Appearance Cloudy (Clear) Urine pH 6.0 (5.0-8.0) Ur Specific Kinta 1.030 (1.001-1.035) Urine Protein Trace H (Negative) Urine Glucose (UA) Negative (Negative) Urine Ketones Negative (Negative) Urine Blood Negative (Negative) Urine Nitrite Negative (Negative) Urine Bilirubin 1+ H (Negative) Urine Urobilinogen >12.0 (<2.0) mg/dL Ur Leukocyte Esterase Negative (Negative) Urine RBC <1 (0-5) /hpf Urine WBC 1 (0-5) /hpf Ur Squamous Epith Cells 2 (0-4) /hpf Calcium Oxalate Crystal Occasional H (None) /hpf Hyaline Casts 8 H (0-2) /lpf Urine Mucus Many H (None) /hpf - EKG Data -: EKG Interpreted by Me EKG Comments: Sinus rhythm. Normal axis. Ventricular rate 92 bpm, WA interval 155 ms, QRS duration 155 milliseconds, QTC 473 ms. EKG interpreted by myself and ED attending. - Radiology Data Radiology results: report reviewed, image reviewed Disposition Clinical Impression: Hyperbilirubinemia, Hepatic cirrhosis, Shortness of breath Disposition: HOME SELF-CARE Instructions (If sedation given, give patient instructions): Cirrhosis (ED), How to Use a Metered-Dose Inhaler (ED), Jaundice (ED) Additional Instructions: Return to the emergency department with any new, worsening, or concerning symptoms. Continue to do your best to abstain from alcohol. Contact your primary care provider and ask about increasing the Lasix dosage. Contact Dr. Pretty's office as listed below for a follow-up appointment regarding the cirrhosis. You can also try using the inhaler to help with the shortness of breath. Follow up with your primary care provider in 1-2 days. Prescriptions: Albuterol Sulfate [Proair Hfa] 1 - 2 puff INHALATION Q6HR PRN #8.5 gm PRN Reason: Shortness Of Breath Is patient prescribed a controlled substance at d/c from ED?: No Referrals: Angeline Nelson MD [Primary Care Provider] - 1-2 days Margaret Pretty MD [STAFF PHYSICIAN] - 1-2 days
[2022-05-28 20:11] VITALS: RESP 18
--- NOTE | 2022-05-28 20:18 | US ---
EXAMINATION TYPE: US liver DATE OF EXAM: 05/28/2022 COMPARISON: NONE CLINICAL HISTORY: Hyperbilirubinemia, jaundice. Nausea, jaundice, cholecystectomy, gastric bypass 20 years ago TECHNIQUE: Multiple sonographic images of the right upper quadrant are obtained. FINDINGS: EXAM MEASUREMENTS: Liver Length: 15.7 cm Gallbladder Wall: Surgically absent CBD: 0.7 cm Right Kidney: 12.4 x 6.3 x 5.1 cm [employer]PRAISER SUPERVISOR NOTES:*technical limitations due to patient's body habitus and large amount of overlying bowel content Pancreas: Obscured by bowel gas Liver: best visualized intercostally , increased echotexture. No obvious mass. Gallbladder: Surgically absent Evidence for sonographic Marcelino's sign: no CBD: limited evaluation Right Kidney: no evidence of hydronephrosis *no evidence of abdominal ascites within visualized portions IMPRESSION: Hepatocellular disease commonly related to hepatic steatosis.
[2022-05-28 20:39] LABS: Appearance,Urine Cloudy (Clear); Bilirubin,Urine 1+ (Negative); Blood,Urine Negative (Negative); Calcium Oxalate Crystals,Urine Occasional /hpf; Color,Urine Orange; Glucose,Urine (UA) Negative (Negative); Hyaline Casts,Urine 8 /lpf (0-2); Ketones,Urine Negative (Negative); Leukocyte Esterase,Urine Negative (Negative); Mucus,Urine Many /hpf; Nitrite,Urine Negative (Negative); Protein,Urine Trace (Negative); RBC,Urine <1 /hpf (0-5); Squamous Epithelial Cell,Urine 2 /hpf (0-4); Urobilinogen,Urine >12.0 mg/dL (<2.0); WBC,Urine 1 /hpf (0-5)
--- NOTE | 2022-05-28 21:42 | CT ---
EXAMINATION TYPE: CT chest angio for PE, CT abdomen pelvis w con CT DLP: 1277.8 (accession [id number]), 3037.8 (accession [id number]) mGycm, Automated exposure control fo r dose reduction was used. DATE OF EXAM: 05/28/2022 9:01 PM COMPARISON: Chest radiograph from same day. CT abdomen pelvis. CLINICAL INDICATION:Male, 41 years old with history of BRISA, elevated d-dimer; SOB, bilateral leg swel ling (accession [id number]), abnormal labs, known liver disease (accession [id number]) TECHNIQUE/CONTRAST: CTA scan of the thorax is performed with IV Contrast, patient injected with 100 mL of Isovue 370, pul monary embolism protocol. MIP images are created and reviewed. TECHNIQUE: Axial CT of the abdomen and pelvis. Sagittal and coronal reformats were created on a [employer] workstation. FINDINGS: Pulmonary Artery: Nondiagnostic exam for pulmonary embolus secondary to bolus timing. The pulmonary t runk is dilated up to 3.4 cm's. Lungs/Pleura: No evidence of focal consolidation, pleural effusion or pneumothorax. Airway: Large airways are patent. Heart: Heart is within normal limits for size.. Vasculature: No evidence of aortic aneurysm. Mediastinum: No gross evidence of adenopathy. Contrast within the esophagus correlate to esophageal d ysmotility or reflux. Musculoskeletal: No acute osseous abnormalities Soft Tissues: Gynecomastia changes bilaterally. Lower neck: No significant findings. ABDOMEN LIVER: Nodular contour. GALLBLADDER AND BILE DUCTS: Unremarkable. PANCREAS: Fat stranding changes are seen around the pancreas. SPLEEN: The spleen is enlarged measuring up to 17.2 cm. ADRENAL GLANDS: Unremarkable. KIDNEYS AND URETERS: No evidence of hydronephrosis or renal calculus. The ureters are unremarkable. PELVIS BLADDER: Unremarkable REPRODUCTIVE: Unremarkable. ABDOMEN & PELVIS STOMACH AND BOWEL: No evidence of bowel obstruction. Postsurgical changes along the left lower quadra nt. PERITONEUM: No evidence of pneumoperitoneum or free fluid. VASCULATURE: No evidence of aortic aneurysm. Paraesophageal and upper abdominal varices are present. MUSCULOSKELETAL: No acute osseous abnormalities LYMPH NODES: No gross evidence for lymphadenopathy. Scattered prominent mesenteric lymph nodes SOFT TISSUE/ABDOMINAL WALL: Unremarkable IMPRESSION: 1. Nondiagnostic exam for pulmonary embolus due to bolus timing. 2. Hepatic cirrhosis with evidence of portal hypertension. 3. Mild fat stranding changes around the pancreas correlate with lipase for pancreatitis. 4. Prominent nonspecific mesenteric lymph nodes correlate for enteritis.
[2022-05-28 23:15] VITALS: BP 122/72; PULSE 86
== END 2022-05-28 23:15 | disposition home or self-care (01) ==
LOC: SUPCPDRO 15:55 → EC 15:55
DX: R06.02 Shortness of breath (principal); I10 Essential (primary) hypertension; E80.6 Other disorders of bilirubin metabolism; K74.60 Unspecified cirrhosis of liver; F41.9 Anxiety disorder, unspecified; F31.9 Bipolar disorder, unspecified; Z88.6 Allergy status to analgesic agent; Z87.891 Personal history of nicotine dependence; Z79.899 Other long term (current) drug therapy
CPT/HCPCS: 99285; 36415; 93005; 85379; 83880; 80053; 82150; 83690; 83735; 84484; 85025; 85610; 85730; 81001; 71046; 76705; 71275; 74177; Q9967

== ENCOUNTER 2022-05-29 19:05 | Emergency (ER) | payer OTHER ==
[2022-05-29] MEDS ORDERED: HYDROcodone/APAP 5-325MG 1 EACH TAB PO STA (19:39)
--- NOTE | 2022-05-29 19:47 | ED ---
General Adult HPI - General Chief complaint: Extremity Problem,Nontraumatic Stated complaint: R knee pain Time Seen by Provider: 05/29/22 19:18 Source: patient, RN notes reviewed, old records reviewed Mode of arrival: ambulatory - History of Present Illness Initial comments: Patient is a 41-year-old male with past medical history remarkable for hypertension, a bleeding ulcer, history of chronic alcohol abuse, who presents emergency Department complaining of right knee pain. Patient was seen here yesterday for chest pain and shortness of breath and had an extensive workup d one for cardiopulmonary process. This includes CT imaging of the chest, abdomen which were unremarkable. She has chronic lower extremity edema likely from his cirrhosis. He was discharged home in good condition. Presents today over concern for right knee pain. States he did not disclose this to the providers yesterday, but states that he fell 2 days ago. He slipped on a wet floor and landed on the ground. States he believes his knee tangled up underneath him. Has been ambulatory on it since but states he he'll use a clicking and has some pain over the anterior medial aspect of it. He is concerned he may have torn something. Presents for further evaluation of his knee pain at this time. Denies any other acute complaints. Denies any numbness or weakness in the right lower extremity. Presents for further evaluation and x-ray. Does have a history of knee procedure done on the left knee and follows up with a orthopedic surgeon through [facility]. - Related Data Home Medications Medication Instructions Recorded Confirmed DULoxetine HCL [Cymbalta] 60 mg PO DAILY 11/30/21 05/28/22 Furosemide [Lasix] 40 mg PO DAILY 05/28/22 05/28/22 Gabapentin [Neurontin] 100 mg PO BID 05/28/22 05/28/22 Mirtazapine [Remeron] 15 mg PO HS 05/28/22 05/28/22 hydrOXYzine HCL [Atarax] 25 mg PO BID PRN 05/28/22 05/28/22 Previous Rx's Medication Instructions Recorded Albuterol Sulfate [Proair Hfa] 1 - 2 puff INHALATION Q6HR PRN 05/28/22 #8.5 gm Allergies Allergy/AdvReac Type Severity Reaction Status Date / Time acetaminophen [From Tylenol] Allergy LIVER Verified 05/29/22 19:30 ISSUES " Review of Systems ROS Statement: Those systems with pertinent positive or pertinent negative responses have been documented in the HPI. Review of Systems: CONST: Denies fever EYES: Denies blurry vision ENT: Denies nasal congestion C/V: Denies Chest pain RESP: Denies shortness of breath GI: Denies abdominal pain : Denies dysuria SKIN: Denies rash. MSK: Endorses right knee pain NEURO: Denies headache ROS Other: All systems not noted in ROS Statement are negative. 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 Patient does not have any sisters. Patient has 1 son that is 10 years old with diabetes mellitus type 1. General Exam - General Exam Comments Initial Comments: General: Appears in no acute distress. HEAD: Normal with no signs of head trauma. EYES: EOMI ENT: Hearing grossly intact, normal oropharynx. RESPIRATORY: No respiratory distress C/V: Peripheral pulses 2+ and intact throughout ABD: Nondistended EXT: Normal range of motion of the right knee. No obvious deformity. Tenderness to palpation along the medial joint line. Able to hold knee in full extension. Has normal flexion of the knee. Ibrahima's test negative. No obvious injury. Neurovascularly intact throughout. SKIN: No rashes or lesions observed on exposed skin. NEURO: Alert and oriented 4. No focal deficits. Course Vital Signs 05/29/22 05/29/22 19:27 19:33 Temperature 98.4 F 98.6 F Pulse Rate 91 87 Respiratory 16 18 Rate Blood Pressure 144/81 139/79 O2 Sat by Pulse 99 99 Oximetry Medical Decision Making - Medical Decision Making Based on the patient's presentation and physical exam, he does appear that he is having right knee pain. He fell 2 days ago. No obvious injury. We will obtain an x-ray at this time. This is relatively any bony traumatic injury. I cannot definitively rule out meniscus or ligament injury. Ibrahima's test is negative. Patient is in agreement this plan. He'll be given analgesia medications. Vital signs within acceptable limits. He is in laboratory and the knee. Patient's right knee x-ray as interpreted by myself reveals no evidence of acute bony trauma or injury. No fracture or subluxation. There is some soft tissue swelling. This is corroborated with radiology's read. I discussed the x-ray findings with the patient. I do believe he likely at least experienced a right knee sprain. Does not appear to be broken. I discussed additional follow-up with the outpatient orthopedic surgery. He was in agreement this plan. Does have a cane at home for walking. I will provide him with an [place] wrap to be used as needed for support. He'll be discharged home at this time. He was in agreement with this plan. I instructed the patient to follow up with their PCP in the next 1-3 days. I explained that the patient should return to the emergency department if they experience any worsening symptoms. Strict return precautions were discussed with the patient. The patient expressed understanding of these instructions. I answered all questions that the patient had. The patient was discharged home in good condition with their prescriptions and follow up information. Disposition Clinical Impression: Right knee sprain Disposition: HOME SELF-CARE Condition: Good Instructions (If sedation given, give patient instructions): Knee Sprain (ED) Is patient prescribed a controlled substance at d/c from ED?: No Referrals: Angeline Nelson MD [Primary Care Provider] - 1-2 days Shashi Hernandez DO [Doctor of Osteopathic Medicine] - 1-2 days Time of Disposition: 20:30
--- NOTE | 2022-05-29 20:24 | XR ---
EXAMINATION TYPE: XR knee complete RT DATE OF EXAM: 05/29/2022 8:19 PM INDICATION: Patient age:Male; 41 years old; Reason for study: pain; PHH. COMPARISON: None. TECHNIQUE: The Right knee(s) was examined in 3 projections. Frontal, lateral and oblique. FINDINGS: No evidence for fracture or dislocation. Mild diffuse soft tissue swelling centered at th e knee and distal thigh. No radiopaque foreign bodies. IMPRESSION: 1. No acute osseous pathology. 2. Mild diffuse soft tissue swelling of the knee suggesting soft tissue injury.
[2022-05-29 20:51] VITALS: BP 125/79; PULSE 77; RESP 16; TEMP 98
== END 2022-05-29 20:50 | disposition home or self-care (01) ==
LOC: EC 19:05
DX: S83.91XA Sprain of unspecified site of right knee, initial encounter (principal); I10 Essential (primary) hypertension; F41.9 Anxiety disorder, unspecified; F31.9 Bipolar disorder, unspecified; Z87.891 Personal history of nicotine dependence; Z88.6 Allergy status to analgesic agent; W01.0XXA Fall on same level from slipping, tripping and stumbling without subsequent striking against object, initial encounter
CPT/HCPCS: 99283

== ENCOUNTER 2022-06-13 21:51 | Emergency (ER) | payer OTHER ==
[2022-06-13 22:11] VITALS: BP 165/81; PULSE 105; RESP 18; TEMP 98.8
[2022-06-13] MEDS ORDERED: CEPHALEXIN 500 MG CAP PO STA (23:32)
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
== END 2022-06-14 00:16 | disposition home or self-care (01) ==
LOC: EC 21:51
DX: L03.115 Cellulitis of right lower limb (principal); I10 Essential (primary) hypertension; F90.9 Attention-deficit hyperactivity disorder, unspecified type; F41.9 Anxiety disorder, unspecified; F31.9 Bipolar disorder, unspecified; Z87.891 Personal history of nicotine dependence; Z88.6 Allergy status to analgesic agent; Z79.899 Other long term (current) drug therapy
CPT/HCPCS: 99282

== ENCOUNTER 2023-01-27 20:33 | Inpatient (IN) | payer OTHER ==
[2023-01-27] MEDS ORDERED: SODIUM CHLORIDE 0.9% 1,000 ML IV ONE (20:52)
--- NOTE | 2023-01-27 20:52 | ED ---
Altered Mental Status HPI - General Chief Complaint: Altered Mental Status Stated Complaint: Recheck Time Seen by Provider: 01/27/23 20:51 Source: patient, RN notes reviewed, old records reviewed Mode of arrival: ambulatory Limitations: no limitations - History of Present Illness Initial Comments: This 42-year-old male to the emergency department for evaluation of altered mental state. Patient believes he has significantly elevated ammonia level. Eran german has nausea vomiting anxiety, unable to keep down lactulose at home. Patient states is going to some life transitions maybe becoming homeless is causing significant stress. Patient denies suicidal thoughts but states he has lost hope. Patient is confused also at times and thought process does seem unclear MD Complaint: altered mental status, confusion -: days(s) Consistency of Symptoms: waxing and waning Associated Symptoms: denies other symptoms - Related Data Home Medications Medication Instructions Recorded Confirmed Gabapentin [Neurontin] 100 mg PO BID 05/28/22 01/27/23 Dextroamphetamine/Amphetamine 30 mg PO BID 01/27/23 01/27/23 [Adderall] Previous Rx's Medication Instructions Recorded Lactulose [Cephulac] 30 gm PO TID #600 ml 01/31/23 Sertraline [Zoloft] 50 mg PO DAILY #30 tab 01/31/23 traZODone HCL [Desyrel] 50 mg PO HS #30 tab 01/31/23 Allergies Allergy/AdvReac Type Severity Reaction Status Date / Time acetaminophen [From Tylenol] Allergy LIVER Verified 01/27/23 23:10 ISSUES " Review of Systems ROS Statement: Those systems with pertinent positive or pertinent negative responses have been documented in the HPI. ROS Other: All systems not noted in ROS Statement are negative. 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 Patient does not have any sisters. Patient has 1 son that is 10 years old with diabetes mellitus type 1. General Exam Limitations: no limitations, altered mental status General appearance: alert, in no apparent distress Head exam: Present: atraumatic, normocephalic, normal inspection Eye exam: Present: normal appearance, PERRL, EOMI. Absent: scleral icterus, conjunctival injection, periorbital swelling ENT exam: Present: normal exam, mucous membranes moist Neck exam: Present: normal inspection. Absent: tenderness, meningismus, lymphadenopathy Respiratory exam: Present: normal lung sounds bilaterally. Absent: respiratory distress, wheezes, rales, rhonchi, stridor Cardiovascular Exam: Present: regular rate, normal rhythm, normal heart sounds. Absent: systolic murmur, diastolic murmur, rubs, gallop, clicks GI/Abdominal exam: Present: soft, normal bowel sounds. Absent: distended, tenderness, guarding, rebound, rigid Extremities exam: Present: normal inspection, full ROM, normal capillary refill. Absent: tenderness, pedal edema, joint swelling, calf tenderness Back exam: Present: normal inspection Neurological exam: Present: alert, oriented X3, CN II-XII intact Psychiatric exam: Present: normal affect, normal mood Skin exam: Present: warm, dry, intact, normal color. Absent: rash Course Vital Signs 01/27/23 01/27/23 01/28/23 20:35 23:00 00:00 Temperature 97.9 F Pulse Rate 87 63 66 Respiratory 18 16 16 Rate Blood Pressure 127/77 124/69 124/69 O2 Sat by Pulse 99 98 96 Oximetry 01/28/23 01/28/23 01/28/23 01:00 02:00 06:00 Temperature Pulse Rate 67 58 L 50 L Respiratory 16 16 16 Rate Blood Pressure 122/70 114/73 111/56 O2 Sat by Pulse 95 95 97 Oximetry 01/28/23 01/28/23 09:08 15:24 Temperature 98.2 F 97.9 F Pulse Rate 52 L 56 L Respiratory 16 16 Rate Blood Pressure 122/75 130/72 O2 Sat by Pulse 96 97 Oximetry - Reevaluation(s) Reevaluation #1: 01/27/23 23:51 Medical records reviewed Reevaluation #2: 01/27/23 23:51 Patient has no change in symptoms remain severely anxious Reevaluation #3: 01/27/23 23:51 Patient informed results questions answered Reevaluation #4: 01/27/23 23:51 Was pt. sent in by a medical professional or institution (ERAN Rosen, RECYCLING ASSISTANT, urgent care, hospital, or residential...) When possible be specific @ -no Did you speak to anyone other than the patient for history (EMS, parent, family, police, friend...)? What history was obtained from this source @ -no Did you review nursing and triage notes (agree or disagree)? Why? @ -agree Are old charts reviewed (outside hosp., previous admission, EMS record, old EKG, old radiological studies, urgent care reports/EKG's, residential records)? Report findings @ -yes Differential Diagnosis (chest pain, altered mental status, abdominal pain women, abdominal pain men, vaginal bleeding, weakness, fever, dyspnea, syncope, headache, dizziness, GI bleed, back pain, seizure, CVA, palpatations, mental health, musculoskeletal)? @ -prior EKG interpreted by me (3pts min.). @ -yes X-rays interpreted by me (1pt min.). @ -no CT interpreted by me (1pt min.). @ -no U/S interpreted by me (1pt. min.). @ -no What testing was considered but not performed or refused? (CT, X-rays, U/S, labs)? Why? @ -none What meds were considered but not given or refused? Why? @ -none Did you discuss the management of the patient with other professionals (professionals i.e. ERAN Rosen, RECYCLING ASSISTANT, lab, RT, psych nurse, bilingual social worker, real estate paralegal, teacher, donor relations officer, shelter case manager)? Give summary @ -no Was smoking cessation discussed for >3mins.? @ -no Was critical care preformed (if so, how long)? @ -no Were there social determinants of health that impacted care today? How? (Homelessness, low income, unemployed, alcoholism, drug addiction, transportation, low edu. Level, literacy, decrease access to med. care, intermediate, rehab)? @ -none Was there de-escalation of care discussed even if they declined (Discuss DNR or withdrawal of care, Hospice)? DNR status @ -no What co-morbidities impacted this encounter? (DM, HTN, Smoking, COPD, CAD, Cancer, CVA, ARF, Chemo, Hep., AIDS, mental health diagnosis, sleep apnea, morbid obesity)? @ -none Was patient admitted / discharged? Hospital course, mention meds given and route, prescriptions, significant lab abnormalities, going to OR and other pertinent info. @ - 42 male admitted for hepatic encephalopathy, lactose, psychiatric evaluation regarding recent homelessness and hopelessness Admitted Undiagnosed new problem with uncertain prognosis? @ -no Drug Therapy requiring intensive monitoring for toxicity (Heparin, Nitro, Insulin, Cardizem)? @ -no Were any procedures done? @ -no Diagnosis/symptom? @ -Hepatic and cephalopathy, hyperlipidemia, depression Acute, or Chronic, or Acute on Chronic? @ -Acute Uncomplicated (without systemic symptoms) or Complicated (systemic symptoms)? @ -Complicated Side effects of treatment? @ -no Exacerbation, Progression, or Severe Exacerbation? @ -exacerbation Poses a threat to life or bodily function? How? (Chest pain, [place], [place], pneumonia, PE, COPD, DKA, ARF, appy, cholecystitis, CVA, Diverticulitis, Homicidal, Suicidal, threat to staff... and all critical care pts) @ -yes severe disease chronic disease and depression Reevaluation #5: 01/27/23 23:51 Differential Altered Mental Status: Hypoglycemia, DKA, hypercapnia, ETOH, overdose, CO poisoning, trauma, myxedema coma, HTN encephalopathy, infection, encephalitis, psychosis, intercranial hemorrhage, hepatic encephalopathy, meningitis, CVA, this is not meant to be an all-inclusive list - Consultations Consultation #1: Spoke with [facility] xavi for admission Medical Decision Making - Medical Decision Making 42 male admitted for hepatic encephalopathy, lactose, psychiatric evaluation regarding recent homelessness and hopelessness - Lab Data Result diagrams: 01/30/23 08:03 01/30/23 08:03 Lab Results 01/27/23 01/27/23 01/27/23 Range/Units 20:53 20:53 20:53 WBC 4.6 (3.8-10.6) k/uL RBC 3.94 L (4.30-5.90) m/uL Hgb 13.1 (13.0-17.5) gm/dL Hct 39.2 (39.0-53.0) % MCV 99.5 (80.0-100.0) fL MCH 33.2 (25.0-35.0) pg MCHC 33.4 (31.0-37.0) g/dL RDW 16.7 H (11.5-15.5) % Plt Count 79 L (150-450) k/uL MPV 12.3 Neutrophils % (Manual) 60 % Lymphocytes % (Manual) 31 % Monocytes % (Manual) 9 % Neutrophils # (Manual) 2.76 (1.3-7.7) k/uL Lymphocytes # (Manual) 1.43 (1.0-4.8) k/uL Monocytes # (Manual) 0.41 (0-1.0) k/uL Nucleated RBCs 0 (0-0) /100 WBC Manual Slide Review Performed Large Platelets Present Polychromasia Present Anisocytosis Slight Anisocytosis (manual) Present Macrocytosis Slight Target Cells Present PT 19.2 H (9.0-12.0) sec INR 2.0 H (<1.2) APTT 27.1 (22.0-30.0) sec Sodium 140 (137-145) mmol/L Potassium 4.0 (3.5-5.1) mmol/L Chloride 110 H (98-107) mmol/L Carbon Dioxide 22 (22-30) mmol/L Anion Gap 8 mmol/L BUN 10 (9-20) mg/dL Creatinine 0.57 L (0.66-1.25) mg/dL Est GFR (CKD-EPI)AfAm >90 (>60 ml/min/1.73 sqM) Est GFR (CKD-EPI)NonAf >90 (>60 ml/min/1.73 sqM) Glucose 86 (74-99) mg/dL POC Glucose (mg/dL) (70-110) mg/dL POC Glu Pump Operator Byproducts ID Calcium 8.5 (8.4-10.2) mg/dL Total Bilirubin 4.9 H (0.2-1.3) mg/dL AST 73 H (17-59) U/L ALT 26 (4-49) U/L Alkaline Phosphatase 93 (38-126) U/L Ammonia (<30) umol/L Troponin I (0.000-0.034) ng/mL Total Protein 6.6 (6.3-8.2) g/dL Albumin 3.2 L (3.5-5.0) g/dL Urine Opiates Screen (NotDetected) Ur Oxycodone Screen (NotDetected) Urine Methadone Screen (NotDetected) Ur Propoxyphene Screen (NotDetected) Ur Barbiturates Screen (NotDetected) U Tricyclic Antidepress (NotDetected) Ur Phencyclidine Scrn (NotDetected) Ur Amphetamines Screen (NotDetected) U Methamphetamines Scrn (NotDetected) U Benzodiazepines Scrn (NotDetected) Urine Cocaine Screen (NotDetected) U Marijuana (THC) Screen (NotDetected) Serum Alcohol <10 mg/dL 01/27/23 01/27/23 01/27/23 Range/Units 20:53 20:53 21:01 WBC (3.8-10.6) k/uL RBC (4.30-5.90) m/uL Hgb (13.0-17.5) gm/dL Hct (39.0-53.0) % MCV (80.0-100.0) fL MCH (25.0-35.0) pg MCHC (31.0-37.0) g/dL RDW (11.5-15.5) % Plt Count (150-450) k/uL MPV Neutrophils % (Manual) % Lymphocytes % (Manual) % Monocytes % (Manual) % Neutrophils # (Manual) (1.3-7.7) k/uL Lymphocytes # (Manual) (1.0-4.8) k/uL Monocytes # (Manual) (0-1.0) k/uL Nucleated RBCs (0-0) /100 WBC Manual Slide Review Large Platelets Polychromasia Anisocytosis Anisocytosis (manual) Macrocytosis Target Cells PT (9.0-12.0) sec INR (<1.2) APTT (22.0-30.0) sec Sodium (137-145) mmol/L Potassium (3.5-5.1) mmol/L Chloride (98-107) mmol/L Carbon Dioxide (22-30) mmol/L Anion Gap mmol/L BUN (9-20) mg/dL Creatinine (0.66-1.25) mg/dL Est GFR (CKD-EPI)AfAm (>60 ml/min/1.73 sqM) Est GFR (CKD-EPI)NonAf (>60 ml/min/1.73 sqM) Glucose (74-99) mg/dL POC Glucose (mg/dL) 102 (70-110) mg/dL POC Glu Pump Operator Byproducts ID Marielle Jimenes Calcium (8.4-10.2) mg/dL Total Bilirubin (0.2-1.3) mg/dL AST (17-59) U/L ALT (4-49) U/L Alkaline Phosphatase (38-126) U/L Ammonia 75 H (<30) umol/L Troponin I <0.012 (0.000-0.034) ng/mL Total Protein (6.3-8.2) g/dL Albumin (3.5-5.0) g/dL Urine Opiates Screen (NotDetected) Ur Oxycodone Screen (NotDetected) Urine Methadone Screen (NotDetected) Ur Propoxyphene Screen (NotDetected) Ur Barbiturates Screen (NotDetected) U Tricyclic Antidepress (NotDetected) Ur Phencyclidine Scrn (NotDetected) Ur Amphetamines Screen (NotDetected) U Methamphetamines Scrn (NotDetected) U Benzodiazepines Scrn (NotDetected) Urine Cocaine Screen (NotDetected) U Marijuana (THC) Screen (NotDetected) Serum Alcohol mg/dL 01/27/23 Range/Units 22:07 WBC (3.8-10.6) k/uL RBC (4.30-5.90) m/uL Hgb (13.0-17.5) gm/dL Hct (39.0-53.0) % MCV (80.0-100.0) fL MCH (25.0-35.0) pg MCHC (31.0-37.0) g/dL RDW (11.5-15.5) % Plt Count (150-450) k/uL MPV Neutrophils % (Manual) % Lymphocytes % (Manual) % Monocytes % (Manual) % Neutrophils # (Manual) (1.3-7.7) k/uL Lymphocytes # (Manual) (1.0-4.8) k/uL Monocytes # (Manual) (0-1.0) k/uL Nucleated RBCs (0-0) /100 WBC Manual Slide Review Large Platelets Polychromasia Anisocytosis Anisocytosis (manual) Macrocytosis Target Cells PT (9.0-12.0) sec INR (<1.2) APTT (22.0-30.0) sec Sodium (137-145) mmol/L Potassium (3.5-5.1) mmol/L Chloride (98-107) mmol/L Carbon Dioxide (22-30) mmol/L Anion Gap mmol/L BUN (9-20) mg/dL Creatinine (0.66-1.25) mg/dL Est GFR (CKD-EPI)AfAm (>60 ml/min/1.73 sqM) Est GFR (CKD-EPI)NonAf (>60 ml/min/1.73 sqM) Glucose (74-99) mg/dL POC Glucose (mg/dL) (70-110) mg/dL POC Glu Pump Operator Byproducts ID Calcium (8.4-10.2) mg/dL Total Bilirubin (0.2-1.3) mg/dL AST (17-59) U/L ALT (4-49) U/L Alkaline Phosphatase (38-126) U/L Ammonia (<30) umol/L Troponin I (0.000-0.034) ng/mL Total Protein (6.3-8.2) g/dL Albumin (3.5-5.0) g/dL Urine Opiates Screen Not Detected (NotDetected) Ur Oxycodone Screen Not Detected (NotDetected) Urine Methadone Screen Not Detected (NotDetected) Ur Propoxyphene Screen Not Detected (NotDetected) Ur Barbiturates Screen Not Detected (NotDetected) U Tricyclic Antidepress Not Detected (NotDetected) Ur Phencyclidine Scrn Not Detected (NotDetected) Ur Amphetamines Screen Detected H (NotDetected) U Methamphetamines Scrn Not Detected (NotDetected) U Benzodiazepines Scrn Not Detected (NotDetected) Urine Cocaine Screen Not Detected (NotDetected) U Marijuana (THC) Screen Detected H (NotDetected) Serum Alcohol mg/dL - EKG Data -: EKG Interpreted by Me (EKG is sinus 67 MS 176 QRS 117 QTC 485) Disposition Clinical Impression: Altered mental status, Delirium due to general medical condition, Alcoholic hepatitis, Suicidal ideations, Depression, Anxiety disorder, Major depressive disorder without psychotic features, Hyperammonemia Disposition: ADMITTED IP TO THIS HOSP Condition: Good Is patient prescribed a controlled substance at d/c from ED?: No Time of Disposition: 23:50
[2023-01-27 21:02] LABS: Glucose,Whole Blood 102 mg/dL (70-110)
[2023-01-27 21:15] LABS: ALT 26 U/L (4-49); African American GFR (CKD) >90 (>60 ml/min/1.73 sqM); Albumin 3.2 g/dL (3.5-5.0); Alcohol <10 mg/dL; Anion Gap 8 mmol/L; Blood Urea Nitrogen 10 mg/dL (9-20); Calcium 8.5 mg/dL (8.4-10.2); Carbon Dioxide 22 mmol/L (22-30); Chloride 110 mmol/L (98-107); Glucose 86 mg/dL (74-99); Non-African American GFR(CKD) >90 (>60 ml/min/1.73 sqM); Sodium 140 mmol/L (137-145); Total Bilirubin 4.9 mg/dL (0.2-1.3); Total Protein 6.6 g/dL (6.3-8.2)
[2023-01-27 21:19] LABS: AST 73 U/L (17-59); Alkaline Phosphatase 93 U/L (38-126)
[2023-01-27 21:34] LABS: Anisocytosis Slight; HCT 39.2 % (39.0-53.0); HGB 13.1 gm/dL (13.0-17.5); MCH 33.2 pg (25.0-35.0); MCHC 33.4 g/dL (31.0-37.0); MCV 99.5 fL (80.0-100.0); Macrocytosis Slight; Mean Platelet Volume 12.3; Platelet Count 79 k/uL (150-450); RBC 3.94 m/uL (4.30-5.90); RDW 16.7 % (11.5-15.5); WBC 4.6 k/uL (3.8-10.6)
[2023-01-27 21:56] LABS: Partial Thromboplastin Time 27.1 sec (22.0-30.0); Prothrombin Time 19.2 sec (9.0-12.0)
[2023-01-27 23:01] LABS: Anisocytosis (M) Present; Large Platelets Present; Lymphocytes # (M) 1.43 k/uL (1.0-4.8); Monocytes # (M) 0.41 k/uL (0-1.0); Neutrophils # (M) 2.76 k/uL (1.3-7.7); Neutrophils % (M) 60 %; Nucleated Red Blood Cells 0 /100 WBC (0-0); Polychromasia Present; Target Cells Present; Total Cells Counted 100
[2023-01-27 23:15] LABS: Amphetamine Screen,Urine Detected (NotDetected); Barbiturate Screen,Urine Not Detected (NotDetected); Benzodiazepines Screen,Urine Not Detected (NotDetected); Cocaine Screen,Urine Not Detected (NotDetected); Methadone Screen, Urine Not Detected (NotDetected); Opiate Screen,Urine Not Detected (NotDetected); Oxycodone Screen, Urine Not Detected (NotDetected); Phencyclidine Screen,Urine Not Detected (NotDetected); Tricyclic Antidepressant,Urine Not Detected (NotDetected); Urn Cannabinoid Scrn Detected (NotDetected)
[2023-01-27] MEDS ORDERED: LORazepam 2 MG/ML INJ IV PRN (23:48)
[2023-01-27] MEDS ORDERED: NALOXONE 0.4 MG/ML 1 ML VIAL IV PRN (23:48)
[2023-01-27] MEDS ORDERED: ONDANSETRON 4 MG/2 ML VIAL IVP PRN (23:48)
[2023-01-27] MEDS ORDERED: LACTULOSE 20 GM/30 ML CUP PO ONE (23:48)
[2023-01-27] MEDS ORDERED: MORPHINE SULFATE 4 MG/ML SYRINGE IV PRN (23:48)
[2023-01-27] MEDS ORDERED: LORazepam 2 MG/ML INJ IV STA (23:48)
[2023-01-27] MEDS: SODIUM CHLORIDE 0.9% 1,000 ML IV SCH (23:54)
[2023-01-28 07:02] LABS: Anisocytosis Slight; Basophils % (A) 0 %; Eosinophils # (A) 0.1 k/uL (0-0.7); Eosinophils % (A) 4 %; HCT 35.5 % (39.0-53.0); HGB 11.9 gm/dL (13.0-17.5); Lymphocytes # (A) 1.1 k/uL (1.0-4.8); Lymphocytes % (A) 38 %; MCH 33.7 pg (25.0-35.0); MCHC 33.6 g/dL (31.0-37.0); MCV 100.2 fL (80.0-100.0); Macrocytosis Slight; Mean Platelet Volume 11.3; Monocytes # (A) 0.3 k/uL (0-1.0); Monocytes % (A) 12 %; Neutrophils # (A) 1.2 k/uL (1.3-7.7); Neutrophils % (A) 42 %; Platelet Count 63 k/uL (150-450); RBC 3.55 m/uL (4.30-5.90); RDW 16.2 % (11.5-15.5); WBC 2.9 k/uL (3.8-10.6)
[2023-01-28 07:23] LABS: ALT 23 U/L (4-49); AST 54 U/L (17-59); African American GFR (CKD) >90 (>60 ml/min/1.73 sqM); Albumin 2.5 g/dL (3.5-5.0); Alkaline Phosphatase 66 U/L (38-126); Anion Gap 4 mmol/L; Blood Urea Nitrogen 9 mg/dL (9-20); Calcium 7.9 mg/dL (8.4-10.2); Carbon Dioxide 26 mmol/L (22-30); Chloride 113 mmol/L (98-107); Glucose 104 mg/dL (74-99); Magnesium 1.9 mg/dL (1.6-2.3); Non-African American GFR(CKD) >90 (>60 ml/min/1.73 sqM); Potassium 3.6 mmol/L (3.5-5.1); Sodium 143 mmol/L (137-145); Total Bilirubin 4.5 mg/dL (0.2-1.3); Total Protein 5.4 g/dL (6.3-8.2)
[2023-01-28 07:33] LABS: Phosphorus 3.8 mg/dL (2.5-4.5)
[2023-01-28] MEDS: LACTULOSE 20 GM/30 ML CUP PO SCH ×2 (09:07→20:42)
--- NOTE | 2023-01-28 12:02 | US ---
EXAMINATION TYPE: US abdomen complete DATE OF EXAM: 01/28/2023 COMPARISON: CT 2022, US 2021 CLINICAL INDICATION: Male, 42 years old with history of Abdominal pain, elevated LFTs, elevated bilir ubin; TECHNIQUE: Multiple sonographic images of the abdomen are obtained. FINDINGS: EXAM MEASUREMENTS: Liver Length: 14.4 cm CBD: not seen Spleen: 13.5 cm Right Kidney: 12.6 x 7.4 x 6.9 cm Left Kidney: 11.8 x 6.4 x 5.8 cm Difficult and limited study due to patient body habitus Pancreas: obscured by overlying midline bowel gas Liver: scanned intercostally, course echotexture Gallbladder: surgically absent Evidence for sonographic Marcelino's sign: no CBD: not seen due to overlying bowel gas Spleen: prominent Right Kidney: wnl Left Kidney: wnl Upper IVC: wnl Abd Aorta: proximal portion obscured by overlying midline bowel gas, ectatic mid and distal portions The liver is homogenous. The intrahepatic portion of the IVC and proximal abdominal aorta are within normal limits. Common bile duct is unremarkable. The visualized portions of the pancreas are homog enous. Kidneys are symmetric and free of hydronephrosis. No renal lesions are seen. IMPRESSION: Mild splenomegaly
[2023-01-28] MEDS ORDERED: OLANZapine 10 MG VIAL IM PRN (14:24)
[2023-01-28] MEDS ORDERED: OLANZapine 5 MG TAB PO PRN (14:24)
--- NOTE | 2023-01-28 14:32 | P.CN ---
Psychiatric Consult - . Consult date: 01/28/23 Consult:: 01/28/23 13:26 IDENTIFYING DATA: This patient is a 42-year-old male with history of liver disease and alcohol abuse, was recently kicked out of the house where he used to live with his ex- and son, he works as a delivery nurse REASON FOR REFERRAL: Psychiatry was consulted for "depression" HISTORY OF PRESENT ILLNESS: The patient presented to the hospital to the ER yesterday for altered mental status. The patient was having nausea and vomiting and believe that his ammonia level was elevated. Patient with history of liver disease. Patient was not able to be tolerating lactulose at home, was stating in the ER that he was stressed about possibly being homeless as his main stressor, he was endorsing hopelessness denying any suicidal thoughts, patient was admitted for encephalopathy. Patient's AST was mildly elevated at 73, ammonia level was 75. Urine drug screen is positive for amphetamines and THC. Patient was seen lying in his bed in the ER today, he was agreeable to information writer. He appeared to be mildly irritable states that he is feeling tired at this time and was mildly irritable. He claims that he has been dealing with liver disease and mounting medical issues. He claims that his liver disease has been progressing and he was recently in the ICU at [facility] and signed AMA. He claims that he recently got into an argument with his ex- or he was staying at and he got kicked out and is now homeless. He states that he was released from long term last year. Claims that he stopped his liver [facility] as [facility]. He claims that he has been feeling depressed and also anxious. At this time patient denies any suicidal or homical ideations, intent or plan. Patient denies any auditory, visual hallucinations and denies any paranoia or delusions. Patients admits to using marijuana regularly, nicotine products as well. Claims that he used to have a history of severe alcohol abuse however his last drink was 18 months ago. Claims that his sleep and appetite is poor. PAST PSYCHIATRIC HISTORY: Patient has a a history of anxiety depression and ADHD. Patient was previously on Zoloft, trazodone and acamprosate. He was last psychiatrically hospitalized on the unit in July 2019. Patient denies any psychiatric outpatient follow-up. Patient denies any history of suicide attempts in the past. 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 CHEMICAL DEPENDENCY HISTORY: as per HPI. FAMILY PSYCHIATRIC/SUBSTANCE USE HISTORY: denies SOCIAL HISTORY: Patient was born and raised in [place], claims that he completed high school and did some college. He states that he currently lives with his ex- and son however recently did get kicked out. 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 Claims that he has no DUIs previously however was in long term before for 11 months for domestic violence charges. MENTAL STATUS EXAM: General Appearance: Patient appears to be tall, well-built, stated age is alert, irritable. Patient appears to have disheveled hygiene and grooming wearing hospital gown with poor eye contact. Behavior: Patient is calmly lying in bed without any agitated behavior. Irritable at times. Speech: Patient's speech is fluent and nonpressured. [place] and evasive Mood/Affect: Patient reports their mood is "depressed and anxious", affect is congruent Suicidality/Homicidality: Patient denies having any suicidal or homicidal ideation intent or plan. Perceptions: Patient denies any visual hallucinations and denies any auditory hallucinations Though content/process: There is no evidence of any delusional thought content and thought process is linear and goal-directed. Focused on his stressors. Memory and concentration: AOX3, grossly intact for the purposes of this session. Can spell "WORLD" backwards Judgment and insight: poor IMPRESSIONS: Major depressive disorder Anxiety disorder unspecified History of alcohol use disorder Liver cirrhosis Nicotine dependence Homelessness PLAN: -At this time patient DOES NOT currently meet criteria for inpatient psychiatric admission. -Would recommend the following medication changes/additions: d/c ativan at this time and replaced with zyprexa prn for agitation and anxiety. restarted zoloft 50 mg daily for mood/anxiety, trazodone 50 mg qhs for sleep/mood -boat worker to provide patient with outpatient mental health/psychiatry resources for appropriate follow up upon discharge -Assistant Counsel spoke with patient about substance abuse and the harmful effects on medical and mental health, patient verbally understood and agreed. -boat worker to provide patient substance use treatment resources including AA/NA meetings in the community. -Communicated plan to patient's nurse -Will continue to follow along over the weekend as needed to see if patient is improving or will need inpatient psychiatric admission. -Continue with treatment of underlying medical problems. -Please contact with any questions. 01/28/23 14:25
--- NOTE | 2023-01-28 14:33 | P.HPIM ---
History of Present Illness H&P Date: 01/28/23 History of present illness; patient is a 42-year-old gentleman with past medical history significant for liver disease, depression presented to the ER because of altered mental state. Patient is on lactulose at home for his liver disease. Patient stated he has been unable to keep lactulose down and believes that his ammonia levels are elevated. Patient having nausea and vomiting. Denies any fever or chills. Denies any swelling of the feet. Denies any shortness of breath. Patient also complaining of increasing depression and a lot of social stressors at home, patient believes that he will be losing his house and will become homeless. Because of the symptoms, patient came to the ER Initial lab work done in the ER showed WBC 4.6, hemoglobin 13.1, platelet count 79, sodium 140, potassium 4, chloride 110, BUN 10, creatinine 0.57, total bilirubin 4.9, AST 73, ALT 26 Urine drug screen positive for amphetamines and marijuana Patient was admitted to medicine service REVIEW OF SYSTEMS: CONSTITUTIONAL: No fever, no malaise, no fatigue. HEENT: No recent visual problems or hearing problems. Denied any sore throat. CARDIOVASCULAR: No chest pain, orthopnea, PND, no palpitations, no syncope. PULMONARY: No shortness of breath, no cough, no hemoptysis. GASTROINTESTINAL: As mentioned in HPI NEUROLOGICAL: No headaches, no weakness, no numbness. HEMATOLOGICAL: Denies any bleeding or petechiae. GENITOURINARY: Denies any burning micturition, frequency, or urgency. MUSCULOSKELETAL/RHEUMATOLOGICAL: Denies any joint pain, swelling, or any muscle pain. ENDOCRINE: Denies any polyuria or polydipsia. The rest of the 14-point review of systems is negative. PHYSICAL EXAMINATION: GENERAL: The patient is alert and oriented x3, not in any acute distress. Well developed, well nourished. HEENT: Pupils are round and equally reacting to light. EOMI. No scleral icterus. No conjunctival pallor. Normocephalic, atraumatic. No pharyngeal erythema. No thyromegaly. CARDIOVASCULAR: S1 and S2 present. No murmurs, rubs, or gallops. PULMONARY: Chest is clear to auscultation, no wheezing or crackles. ABDOMEN: Soft, nontender, nondistended, normoactive bowel sounds. No palpable organomegaly. MUSCULOSKELETAL: No joint swelling or deformity. EXTREMITIES: No cyanosis, clubbing, or pedal edema. NEUROLOGICAL: Gross neurological examination did not reveal any focal deficits. SKIN: No rashes. Assessment and plan Hepatic encephalopathy Hyperammonemia Worsening depression Monitor vital signs Monitor CBC Monitor CMP Monitor LFTs Continue lactulose Ordered ultrasound abdominal Consults psychiatry Labs and medication were reviewed.. Continue same treatment. Continue with symptomatic treatment. Resume home medication. Monitor labs and vitals. DVT and GI prophylaxis. Further recommendations as per clinical course of the patient Dictation was produced using [employer] dictation software. please excuse any grammatical, word or spelling errors. 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 Patient does not have any sisters. Patient has 1 son that is 10 years old with diabetes mellitus type 1. Medications and Allergies Home Medications Medication Instructions Recorded Confirmed Type Gabapentin [Neurontin] 100 mg PO BID 05/28/22 01/27/23 History Dextroamphetamine/Amphetamine 30 mg PO BID 01/27/23 01/27/23 History [Adderall] Allergies Allergy/AdvReac Type Severity Reaction Status Date / Time acetaminophen [From Tylenol] Allergy LIVER Verified 01/27/23 23:10 ISSUES " Physical Exam Vitals: Vital Signs Temp Pulse Resp BP Pulse Ox 01/28/23 09:08 98.2 F 52 L 16 122/75 96 01/28/23 06:00 50 L 16 111/56 97 01/28/23 02:00 58 L 16 114/73 95 01/28/23 01:00 67 16 122/70 95 01/28/23 00:00 66 16 124/69 96 01/27/23 23:00 63 16 124/69 98 01/27/23 20:35 97.9 F 87 18 127/77 99 Intake and Output 01/27/23 01/28/23 01/28/23 22:59 06:59 14:59 Other: Weight 136.078 kg Results CBC & Chem 7: 01/28/23 06:48 01/28/23 06:48 Labs: Abnormal Lab Results - Last 24 Hours (Table) 01/27/23 01/27/23 01/27/23 Range/Units 20:53 20:53 20:53 WBC (3.8-10.6) k/uL RBC 3.94 L (4.30-5.90) m/uL Hgb (13.0-17.5) gm/dL Hct (39.0-53.0) % MCV (80.0-100.0) fL RDW 16.7 H (11.5-15.5) % Plt Count 79 L (150-450) k/uL Neutrophils # (1.3-7.7) k/uL PT 19.2 H (9.0-12.0) sec INR 2.0 H (<1.2) Chloride 110 H (98-107) mmol/L Creatinine 0.57 L (0.66-1.25) mg/dL Glucose (74-99) mg/dL Calcium (8.4-10.2) mg/dL Total Bilirubin 4.9 H (0.2-1.3) mg/dL AST 73 H (17-59) U/L Ammonia (<30) umol/L Total Protein (6.3-8.2) g/dL Albumin 3.2 L (3.5-5.0) g/dL Ur Amphetamines Screen (NotDetected) U Marijuana (THC) Screen (NotDetected) 01/27/23 01/27/23 01/28/23 Range/Units 20:53 22:07 06:48 WBC 2.9 L (3.8-10.6) k/uL RBC 3.55 L (4.30-5.90) m/uL Hgb 11.9 L (13.0-17.5) gm/dL Hct 35.5 L (39.0-53.0) % MCV 100.2 H (80.0-100.0) fL RDW 16.2 H (11.5-15.5) % Plt Count 63 L (150-450) k/uL Neutrophils # 1.2 L (1.3-7.7) k/uL PT (9.0-12.0) sec INR (<1.2) Chloride (98-107) mmol/L Creatinine (0.66-1.25) mg/dL Glucose (74-99) mg/dL Calcium (8.4-10.2) mg/dL Total Bilirubin (0.2-1.3) mg/dL AST (17-59) U/L Ammonia 75 H (<30) umol/L Total Protein (6.3-8.2) g/dL Albumin (3.5-5.0) g/dL Ur Amphetamines Screen Detected H (NotDetected) U Marijuana (THC) Screen Detected H (NotDetected) 01/28/23 01/28/23 Range/Units 06:48 06:48 WBC (3.8-10.6) k/uL RBC (4.30-5.90) m/uL Hgb (13.0-17.5) gm/dL Hct (39.0-53.0) % MCV (80.0-100.0) fL RDW (11.5-15.5) % Plt Count (150-450) k/uL Neutrophils # (1.3-7.7) k/uL PT (9.0-12.0) sec INR (<1.2) Chloride 113 H (98-107) mmol/L Creatinine 0.61 L (0.66-1.25) mg/dL Glucose 104 H (74-99) mg/dL Calcium 7.9 L (8.4-10.2) mg/dL Total Bilirubin 4.5 H (0.2-1.3) mg/dL AST (17-59) U/L Ammonia 58 H (<30) umol/L Total Protein 5.4 L (6.3-8.2) g/dL Albumin 2.5 L (3.5-5.0) g/dL Ur Amphetamines Screen (NotDetected) U Marijuana (THC) Screen (NotDetected)
[2023-01-28] MEDS: SERTRALINE 50 MG TAB PO SCH (16:02)
[2023-01-28] MEDS: traZODone HCL 50 MG TAB PO SCH (20:42)
[2023-01-29] MEDS: SODIUM CHLORIDE 0.9% 1,000 ML IV SCH (01:00)
[2023-01-29] MEDS: SERTRALINE 50 MG TAB PO SCH (08:12)
[2023-01-29] MEDS: LACTULOSE 20 GM/30 ML CUP PO SCH ×2 (08:13→21:11)
[2023-01-29 11:58] VITALS: BMI 37.5
--- NOTE | 2023-01-29 13:08 | P.PN ---
Subjective Progress Note Date: 01/29/23 patient is a 42-year-old gentleman with past medical history significant for liver disease, depression presented to the ER because of altered mental state. Patient is on lactulose at home for his liver disease. Patient stated he has been unable to keep lactulose down and believes that his ammonia levels are elevated. Patient having nausea and vomiting. Denies any fever or chills. Denies any swelling of the feet. Denies any shortness of breath. Patient also complaining of increasing depression and a lot of social stressors at home, patient believes that he will be losing his house and will become homeless. Because of the symptoms, patient came to the ER Initial lab work done in the ER showed WBC 4.6, hemoglobin 13.1, platelet count 79, sodium 140, potassium 4, chloride 110, BUN 10, creatinine 0.57, total bilirubin 4.9, AST 73, ALT 26 Urine drug screen positive for amphetamines and marijuana Patient was admitted to medicine service 01/29. Patient seen and examined. Denies any auditory or visual hallucinations. Denies any thoughts of hurting himself REVIEW OF SYSTEMS: CONSTITUTIONAL: No fever, no malaise,. CARDIOVASCULAR: No chest pain, no palpitations, no syncope. PULMONARY: No shortness of breath, no cough, GASTROINTESTINAL: No diarrhea, no nausea, no vomiting, no abdominal pain. NEUROLOGICAL: No headaches, no weakness, PHYSICAL EXAMINATION: GENERAL: The patient is alert and oriented x3, not in any acute distress. Well developed, well nourished. HEENT: Pupils are round and equally reacting to light. EOMI. No scleral icterus. No conjunctival pallor. Normocephalic, atraumatic. No pharyngeal erythema. No thyromegaly. CARDIOVASCULAR: S1 and S2 present. No murmurs, rubs, or gallops. PULMONARY: Chest is clear to auscultation, no wheezing or crackles. ABDOMEN: Soft, nontender, nondistended, normoactive bowel sounds. No palpable organomegaly. MUSCULOSKELETAL: No joint swelling or deformity. EXTREMITIES: No cyanosis, clubbing, or pedal edema. NEUROLOGICAL: Gross neurological examination did not reveal any focal deficits. SKIN: No rashes. Assessment and plan Hepatic encephalopathy Hyperammonemia Worsening depression Monitor vital signs Monitor CBC Monitor CMP Continue lactulose Ultrasound of the abdominal and showed mild splenomegaly, Continue symptomatic treatment Psychiatric evaluated the patient recommended the following d/c ativan at this time and replaced with zyprexa prn for agitation and anxiety. restarted zoloft 50 mg daily for mood/anxiety, trazodone 50 mg qhs for sle ep/mood -appliance worker to provide patient with outpatient mental health/psychiatry resources for appropriate follow up upon discharge -Will continue to follow along over the weekend as needed to see if patient is improving or will need inpatient psychiatric admission. Labs and medication were reviewed.. Continue same treatment. Continue with symptomatic treatment. Resume home medication. Monitor labs and vitals. DVT and GI prophylaxis. Further recommendations as per clinical course of the patient Dictation was produced using [email or web address] dictation software. please excuse any grammatical, word or spelling errors. Objective - Vital Signs Vital signs: Vital Signs Temp 97.6 F 01/29/23 06:35 Pulse 59 L 01/29/23 06:35 Resp 18 01/29/23 08:00 BP 110/64 01/29/23 06:35 Pulse Ox 96 01/29/23 08:19 FiO2 Intake & Output 01/28/23 01/29/23 01/29/23 18:59 06:59 18:59 Intake Total 480 Output Total 0 Balance 0 480 Weight 136.078 kg Intake: Oral 480 Output: Urine 0 Other: # Voids 3 # Bowel Movements 3 - Labs CBC & Chem 7: 01/28/23 06:48 01/28/23 06:48
[2023-01-29] MEDS: traZODone HCL 50 MG TAB PO SCH (21:11)
[2023-01-30] MEDS: SODIUM CHLORIDE 0.9% 1,000 ML IV SCH ×2 (01:21→20:19)
[2023-01-30] MEDS: SERTRALINE 50 MG TAB PO SCH (08:31)
[2023-01-30] MEDS: LACTULOSE 20 GM/30 ML CUP PO SCH ×3 (08:31→20:15)
[2023-01-30 08:54] LABS: ALT 24 U/L (4-49); AST 51 U/L (17-59); African American GFR (CKD) >90 (>60 ml/min/1.73 sqM); Albumin 2.4 g/dL (3.5-5.0); Albumin/Globulin Ratio 0.8; Alkaline Phosphatase 80 U/L (38-126); Anion Gap 5 mmol/L; Blood Urea Nitrogen 7 mg/dL (9-20); Calcium 7.9 mg/dL (8.4-10.2); Carbon Dioxide 24 mmol/L (22-30); Chloride 111 mmol/L (98-107); Glucose 80 mg/dL (74-99); Non-African American GFR(CKD) >90 (>60 ml/min/1.73 sqM); Potassium 4.1 mmol/L (3.5-5.1); Sodium 140 mmol/L (137-145); Total Bilirubin 4.7 mg/dL (0.2-1.3); Total Protein 5.4 g/dL (6.3-8.2)
[2023-01-30 09:08] LABS: Anisocytosis Slight; HCT 39.7 % (39.0-53.0); MCH 33.3 pg (25.0-35.0); MCHC 32.7 g/dL (31.0-37.0); MCV 101.9 fL (80.0-100.0); Macrocytosis Slight; RDW 16.2 % (11.5-15.5); WBC 3.6 k/uL (3.8-10.6)
[2023-01-30 09:15] LABS: Platelet Count 65 k/uL (150-450)
--- NOTE | 2023-01-30 12:59 | P.PN ---
Subjective Progress Note Date: 01/30/23 patient is a 42-year-old gentleman with past medical history significant for liver disease, depression presented to the ER because of altered mental state. Patient is on lactulose at home for his liver disease. Patient stated he has been unable to keep lactulose down and believes that his ammonia levels are elevated. Patient having nausea and vomiting. Denies any fever or chills. Denies any swelling of the feet. Denies any shortness of breath. Patient also complaining of increasing depression and a lot of social stressors at home, patient believes that he will be losing his house and will become homeless. Because of the symptoms, patient came to the ER Initial lab work done in the ER showed WBC 4.6, hemoglobin 13.1, platelet count 79, sodium 140, potassium 4, chloride 110, BUN 10, creatinine 0.57, total bilirubin 4.9, AST 73, ALT 26 Urine drug screen positive for amphetamines and marijuana Patient was admitted to medicine service 01/29. Patient seen and examined. Denies any auditory or visual hallucinations. Denies any thoughts of hurting himself 01/30. Patient seen and examined. States he is not having any bowel movements, we will increase dose of lactulose to 3 times daily REVIEW OF SYSTEMS: CONSTITUTIONAL: No fever, no malaise,. CARDIOVASCULAR: No chest pain, no palpitations, no syncope. PULMONARY: No shortness of breath, no cough, GASTROINTESTINAL: No diarrhea, no nausea, no vomiting, no abdominal pain. NEUROLOGICAL: No headaches, no weakness, PHYSICAL EXAMINATION: GENERAL: The patient is alert and oriented x3, not in any acute distress. Well developed, well nourished. HEENT: Pupils are round and equally reacting to light. EOMI. No scleral icterus. No conjunctival pallor. Normocephalic, atraumatic. No pharyngeal erythema. No thyromegaly. CARDIOVASCULAR: S1 and S2 present. No murmurs, rubs, or gallops. PULMONARY: Chest is clear to auscultation, no wheezing or crackles. ABDOMEN: Soft, nontender, nondistended, normoactive bowel sounds. No palpable organomegaly. MUSCULOSKELETAL: No joint swelling or deformity. EXTREMITIES: No cyanosis, clubbing, or pedal edema. NEUROLOGICAL: Gross neurological examination did not reveal any focal deficits. SKIN: No rashes. Assessment and plan Hepatic encephalopathy Hyperammonemia Worsening depression Monitor vital signs Monitor CBC Monitor CMP Continue lactulose, does increased to 3 times daily Ultrasound of the abdominal and showed mild splenomegaly, Continue symptomatic treatment Psychiatric evaluated the patient recommended the following d/c ativan at this time and replaced with zyprexa prn for agitation and anxiety. restarted zoloft 50 mg daily for mood/anxiety, trazodone 50 mg qhs for sleep/mood -green end worker to provide patient with outpatient mental health/psychiatry resources for appropriate follow up upon discharge -Will continue to follow along over the weekend as needed to see if patient is improving or will need inpatient psychiatric admission. Labs and medication were reviewed.. Continue same treatment. Continue with symptomatic treatment. Resume home medication. Monitor labs and vitals. DVT and GI prophylaxis. Further recommendations as per clinical course of the patient Dictation was produced using [employer] dictation software. please excuse any grammatical, word or spelling errors. Objective - Vital Signs Vital signs: Vital Signs Temp 98.7 F 01/30/23 06:40 Pulse 50 L 01/30/23 06:40 Resp 18 01/30/23 07:47 BP 108/65 01/30/23 06:40 Pulse Ox 95 01/30/23 07:55 FiO2 21 01/30/23 07:55 Intake & Output 01/29/23 01/30/23 01/30/23 18:59 06:59 18:59 Weight 136.078 kg Other: # Voids 2 3 1 - Labs CBC & Chem 7: 01/30/23 08:03 01/30/23 08:03 Labs: Abnormal Lab Results - Last 24 Hours (Table) 01/30/23 01/30/23 Range/Units 08:03 08:03 WBC 3.6 L (3.8-10.6) k/uL RBC 3.90 L (4.30-5.90) m/uL MCV 101.9 H (80.0-100.0) fL RDW 16.2 H (11.5-15.5) % Plt Count 65 L (150-450) k/uL Chloride 111 H (98-107) mmol/L BUN 7 L (9-20) mg/dL Creatinine 0.58 L (0.66-1.25) mg/dL Calcium 7.9 L (8.4-10.2) mg/dL Total Bilirubin 4.7 H (0.2-1.3) mg/dL Total Protein 5.4 L (6.3-8.2) g/dL Albumin 2.4 L (3.5-5.0) g/dL
--- NOTE | 2023-01-30 19:57 | P.PN ---
Progress Note - Text Progress Note Date: 01/30/23 Psychiatry consult follow-up note: Interval History: Patient was seen laying in bed socializing with visitor. He was directable and agreeable to speak with database report writer in the office. He reports improved mood, sleep and appetite today. Thoughts are linear and logical. His ammonia level has improved from 75 to 58 today. At this time patient denies any suicidal or homical ideation, intent or plan. Patient denies any auditory, visual hallucinations and denies any paranoia or delusions. Patient denies any side effects from the medications and has been compliant with meds. Mental Status Exam: General Appearance: Patient appears to be stated age is alert, with pallor. Behavior: Patient is calmly laying in bed without any agitated behavior. Speech: Patient's speech is fluent and non-pressured. Mood/Affect: Mood is improving mildly, affect is congruent and constricted. Suicidality/Homicidality: Patient denies having any suicidal or homicidal ideation intent or plan. Perceptions: Patient denies any visual hallucinations and denies any auditory hallucinations. Though content/process: There is no evidence of any delusional thought content and thought process is linear and logical. Memory and concentration: AOX3, grossly intact for the purposes of this session Judgment and insight: Improving Assessment Major depressive disorder Anxiety disorder unspecified History of alcohol use disorder Liver cirrhosis Nicotine dependence Homelessness Plan: -At this time patient DOES NOT meet criteria for inpatient psychiatric admission. -Continue Zoloft 50 mg daily for depression/anxiety and Trazodone 50 mg QHS for sleep. -pony worker to give patient contact infomation for [facility] and other community mental health services, for counseling and medication management. -Will sign off at this time. -Please contact with any questions.
[2023-01-30] MEDS: traZODone HCL 50 MG TAB PO SCH (20:15)
[2023-01-31] MEDS: LACTULOSE 20 GM/30 ML CUP PO SCH (08:07)
[2023-01-31] MEDS: SERTRALINE 50 MG TAB PO SCH (08:07)
--- NOTE | 2023-01-31 14:01 | P.DS ---
Providers Date of admission: 01/27/23 23:50 Expected date of discharge: 01/31/23 Attending physician: Javier Harris Consults: 01/27/23 23:53 Consult Physician Routine Consulting Provider: Immanuel Palomo Consult Reason/Comments: depressoin Do you want consulting provider notified?: Yes Primary care physician: Angeline [facility] Course: Discharge diagnoses; Hepatic encephalopathy Hyperammonemia Worsening depression Hospital course; patient is a 42-year-old gentleman with past medical history significant for liver disease, depression presented to the ER because of altered mental state. Patient is on lactulose at home for his liver disease. Patient stated he has been unable to keep lactulose down and believes that his ammonia levels are elevated. Patient having nausea and vomiting. Denies any fever or chills. Denies any swelling of the feet. Denies any shortness of breath. Patient also complaining of increasing depression and a lot of social stressors at home, patient believes that he will be losing his house and will become homeless. Because of the symptoms, patient came to the ER Initial lab work done in the ER showed WBC 4.6, hemoglobin 13.1, platelet count 79, sodium 140, potassium 4, chloride 110, BUN 10, creatinine 0.57, total bilirubin 4.9, AST 73, ALT 26 Urine drug screen positive for amphetamines and marijuana Patient was admitted to medicine service 01/29. Patient seen and examined. Denies any auditory or visual hallucinations. Denies any thoughts of hurting himself 01/30. Patient seen and examined. States he is not having any bowel movements, we will increase dose of lactulose to 3 times daily 01/31. Patient seen and examined. Psych cleared The patient for discharge, recommending discharging patient on Zoloft and trazodone. PHYSICAL EXAMINATION: GENERAL: The patient is alert and oriented x3, not in any acute distress. Well developed, well nourished. HEENT: Pupils are round and equally reacting to light. EOMI. No scleral icterus. No conjunctival pallor. Normocephalic, atraumatic. No pharyngeal erythema. No thyromegaly. CARDIOVASCULAR: S1 and S2 present. No murmurs, rubs, or gallops. PULMONARY: Chest is clear to auscultation, no wheezing or crackles. ABDOMEN: Soft, nontender, nondistended, normoactive bowel sounds. No palpable organomegaly. MUSCULOSKELETAL: No joint swelling or deformity. EXTREMITIES: No cyanosis, clubbing, or pedal edema. NEUROLOGICAL: Gross neurological examination did not reveal any focal deficits. SKIN: No rashes. Dictation was produced using bizsol dictation software. please excuse any grammatical, word or spelling errors. Patient Condition at Discharge: Good Plan - Discharge Summary Discharge Rx Participant: Yes New Discharge Prescriptions: New Lactulose [Cephulac] 30 gm PO TID #600 ml traZODone HCL [Desyrel] 50 mg PO HS #30 tab Sertraline [Zoloft] 50 mg PO DAILY #30 tab Continue Gabapentin [Neurontin] 100 mg PO BID Dextroamphetamine/Amphetamine [Adderall] 30 mg PO BID Discharge Medication List Gabapentin [Neurontin] 100 mg PO BID 05/28/22 [History] Dextroamphetamine/Amphetamine [Adderall] 30 mg PO BID 01/27/23 [History] Lactulose [Cephulac] 30 gm PO TID #600 ml 01/31/23 [Rx] Sertraline [Zoloft] 50 mg PO DAILY #30 tab 01/31/23 [Rx] traZODone HCL [Desyrel] 50 mg PO HS #30 tab 01/31/23 [Rx] Follow up Appointment(s)/Referral(s): Angeline Nelson MD [Primary Care Provider] - 1-2 days Discharge/Stand Alone Forms: Community Resources, Outpatient Counseling Discharge Disposition: HOME SELF-CARE
[2023-01-31 14:32] VITALS: BP 158/82; PULSE 54; RESP 17; TEMP 98.1
== END 2023-01-31 15:34 | disposition home or self-care (01) ==
LOC: EC 20:33 → INTOOBSV 23:50 → OBSVTOIN 23:50 → 4SSUR 23:50 → UNDODISIN 01-31 15:34 → UNDODISOB 01-31 15:34
PROVIDERS: ADMIT Hospitalist; ATTEND Hospitalist
DX: K76.82 Hepatic encephalopathy (principal); E72.20 Disorder of urea cycle metabolism, unspecified; Z63.8 Other specified problems related to primary support group; F32.9 Major depressive disorder, single episode, unspecified; F41.9 Anxiety disorder, unspecified; K74.60 Unspecified cirrhosis of liver; F17.200 Nicotine dependence, unspecified, uncomplicated; I10 Essential (primary) hypertension; F90.9 Attention-deficit hyperactivity disorder, unspecified type; F43.10 Post-traumatic stress disorder, unspecified; Z59.00 Homelessness unspecified; Z71.9 Counseling, unspecified; Z79.899 Other long term (current) drug therapy; Z88.8 Allergy status to other drugs, medicaments and biological substances; Z80.3 Family history of malignant neoplasm of breast; Z83.3 Family history of diabetes mellitus; Z84.89 Family history of other specified conditions; Z81.8 Family history of other mental and behavioral disorders
CPT/HCPCS: 36415; 76700; 80053; 80306; 80320; 82140; 83735; 84100; 84484; 85025; 85027; 85610; 85730; 93005; 94760; 96361; 96374; 99285

== ENCOUNTER 2023-02-06 06:17 | Inpatient (IN) | payer OTHER ==
--- NOTE | 2023-02-06 07:06 | ED ---
Abdominal Pain HPI - General Chief Complaint: Abdominal Pain Stated Complaint: Abdominal pain Time Seen by Provider: 02/06/23 06:32 Source: patient, RN notes reviewed Mode of arrival: ambulatory Limitations: no limitations - History of Present Illness Initial Comments: 42-year-old male presents emergency Department with chief complaint of feeling well. Patient recent hospitalization for elevated ammonia level. Patient has known liver failure, cirrhosis from fatty liver disease and alcohol abuse she's been 20 months sober. Patient states that he cannot take the lactulose this makes him go to the bathroom to often he cannot work. He states ever since discharge he's been homeless. He states that he feels more weak than he did before does not feel well and complains of leg swelling. - Related Data Home Medications Medication Instructions Recorded Confirmed Gabapentin [Neurontin] 100 mg PO BID 05/28/22 02/06/23 Dextroamphetamine/Amphetamine 30 mg PO BID 01/27/23 02/06/23 [Adderall] Rifaximin [Xifaxan] 550 mg PO BID 02/06/23 02/06/23 Previous Rx's Medication Instructions Recorded Lactulose [Cephulac] 30 gm PO TID #600 ml 01/31/23 Sertraline [Zoloft] 50 mg PO DAILY #30 tab 01/31/23 traZODone HCL [Desyrel] 50 mg PO HS #30 tab 01/31/23 Allergies Allergy/AdvReac Type Severity Reaction Status Date / Time acetaminophen [From Tylenol] AdvReac LIVER Verified 02/06/23 11:32 ISSUES " Review of Systems ROS Statement: Those systems with pertinent positive or pertinent negative responses have been documented in the HPI. ROS Other: All systems not noted in ROS Statement are negative. 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 Patient does not have any sisters. Patient has 1 son that is 10 years old with diabetes mellitus type 1. General Exam Limitations: no limitations General appearance: alert, in no apparent distress Head exam: Present: atraumatic, normocephalic, normal inspection Eye exam: Present: normal appearance, PERRL, EOMI. Absent: scleral icterus, conjunctival injection, periorbital swelling ENT exam: Present: normal exam, normal oropharynx, mucous membranes moist Neck exam: Present: normal inspection, full ROM. Absent: tenderness, meningismus, lymphadenopathy Respiratory exam: Present: normal lung sounds bilaterally. Absent: respiratory distress, wheezes, rales, rhonchi, stridor Cardiovascular Exam: Present: regular rate, normal rhythm, normal heart sounds. Absent: systolic murmur, diastolic murmur, rubs, gallop, clicks GI/Abdominal exam: Present: soft, normal bowel sounds. Absent: distended, tenderness, guarding, rebound, rigid Extremities exam: Present: pedal edema Course Vital Signs 02/06/23 02/06/23 02/06/23 06:21 07:23 08:00 Temperature 98.8 F 97.0 F L 97.5 F L Pulse Rate 65 60 64 Respiratory 18 16 14 Rate Blood Pressure 127/79 105/53 116/63 O2 Sat by Pulse 98 97 95 Oximetry 02/06/23 02/06/23 02/06/23 09:00 10:00 11:00 Temperature 97.7 F 98.0 F 98.0 F Pulse Rate 63 65 61 Respiratory 16 16 16 Rate Blood Pressure 122/63 116/66 119/65 O2 Sat by Pulse 96 96 96 Oximetry 02/06/23 11:37 Temperature 97.5 F L Pulse Rate 68 Respiratory 18 Rate Blood Pressure 112/80 O2 Sat by Pulse 96 Oximetry Medical Decision Making - Medical Decision Making Was pt. sent in by a medical professional or institution (, PA, SENIOR PIPING DESIGNER, urgent care, hospital, or retirement...) When possible be specific @ -No Did you speak to anyone other than the patient for history (EMS, parent, family, police, friend...)? What history was obtained from this source @ -No Did you review nursing and triage notes (agree or disagree)? Why? @ -I reviewed and agree with nursing and triage notes Were old charts reviewed (outside hosp., previous admission, EMS record, old EKG, old radiological studies, urgent care reports/EKG's, retirement records)? Report findings @ -Reviewed Laboratory studies Differential Diagnosis (chest pain, altered mental status, abdominal pain women, abdominal pain men, vaginal bleeding, weakness, fever, dyspnea, syncope, he adache, dizziness, GI bleed, back pain, seizure, CVA, palpatations, mental health, musculoskeletal)? @ -Differential Abdominal Pain Men: Appendicitis, cholecystitis, diverticulosis, ischemic bowel, pancreatitis, hepatitis, UTI, gastroenteritis, AAA, incarcerated hernia, bowel obstruction, constipation, inflammatory bowel, hepatitis, peptic ulcer disease, splenic infarction, perforated viscus, testicular torsion, this is not meant to be an all-inclusive listble EKG interpreted by me (3pts min.). @ - X-rays interpreted by me (1pt min.). @ -None done CT interpreted by me (1pt min.). @ -None done U/S interpreted by me (1pt. min.). @ -None done What testing was considered but not performed or refused? (CT, X-rays, U/S, labs)? Why? @ -None What meds were considered but not given or refused? Why? @ -None Did you discuss the management of the patient with other professionals (professionals i.e. , PA, SENIOR PIPING DESIGNER, lab, RT, psych nurse, clinical social worker, lacquer sizer, teacher, disbursing officer, case hardener)? Give summary @ - [facility] for admission with consult to social or patient we treated for elevated ammonia] Was smoking cessation discussed for >3mins.? @ -No Was critical care preformed (if so, how long)? @ -No Were there social determinants of health that impacted care today? How? (Homelessness, low income, unemployed, alcoholism, drug addiction, transportation, low edu. Level, literacy, decrease access to med. care, [facility], rehab)? @ -No Was there de-escalation of care discussed even if they declined (Discuss DNR or withdrawal of care, Hospice)? DNR status @ -No What co-morbidities impacted this encounter? (DM, HTN, Smoking, COPD, CAD, Cance r, CVA, ARF, Chemo, Hep., AIDS, mental health diagnosis, sleep apnea, morbid obesity)? @ -Liver failure Was patient admitted / discharged? Hospital course, mention meds given and route, prescriptions, significant lab abnormalities, going to OR and other pertinent info. @ -Admitted for elevated ammonia level, liver failure, social evaluation Undiagnosed new problem with uncertain prognosis? @ -No Drug Therapy requiring intensive monitoring for toxicity (Heparin, Nitro, Insulin, Cardizem)? @ -No Were any procedures done? @ -No Diagnosis/symptom? @ -Hyperammonemia Acute, or Chronic, or Acute on Chronic? @ -Acute on chronic Uncomplicated (without systemic symptoms) or Complicated (systemic symptoms)? @ -complicated Side effects of treatment? @ -No Exacerbation, Progression, or Severe Exacerbation? @ -No Poses a threat to life or bodily function? How? (Chest pain, USA, ID, pneumonia, PE, COPD, DKA, ARF, appy, cholecystitis, CVA, Diverticulitis, Homicidal, Suicidal, threat to staff... and all critical care pts) @ -No - Lab Data Result diagrams: 02/09/23 05:02 02/09/23 05:02 Lab Results 02/06/23 02/06/23 02/06/23 Range/Units 07:26 07:26 07:26 WBC 4.2 (3.8-10.6) k/uL RBC 3.57 L (4.30-5.90) m/uL Hgb 11.8 L (13.0-17.5) gm/dL Hct 35.5 L (39.0-53.0) % MCV 99.4 (80.0-100.0) fL MCH 33.2 (25.0-35.0) pg MCHC 33.4 (31.0-37.0) g/dL RDW 15.9 H (11.5-15.5) % Plt Count 67 L (150-450) k/uL MPV 11.6 Neutrophils % 53 % Lymphocytes % 27 % Monocytes % 12 % Eosinophils % 4 % Basophils % 0 % Neutrophils # 2.2 (1.3-7.7) k/uL Lymphocytes # 1.1 (1.0-4.8) k/uL Monocytes # 0.5 (0-1.0) k/uL Eosinophils # 0.2 (0-0.7) k/uL Basophils # 0.0 (0-0.2) k/uL Macrocytosis Slight Sodium 137 (137-145) mmol/L Potassium 4.0 (3.5-5.1) mmol/L Chloride 110 H (98-107) mmol/L Carbon Dioxide 27 (22-30) mmol/L Anion Gap 0 mmol/L BUN 9 (9-20) mg/dL Creatinine 0.47 L (0.66-1.25) mg/dL Est GFR (CKD-EPI)AfAm >90 (>60 ml/min/1.73 sqM) Est GFR (CKD-EPI)NonAf >90 (>60 ml/min/1.73 sqM) Glucose 93 (74-99) mg/dL Plasma Lactic Acid Shane (0.7-2.0) mmol/L Calcium 7.6 L (8.4-10.2) mg/dL Total Bilirubin 4.2 H (0.2-1.3) mg/dL AST 75 H (17-59) U/L ALT 28 (4-49) U/L Alkaline Phosphatase 138 H (38-126) U/L Ammonia (<30) umol/L Total Protein 5.9 L (6.3-8.2) g/dL Albumin 2.7 L (3.5-5.0) g/dL Amylase 42 (30-110) U/L Lipase 217 (23-300) U/L Urine Color Dark Brown Urine Appearance Cloudy (Clear) Urine pH 6.0 (5.0-8.0) Ur Specific [place] 1.030 (1.001-1.035) Urine Protein Negative (Negative) Urine Glucose (UA) Negative (Negative) Urine Ketones Negative (Negative) Urine Blood Negative (Negative) Urine Nitrite Negative (Negative) Urine Bilirubin 1+ H (Negative) Urine Urobilinogen >12.0 (<2.0) mg/dL Ur Leukocyte Esterase Small H (Negative) Urine WBC 30 H (0-5) /hpf Ur Squamous Epith Cells 1 (0-4) /hpf Calcium Oxalate Crystal Many H (None) /hpf Urine Mucus Rare H (None) /hpf 02/06/23 Range/Units 07:26 WBC (3.8-10.6) k/uL RBC (4.30-5.90) m/uL Hgb (13.0-17.5) gm/dL Hct (39.0-53.0) % MCV (80.0-100.0) fL MCH (25.0-35.0) pg MCHC (31.0-37.0) g/dL RDW (11.5-15.5) % Plt Count (150-450) k/uL MPV Neutrophils % % Lymphocytes % % Monocytes % % Eosinophils % % Basophils % % Neutrophils # (1.3-7.7) k/uL Lymphocytes # (1.0-4.8) k/uL Monocytes # (0-1.0) k/uL Eosinophils # (0-0.7) k/uL Basophils # (0-0.2) k/uL Macrocytosis Sodium (137-145) mmol/L Potassium (3.5-5.1) mmol/L Chloride (98-107) mmol/L Carbon Dioxide (22-30) mmol/L Anion Gap mmol/L BUN (9-20) mg/dL Creatinine (0.66-1.25) mg/dL Est GFR (CKD-EPI)AfAm (>60 ml/min/1.73 sqM) Est GFR (CKD-EPI)NonAf (>60 ml/min/1.73 sqM) Glucose (74-99) mg/dL Plasma Lactic Acid Shane 0.8 (0.7-2.0) mmol/L Calcium (8.4-10.2) mg/dL Total Bilirubin (0.2-1.3) mg/dL AST (17-59) U/L ALT (4-49) U/L Alkaline Phosphatase (38-126) U/L Ammonia 54 H (<30) umol/L Total Protein (6.3-8.2) g/dL Albumin (3.5-5.0) g/dL Amylase (30-110) U/L Lipase (23-300) U/L Urine Color Urine Appearance (Clear) Urine pH (5.0-8.0) Ur Specific [place] (1.001-1.035) Urine Protein (Negative) Urine Glucose (UA) (Negative) Urine Ketones (Negative) Urine Blood (Negative) Urine Nitrite (Negative) Urine Bilirubin (Negative) Urine Urobilinogen (<2.0) mg/dL Ur Leukocyte Esterase (Negative) Urine WBC (0-5) /hpf Ur Squamous Epith Cells (0-4) /hpf Calcium Oxalate Crystal (None) /hpf Urine Mucus (None) /hpf Disposition Clinical Impression: Hyperammonemia Disposition: ADMITTED IP TO THIS HOSP Condition: Fair Time of Disposition: 10:39
[2023-02-06 07:45] LABS: Basophils % (A) 0 %; Eosinophils # (A) 0.2 k/uL (0-0.7); Eosinophils % (A) 4 %; HCT 35.5 % (39.0-53.0); HGB 11.8 gm/dL (13.0-17.5); Lymphocytes # (A) 1.1 k/uL (1.0-4.8); Lymphocytes % (A) 27 %; MCH 33.2 pg (25.0-35.0); MCHC 33.4 g/dL (31.0-37.0); MCV 99.4 fL (80.0-100.0); Macrocytosis Slight; Mean Platelet Volume 11.6; Monocytes # (A) 0.5 k/uL (0-1.0); Monocytes % (A) 12 %; Neutrophils # (A) 2.2 k/uL (1.3-7.7); Neutrophils % (A) 53 %; RBC 3.57 m/uL (4.30-5.90); RDW 15.9 % (11.5-15.5); WBC 4.2 k/uL (3.8-10.6)
[2023-02-06 07:51] LABS: Appearance,Urine Cloudy (Clear); Bilirubin,Urine 1+ (Negative); Blood,Urine Negative (Negative); Calcium Oxalate Crystals,Urine Many /hpf; Color,Urine Dark Brown; Glucose,Urine (UA) Negative (Negative); Ketones,Urine Negative (Negative); Leukocyte Esterase,Urine Small (Negative); Mucus,Urine Rare /hpf; Nitrite,Urine Negative (Negative); Protein,Urine Negative (Negative); Squamous Epithelial Cell,Urine 1 /hpf (0-4); Urobilinogen,Urine >12.0 mg/dL (<2.0); WBC,Urine 30 /hpf (0-5)
[2023-02-06 08:03] LABS: Platelet Count 67 k/uL (150-450)
[2023-02-06 08:04] LABS: Lactic Acid, Venous 0.8 mmol/L (0.7-2.0)
[2023-02-06 08:06] LABS: ALT 28 U/L (4-49); AST 75 U/L (17-59); African American GFR (CKD) >90 (>60 ml/min/1.73 sqM); Albumin 2.7 g/dL (3.5-5.0); Alkaline Phosphatase 138 U/L (38-126); Amylase 42 U/L (30-110); Blood Urea Nitrogen 9 mg/dL (9-20); Calcium 7.6 mg/dL (8.4-10.2); Carbon Dioxide 27 mmol/L (22-30); Glucose 93 mg/dL (74-99); Lipase 217 U/L (23-300); Non-African American GFR(CKD) >90 (>60 ml/min/1.73 sqM); Total Bilirubin 4.2 mg/dL (0.2-1.3); Total Protein 5.9 g/dL (6.3-8.2)
[2023-02-06 09:58] LABS: Anion Gap 0 mmol/L; Chloride 110 mmol/L (98-107); Sodium 137 mmol/L (137-145)
[2023-02-06] MEDS ORDERED: NALOXONE 0.4 MG/ML 1 ML VIAL IV PRN (10:35)
[2023-02-06] MEDS ORDERED: ONDANSETRON 4 MG/2 ML VIAL IVP PRN (10:35)
[2023-02-06] MEDS ORDERED: CALCIUM CARBONATE 500 MG CHEWABLE PO PRN (14:15)
--- NOTE | 2023-02-06 14:23 | P.HPIM ---
History of Present Illness H&P Date: 02/06/23 * 42-year-old gentleman with past medical history significant for liver cirrhosis, history of depression, history of hypertension, anemia presented to the emergency department with complaints of fatigue, malaise and confusion. * Patient was recently in the hospital discharge on 01/31 presented with similar presentation and was treated for hepatic encephalopathy and hyperammonia * Patient states he is unable to take his lactulose secondary to having multiple bowel movements unable to follow carry on with his activities of daily living * Workup initiated in ER included CBC which showed platelet count of 67, basic metabolic panel was obtained which showed a LT of 28 AST of 75 ammonia of 54 * Patient to be admitted to the hospital as observation and started on lactulose and rifaximin REVIEW OF SYSTEMS: Diarrhea, fatigue, malaise, confusion CONSTITUTIONAL: No fever, HEENT: No recent visual problems or hearing problems. Denied any sore throat. CARDIOVASCULAR: No chest pain, orthopnea, PND, no palpitations, no syncope. PULMONARY: No shortness of breath, no cough, no hemoptysis. GASTROINTESTINAL: , no nausea, no vomiting, no abdominal pain. NEUROLOGICAL: No headaches, no weakness, no numbness. HEMATOLOGICAL: Denies any bleeding or petechiae. GENITOURINARY: Denies any burning micturition, frequency, or urgency. MUSCULOSKELETAL/RHEUMATOLOGICAL: Denies any joint pain, swelling, or any muscle pain. ENDOCRINE: Denies any polyuria or polydipsia. The rest of the 14-point review of systems is negative. PHYSICAL EXAMINATION: GENERAL: The patient is alert and oriented x 3, not in any acute distress. Well developed, well nourished. HEENT: Pupils are round and equally reacting to light. EOMI. No scleral icterus. No conjunctival pallor. Normocephalic, atraumatic. No pharyngeal erythema. No thyromegaly. CARDIOVASCULAR: S1 and S2 present. No murmurs, rubs, or gallops. PULMONARY: Chest is clear to auscultation, no wheezing or crackles. ABDOMEN: Soft, nontender, nondistended, normoactive bowel sounds. No palpable organomegaly. MUSCULOSKELETAL: No joint swelling or deformity. EXTREMITIES: No cyanosis, clubbing, or pedal edema. NEUROLOGICAL: Gross neurological examination did not reveal any focal deficits. SKIN: No rashes. 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, corrective surgery as child for pigeon toe on bilat legs, corrective surgery on leg and shoulder Past Anesthesia/Blood Transfusion Reactions: No Reported Reaction Past Psychological History: ADD/ADHD, Anxiety, Bipolar, Depression, PTSD Additional Psychological History / Comment(s): borderline personality disorder Smoking Status: Former smoker Past Alcohol Use History: None Reported Additional Past Alcohol Use History / Comment(s): smokes 1/2 PPD for 14 yrs,has quit smoking as of jun 2021, Daily alcohol use- 1 pint daily- no drinks since jun 2021 Past Drug Use History: None Reported Additional Drug Use History / Comment(s): occ use- none since JUN 2021 - Past Family History Mother Family Medical History: Cancer Additional Family Medical History / Comment(s): breast Brother(s) Additional Family Medical History / Comment(s): Patient has one brother with history of anxiety and depression. Patient does not have any sisters. Patient has 1 son that is 10 years old with diabetes mellitus type 1. Medications and Allergies Home Medications Medication Instructions Recorded Confirmed Type Gabapentin [Neurontin] 100 mg PO BID 05/28/22 02/06/23 History Dextroamphetamine/Amphetamine 30 mg PO BID 01/27/23 02/06/23 History [Adderall] Lactulose [Cephulac] 30 gm PO TID #600 ml 01/31/23 02/06/23 Rx Sertraline [Zoloft] 50 mg PO DAILY #30 tab 01/31/23 02/06/23 Rx traZODone HCL [Desyrel] 50 mg PO HS #30 tab 01/31/23 02/06/23 Rx Rifaximin [Xifaxan] 550 mg PO BID 02/06/23 02/06/23 History Allergies Allergy/AdvReac Type Severity Reaction Status Date / Time acetaminophen [From Tylenol] AdvReac LIVER Verified 02/06/23 11:32 ISSUES " Physical Exam Vitals: Vital Signs Temp Pulse Pulse Resp BP BP Pulse Ox 02/06/23 14:08 98 F 55 L 129/72 97 02/06/23 11:37 97.5 F L 68 18 112/80 96 02/06/23 11:00 98.0 F 61 16 119/65 96 02/06/23 10:00 98.0 F 65 16 116/66 96 02/06/23 09:00 97.7 F 63 16 122/63 96 02/06/23 08:00 97.5 F L 64 14 116/63 95 02/06/23 07:23 97.0 F L 60 16 105/53 97 02/06/23 06:21 98.8 F 65 18 127/79 98 Intake and Output 02/05/23 02/06/23 02/06/23 22:59 06:59 14:59 Other: # Voids 0 Weight 136.078 kg 136.078 kg Results CBC & Chem 7: 02/06/23 07:26 02/06/23 07:26 Labs: Abnormal Lab Results - Last 24 Hours (Table) 02/06/23 02/06/23 02/06/23 Range/Units 07:26 07:26 07:26 RBC 3.57 L (4.30-5.90) m/uL Hgb 11.8 L (13.0-17.5) gm/dL Hct 35.5 L (39.0-53.0) % RDW 15.9 H (11.5-15.5) % Plt Count 67 L (150-450) k/uL Chloride 110 H (98-107) mmol/L Creatinine 0.47 L (0.66-1.25) mg/dL Calcium 7.6 L (8.4-10.2) mg/dL Total Bilirubin 4.2 H (0.2-1.3) mg/dL AST 75 H (17-59) U/L Alkaline Phosphatase 138 H (38-126) U/L Ammonia (<30) umol/L Total Protein 5.9 L (6.3-8.2) g/dL Albumin 2.7 L (3.5-5.0) g/dL Urine Bilirubin 1+ H (Negative) Ur Leukocyte Esterase Small H (Negative) Urine WBC 30 H (0-5) /hpf Calcium Oxalate Crystal Many H (None) /hpf Urine Mucus Rare H (None) /hpf 02/06/23 Range/Units 07:26 RBC (4.30-5.90) m/uL Hgb (13.0-17.5) gm/dL Hct (39.0-53.0) % RDW (11.5-15.5) % Plt Count (150-450) k/uL Chloride (98-107) mmol/L Creatinine (0.66-1.25) mg/dL Calcium (8.4-10.2) mg/dL Total Bilirubin (0.2-1.3) mg/dL AST (17-59) U/L Alkaline Phosphatase (38-126) U/L Ammonia 54 H (<30) umol/L Total Protein (6.3-8.2) g/dL Albumin (3.5-5.0) g/dL Urine Bilirubin (Negative) Ur Leukocyte Esterase (Negative) Urine WBC (0-5) /hpf Calcium Oxalate Crystal (None) /hpf Urine Mucus (None) /hpf Thrombosis Risk Factor Assmnt - DVT/VTE Prophylaxis DVT/VTE Prophylaxis: Mechanical Prophylaxis ordered Assessment and Plan Assessment: Assessment and plan * History of liver cirrhosis * Hepatic encephalopathy with hyperammonia * Thrombocytopenia and iron deficiency anemia * History of depression * Transaminitis secondary to liver disease * Continue patient on lactulose and rifaximin * Follow-up on CMP and ammonia levels * Patient counseled on compliance with lactulose and rifaximin * Continue patient on SCDs for DVT prophylaxis * CODE STATUS is full code
[2023-02-06] MEDS: LACTULOSE 20 GM/30 ML CUP PO SCH ×2 (16:29→21:17)
[2023-02-06] MEDS: ACETAMINOPHEN TAB 500 MG TAB PO PRN (17:36)
[2023-02-06] MEDS: RIFAXIMIN 550 MG TABLET PO SCH (21:17)
[2023-02-06] MEDS: GABAPENTIN 100 MG CAP PO SCH (21:17)
[2023-02-06] MEDS: traZODone HCL 50 MG TAB PO SCH (21:18)
[2023-02-07] MEDS ORDERED: ENOXAPARIN 40 MG/0.4 ML SYRINGE SQ SCH (09:00)
[2023-02-07] MEDS: LACTULOSE 20 GM/30 ML CUP PO SCH ×3 (09:06→20:58)
[2023-02-07] MEDS: RIFAXIMIN 550 MG TABLET PO SCH ×2 (09:07→20:58)
[2023-02-07] MEDS: SERTRALINE 50 MG TAB PO SCH (09:07)
[2023-02-07] MEDS: GABAPENTIN 100 MG CAP PO SCH ×2 (09:07→20:58)
[2023-02-07 11:09] LABS: ALT 28 U/L (10-49); AST 52 U/L (14-35); Albumin 2.9 d/dL (3.8-4.9); Albumin/Globulin Ratio 1.26 Ratio (1.60-3.17); Alkaline Phosphatase 132 U/L (41-126); Blood Urea Nitrogen 6.9 mg/dL (9.0-27.0); Calcium 8.1 mg/dL (8.7-10.3); Chloride 111 mmol/L (96-109); Globulin 2.3 d/dL (1.6-3.3); Glucose 84 mg/dL (70-110); Potassium 3.5 mmol/L (3.5-5.5); Sodium 143 mmol/L (135-145); Total Bilirubin 4.2 mg/dL (0.3-1.2); Total Protein 5.2 d/dL (6.2-8.2)
[2023-02-07 11:47] LABS: Basophils # (A) 0.05 X 10*3/uL (0.00-0.10); Basophils % (A) 1.2 %; Crenated RBC 2+; Eosinophils # (A) 0.18 X 10*3/uL (0.04-0.35); Eosinophils % (A) 4.2 %; HCT 37.8 % (39.6-50.0); HGB 12.7 d/dL (13.0-17.0); MCH 32.6 pg (27.0-32.0); MCHC 33.6 d/dL (32.0-37.0); MCV 96.9 FL (80.0-97.0); Mean Platelet Volume 13.5 FL (9.5-12.2); Monocytes # (A) 0.58 X 10*3/uL (0.20-1.00); Monocytes % (A) 13.4 %; NRBC Per 100 WBC 0 X 10*3/uL (0.00-0.01); Platelet Count 85 X 10*3/uL (140-440); RDW 16.4 % (11.5-14.5); WBC 4.32 X 10*3/uL (4.50-10.00)
--- NOTE | 2023-02-07 14:39 | P.PN ---
Subjective Progress Note Date: 02/07/23 * 42-year-old gentleman with past medical history significant for liver cirrhosis, history of depression, history of hypertension, anemia presented to the emergency department with complaints of fatigue, malaise and confusion. * Patient was recently in the hospital discharge on 01/31 presented with similar presentation and was treated for hepatic encephalopathy and hyperammonia * Patient states he is unable to take his lactulose secondary to having multiple bowel movements unable to follow carry on with his activities of daily living * Workup initiated in ER included CBC which showed platelet count of 67, basic metabolic panel was obtained which showed a LT of 28 AST of 75 ammonia of 54 * Patient to be admitted to the hospital as observation and started on lactulose and rifaximin * 02/07/23 : Patient seen and everted bedside. His mentation has improved however he continues to remain reluctant to take lactulose. Serum ammonia levels trending up. He is counseled to take lactulose to avoid hepatic encephalopathy worsening REVIEW OF SYSTEMS: Diarrhea, fatigue, malaise and confusion improved CONSTITUTIONAL: No fever, HEENT: No recent visual problems or hearing problems. Denied any sore throat. CARDIOVASCULAR: No chest pain, orthopnea, PND, no palpitations, no syncope. PULMONARY: No shortness of breath, no cough, no hemoptysis. GASTROINTESTINAL: , no nausea, no vomiting, no abdominal pain. NEUROLOGICAL: No headaches, no weakness, no numbness. HEMATOLOGICAL: Denies any bleeding or petechiae. GENITOURINARY: Denies any burning micturition, frequency, or urgency. MUSCULOSKELETAL/RHEUMATOLOGICAL: Denies any joint pain, swelling, or any muscle pain. ENDOCRINE: Denies any polyuria or polydipsia. Objective - Vital Signs Vital signs: Vital Signs Temp 97.4 F L 02/07/23 08:00 Pulse 55 L 02/07/23 08:00 Resp 18 02/07/23 08:00 BP 134/72 02/07/23 08:00 Pulse Ox 97 02/07/23 08:00 FiO2 Intake & Output 02/06/23 02/07/23 02/07/23 18:59 06:59 18:59 Output Total 3 Balance -3 Weight 136.078 kg Output: Stool 3 Other: # Voids 0 2 - Exam GENERAL: The patient is alert and oriented x 3, not in any acute distress. Well developed, well nourished. HEENT: Pupils are round and equally reacting to light. EOMI. No scleral icterus. No conjunctival pallor. Normocephalic, atraumatic. No pharyngeal erythema. No thyromegaly. CARDIOVASCULAR: S1 and S2 present. No murmurs, rubs, or gallops. PULMONARY: Chest is clear to auscultation, no wheezing or crackles. ABDOMEN: Soft, nontender, nondistended, normoactive bowel sounds. No palpable organomegaly. MUSCULOSKELETAL: No joint swelling or deformity. EXTREMITIES: No cyanosis, clubbing, or pedal edema. NEUROLOGICAL: Gross neurological examination did not reveal any focal deficits. SKIN: No rashes. - Labs CBC & Chem 7: 02/07/23 06:46 02/07/23 06:46 Labs: Abnormal Lab Results - Last 24 Hours (Table) 02/07/23 02/07/23 02/07/23 Range/Units 06:46 06:46 10:57 WBC 4.32 L (4.50-10.00) X 10*3/uL RBC 3.90 L (4.40-5.60) X 10*6/uL Hgb 12.7 L (13.0-17.0) d/dL Hct 37.8 L (39.6-50.0) % MCH 32.6 H (27.0-32.0) pg RDW 16.4 H (11.5-14.5) % Plt Count 85 L (140-440) X 10*3/uL MPV 13.5 H (9.5-12.2) FL Crenated Cell 2+ A Chloride 111 H (96-109) mmol/L BUN 6.9 L (9.0-27.0) mg/dL BUN/Creatinine Ratio 11.50 L (12.00-20.00) Ratio Calcium 8.1 L (8.7-10.3) mg/dL Total Bilirubin 4.2 H (0.3-1.2) mg/dL AST 52 H (14-35) U/L Alkaline Phosphatase 132 H (41-126) U/L Ammonia 109 H (<30) umol/L Total Protein 5.2 L (6.2-8.2) d/dL Albumin 2.9 L (3.8-4.9) d/dL Albumin/Globulin Ratio 1.26 L (1.60-3.17) Ratio Assessment and Plan Assessment: Assessment and plan * History of liver cirrhosis * Hepatic encephalopathy with hyperammonia * Thrombocytopenia and iron deficiency anemia * History of depression * Transaminitis secondary to liver disease * Continue patient on lactulose and rifaximin * Follow-up on CMP and ammonia levels * Patient counseled on compliance with lactulose and rifaximin * Continue patient on SCDs for DVT prophylaxis * CODE STATUS is full code
[2023-02-07] MEDS: traZODone HCL 50 MG TAB PO SCH (20:58)
[2023-02-08] MEDS: RIFAXIMIN 550 MG TABLET PO SCH ×2 (08:36→20:37)
[2023-02-08] MEDS: GABAPENTIN 100 MG CAP PO SCH ×2 (08:37→20:37)
[2023-02-08] MEDS: SERTRALINE 50 MG TAB PO SCH (08:37)
[2023-02-08] MEDS: LACTULOSE 20 GM/30 ML CUP PO SCH ×3 (08:37→20:37)
[2023-02-08 08:59] LABS: HCT 37.7 % (39.6-50.0); HGB 12.5 d/dL (13.0-17.0); MCH 32.1 pg (27.0-32.0); MCHC 33.2 d/dL (32.0-37.0); MCV 96.7 FL (80.0-97.0); Mean Platelet Volume 14.2 FL (9.5-12.2); NRBC Per 100 WBC 0 X 10*3/uL (0.00-0.01); Platelet Count 88 X 10*3/uL (140-440); RDW 16.4 % (11.5-14.5); WBC 6.23 X 10*3/uL (4.50-10.00)
[2023-02-08] MEDS: ACETAMINOPHEN TAB 500 MG TAB PO PRN (09:03)
[2023-02-08 09:35] LABS: Blood Urea Nitrogen 6.5 mg/dL (9.0-27.0); Glucose 83 mg/dL (70-110)
[2023-02-08 09:36] LABS: ALT 26 U/L (10-49); AST 55 U/L (14-35); Albumin 2.8 d/dL (3.8-4.9); Albumin/Globulin Ratio 1.22 Ratio (1.60-3.17); Alkaline Phosphatase 115 U/L (41-126); Calcium 8.2 mg/dL (8.7-10.3); Carbon Dioxide 22.5 mmol/L (21.6-31.8); Chloride 111 mmol/L (96-109); Globulin 2.3 d/dL (1.6-3.3); Potassium 3.8 mmol/L (3.5-5.5); Sodium 142 mmol/L (135-145); Total Bilirubin 4.3 mg/dL (0.3-1.2); Total Protein 5.1 d/dL (6.2-8.2)
--- NOTE | 2023-02-08 13:03 | P.PN ---
Subjective Progress Note Date: 02/08/23 * 42-year-old gentleman with past medical history significant for liver cirrhosis, history of depression, history of hypertension, anemia presented to the emergency department with complaints of fatigue, malaise and confusion. * Patient was recently in the hospital discharge on 01/31 presented with similar presentation and was treated for hepatic encephalopathy and hyperammonia * Patient states he is unable to take his lactulose secondary to having multiple bowel movements unable to follow carry on with his activities of daily living * Workup initiated in ER included CBC which showed platelet count of 67, basic metabolic panel was obtained which showed a LT of 28 AST of 75 ammonia of 54 * Patient to be admitted to the hospital as observation and started on lactulose and rifaximin * 02/07/23 : Patient seen and everted bedside. His mentation has improved however he continues to remain reluctant to take lactulose. Serum ammonia levels trending up. He is counseled to take lactulose to avoid hepatic encephalopathy worsening * 02/08/2023 patient seen and evaluated and bedside. They have ammonia levels improving. At this time patient continues to feel fatigue and malaise does not have a discharge place to go. Does not feel ready for discharge will follow-up on ammonia and CMP levels REVIEW OF SYSTEMS: Diarrhea, fatigue, malaise and intermittent episode of confusion CONSTITUTIONAL: No fever, HEENT: No recent visual problems or hearing problems. Denied any sore throat. CARDIOVASCULAR: No chest pain, orthopnea, PND, no palpitations, no syncope. PULMONARY: No shortness of breath, no cough, no hemoptysis. GASTROINTESTINAL: , no nausea, no vomiting, no abdominal pain. NEUROLOGICAL: No headaches, no weakness, no numbness. HEMATOLOGICAL: Denies any bleeding or petechiae. GENITOURINARY: Denies any burning micturition, frequency, or urgency. MUSCULOSKELETAL/RHEUMATOLOGICAL: Denies any joint pain, swelling, or any muscle pain. ENDOCRINE: Denies any polyuria or polydipsia. Objective - Vital Signs Vital signs: Vital Signs Temp 97.7 F 02/08/23 08:00 Pulse 56 L 02/08/23 08:00 Resp 16 02/08/23 08:00 BP 122/67 02/08/23 08:00 Pulse Ox 98 02/08/23 08:00 FiO2 Intake & Output 02/07/23 02/08/23 02/08/23 18:59 06:59 18:59 Intake Total 118 Output Total 1 Balance 118 -1 Intake: Oral 118 Output: Stool 1 Other: Voiding Method Toilet # Voids 2 - Exam GENERAL: The patient is alert and oriented x 3 patient does complain that he is lethargic, does not feel right not in any acute distress. Well developed, well nourished. HEENT: Pupils are round and equally reacting to light. EOMI. No scleral icterus. No conjunctival pallor. Normocephalic, atraumatic. No pharyngeal erythema. No thyromegaly. CARDIOVASCULAR: S1 and S2 present. No murmurs, rubs, or gallops. PULMONARY: Chest is clear to auscultation, no wheezing or crackles. ABDOMEN: Soft, nontender, nondistended, normoactive bowel sounds. No palpable organomegaly. MUSCULOSKELETAL: No joint swelling or deformity. EXTREMITIES: No cyanosis, clubbing, or pedal edema. NEUROLOGICAL: Gross neurological examination did not reveal any focal deficits. SKIN: No rashes. - Labs CBC & Chem 7: 02/08/23 05:45 02/08/23 05:45 Labs: Abnormal Lab Results - Last 24 Hours (Table) 02/07/23 02/08/23 02/08/23 Range/Units 10:57 05:45 05:45 RBC 3.90 L (4.40-5.60) X 10*6/uL Hgb 12.5 L (13.0-17.0) d/dL Hct 37.7 L (39.6-50.0) % MCH 32.1 H (27.0-32.0) pg RDW 16.4 H (11.5-14.5) % Plt Count 88 L (140-440) X 10*3/uL MPV 14.2 H (9.5-12.2) FL Chloride 111 H (96-109) mmol/L BUN 6.5 L (9.0-27.0) mg/dL Creatinine 0.5 L (0.6-1.5) mg/dL Calcium 8.2 L (8.7-10.3) mg/dL Total Bilirubin 4.3 H (0.3-1.2) mg/dL AST 55 H (14-35) U/L Ammonia 109 H (<30) umol/L Total Protein 5.1 L (6.2-8.2) d/dL Albumin 2.8 L (3.8-4.9) d/dL Albumin/Globulin Ratio 1.22 L (1.60-3.17) Ratio // Range/Units 05:45 RBC (4.40-5.60) X 10*6/uL Hgb (13.0-17.0) d/dL Hct (39.6-50.0) % MCH (27.0-32.0) pg RDW (11.5-14.5) % Plt Count (140-440) X 10*3/uL MPV (9.5-12.2) FL Chloride (96-109) mmol/L BUN (9.0-27.0) mg/dL Creatinine (0.6-1.5) mg/dL Calcium (8.7-10.3) mg/dL Total Bilirubin (0.3-1.2) mg/dL AST (14-35) U/L Ammonia 48 H (<30) umol/L Total Protein (6.2-8.2) d/dL Albumin (3.8-4.9) d/dL Albumin/Globulin Ratio (1.60-3.17) Ratio Assessment and Plan Assessment: Assessment and plan * History of liver cirrhosis * Hepatic encephalopathy with hyperammonia * Thrombocytopenia and iron deficiency anemia * History of depression * Transaminitis secondary to liver disease * Continue patient on lactulose and rifaximin * Follow-up on CMP and ammonia levels * Patient counseled on compliance with lactulose and rifaximin * Continue patient on SCDs for DVT prophylaxis * Plan to discharge patient counseled to go to half-way * CODE STATUS is full code
[2023-02-08] MEDS: traZODone HCL 50 MG TAB PO SCH (20:39)
[2023-02-09 07:42] VITALS: BP 134/71; PULSE 60; RESP 16; TEMP 97.5
[2023-02-09] MEDS: GABAPENTIN 100 MG CAP PO SCH (08:40)
[2023-02-09] MEDS: SERTRALINE 50 MG TAB PO SCH (08:40)
[2023-02-09] MEDS: ACETAMINOPHEN TAB 500 MG TAB PO PRN (08:40)
[2023-02-09] MEDS: LACTULOSE 20 GM/30 ML CUP PO SCH (08:41)
[2023-02-09] MEDS: RIFAXIMIN 550 MG TABLET PO SCH (08:56)
[2023-02-09 09:06] LABS: HCT 36.4 % (39.6-50.0); HGB 12.2 d/dL (13.0-17.0); MCH 32.8 pg (27.0-32.0); MCHC 33.5 d/dL (32.0-37.0); MCV 97.8 FL (80.0-97.0); Mean Platelet Volume 13.2 FL (9.5-12.2); NRBC Per 100 WBC 0 X 10*3/uL (0.00-0.01); Platelet Count 81 X 10*3/uL (140-440); RBC 3.72 X 10*6/uL (4.40-5.60); RDW 16.6 % (11.5-14.5); WBC 5.15 X 10*3/uL (4.50-10.00)
[2023-02-09 09:27] LABS: Blood Urea Nitrogen 6.7 mg/dL (9.0-27.0); Calcium 7.8 mg/dL (8.7-10.3); Carbon Dioxide 27.2 mmol/L (21.6-31.8); Chloride 110 mmol/L (96-109); Glucose 99 mg/dL (70-110); Potassium 3.6 mmol/L (3.5-5.5); Sodium 142 mmol/L (135-145)
--- NOTE | 2023-02-09 11:56 | P.DS ---
Providers Date of admission: 02/06/23 11:02 Expected date of discharge: 02/09/23 Attending physician: Javier Wiley MD Primary care physician: Angeline [facility] Course: 42-year-old gentleman with past medical history significant for liver cirrhosis, history of depression, history of hypertension, anemia presented to the emergency department with complaints of fatigue, malaise and confusion. * Patient was recently in the hospital discharge on 01/31 presented with similar presentation and was treated for hepatic encephalopathy and hyperammonia * Patient states he is unable to take his lactulose secondary to having multiple bowel movements unable to follow carry on with his activities of daily living * Workup initiated in ER included CBC which showed platelet count of 67, basic metabolic panel was obtained which showed a LT of 28 AST of 75 ammonia of 54 * Patient to be admitted to the hospital as observation and started on lactulose and rifaximin * 02/07/23 : Patient seen and everted bedside. His mentation has improved however he continues to remain reluctant to take lactulose. Serum ammonia levels trending up. He is counseled to take lactulose to avoid hepatic encephalopathy worsening * 02/08/2023 patient seen and evaluated and bedside. They have ammonia levels improving. At this time patient continues to feel fatigue and malaise does not have a discharge place to go. Does not feel ready for discharge will follow-up on ammonia and CMP levels * 02/09/2023 : Patient seen and evaluated bedside. Patient alert and oriented 4 ammonia levels trending down patient discharged home GENERAL: The patient is alert and oriented x 3 . Well developed, well nourished. HEENT: Pupils are round and equally reacting to light. EOMI. No scleral icterus. No conjunctival pallor. Normocephalic, atraumatic. No pharyngeal erythema. No thyromegaly. CARDIOVASCULAR: S1 and S2 present. No murmurs, rubs, or gallops. PULMONARY: Chest is clear to auscultation, no wheezing or crackles. ABDOMEN: Soft, nontender, nondistended, normoactive bowel sounds. No palpable organomegaly. MUSCULOSKELETAL: No joint swelling or deformity. EXTREMITIES: No cyanosis, clubbing, or pedal edema. NEUROLOGICAL: Gross neurological examination did not reveal any focal deficits. SKIN: No rashes. Assessment and plan * History of liver cirrhosis * Hepatic encephalopathy with hyperammonia * Thrombocytopenia and iron deficiency anemia * History of depression * Transaminitis secondary to liver disease * Continue patient on lactulose and rifaximin * Follow-up on CMP and ammonia levels proved * Patient counseled on compliance with lactulose and rifaximin * Continue patient on SCDs for DVT prophylaxis while inpatient * Plan to discharge, patient will to live with a friend * Consult regarding medication compliance Patient Condition at Discharge: Fair Plan - Discharge Summary New Discharge Prescriptions: Continue Lactulose [Cephulac] 30 gm PO TID #600 ml traZODone HCL [Desyrel] 50 mg PO HS #30 tab Sertraline [Zoloft] 50 mg PO DAILY #30 tab Gabapentin [Neurontin] 100 mg PO BID Dextroamphetamine/Amphetamine [Adderall] 30 mg PO BID Rifaximin [Xifaxan] 550 mg PO BID Discharge Medication List Gabapentin [Neurontin] 100 mg PO BID 05/28/22 [History] Dextroamphetamine/Amphetamine [Adderall] 30 mg PO BID 01/27/23 [History] Lactulose [Cephulac] 30 gm PO TID #600 ml 01/31/23 [Rx] Sertraline [Zoloft] 50 mg PO DAILY #30 tab 01/31/23 [Rx] traZODone HCL [Desyrel] 50 mg PO HS #30 tab 01/31/23 [Rx] Rifaximin [Xifaxan] 550 mg PO BID 02/06/23 [History] Follow up Appointment(s)/Referral(s): Angeline Nelson MD [Primary Care Provider] - 1-2 days Discharge/Stand Alone Forms: AA Meetings [facility], Who Do I Call?, Community Resources, Outpatient Counseling
== END 2023-02-09 13:55 | disposition home or self-care (01) ==
LOC: EC 06:17 → 6NMEDSUR 11:02
PROVIDERS: ADMIT Internal Medicine; ATTEND Internal Medicine
DX: K76.82 Hepatic encephalopathy (principal); D69.6 Thrombocytopenia, unspecified; K72.90 Hepatic failure, unspecified without coma; F31.9 Bipolar disorder, unspecified; D50.9 Iron deficiency anemia, unspecified; F10.10 Alcohol abuse, uncomplicated; F60.3 Borderline personality disorder; K74.60 Unspecified cirrhosis of liver; K76.0 Fatty (change of) liver, not elsewhere classified; I10 Essential (primary) hypertension; F43.10 Post-traumatic stress disorder, unspecified; F90.9 Attention-deficit hyperactivity disorder, unspecified type; I83.90 Asymptomatic varicose veins of unspecified lower extremity; Z79.899 Other long term (current) drug therapy; Z88.6 Allergy status to analgesic agent; Z98.84 Bariatric surgery status; Z87.891 Personal history of nicotine dependence; Z59.01 Sheltered homelessness
CPT/HCPCS: 36415; 80048; 80053; 81001; 82140; 82150; 83605; 83690; 85025; 85027; 99285

== ENCOUNTER 2023-04-07 06:35 | Emergency (ER) | payer OTHER ==
[2023-04-07] MEDS ORDERED: SODIUM CHLORIDE 0.9% 1,000 ML IV STA (06:40)
[2023-04-07] MEDS ORDERED: ONDANSETRON 4 MG/2 ML VIAL IVP STA (06:40)
--- NOTE | 2023-04-07 06:50 | ED ---
General Adult HPI - General Stated complaint: N/V, weakness Time Seen by Provider: 04/07/23 06:38 Source: patient, EMS, RN notes reviewed, old records reviewed Mode of arrival: EMS Limitations: no limitations - History of Present Illness Initial comments: 42-year-old male presents emergency Department with chief complaint of generalized malaise, nausea, weakness. Patient has a history of liver cirrhosis is on lactulose for his hyperammonemia states that she did not take it recently because he was working but states that he is now on disability and states he'll be able take it. Time. Patient denies vomiting states she's had gastric bypass past he states very nauseous he states he says diffuse abdominal, body discomfort. Patient reports no fever chest pain. - Related Data Home Medications Medication Instructions Recorded Confirmed Gabapentin [Neurontin] 100 mg PO BID 05/28/22 03/18/23 Dextroamphetamine/Amphetamine 30 mg PO BID 01/27/23 03/18/23 [Adderall] Rifaximin [Xifaxan] 550 mg PO BID 02/06/23 03/18/23 Furosemide [Lasix] 40 mg PO DAILY 03/18/23 03/18/23 Previous Rx's Medication Instructions Recorded Sertraline [Zoloft] 50 mg PO DAILY #30 tab 01/31/23 traZODone HCL [Desyrel] 50 mg PO HS #30 tab 01/31/23 Lactulose [Cephulac] 30 gm PO TID 30 Days #900 ml 03/21/23 Allergies Allergy/AdvReac Type Severity Reaction Status Date / Time acetaminophen [From Tylenol] AdvReac LIVER Verified 04/07/23 06:40 ISSUES " Review of Systems ROS Statement: Those systems with pertinent positive or pertinent negative responses have been documented in the HPI. ROS Other: All systems not noted in ROS Statement are negative. 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 Patient does not have any sisters. Patient has 1 son that is 10 years old with diabetes mellitus type 1. General Exam Limitations: no limitations General appearance: alert, in no apparent distress Head exam: Present: atraumatic, normocephalic, normal inspection Eye exam: Present: normal appearance, PERRL, EOMI. Absent: scleral icterus, conjunctival injection, periorbital swelling ENT exam: Present: mucous membranes moist. Absent: normal oropharynx Neck exam: Present: normal inspection, full ROM. Absent: tenderness, meningismus, lymphadenopathy Respiratory exam: Present: normal lung sounds bilaterally. Absent: respiratory distress, wheezes, rales, rhonchi, stridor Cardiovascular Exam: Present: regular rate, normal rhythm, normal heart sounds. Absent: systolic murmur, diastolic murmur, rubs, gallop, clicks GI/Abdominal exam: Present: soft, tenderness, normal bowel sounds. Absent: distended, guarding, rebound, rigid Neurological exam: Present: alert, oriented X3 Skin exam: Present: warm, dry, intact, normal color. Absent: rash Course Vital Signs 04/07/23 04/07/23 04/07/23 07:04 07:08 08:08 Temperature 98.6 F Pulse Rate 64 66 85 Respiratory 18 16 20 Rate Blood Pressure 116/58 120/62 140/86 O2 Sat by Pulse 97 97 98 Oximetry 04/07/23 10:00 Temperature Pulse Rate 75 Respiratory 20 Rate Blood Pressure 114/69 O2 Sat by Pulse 98 Oximetry Medical Decision Making - Medical Decision Making Was pt. sent in by a medical professional or institution (, PA, SCIENCE CENTER DISPLAY BUILDER, urgent care, hospital, or custodial...) When possible be specific @ -No Did you speak to anyone other than the patient for history (EMS, parent, family, police, friend...)? What history was obtained from this source @ -No Did you review nursing and triage notes (agree or disagree)? Why? @ -I reviewed and agree with nursing and triage notes Were old charts reviewed (outside hosp., previous admission, EMS record, old EKG, old radiological studies, urgent care reports/EKG's, custodial records)? Report findings @ -Reviewed prior laboratory studies Differential Diagnosis (chest pain, altered mental status, abdominal pain women, abdominal pain men, vaginal bleeding, weakness, fever, dyspnea, syncope, headache, dizziness, GI bleed, back pain, seizure, CVA, palpatations, mental health, musculoskeletal)? @ -[Differential Abdominal Pain Men: Appendicitis, cholecystitis, diverticulosis, ischemic bowel, pancreatitis, hepatitis, UTI, gastroenteritis, AAA, incarcerated hernia, bowel obstruction, constipation, inflammatory bowel, hepatitis, peptic ulcer disease, splenic infarction, perforated viscus, testicular torsion, this is not meant to be an all-inclusive list EKG interpreted by me (3pts min.). @ -None X-rays interpreted by me (1pt min.). @ -None done CT interpreted by me (1pt min.). @ -None done U/S interpreted by me (1pt. min.). @ -None done What testing was considered but not performed or refused? (CT, X-rays, U/S, labs)? Why? @ -None What meds were considered but not given or refused? Why? @ -None Did you discuss the management of the patient with other professionals (professionals i.e. , PA, SCI[employer] DISPLAY BUILDER, lab, RT, psych nurse, medical social consultant, nail assembly machine operator, teacher, svp chief marketing officer, caseworker)? Give summary @ -No Was smoking cessation discussed for >3mins.? @ -No Was critical care preformed (if so, how long)? @ -No Were there social determinants of health that impacted care today? How? (Homelessness, low income, unemployed, alcoholism, drug addiction, transportation, low edu. Level, literacy, decrease access to med. care, shelter, rehab)? @ -No Was there de-escalation of care discussed even if they declined (Discuss DNR or withdrawal of care, Hospice)? DNR status @ -No What co-morbidities impacted this encounter? (DM, HTN, Smoking, COPD, CAD, Cancer, CVA, ARF, Chemo, Hep., AIDS, mental health diagnosis, sleep apnea, morbid obesity)? @ -Liver cirrhosis Was patient admitted / discharged? Hospital course, mention meds given and route, prescriptions, significant lab abnormalities, going to OR and other pertinent info. @ -Discharged patient ammonia level is within normal limits laboratory studies not reveal any acute findings. Patient was hydrated we discharged in stable condition return parameters were discussed. Undiagnosed new problem with uncertain prognosis? @ -No Drug Therapy requiring intensive monitoring for toxicity (Heparin, Nitro, Insulin, Cardizem)? @ -No Were any procedures done? @ -No Diagnosis/symptom? @ -[Liver cirrhosis, abdominal pain Acute, or Chronic, or Acute on Chronic? @ -Acute on chronic Uncomplicated (without systemic symptoms) or Complicated (systemic symptoms)? @ -Uncomplicated Side effects of treatment? @ -No Exacerbation, Progression, or Severe Exacerbation? @ -No Poses a threat to life or bodily function? How? (Chest pain, USA, MA, pneumonia, PE, COPD, DKA, ARF, appy, cholecystitis, CVA, Diverticulitis, Homicidal, Suicidal, threat to staff... and all critical care pts) @ -No - Lab Data Result diagrams: 04/07/23 06:58 04/07/23 08:50 Lab Results 04/07/23 04/07/23 04/07/23 Range/Units 06:58 06:58 08:50 WBC 5.7 (3.8-10.6) k/uL RBC 3.87 L (4.30-5.90) m/uL Hgb 13.3 (13.0-17.5) gm/dL Hct 40.2 (39.0-53.0) % MCV 103.9 H (80.0-100.0) fL MCH 34.5 (25.0-35.0) pg MCHC 33.2 (31.0-37.0) g/dL RDW 16.3 H (11.5-15.5) % Plt Count 113 L (150-450) k/uL MPV 10.0 Neutrophils % 68 % Lymphocytes % 18 % Monocytes % 8 % Eosinophils % 4 % Basophils % 1 % Neutrophils # 3.9 (1.3-7.7) k/uL Lymphocytes # 1.0 (1.0-4.8) k/uL Monocytes # 0.5 (0-1.0) k/uL Eosinophils # 0.2 (0-0.7) k/uL Basophils # 0.0 (0-0.2) k/uL Hypochromasia Slight Anisocytosis Slight Macrocytosis Moderate PT 15.5 H (10.0-12.5) sec INR 1.5 H (<1.2) APTT 29.5 (22.0-30.0) sec Sodium (137-145) mmol/L Potassium (3.5-5.1) mmol/L Chloride (98-107) mmol/L Carbon Dioxide (22-30) mmol/L Anion Gap mmol/L BUN (9-20) mg/dL Creatinine (0.66-1.25) mg/dL Est GFR (CKD-EPI)AfAm (>60 ml/min/1.73 sqM) Est GFR (CKD-EPI)NonAf (>60 ml/min/1.73 sqM) Glucose (74-99) mg/dL Calcium (8.4-10.2) mg/dL Magnesium (1.6-2.3) mg/dL Total Bilirubin (0.2-1.3) mg/dL AST (17-59) U/L ALT (4-49) U/L Alkaline Phosphatase (38-126) U/L Ammonia 21 (<30) umol/L Total Protein (6.3-8.2) g/dL Albumin (3.5-5.0) g/dL Lipase (23-300) U/L Urine Color Urine Appearance (Clear) Urine pH (5.0-8.0) Ur Specific [place] (1.001-1.035) Urine Protein (Negative) Urine Glucose (UA) (Negative) Urine Ketones (Negative) Urine Blood (Negative) Urine Nitrite (Negative) Urine Bilirubin (Negative) Urine Urobilinogen (<2.0) mg/dL Ur Leukocyte Esterase (Negative) 04/07/23 04/07/23 Range/Units 08:50 09:02 WBC (3.8-10.6) k/uL RBC (4.30-5.90) m/uL Hgb (13.0-17.5) gm/dL Hct (39.0-53.0) % MCV (80.0-100.0) fL MCH (25.0-35.0) pg MCHC (31.0-37.0) g/dL RDW (11.5-15.5) % Plt Count (150-450) k/uL MPV Neutrophils % % Lymphocytes % % Monocytes % % Eosinophils % % Basophils % % Neutrophils # (1.3-7.7) k/uL Lymphocytes # (1.0-4.8) k/uL Monocytes # (0-1.0) k/uL Eosinophils # (0-0.7) k/uL Basophils # (0-0.2) k/uL Hypochromasia Anisocytosis Macrocytosis PT (10.0-12.5) sec INR (<1.2) APTT (22.0-30.0) sec Sodium 138 (137-145) mmol/L Potassium 4.1 (3.5-5.1) mmol/L Chloride 111 H (98-107) mmol/L Carbon Dioxide 22 (22-30) mmol/L Anion Gap 5 mmol/L BUN 11 (9-20) mg/dL Creatinine 0.54 L (0.66-1.25) mg/dL Est GFR (CKD-EPI)AfAm >90 (>60 ml/min/1.73 sqM) Est GFR (CKD-EPI)NonAf >90 (>60 ml/min/1.73 sqM) Glucose 93 (74-99) mg/dL Calcium 8.0 L (8.4-10.2) mg/dL Magnesium 1.8 (1.6-2.3) mg/dL Total Bilirubin 4.5 H (0.2-1.3) mg/dL AST 48 (17-59) U/L ALT 23 (4-49) U/L Alkaline Phosphatase 105 (38-126) U/L Ammonia (<30) umol/L Total Protein 4.9 L (6.3-8.2) g/dL Albumin 2.1 L (3.5-5.0) g/dL Lipase 255 (23-300) U/L Urine Color [place] Urine Appearance Clear (Clear) Urine pH 6.0 (5.0-8.0) Ur Specific [place] 1.021 (1.001-1.035) Urine Protein Trace H (Negative) Urine Glucose (UA) Negative (Negative) Urine Ketones Negative (Negative) Urine Blood Negative (Negative) Urine Nitrite Negative (Negative) Urine Bilirubin 1+ H (Negative) Urine Urobilinogen 8.0 (<2.0) mg/dL Ur Leukocyte Esterase Negative (Negative) Disposition Clinical Impression: Abdominal pain, Liver cirrhosis Disposition: HOME SELF-CARE Condition: Stable Instructions (If sedation given, give patient instructions): Abdominal Pain (ED) Additional Instructions: Please return to the Emergency Department if symptoms worsen or any other concerns. Is patient prescribed a controlled substance at d/c from ED?: No Referrals: Angeline Nelson MD [Primary Care Provider] - 1-2 days Time of Disposition: 10:54
[2023-04-07 07:14] LABS: Anisocytosis Slight; Basophils % (A) 1 %; Eosinophils # (A) 0.2 k/uL (0-0.7); Eosinophils % (A) 4 %; HCT 40.2 % (39.0-53.0); HGB 13.3 gm/dL (13.0-17.5); Hypochromasia Slight; Lymphocytes % (A) 18 %; MCH 34.5 pg (25.0-35.0); MCHC 33.2 g/dL (31.0-37.0); MCV 103.9 fL (80.0-100.0); Macrocytosis Moderate; Monocytes # (A) 0.5 k/uL (0-1.0); Monocytes % (A) 8 %; Neutrophils # (A) 3.9 k/uL (1.3-7.7); Neutrophils % (A) 68 %; Platelet Count 113 k/uL (150-450); RBC 3.87 m/uL (4.30-5.90); RDW 16.3 % (11.5-15.5); WBC 5.7 k/uL (3.8-10.6)
[2023-04-07 07:20] VITALS: TEMP 98.6
[2023-04-07 07:34] LABS: INR 1.5 (<1.2); Partial Thromboplastin Time 29.5 sec (22.0-30.0); Prothrombin Time 15.5 sec (10.0-12.5)
[2023-04-07 10:01] LABS: ALT 23 U/L (4-49); AST 48 U/L (17-59); African American GFR (CKD) >90 (>60 ml/min/1.73 sqM); Albumin 2.1 g/dL (3.5-5.0); Alkaline Phosphatase 105 U/L (38-126); Anion Gap 5 mmol/L; Blood Urea Nitrogen 11 mg/dL (9-20); Carbon Dioxide 22 mmol/L (22-30); Chloride 111 mmol/L (98-107); Glucose 93 mg/dL (74-99); Lipase 255 U/L (23-300); Magnesium 1.8 mg/dL (1.6-2.3); Non-African American GFR(CKD) >90 (>60 ml/min/1.73 sqM); Potassium 4.1 mmol/L (3.5-5.1); Sodium 138 mmol/L (137-145); Total Bilirubin 4.5 mg/dL (0.2-1.3); Total Protein 4.9 g/dL (6.3-8.2)
[2023-04-07 10:39] LABS: Appearance,Urine Clear (Clear); Bilirubin,Urine 1+ (Negative); Blood,Urine Negative (Negative); Color,Urine Orange; Glucose,Urine (UA) Negative (Negative); Ketones,Urine Negative (Negative); Leukocyte Esterase,Urine Negative (Negative); Nitrite,Urine Negative (Negative); Protein,Urine Trace (Negative); Specific Gravity,Urine 1.021 (1.001-1.035)
[2023-04-07 11:38] VITALS: BP 130/80; PULSE 80; RESP 16
== END 2023-04-07 11:33 | disposition home or self-care (01) ==
LOC: EC 06:35
DX: K74.60 Unspecified cirrhosis of liver (principal); I10 Essential (primary) hypertension; F90.9 Attention-deficit hyperactivity disorder, unspecified type; Z79.899 Other long term (current) drug therapy; Z88.6 Allergy status to analgesic agent; Z90.49 Acquired absence of other specified parts of digestive tract; Z87.891 Personal history of nicotine dependence
CPT/HCPCS: 36415; 80053; 81003; 82140; 83690; 83735; 85025; 85610; 85730; 96360; 99285

== ENCOUNTER 2023-05-30 03:13 | Observation (INO) | payer OTHER ==
--- NOTE | 2023-05-30 03:39 | ED ---
General Adult HPI <Campbell Montalvo - Last Filed: 05/30/23 03:40> - History of Present Illness Onset/Timin -: days(s) Consistency: constant Improves with: none Worsens with: none Associated Symptoms: confusion Treatments Prior to Arrival: none <David Choe - Last Filed: 05/30/23 08:30> - General Stated complaint: Liver failure Time Seen by Provider: 05/30/23 03:38 - History of Present Illness Initial comments: 42 year old male with a Past medical history significant for liver disease presenting to the ED with a chief complaint of confusion. Patient states has had intermittent confusion. Also notes some abdominal bloating and some abdominal pain. (Campbell Montalvo) This patient is 42-year-old man here to have evaluation with the complaint that he has not been acting like his usual self. The patient is concerned he may be developing elevated ammonia level again. He does give history of cirrhosis. He states that after Thanksgiving he had run out of his rifampin and lactulose for about a week. He states that he did get the medicine and took 1 dose of these medications yesterday but he notes that his sleep has been off. He has been confused. He feels like his legs are starting to swell. (David Choe) - Related Data Home Medications Medication Instructions Recorded Confirmed Gabapentin [Neurontin] 100 mg PO BID 05/28/22 03/18/23 Dextroamphetamine/Amphetamine 30 mg PO BID 01/27/23 03/18/23 [Adderall] Rifaximin [Xifaxan] 550 mg PO BID 02/06/23 03/18/23 Furosemide [Lasix] 40 mg PO DAILY 03/18/23 03/18/23 Previous Rx's Medication Instructions Recorded Sertraline [Zoloft] 50 mg PO DAILY #30 tab 01/31/23 traZODone HCL [Desyrel] 50 mg PO HS #30 tab 01/31/23 Lactulose [Cephulac] 30 gm PO TID 30 Days #900 ml 03/21/23 Allergies Allergy/AdvReac Type Severity Reaction Status Date / Time acetaminophen [From Tylenol] AdvReac LIVER Verified 05/30/23 03:40 ISSUES " Review of Systems ROS Other: All systems not noted in ROS Statement are negative. <Campbell Montalvo - Last Filed: 05/30/23 03:40> ROS Other: All systems not noted in ROS Statement are negative. Constitutional: Reports: weakness. Denies: fever, chills Eyes: Denies: vision change Respiratory: Denies: cough, dyspnea Cardiovascular: Denies: chest pain, palpitations, edema Gastrointestinal: Reports: abdominal pain. Denies: nausea, vomiting, diarrhea Genitourinary: Denies: dysuria, hematuria Musculoskeletal: Denies: back pain Skin: Denies: rash Neurological: Reports: confusion. Denies: headache, weakness, numbness <David Choe - Last Filed: 05/30/23 08:30> ROS Statement: Those systems with pertinent positive or pertinent negative responses have been documented in the HPI. 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 Patient does not have any sisters. Patient has 1 son that is 10 years old with diabetes mellitus type 1. <Campbell Montalvo - Last Filed: 05/30/23 03:40> General Exam General appearance: alert Eye exam: Present: normal appearance Neck exam: Present: normal inspection Extremities exam: Present: normal inspection Back exam: Present: normal inspection <Campbell Montalvo - Last Filed: 05/30/23 03:40> General appearance: alert, in no apparent distress Head exam: Present: atraumatic, normocephalic Eye exam: Present: normal appearance, PERRL, EOMI. Absent: scleral icterus, conjunctival injection, nystagmus ENT exam: Present: normal oropharynx Neck exam: Present: normal inspection Respiratory exam: Present: normal lung sounds bilaterally. Absent: respiratory distress, wheezes, rales, rhonchi, stridor Cardiovascular Exam: Present: regular rate, normal rhythm, normal heart sounds. Absent: systolic murmur, diastolic murmur, rubs, gallop GI/Abdominal exam: Present: soft. Absent: distended, tenderness, guarding, rebound, rigid, mass Extremities exam: Present: normal inspection, normal capillary refill, pedal edema (Trace edema at the ankles bilaterally). Absent: calf tenderness Back exam: Present: normal inspection Neurological exam: Present: alert Skin exam: Present: warm, dry, intact, normal color. Absent: rash <David Choe - Last Filed: 05/30/23 08:30> Course Vital Signs 05/30/23 05/30/23 03:35 05:57 Temperature 98 F Pulse Rate 86 75 Respiratory 18 16 Rate Blood Pressure 149/64 135/63 O2 Sat by Pulse 96 98 Oximetry Medical Decision Making <Campbell Montalvo - Last Filed: 05/30/23 03:40> - Lab Data Result diagrams: 05/30/23 03:53 05/30/23 03:53 <David Choe - Last Filed: 05/30/23 08:30> - Medical Decision Making Quicknote portion performed. Signed Campbell Montalvo PA-C (Campbell Montalvo) - Lab Data Lab Results 05/30/23 05/30/23 05/30/23 Range/Units 03:51 03:53 03:53 WBC 5.0 (3.8-10.6) k/uL RBC 3.47 L (4.30-5.90) m/uL Hgb 11.4 L (13.0-17.5) gm/dL Hct 34.5 L (39.0-53.0) % MCV 99.5 (80.0-100.0) fL MCH 32.8 (25.0-35.0) pg MCHC 33.0 (31.0-37.0) g/dL RDW 15.9 H (11.5-15.5) % Plt Count 78 L (150-450) k/uL MPV 11.0 Neutrophils % 53 % Lymphocytes % 30 % Monocytes % 11 % Eosinophils % 3 % Basophils % 1 % Neutrophils # 2.6 (1.3-7.7) k/uL Lymphocytes # 1.5 (1.0-4.8) k/uL Monocytes # 0.5 (0-1.0) k/uL Eosinophils # 0.1 (0-0.7) k/uL Basophils # 0.0 (0-0.2) k/uL Macrocytosis Slight PT 16.5 H (10.0-12.5) sec INR 1.6 H (<1.2) APTT 30.0 (22.0-30.0) sec Sodium (137-145) mmol/L Potassium (3.5-5.1) mmol/L Chloride (98-107) mmol/L Carbon Dioxide (22-30) mmol/L Anion Gap mmol/L BUN (9-20) mg/dL Creatinine (0.66-1.25) mg/dL Est GFR (CKD-EPI)AfAm (>60 ml/min/1.73 sqM) Est GFR (CKD-EPI)NonAf (>60 ml/min/1.73 sqM) Glucose (74-99) mg/dL POC Glucose (mg/dL) 103 (70-110) mg/dL POC Glu Flat Sheet Maker ID Marielle Jimenes Calcium (8.4-10.2) mg/dL Total Bilirubin (0.2-1.3) mg/dL AST (17-59) U/L ALT (4-49) U/L Alkaline Phosphatase (38-126) U/L Ammonia (<30) umol/L Troponin I (0.000-0.034) ng/mL Total Protein (6.3-8.2) g/dL Albumin (3.5-5.0) g/dL Amylase (30-110) U/L Lipase (23-300) U/L Urine Color Urine Appearance (Clear) Urine pH (5.0-8.0) Ur Specific [place] (1.001-1.035) Urine Protein (Negative) Urine Glucose (UA) (Negative) Urine Ketones (Negative) Urine Blood (Negative) Urine Nitrite (Negative) Urine Bilirubin (Negative) Urine Urobilinogen (<2.0) mg/dL Ur Leukocyte Esterase (Negative) Serum Alcohol mg/dL 05/30/23 05/30/23 05/30/23 Range/Units 03:53 03:53 03:53 WBC (3.8-10.6) k/uL RBC (4.30-5.90) m/uL Hgb (13.0-17.5) gm/dL Hct (39.0-53.0) % MCV (80.0-100.0) fL MCH (25.0-35.0) pg MCHC (31.0-37.0) g/dL RDW (11.5-15.5) % Plt Count (150-450) k/uL MPV Neutrophils % % Lymphocytes % % Monocytes % % Eosinophils % % Basophils % % Neutrophils # (1.3-7.7) k/uL Lymphocytes # (1.0-4.8) k/uL Monocytes # (0-1.0) k/uL Eosinophils # (0-0.7) k/uL Basophils # (0-0.2) k/uL Macrocytosis PT (10.0-12.5) sec INR (<1.2) APTT (22.0-30.0) sec Sodium 137 (137-145) mmol/L Potassium 3.6 (3.5-5.1) mmol/L Chloride 106 (98-107) mmol/L Carbon Dioxide 23 (22-30) mmol/L Anion Gap 8 mmol/L BUN 9 (9-20) mg/dL Creatinine 0.62 L (0.66-1.25) mg/dL Est GFR (CKD-EPI)AfAm >90 (>60 ml/min/1.73 sqM) Est GFR (CKD-EPI)NonAf >90 (>60 ml/min/1.73 sqM) Glucose 95 (74-99) mg/dL POC Glucose (mg/dL) (70-110) mg/dL POC Glu Flat Sheet Maker ID Calcium 8.4 (8.4-10.2) mg/dL Total Bilirubin 4.7 H (0.2-1.3) mg/dL AST 76 H (17-59) U/L ALT 26 (4-49) U/L Alkaline Phosphatase 93 (38-126) U/L Ammonia 81 H (<30) umol/L Troponin I (0.000-0.034) ng/mL Total Protein 6.1 L (6.3-8.2) g/dL Albumin 3.0 L (3.5-5.0) g/dL Amylase 43 (30-110) U/L Lipase 240 (23-300) U/L Urine Color [place] Urine Appearance Clear (Clear) Urine pH 6.5 (5.0-8.0) Ur Specific [place] 1.010 (1.001-1.035) Urine Protein Negative (Negative) Urine Glucose (UA) Negative (Negative) Urine Ketones Negative (Negative) Urine Blood Negative (Negative) Urine Nitrite Negative (Negative) Urine Bilirubin Negative (Negative) Urine Urobilinogen 4.0 (<2.0) mg/dL Ur Leukocyte Esterase Negative (Negative) Serum Alcohol <10 mg/dL 05/30/23 Range/Units 03:53 WBC (3.8-10.6) k/uL RBC (4.30-5.90) m/uL Hgb (13.0-17.5) gm/dL Hct (39.0-53.0) % MCV (80.0-100.0) fL MCH (25.0-35.0) pg MCHC (31.0-37.0) g/dL RDW (11.5-15.5) % Plt Count (150-450) k/uL MPV Neutrophils % % Lymphocytes % % Monocytes % % Eosinophils % % Basophils % % Neutrophils # (1.3-7.7) k/uL Lymphocytes # (1.0-4.8) k/uL Monocytes # (0-1.0) k/uL Eosinophils # (0-0.7) k/uL Basophils # (0-0.2) k/uL Macrocytosis PT (10.0-12.5) sec INR (<1.2) APTT (22.0-30.0) sec Sodium (137-145) mmol/L Potassium (3.5-5.1) mmol/L Chloride (98-107) mmol/L Carbon Dioxide (22-30) mmol/L Anion Gap mmol/L BUN (9-20) mg/dL Creatinine (0.66-1.25) mg/dL Est GFR (CKD-EPI)AfAm (>60 ml/min/1.73 sqM) Est GFR (CKD-EPI)NonAf (>60 ml/min/1.73 sqM) Glucose (74-99) mg/dL POC Glucose (mg/dL) (70-110) mg/dL POC Glu Flat Sheet Maker ID Calcium (8.4-10.2) mg/dL Total Bilirubin (0.2-1.3) mg/dL AST (17-59) U/L ALT (4-49) U/L Alkaline Phosphatase (38-126) U/L Ammonia (<30) umol/L Troponin I 0.015 (0.000-0.034) ng/mL Total Protein (6.3-8.2) g/dL Albumin (3.5-5.0) g/dL Amylase (30-110) U/L Lipase (23-300) U/L Urine Color Urine Appearance (Clear) Urine pH (5.0-8.0) Ur Specific [place] (1.001-1.035) Urine Protein (Negative) Urine Glucose (UA) (Negative) Urine Ketones (Negative) Urine Blood (Negative) Urine Nitrite (Negative) Urine Bilirubin (Negative) Urine Urobilinogen (<2.0) mg/dL Ur Leukocyte Esterase (Negative) Serum Alcohol mg/dL Disposition <Campbell Montalvo - Last Filed: 05/30/23 03:40> <David Choe - Last Filed: 05/30/23 08:30> Referrals: Angeline Nelson MD [Primary Care Provider] - 1-2 days
[2023-05-30 03:53] LABS: Glucose,Whole Blood 103 mg/dL (70-110)
[2023-05-30 04:03] LABS: Basophils % (A) 1 %; Eosinophils # (A) 0.1 k/uL (0-0.7); Eosinophils % (A) 3 %; HCT 34.5 % (39.0-53.0); HGB 11.4 gm/dL (13.0-17.5); Lymphocytes # (A) 1.5 k/uL (1.0-4.8); Lymphocytes % (A) 30 %; MCH 32.8 pg (25.0-35.0); MCV 99.5 fL (80.0-100.0); Macrocytosis Slight; Monocytes # (A) 0.5 k/uL (0-1.0); Monocytes % (A) 11 %; Neutrophils # (A) 2.6 k/uL (1.3-7.7); Neutrophils % (A) 53 %; RBC 3.47 m/uL (4.30-5.90); RDW 15.9 % (11.5-15.5)
[2023-05-30 04:07] LABS: Platelet Count 78 k/uL (150-450)
[2023-05-30 04:08] LABS: Appearance,Urine Clear (Clear); Bilirubin,Urine Negative (Negative); Blood,Urine Negative (Negative); Color,Urine Yellow; Glucose,Urine (UA) Negative (Negative); Ketones,Urine Negative (Negative); Leukocyte Esterase,Urine Negative (Negative); Nitrite,Urine Negative (Negative); PH, Urine 6.5 (5.0-8.0); Protein,Urine Negative (Negative)
[2023-05-30 04:14] LABS: INR 1.6 (<1.2); Prothrombin Time 16.5 sec (10.0-12.5)
[2023-05-30 04:25] LABS: ALT 26 U/L (4-49); AST 76 U/L (17-59); African American GFR (CKD) >90 (>60 ml/min/1.73 sqM); Alcohol <10 mg/dL; Alkaline Phosphatase 93 U/L (38-126); Amylase 43 U/L (30-110); Anion Gap 8 mmol/L; Blood Urea Nitrogen 9 mg/dL (9-20); Calcium 8.4 mg/dL (8.4-10.2); Carbon Dioxide 23 mmol/L (22-30); Chloride 106 mmol/L (98-107); Glucose 95 mg/dL (74-99); Lipase 240 U/L (23-300); Non-African American GFR(CKD) >90 (>60 ml/min/1.73 sqM); Potassium 3.6 mmol/L (3.5-5.1); Sodium 137 mmol/L (137-145); Total Bilirubin 4.7 mg/dL (0.2-1.3); Total Protein 6.1 g/dL (6.3-8.2)
[2023-05-30] MEDS ORDERED: LORazepam 2 MG/ML INJ IV STA (06:01)
[2023-05-30] MEDS ORDERED: LACTULOSE 20 GM/30 ML CUP PO ONE (06:01)
[2023-05-30] MEDS ORDERED: NALOXONE 0.4 MG/ML 1 ML VIAL IV PRN (07:54)
[2023-05-30] MEDS: LACTULOSE 20 GM/30 ML CUP PO SCH ×3 (08:44→20:33)
[2023-05-30] MEDS: GABAPENTIN 100 MG CAP PO SCH ×2 (08:44→20:33)
[2023-05-30] MEDS: FUROSEMIDE 40 MG TAB PO SCH (08:44)
[2023-05-30] MEDS: RIFAXIMIN 550 MG TABLET PO SCH ×2 (09:58→21:49)
[2023-05-30] MEDS ORDERED: POTASSIUM CHLORIDE ER 20 MEQ TAB.ER PO STA (12:40)
--- NOTE | 2023-05-30 12:56 | P.HPIM ---
History of Present Illness Patient came in with comments of confusion found to have hepatic encephalopathy with elevated ammonia level of 81. Patient is alert oriented 3 at this time patient doesn't have any asterixis or any other symptoms of encephalopathy at this time. Patient does take lactulose and did have bowel movements patient did admit does not have any significant appreciable ascites or pedal edema patient did take 40 mg of Lasix and the 50 mg of the spironolactone with the serum potassium of for 3.6 normal sodium and normal creatinine. Patient does take rifaximin as well as home. REVIEW OF SYSTEMS: CONSTITUTIONAL: No fever, no malaise, no fatigue. HEENT: No recent visual problems or hearing problems. Denied any sore throat. CARDIOVASCULAR: No chest pain, orthopnea, PND, no palpitations, no syncope. PULMONARY: No shortness of breath, no cough, no hemoptysis. GASTROINTESTINAL: No diarrhea, no nausea, no vomiting, no abdominal pain. NEUROLOGICAL: No headaches, no weakness, no numbness. HEMATOLOGICAL: Denies any bleeding or petechiae. GENITOURINARY: Denies any burning micturition, frequency, or urgency. MUSCULOSKELETAL/RHEUMATOLOGICAL: Denies any joint pain, swelling, or any muscle pain. ENDOCRINE: Denies any polyuria or polydipsia. The rest of the 14-point review of systems is negative. PHYSICAL EXAMINATION: GENERAL: The patient is alert and oriented x3, not in any acute distress. Well developed, well nourished. HEENT: Pupils are round and equally reacting to light. EOMI. No scleral icterus. No conjunctival pallor. Normocephalic, atraumatic. No pharyngeal erythema. No thyromegaly. CARDIOVASCULAR: S1 and S2 present. No murmurs, rubs, or gallops. PULMONARY: Chest is clear to auscultation, no wheezing or crackles. ABDOMEN: Soft, nontender, nondistended, normoactive bowel sounds. No palpable organomegaly. MUSCULOSKELETAL: No joint swelling or deformity. EXTREMITIES: No cyanosis, clubbing, or pedal edema. NEUROLOGICAL: Gross neurological examination did not reveal any focal deficits. SKIN: No rashes. Assessment and plan -Hepatic encephalopathy encephalopathy resolved clinically we will repeat ammonia level is that the is below 40 patient will be discharged in counseling regarding compliance with the lactulose and rifaximin was provided and patient need to take lactulose and titrated to at least 3-4 loose bowel movements a day. -Alcoholic cirrhosis patient will continue his Lasix at present dose Aldactone will be increased to 100 mg and repeat basic metabolic profile will replace potassium here. 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 Patient does not have any sisters. Patient has 1 son that is 10 years old with diabetes mellitus type 1. Medications and Allergies Home Medications Medication Instructions Recorded Confirmed Type Gabapentin [Neurontin] 100 mg PO BID 05/28/22 05/30/23 History Dextroamphetamine/Amphetamine 30 mg PO BID 01/27/23 05/30/23 History [Adderall] Sertraline [Zoloft] 50 mg PO DAILY #30 tab 01/31/23 05/30/23 Rx traZODone HCL [Desyrel] 50 mg PO HS #30 tab 01/31/23 05/30/23 Rx Rifaximin [Xifaxan] 550 mg PO BID 02/06/23 05/30/23 History Furosemide [Lasix] 40 mg PO DAILY 03/18/23 05/30/23 History Lactulose [Cephulac] 30 gm PO TID 30 Days #900 ml 03/21/23 05/30/23 Rx Spironolactone [Aldactone] 100 mg PO DAILY #0 05/30/23 05/30/23 Rx Allergies Allergy/AdvReac Type Severity Reaction Status Date / Time acetaminophen [From Tylenol] AdvReac LIVER Verified 05/30/23 08:40 ISSUES " Physical Exam Vitals: Vital Signs Temp Pulse Resp BP Pulse Ox 05/30/23 08:46 98 F 72 16 117/77 98 05/30/23 05:57 75 16 135/63 98 05/30/23 03:35 98 F 86 18 149/64 96 Intake and Output 05/29/23 05/30/23 05/30/23 22:59 06:59 14:59 Output Total 1200 Balance -1200 Output: Urine 1200 Other: Weight 113.398 kg Results CBC & Chem 7: 05/30/23 03:53 05/30/23 03:53 Labs: Abnormal Lab Results - Last 24 Hours (Table) 05/30/23 05/30/23 05/30/23 Range/Units 03:53 03:53 03:53 RBC 3.47 L (4.30-5.90) m/uL Hgb 11.4 L (13.0-17.5) gm/dL Hct 34.5 L (39.0-53.0) % RDW 15.9 H (11.5-15.5) % Plt Count 78 L (150-450) k/uL PT 16.5 H (10.0-12.5) sec INR 1.6 H (<1.2) Creatinine 0.62 L (0.66-1.25) mg/dL Total Bilirubin 4.7 H (0.2-1.3) mg/dL AST 76 H (17-59) U/L Ammonia (<30) umol/L Total Protein 6.1 L (6.3-8.2) g/dL Albumin 3.0 L (3.5-5.0) g/dL 05/30/23 Range/Units 03:53 RBC (4.30-5.90) m/uL Hgb (13.0-17.5) gm/dL Hct (39.0-53.0) % RDW (11.5-15.5) % Plt Count (150-450) k/uL PT (10.0-12.5) sec INR (<1.2) Creatinine (0.66-1.25) mg/dL Total Bilirubin (0.2-1.3) mg/dL AST (17-59) U/L Ammonia 81 H (<30) umol/L Total Protein (6.3-8.2) g/dL Albumin (3.5-5.0) g/dL
--- NOTE | 2023-05-30 12:56 | P.DS ---
Providers Date of admission: 05/30/23 07:56 Attending physician: Yelitza Baez MD Primary care physician: [facility] Course: Patient came in with comments of confusion found to have hepatic encephalopathy with elevated ammonia level of 81. Patient is alert oriented 3 at this time patient doesn't have any asterixis or any other symptoms of encephalopathy at this time. Patient does take lactulose and did have bowel movements patient did admit does not have any significant appreciable ascites or pedal edema patient did take 40 mg of Lasix and the 50 mg of the spironolactone with the serum potassium of for 3.6 normal sodium and normal creatinine. Patient does take rifaximin as well as home. REVIEW OF SYSTEMS: CONSTITUTIONAL: No fever, no malaise, no fatigue. HEENT: No recent visual problems or hearing problems. Denied any sore throat. CARDIOVASCULAR: No chest pain, orthopnea, PND, no palpitations, no syncope. PULMONARY: No shortness of breath, no cough, no hemoptysis. GASTROINTESTINAL: No diarrhea, no nausea, no vomiting, no abdominal pain. NEUROLOGICAL: No headaches, no weakness, no numbness. HEMATOLOGICAL: Denies any bleeding or petechiae. GENITOURINARY: Denies any burning micturition, frequency, or urgency. MUSCULOSKELETAL/RHEUMATOLOGICAL: Denies any joint pain, swelling, or any muscle pain. ENDOCRINE: Denies any polyuria or polydipsia. The rest of the 14-point review of systems is negative. PHYSICAL EXAMINATION: GENERAL: The patient is alert and oriented x3, not in any acute distress. Well developed, well nourished. HEENT: Pupils are round and equally reacting to light. EOMI. No scleral icterus. No conjunctival pallor. Normocephalic, atraumatic. No pharyngeal erythema. No thyromegaly. CARDIOVASCULAR: S1 and S2 present. No murmurs, rubs, or gallops. PULMONARY: Chest is clear to auscultation, no wheezing or crackles. ABDOMEN: Soft, nontender, nondistended, normoactive bowel sounds. No palpable organomegaly. MUSCULOSKELETAL: No joint swelling or deformity. EXTREMITIES: No cyanosis, clubbing, or pedal edema. NEUROLOGICAL: Gross neurological examination did not reveal any focal deficits. SKIN: No rashes. Assessment and plan -Hepatic encephalopathy encephalopathy resolved clinically we will repeat ammonia level is that the is below 40 patient will be discharged in counseling regarding compliance with the lactulose and rifaximin was provided and patient need to take lactulose and titrated to at least 3-4 loose bowel movements a day. -Alcoholic cirrhosis patient will continue his Lasix at present dose Aldactone will be increased to 100 mg and repeat basic metabolic profile will replace potassium here. -Hypokalemia secondary to diuretics -Peripheral neuropathy -ADD -Coagulopathy: Secondary to cirrhosis and INR is 1.6 Patient is clinically doing well will be discharged if ammonia level is below 40 Plan - Discharge Summary New Discharge Prescriptions: Continue traZODone HCL [Desyrel] 50 mg PO HS #30 tab Sertraline [Zoloft] 50 mg PO DAILY #30 tab Gabapentin [Neurontin] 100 mg PO BID Dextroamphetamine/Amphetamine [Adderall] 30 mg PO BID Rifaximin [Xifaxan] 550 mg PO BID Furosemide [Lasix] 40 mg PO DAILY Lactulose [Cephulac] 30 gm PO TID 30 Days #900 ml Changed Spironolactone [Aldactone] 100 mg PO DAILY #0 Discharge Medication List Gabapentin [Neurontin] 100 mg PO BID 05/28/22 [History] Dextroamphetamine/Amphetamine [Adderall] 30 mg PO BID 01/27/23 [History] Sertraline [Zoloft] 50 mg PO DAILY #30 tab 01/31/23 [Rx] traZODone HCL [Desyrel] 50 mg PO HS #30 tab 01/31/23 [Rx] Rifaximin [Xifaxan] 550 mg PO BID 02/06/23 [History] Furosemide [Lasix] 40 mg PO DAILY 03/18/23 [History] Lactulose [Cephulac] 30 gm PO TID 30 Days #900 ml 03/21/23 [Rx] Spironolactone [Aldactone] 100 mg PO DAILY #0 05/30/23 [Rx] Follow up Appointment(s)/Referral(s): Angeline Nelson MD [Primary Care Provider] - 3 Days Ambulatory/Diagnostic Orders: Basic Metabolic Panel [LAB.AMB] Time Frame: 3 Days, Location: None Selected Discharge Disposition: HOME SELF-CARE
[2023-05-30] MEDS: SPIRONOLACTONE 25 MG TAB PO SCH (13:14)
[2023-05-30] MEDS: SERTRALINE 50 MG TAB PO SCH (13:14)
[2023-05-30] MEDS ORDERED: LORazepam 2 MG/ML INJ IV PRN (21:11)
[2023-05-30] MEDS ORDERED: traMADol 50 MG TAB PO PRN (21:32)
[2023-05-30] MEDS ORDERED: traMADol 50 MG TAB PO SCH (22:00)
[2023-05-31] MEDS: LACTULOSE 20 GM/30 ML CUP PO SCH (08:50)
[2023-05-31] MEDS: GABAPENTIN 100 MG CAP PO SCH (08:51)
[2023-05-31] MEDS: RIFAXIMIN 550 MG TABLET PO SCH (08:51)
[2023-05-31] MEDS: SPIRONOLACTONE 25 MG TAB PO SCH (08:51)
[2023-05-31] MEDS: SERTRALINE 50 MG TAB PO SCH (08:51)
[2023-05-31] MEDS: FUROSEMIDE 40 MG TAB PO SCH (08:51)
[2023-05-31 09:52] VITALS: BP 115/57; PULSE 61; RESP 18; TEMP 97.7
[2023-05-31 12:21] LABS: ALT 24 U/L (4-49); AST 67 U/L (17-59); African American GFR (CKD) >90 (>60 ml/min/1.73 sqM); Albumin 2.7 g/dL (3.5-5.0); Albumin/Globulin Ratio 0.9; Alkaline Phosphatase 106 U/L (38-126); Anion Gap 8 mmol/L; Blood Urea Nitrogen 6 mg/dL (9-20); Calcium 8.1 mg/dL (8.4-10.2); Carbon Dioxide 23 mmol/L (22-30); Chloride 109 mmol/L (98-107); Glucose 96 mg/dL (74-99); Non-African American GFR(CKD) >90 (>60 ml/min/1.73 sqM); Sodium 140 mmol/L (137-145); Total Bilirubin 4.8 mg/dL (0.2-1.3); Total Protein 5.7 g/dL (6.3-8.2)
--- NOTE | 2023-06-04 09:55 | P.DS ---
Providers Date of admission: 05/30/23 07:56 Expected date of discharge: 05/31/23 Attending physician: Yelitza Baez MD Primary care physician: Angeline Nelson Hospital Course: Final diagnosis -Hepatic encephalopathy, encephalopathy resolved clinically -Hyperammonemia, improving and will continue on lactulose to have 2-3 bowel movements daily -Alcoholic cirrhosis -Hypokalemia secondary to diuretics, improved -Peripheral neuropathy -ADD -Coagulopathy: Secondary to cirrhosis and INR is 1.6 -Obesity with a BMI of 32.1 GI prophylaxis DVT prophylaxis Full code Discharge disposition Patient is being discharged in stable condition with guarded prognosis and high risk for readmissions secondary to noncompliance. Patient will follow-up with primary care provider on discharge. Patient to continue on lactulose along with Aldactone and Lasix as prescribed. Total time taken greater than 35 minutes. Hospital course Patient came in with comments of confusion found to have hepatic encephalopathy with elevated ammonia level of 81. Patient is alert oriented 3 at this time patient doesn't have any asterixis or any other symptoms of encephalopathy at this time. Patient does take lactulose and did have bowel movements patient did admit does not have any significant appreciable ascites or pedal edema patient did take 40 mg of Lasix and the 50 mg of the spironolactone with the serum potassium of for 3.6 normal sodium and normal creatinine. Patient does take rifaximin as well as home. 05/31/2023 Patient is seen in follow-up today and was held from discharge last night as ammonia level was above 50. Patient continued on lactulose having multiple bowel movements and reports to having at least 3 bowel movements overnight. Patient will continue on lactulose as well as other medications prescribed and instructed to follow-up with primary care provider. Patient reports to feeling well and would like to go home. Prescriptions were provided to the pharmacy. PHYSICAL EXAMINATION: GENERAL: The patient is alert and oriented x3, not in any acute distress. Well developed, well nourished. HEENT: Pupils are round and equally reacting to light. EOMI. No scleral icterus. No conjunctival pallor. Normocephalic, atraumatic. No pharyngeal erythema. No thyromegaly. CARDIOVASCULAR: S1 and S2 present. No murmurs, rubs, or gallops. PULMONARY: Chest is clear to auscultation, no wheezing or crackles. ABDOMEN: Soft, nontender, nondistended, normoactive bowel sounds. No palpable organomegaly. MUSCULOSKELETAL: No joint swelling or deformity. EXTREMITIES: No cyanosis, clubbing, or pedal edema. NEUROLOGICAL: Gross neurological examination did not reveal any focal deficits. SKIN: No rashes. The impression and plan of care has been dictated by Sharon Moura, Nurse Practitioner as directed. Dr. Juana MD I have performed a history and examination and MDM of this patient, discussed the same with the dictator, and agree with the dictator's assessment and plan as written ,documented as a scribe. Based on total visit time, I have performed more than 50% of the visit. Patient Condition at Discharge: Stable Plan - Discharge Summary Discharge Rx Participant: No New Discharge Prescriptions: New Spironolactone [Aldactone] 50 mg PO DAILY 30 Days #60 tab Continue traZODone HCL [Desyrel] 50 mg PO HS #30 tab Sertraline [Zoloft] 50 mg PO DAILY #30 tab Gabapentin [Neurontin] 100 mg PO BID Dextroamphetamine/Amphetamine [Adderall] 30 mg PO BID Rifaximin [Xifaxan] 550 mg PO BID Furosemide [Lasix] 40 mg PO DAILY Lactulose [Cephulac] 30 gm PO TID 30 Days #900 ml Discontinued Spironolactone [Aldactone] 50 mg PO DAILY Discharge Medication List Gabapentin [Neurontin] 100 mg PO BID 05/28/22 [History] Dextroamphetamine/Amphetamine [Adderall] 30 mg PO BID 01/27/23 [History] Sertraline [Zoloft] 50 mg PO DAILY #30 tab 01/31/23 [Rx] traZODone HCL [Desyrel] 50 mg PO HS #30 tab 01/31/23 [Rx] Rifaximin [Xifaxan] 550 mg PO BID 02/06/23 [History] Furosemide [Lasix] 40 mg PO DAILY 03/18/23 [History] Lactulose [Cephulac] 30 gm PO TID 30 Days #900 ml 03/21/23 [Rx] Spironolactone [Aldactone] 50 mg PO DAILY 30 Days #60 tab 05/31/23 [Rx] Follow up Appointment(s)/Referral(s): Angeline Nelson MD [Primary Care Provider] - 06/06/23 5:00 pm Ambulatory/Diagnostic Orders: Basic Metabolic Panel [LAB.AMB] Time Frame: 3 Days, Location: None Selected Patient Instructions/Handouts: Hepatic Encephalopathy (DC) Discharge Disposition: HOME SELF-CARE
== END 2023-05-31 13:19 | disposition home or self-care (01) ==
LOC: EC 03:13 → 5NMEDONC 07:56
PROVIDERS: ADMIT Internal Medicine; ATTEND Internal Medicine
DX: K76.82 Hepatic encephalopathy (principal); K70.30 Alcoholic cirrhosis of liver without ascites; D68.4 Acquired coagulation factor deficiency; E87.6 Hypokalemia; G62.9 Polyneuropathy, unspecified; I10 Essential (primary) hypertension; F31.9 Bipolar disorder, unspecified; F90.9 Attention-deficit hyperactivity disorder, unspecified type; Z87.891 Personal history of nicotine dependence; Z79.899 Other long term (current) drug therapy; Z88.6 Allergy status to analgesic agent
CPT/HCPCS: 96376; 96374; 99285; 36415; 93005; 80053 ×2; 82140 ×2; 82150; 83690; 84484; 85025; 85610; 85730; 81003; G0378 ×2; G0480; J2060; 80320

== ENCOUNTER 2023-08-28 18:56 | Emergency (ER) | payer OTHER ==
[2023-08-28 19:09] VITALS: RESP 18; TEMP 97.1
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
[2023-08-28 20:15] LABS: ALT 37 U/L (4-49); AST 157 U/L (17-59); African American GFR (CKD) >90 (>60 ml/min/1.73 sqM); Albumin 2.8 g/dL (3.5-5.0); Alkaline Phosphatase 79 U/L (38-126); Anion Gap 5 mmol/L; Bilirubin, Conjugated 0.2 mg/dL (0.0-0.3); Bilirubin, Delta 1.4 mg/dL (0.0-0.2); Bilirubin,Unconjugated 2.8 mg/dL (0.0-1.1); Blood Urea Nitrogen 9 mg/dL (9-20); Calcium 8.2 mg/dL (8.4-10.2); Carbon Dioxide 23 mmol/L (22-30); Chloride 111 mmol/L (98-107); Glucose 87 mg/dL (74-99); Lipase 139 U/L (23-300); Non-African American GFR(CKD) >90 (>60 ml/min/1.73 sqM); Potassium 3.5 mmol/L (3.5-5.1); Sodium 139 mmol/L (137-145); Total Bilirubin 4.4 mg/dL (0.2-1.3); Total Protein 5.5 g/dL (6.3-8.2)
[2023-08-28 20:19] LABS: Anisocytosis Slight; Basophils % (A) 1 %; Eosinophils # (A) 0.1 k/uL (0-0.7); Eosinophils % (A) 2 %; HCT 31.7 % (39.0-53.0); HGB 10.5 gm/dL (13.0-17.5); Lymphocytes # (A) 0.9 k/uL (1.0-4.8); Lymphocytes % (A) 26 %; MCH 31.6 pg (25.0-35.0); MCHC 33.1 g/dL (31.0-37.0); MCV 95.6 fL (80.0-100.0); Mean Platelet Volume 10.1; Monocytes # (A) 0.5 k/uL (0-1.0); Monocytes % (A) 13 %; Neutrophils # (A) 1.9 k/uL (1.3-7.7); Neutrophils % (A) 54 %; RBC 3.32 m/uL (4.30-5.90); RDW 16.7 % (11.5-15.5); WBC 3.6 k/uL (3.8-10.6)
[2023-08-28 21:43] LABS: Appearance,Urine Clear (Clear); Bilirubin,Urine 1+ (Negative); Blood,Urine Negative (Negative); Color,Urine Yellow; Glucose,Urine (UA) Negative (Negative); Ketones,Urine Negative (Negative); Leukocyte Esterase,Urine Negative (Negative); Nitrite,Urine Negative (Negative); Protein,Urine Negative (Negative); Specific Gravity,Urine 1.021 (1.001-1.035); Urobilinogen,Urine >12.0 mg/dL (<2.0)
[2023-08-28 21:57] LABS: Ovalocytes Present; Platelet Count 72 k/uL (150-450); Target Cells Present
[2023-08-28 22:26] VITALS: BP 120/61; PULSE 87
== END 2023-08-28 22:28 | disposition home or self-care (01) ==
LOC: EC 18:56
DX: K74.60 Unspecified cirrhosis of liver (principal); I10 Essential (primary) hypertension; F90.9 Attention-deficit hyperactivity disorder, unspecified type; F41.9 Anxiety disorder, unspecified; F31.9 Bipolar disorder, unspecified; Z79.899 Other long term (current) drug therapy; Z87.891 Personal history of nicotine dependence; Z88.6 Allergy status to analgesic agent; Z20.822 Contact with and (suspected) exposure to COVID-19
CPT/HCPCS: 36415; 80053; 81003; 82248; 83690; 85025; 87636; 99284

== ENCOUNTER 2023-09-04 12:15 | Emergency (ER) | payer OTHER ==
[2023-09-04 12:52] VITALS: RESP 18
--- NOTE | 2023-09-04 13:17 | ED ---
General Adult HPI - General Chief complaint: Wound/Laceration Stated complaint: Laceration head injury/ on thinners Time Seen by Provider: 09/04/23 12:34 Source: patient Mode of arrival: ambulatory Limitations: no limitations - History of Present Illness Initial comments: Dictation was produced using [employer] dictation software. please excuse any grammatical, word or spelling errors. Chief Complaint: 43-year-old male with past medical history of liver failure presents to the emergency department with scalp laceration History of Present Illness: Patient 43-year-old male who presents to the emergency department scalp laceration. Patient arrives to the emergency department with his fiance. Patient states that he was swinging his belt when accidentally hit the top of his head causing a laceration. Patient does not remember when his last tetanus shot was. Denies any loss of consciousness. Patient does not take any anticoagulation medications. The ROS documented in this emergency department record has been reviewed and confirmed by me. Those systems with pertinent positive or negative responses have been documented in the HPI. All other systems are other negative and/or noncontributory. - Related Data Home Medications Medication Instructions Recorded Confirmed Gabapentin [Neurontin] 100 mg PO BID 05/28/22 05/30/23 Dextroamphetamine/Amphetamine 30 mg PO BID 01/27/23 05/30/23 [Adderall] Rifaximin [Xifaxan] 550 mg PO BID 02/06/23 05/30/23 Furosemide [Lasix] 40 mg PO DAILY 03/18/23 05/30/23 Previous Rx's Medication Instructions Recorded Sertraline [Zoloft] 50 mg PO DAILY #30 tab 01/31/23 traZODone HCL [Desyrel] 50 mg PO HS #30 tab 01/31/23 Lactulose [Cephulac] 30 gm PO TID 30 Days #900 ml 03/21/23 Spironolactone [Aldactone] 50 mg PO DAILY 30 Days #60 tab 05/31/23 Allergies Allergy/AdvReac Type Severity Reaction Status Date / Time acetaminophen [From Tylenol] AdvReac LIVER Verified 09/04/23 12:30 ISSUES " Review of Systems ROS Statement: Those systems with pertinent positive or pertinent negative responses have been documented in the HPI. ROS Other: All systems not noted in ROS Statement are negative. 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 Patient does not have any sisters. Patient has 1 son that is 10 years old with diabetes mellitus type 1. General Exam - General Exam Comments Initial Comments: General: Well-appearing, nontoxic, no acute distress. Head: Normocephalic, 4 cm posterior scalp laceration Eyes: PERRLA, EOMI ENT: Airway patent Chest: Nonlabored breathing Skin: No visual rash, normal skin tone Neuro: Alert and oriented 3 Musculoskeletal: No gross abnormalities Limitations: no limitations Course Vital Signs 09/04/23 12:27 Temperature 98.9 F Pulse Rate 80 Respiratory 18 Rate Blood Pressure 157/73 O2 Sat by Pulse 97 Oximetry Procedures - Laceration Laceration #1 Consent Obtained: verbal consent Indication: laceration Site: scalp Description: linear Anesthetic Used: lidocaine 1%, with epi Anesthesia Technique: local infiltration Type of Sutures: other (hollis x 2) Patient Tolerated Procedure: well Medical Decision Making - Medical Decision Making Was pt. sent in by a medical professional or institution (, PA, OILER BANDER, urgent care, hospital, or halfway...) When possible be specific @ -No Did you speak to anyone other than the patient for history (EMS, parent, family, police, friend...)? What history was obtained from this source @ -No Did you review nursing and triage notes (agree or disagree)? Why? @ -I reviewed and agree with nursing and triage notes Were old charts reviewed (outside hosp., previous admission, EMS record, old EKG, old radiological studies, urgent care reports/EKG's, halfway records)? Report findings @ -No old charts were reviewed Differential Diagnosis (chest pain, altered mental status, abdominal pain women, abdominal pain men, vaginal bleeding, musculoskeletal, weakness, fever, dyspnea, syncope, headache, dizziness, GI bleed, back pain, seizure, CVA, palpatations, mental health)? @ -Not applicable EKG interpreted by me (3pts min.). @ -None done X-rays interpreted by me (1pt min.). @ -None done CT interpreted by me (1pt min.). @ -CT brain is negative for acute processes U/S interpreted by me (1pt. min.). @ -None done What testing was considered but not performed or refused? (CT, X-rays, U/S, labs)? Why? @ -None What meds were considered but not given or refused? Why? @ -None Did you discuss the management of the patient with other professionals (professionals i.e. , PA, OILER BANDER, lab, RT, psych nurse, social insurance administrator, track repairer helper, teacher, fire prevention officer, heel caser)? Give summary @ -No Was smoking cessation discussed for >3mins.? @ -No Was critical care preformed (if so, how long)? @ -No Were there social determinants of health that impacted care today? How? (Homelessness, low income, unemployed, alcoholism, drug addiction, transportation, low edu. Level, literacy, decrease access to med. care, intermediate, rehab)? @ -No Was there de-escalation of care discussed even if they declined (Discuss DNR or withdrawal of care, Hospice)? DNR status @ -No What co-morbidities impacted this encounter? (DM, HTN, Smoking, COPD, CAD, Cancer, CVA, ARF, Chemo, Hep., AIDS, mental health diagnosis, sleep apnea, morbid obesity)? @ -None Was patient admitted / discharged? Hospital course, mention meds given and route, prescriptions, significant lab abnormalities, going to OR and other pertinent info. @ -43-year-old male presents to the emergency department scalp laceration. Vital signs stable. CT imaging is negative. Laceration was repaired at bedside. Patient discharged Undiagnosed new problem with uncertain prognosis? @ -No Drug Therapy requiring intensive monitoring for toxicity (Heparin, Nitro, Insulin, Cardizem)? @ -No Were any procedures done? @ -See above Diagnosis/symptom? Acute, or Chronic, or Acute on Chronic? Uncomplicated (w ithout systemic symptoms) or Complicated (systemic symptoms)? @ -Scalp laceration, closed head injury Side effects of treatment? @ -No Exacerbation, Progression, or Severe Exacerbation? @ -No Poses a threat to life or bodily function? How? (Chest pain, USA, [place], pneumonia, PE, COPD, DKA, ARF, appy, cholecystitis, CVA, Diverticulitis, Homicidal, Suicidal, threat to staff... and all critical care pts) @ -No Disposition Clinical Impression: Laceration Disposition: HOME SELF-CARE Condition: Good Instructions (If sedation given, give patient instructions): Laceration (ED) Additional Instructions: staple removal in 10-14 days Is patient prescribed a controlled substance at d/c from ED?: No Referrals: Angeline Nelson MD [Primary Care Provider] - 1-2 days Time of Disposition: 14:16
--- NOTE | 2023-09-04 13:57 | CT ---
EXAMINATION TYPE: CT brain wo con CT DLP: 1240.4 mGycm, Automated exposure control for dose reduction was used. DATE OF EXAM: 09/04/2023 1:41 PM COMPARISON: 08/05/2022. CLINICAL INDICATION:Male, 43 years old with history of head injury, Laceration to back of head, pt de nies LOC or on thinners. TECHNIQUE: Brain: Axial CT images of the brain were obtained with coronal and sagittal reformats created and rev iewed. Contrast used: None. Oral contrast used: None. FINDINGS: Brain: Extra-axial spaces: No abnormal extra-axial fluid collections. Ventricular system: Within normal limits Cerebral parenchyma: No acute intraparenchymal hemorrhage or mass effect. The garcia-white junction is well differentiated. Cerebellum: Unremarkable. Mass effect: No evidence of midline shift. Intracranial vasculature: unremarkable Soft tissues: Posterior scalp laceration without evidence of hematoma. Calvarium/osseous structures: No depressed skull fracture. Paranasal sinuses and mastoid air cells: Mild scattered paranasal sinus disease. Visualized orbits: Orbital contents are intact. IMPRESSION: 1. No acute intracranial process. 2. Posterior scalp laceration without evidence for fracture.
[2023-09-04] MEDS: LIDOCAINE 2%-EPI 1:100,000 20 ML VIAL SQ STA (14:08)
[2023-09-04] MEDS: DIPH,PERTUS(ACELL)TETVAC-LF 0.5 ML VIAL IM ONE (14:09)
[2023-09-04 14:35] VITALS: BP 117/93; PULSE 73; TEMP 97.6
== END 2023-09-04 14:34 | disposition home or self-care (01) ==
LOC: EC 12:15
DX: S01.01XA Laceration without foreign body of scalp, initial encounter (principal); I10 Essential (primary) hypertension; F41.9 Anxiety disorder, unspecified; F31.9 Bipolar disorder, unspecified; Z87.891 Personal history of nicotine dependence; Z88.6 Allergy status to analgesic agent; Z90.49 Acquired absence of other specified parts of digestive tract; Z23 Encounter for immunization; W22.8XXA Striking against or struck by other objects, initial encounter
CPT/HCPCS: 12001; 70450; 90471; 90715; 99283

== ENCOUNTER 2023-11-20 01:38 | Observation (INO) | payer OTHER ==
--- NOTE | 2023-11-20 02:06 | ED ---
General Adult HPI - General Source: RN notes reviewed <Campbell Montalvo - Last Filed: 11/20/23 02:06> <Remy Wagner - Last Filed: 11/20/23 05:14> - General Stated complaint: liver failure Time Seen by Provider: 11/20/23 02:05 - History of Present Illness Initial comments: Quicknote 43-year-old male presenting to the ED with complaint of liver failure. Patient reports that he is going through liver failure and is on the transplant list. Denies alcohol use. States he has not had a drink in 2 years. States over the past few days has noticed increased generalized swelling. (Campbell Montalvo) 43-year-old male with fluid overload, lower extremity and abdominal swelling and mild dyspnea secondary to fluid retention. Patient has history of liver disease and liver failure. He is scheduled to be on the transplant list. He denies any recent alcohol use. He states that his spironolactone and Lasix is not working as well as it typically does. No chest pain. No fever. He is alert and oriented x 3. (Remy Wagner) - Related Data Home Medications Medication Instructions Recorded Confirmed Gabapentin [Neurontin] 100 mg PO BID 05/28/22 05/30/23 Dextroamphetamine/Amphetamine 30 mg PO BID 01/27/23 05/30/23 [Adderall] Rifaximin [Xifaxan] 550 mg PO BID 02/06/23 05/30/23 Furosemide [Lasix] 40 mg PO DAILY 03/18/23 05/30/23 Previous Rx's Medication Instructions Recorded Sertraline [Zoloft] 50 mg PO DAILY #30 tab 01/31/23 traZODone HCL [Desyrel] 50 mg PO HS #30 tab 01/31/23 Lactulose [Cephulac] 30 gm PO TID 30 Days #900 ml 03/21/23 Spironolactone [Aldactone] 50 mg PO DAILY 30 Days #60 tab 05/31/23 Allergies Allergy/AdvReac Type Severity Reaction Status Date / Time acetaminophen [From Tylenol] AdvReac LIVER Verified 11/20/23 02:05 ISSUES " Review of Systems ROS Other: All systems not noted in ROS Statement are negative. <Campbell Montalvo - Last Filed: 11/20/23 02:06> ROS Other: All systems not noted in ROS Statement are negative. <Remy Wagner - Last Filed: 11/20/23 05:14> ROS Statement: Those systems with pertinent positive or pertinent negative responses have been documented in the HPI. 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 Patient does not have any sisters. Patient has 1 son that is 10 years old with diabetes mellitus type 1. <Campbell Montalvo - Last Filed: 11/20/23 02:06> General Exam <Campbell Montalvo - Last Filed: 11/20/23 02:06> General appearance: alert, in no apparent distress Head exam: Present: atraumatic, normocephalic Eye exam: Present: normal appearance, PERRL Respiratory exam: Present: normal lung sounds bilaterally. Absent: respiratory distress, wheezes, rales Cardiovascular Exam: Present: regular rate, normal rhythm GI/Abdominal exam: Present: soft, distended. Absent: tenderness, guarding Extremities exam: Present: pedal edema Neurological exam: Present: alert, oriented X3, CN II-XII intact. Absent: motor sensory deficit Psychiatric exam: Present: depressed. Absent: suicidal ideation Skin exam: Present: warm, dry, intact <Remy Wagner - Last Filed: 11/20/23 05:14> - General Exam Comments Initial Comments: Visual Physical Exam Vital signs reviewed General: no acute distress. Head: Normocephalic, atraumatic Eyes: PERRLA, EOMI ENT: Airway patent Chest: Nonlabored breathing Skin: No visual rash, normal skin tone Neuro: Alert and oriented 3 Musculoskeletal: No gross abnormalities (Campbell Montalvo) Course Vital Signs 11/20/23 02:04 Temperature 98.4 F Pulse Rate 76 Respiratory 16 Rate Blood Pressure 120/70 O2 Sat by Pulse 96 Oximetry Medical Decision Making <Campbell Montalvo - Last Filed: 11/20/23 02:06> - Lab Data Result diagrams: 11/20/23 02:11 11/20/23 02:11 <Remy Wagner - Last Filed: 11/20/23 05:14> - Medical Decision Making Quicknote portion performed. Signed Campbell Montalvo PA-C (Campbell Montalvo) Was pt. sent in by a medical professional or institution (RACHAEL Rosen, PRESS TECHNICIAN, urgent care, hospital, or skilled nursing...) When possible be specific @ -No Did you speak to anyone other than the patient for history (EMS, parent, family, police, friend...)? What history was obtained from this source @ -No Did you review nursing and triage notes (agree or disagree)? Why? @ -I reviewed and agree with nursing and triage notes Were old charts reviewed (outside hosp., previous admission, EMS record, old EKG, old radiological studies, urgent care reports/EKG's, skilled nursing records)? Report findings @ -No old charts were reviewed Differential Diagnosis liver failure, fluid retention, CHF EKG interpreted by me (3pts min.). @ -As above X-rays interpreted by me (1pt min.). @ -None done CT interpreted by me (1pt min.). @ -None done U/S interpreted by me (1pt. min.). @ -None done What testing was considered but not performed or refused? (CT, X-rays, U/S, labs)? Why? @ -None What meds were considered but not given or refused? Why? @ -None Did you discuss the management of the patient with other professionals (professionals i.e. , PA, PRESS TECHNICIAN, lab, RT, psych nurse, social science manager, machine bander and cellophaner helper, teacher, community cultural development officer, bilingual case manager)? Give summary @ -EM Was smoking cessation discussed for >3mins.? @ -No Was critical care preformed (if so, how long)? @ -No Were there social determinants of health that impacted care today? How? (Homelessness, low income, unemployed, alcoholism, drug addiction, transportation, low edu. Level, literacy, decrease access to med. care, [facility], rehab)? @ -No Was there de-escalation of care discussed even if they declined (Discuss DNR or withdrawal of care, Hospice)? DNR status @ -No What co-morbidities impacted this encounter? (DM, HTN, Smoking, COPD, CAD, Cancer, CVA, ARF, Chemo, Hep., AIDS, mental health diagnosis, sleep apnea, morbid obesity)? @ -Liver cirrhosis and liver failure secondary to alcohol abuse Was patient admitted / discharged? Hospital course, mention meds given and route, prescriptions, significant lab abnormalities, going to OR and other pertinent info. @43-year-old male with known liver failure who follows with [facility] presents with fluid retention. Patient is edematous with peripheral edema and subcutaneous edema into the abdomen. Vital signs are stable. Patient requesting IV diuresis. Started on IV Lasix and given potassium replacement, started on lactulose as well for mildly elevated ammonia at 43. He has chronic stable laboratory abnormalities without significant change. Patient placed in observation for diuresis. Undiagnosed new problem with uncertain prognosis? @ -No Drug Therapy requiring intensive monitoring for toxicity (Heparin, Nitro, Insulin, Cardizem)? @ -No Were any procedures done? @ -No Diagnosis/symptom? @ -Fluid overload secondary to chronic liver failure Acute, or Chronic, or Acute on Chronic? @ -Acute on chronic Uncomplicated (without systemic symptoms) or Complicated (systemic symptoms)? @ -Default Side effects of treatment? @ -No Exacerbation, Progression, or Severe Exacerbation? @ -No Poses a threat to life or bodily function? How? (Chest pain, USA, VT, pneumonia, PE, COPD, DKA, ARF, appy, cholecystitis, CVA, Diverticulitis, Homicidal, Suic idal, threat to staff... and all critical care pts) @Low risk at this time (Remy Wagner) - Lab Data Lab Results 11/20/23 11/20/23 11/20/23 Range/Units 02:11 02:11 02:11 WBC 4.3 (3.8-10.6) k/uL RBC 3.40 L (4.30-5.90) m/uL Hgb 10.2 L (13.0-17.5) gm/dL Hct 31.8 L (39.0-53.0) % MCV 93.7 (80.0-100.0) fL MCH 30.1 (25.0-35.0) pg MCHC 32.1 (31.0-37.0) g/dL RDW 18.0 H (11.5-15.5) % Plt Count 95 L (150-450) k/uL MPV 10.6 Neutrophils % 53 % Lymphocytes % 25 % Monocytes % 15 % Eosinophils % 3 % Basophils % 1 % Neutrophils # 2.2 (1.3-7.7) k/uL Lymphocytes # 1.1 (1.0-4.8) k/uL Monocytes # 0.6 (0-1.0) k/uL Eosinophils # 0.1 (0-0.7) k/uL Basophils # 0.0 (0-0.2) k/uL Hypochromasia Slight Anisocytosis Slight PT 15.3 H (10.0-12.5) sec INR 1.5 H (<1.2) APTT 28.4 (22.0-30.0) sec Sodium (137-145) mmol/L Potassium (3.5-5.1) mmol/L Chloride (98-107) mmol/L Carbon Dioxide (22-30) mmol/L Anion Gap mmol/L BUN (9-20) mg/dL Creatinine (0.66-1.25) mg/dL Est GFR (CKD-EPI)AfAm (>60 ml/min/1.73 sqM) Est GFR (CKD-EPI)NonAf (>60 ml/min/1.73 sqM) Glucose (74-99) mg/dL Calcium (8.4-10.2) mg/dL Total Bilirubin (0.2-1.3) mg/dL AST (17-59) U/L ALT (4-49) U/L Alkaline Phosphatase (38-126) U/L Ammonia (<30) umol/L Total Protein (6.3-8.2) g/dL Albumin (3.5-5.0) g/dL Lipase (23-300) U/L Urine Color Light Cascade Urine Appearance Clear (Clear) Urine pH 6.0 (5.0-8.0) Ur Specific Wayne 1.034 (1.001-1.035) Urine Protein Trace H (Negative) Urine Glucose (UA) Negative (Negative) Urine Ketones Negative (Negative) Urine Blood Trace H (Negative) Urine Nitrite Negative (Negative) Urine Bilirubin Negative (Negative) Urine Urobilinogen 2.0 (<2.0) mg/dL Ur Leukocyte Esterase Negative (Negative) Urine RBC 1 (0-5) /hpf Urine WBC 5 (0-5) /hpf Ur Squamous Epith Cells 2 (0-4) /hpf Calcium Oxalate Crystal Few H (None) /hpf Hyaline Casts 1 (0-2) /lpf Urine Mucus Many H (None) /hpf 11/20/23 11/20/23 Range/Units 02:11 02:11 WBC (3.8-10.6) k/uL RBC (4.30-5.90) m/uL Hgb (13.0-17.5) gm/dL Hct (39.0-53.0) % MCV (80.0-100.0) fL MCH (25.0-35.0) pg MCHC (31.0-37.0) g/dL RDW (11.5-15.5) % Plt Count (150-450) k/uL MPV Neutrophils % % Lymphocytes % % Monocytes % % Eosinophils % % Basophils % % Neutrophils # (1.3-7.7) k/uL Lymphocytes # (1.0-4.8) k/uL Monocytes # (0-1.0) k/uL Eosinophils # (0-0.7) k/uL Basophils # (0-0.2) k/uL Hypochromasia Anisocytosis PT (10.0-12.5) sec INR (<1.2) APTT (22.0-30.0) sec Sodium 140 (137-145) mmol/L Potassium 3.3 L (3.5-5.1) mmol/L Chloride 114 H (98-107) mmol/L Carbon Dioxide 22 (22-30) mmol/L Anion Gap 4 mmol/L BUN 11 (9-20) mg/dL Creatinine 0.54 L (0.66-1.25) mg/dL Est GFR (CKD-EPI)AfAm >90 (>60 ml/min/1.73 sqM) Est GFR (CKD-EPI)NonAf >90 (>60 ml/min/1.73 sqM) Glucose 61 L (74-99) mg/dL Calcium 8.2 L (8.4-10.2) mg/dL Total Bilirubin 3.0 H (0.2-1.3) mg/dL AST 50 (17-59) U/L ALT 24 (4-49) U/L Alkaline Phosphatase 80 (38-126) U/L Ammonia 42 H (<30) umol/L Total Protein 5.7 L (6.3-8.2) g/dL Albumin 2.9 L (3.5-5.0) g/dL Lipase 155 (23-300) U/L Urine Color Urine Appearance (Clear) Urine pH (5.0-8.0) Ur Specific Wayne (1.001-1.035) Urine Protein (Negative) Urine Glucose (UA) (Negative) Urine Ketones (Negative) Urine Blood (Negative) Urine Nitrite (Negative) Urine Bilirubin (Negative) Urine Urobilinogen (<2.0) mg/dL Ur Leukocyte Esterase (Negative) Urine RBC (0-5) /hpf Urine WBC (0-5) /hpf Ur Squamous Epith Cells (0-4) /hpf Calcium Oxalate Crystal (None) /hpf Hyaline Casts (0-2) /lpf Urine Mucus (None) /hpf Disposition <Campbell Montalvo - Last Filed: 11/20/23 02:06> Is patient prescribed a controlled substance at d/c from ED?: No Time of Disposition: 05:14 <Remy Wagner - Last Filed: 11/20/23 05:14> Clinical Impression: Chronic liver failure, Fluid retention Disposition: ADMITTED IP TO THIS HOSP Condition: Stable Referrals: None,Stated [REFERRING] - 1-2 days
[2023-11-20 02:52] LABS: Anisocytosis Slight; Basophils % (A) 1 %; Eosinophils # (A) 0.1 k/uL (0-0.7); Eosinophils % (A) 3 %; HCT 31.8 % (39.0-53.0); HGB 10.2 gm/dL (13.0-17.5); Hypochromasia Slight; Lymphocytes # (A) 1.1 k/uL (1.0-4.8); Lymphocytes % (A) 25 %; MCH 30.1 pg (25.0-35.0); MCHC 32.1 g/dL (31.0-37.0); MCV 93.7 fL (80.0-100.0); Mean Platelet Volume 10.6; Monocytes # (A) 0.6 k/uL (0-1.0); Monocytes % (A) 15 %; Neutrophils # (A) 2.2 k/uL (1.3-7.7); Neutrophils % (A) 53 %; WBC 4.3 k/uL (3.8-10.6)
[2023-11-20 02:56] LABS: INR 1.5 (<1.2); Prothrombin Time 15.3 sec (10.0-12.5)
[2023-11-20 02:57] LABS: Partial Thromboplastin Time 28.4 sec (22.0-30.0); Platelet Count 95 k/uL (150-450)
[2023-11-20 02:59] LABS: ALT 24 U/L (4-49); AST 50 U/L (17-59); African American GFR (CKD) >90 (>60 ml/min/1.73 sqM); Albumin 2.9 g/dL (3.5-5.0); Alkaline Phosphatase 80 U/L (38-126); Anion Gap 4 mmol/L; Blood Urea Nitrogen 11 mg/dL (9-20); Calcium 8.2 mg/dL (8.4-10.2); Carbon Dioxide 22 mmol/L (22-30); Chloride 114 mmol/L (98-107); Glucose 61 mg/dL (74-99); Lipase 155 U/L (23-300); Non-African American GFR(CKD) >90 (>60 ml/min/1.73 sqM); Potassium 3.3 mmol/L (3.5-5.1); Sodium 140 mmol/L (137-145); Total Protein 5.7 g/dL (6.3-8.2)
[2023-11-20 03:16] LABS: Appearance,Urine Clear (Clear); Bilirubin,Urine Negative (Negative); Blood,Urine Trace (Negative); Calcium Oxalate Crystals,Urine Few /hpf; Color,Urine Light Orange; Glucose,Urine (UA) Negative (Negative); Hyaline Casts,Urine 1 /lpf (0-2); Ketones,Urine Negative (Negative); Leukocyte Esterase,Urine Negative (Negative); Mucus,Urine Many /hpf; Nitrite,Urine Negative (Negative); Protein,Urine Trace (Negative); RBC,Urine 1 /hpf (0-5); Specific Gravity,Urine 1.034 (1.001-1.035); Squamous Epithelial Cell,Urine 2 /hpf (0-4); WBC,Urine 5 /hpf (0-5)
[2023-11-20] MEDS: FUROSEMIDE 10 MG/ML 4 ML VIAL IV STA (04:53)
[2023-11-20] MEDS: POTASSIUM CHLORIDE ER 20 MEQ TAB.ER PO STA (04:56)
[2023-11-20] MEDS ORDERED: NALOXONE 0.4 MG/ML 1 ML VIAL IV PRN (05:10)
[2023-11-20 07:46] VITALS: RESP 18
[2023-11-20] MEDS: POTASSIUM CHLORIDE ER 20 MEQ TAB.ER PO SCH (09:13)
[2023-11-20] MEDS: LACTULOSE 20 GM/30 ML CUP PO SCH (09:13)
[2023-11-20] MEDS: FUROSEMIDE 10 MG/ML 4 ML VIAL IV SCH (09:19)
[2023-11-20] MEDS ORDERED: POTASSIUM CHLORIDE ER 20 MEQ TAB.ER PO STA (12:19)
--- NOTE | 2023-11-20 12:28 | P.HPIM ---
History of Present Illness Patient is a 41-year-old male with known history of liver failure admitted for volume overload secondary to cirrhosis although I did not appreciate any ascites no significant pedal edema on exam and evaluated. Although patient states he was having significant ascites and pedal edema because of which patient was started on IV Lasix with improvement in his ascites as well as pedal edema. Patient is fairly will make at this time. I do not believe patient will need an additional Lasix. Patient takes 40 mg of Lasix at home along with Aldactone 100 mg despite of which his potassium is still low. Because of this I will give him prescription of 20 mg of potassium chloride with repeat lab test in 3 days and results to be faxed to PCP. Patient has history of hepatic encephalopathy for which patient is on Xifaxan and lactulose with about 5-6 bowel movements which may be contributing to his low potassium. REVIEW OF SYSTEMS: CONSTITUTIONAL: No fever, no malaise, no fatigue. HEENT: No recent visual problems or hearing problems. Denied any sore throat. CARDIOVASCULAR: No chest pain, orthopnea, PND, no palpitations, no syncope. PULMONARY: No shortness of breath, no cough, no hemoptysis. GASTROINTESTINAL: No diarrhea, no nausea, no vomiting, no abdominal pain. NEUROLOGICAL: No headaches, no weakness, no numbness. HEMATOLOGICAL: Denies any bleeding or petechiae. GENITOURINARY: Denies any burning micturition, frequency, or urgency. MUSCULOSKELETAL/RHEUMATOLOGICAL: Denies any joint pain, swelling, or any muscle pain. ENDOCRINE: Denies any polyuria or polydipsia. The rest of the 14-point review of systems is negative. PHYSICAL EXAMINATION: GENERAL: The patient is alert and oriented x3, not in any acute distress. Well developed, well nourished. HEENT: Pupils are round and equally reacting to light. EOMI. No scleral icterus. No conjunctival pallor. Normocephalic, atraumatic. No pharyngeal erythema. No thyromegaly. CARDIOVASCULAR: S1 and S2 present. No murmurs, rubs, or gallops. PULMONARY: Chest is clear to auscultation, no wheezing or crackles. ABDOMEN: Soft, nontender, nondistended, normoactive bowel sounds. No palpable organomegaly. MUSCULOSKELETAL: No joint swelling or deformity. EXTREMITIES: No cyanosis, clubbing, or pedal edema. NEUROLOGICAL: Gross neurological examination did not reveal any focal deficits. SKIN: No rashes. Assessment and plan All volume overload secondary to cirrhosis which improved at this time further management as described above in the history itself Liver failure with hepatic encephalopathy history presently not encephalopathic patient does not have any asterixis at this time patient is alert oriented x 3 will resume his rifaximin and lactulose -Hypertension -Bipolar disorder Patient will be discharged with 20 mg of potassium patient will resume his home regimen of diuretics and repeat electrolytes in about 3 days send results to be faxed to PCP. 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 Patient does not have any sisters. Patient has 1 son that is 10 years old with diabetes mellitus type 1. Medications and Allergies Home Medications Medication Instructions Recorded Confirmed Type Dextroamphetamine/Amphetamine 30 mg PO BID 01/27/23 11/20/23 History [Adderall] Rifaximin [Xifaxan] 550 mg PO BID 02/06/23 11/20/23 History Furosemide [Lasix] 40 mg PO DAILY 03/18/23 11/20/23 History Lactulose [Cephulac] 30 gm PO TID 30 Days #900 ml 03/21/23 11/20/23 Rx Omeprazole [PriLOSEC] 20 mg PO BID 11/20/23 11/20/23 History Potassium Chloride ER [K-Dur 20] 20 meq PO DAILY #30 tab 11/20/23 Rx Sertraline [Zoloft] 100 mg PO DAILY 11/20/23 11/20/23 History Spironolactone [Aldactone] 100 mg PO DAILY 11/20/23 11/20/23 History Allergies Allergy/AdvReac Type Severity Reaction Status Date / Time acetaminophen [From Tylenol] AdvReac LIVER Verified 11/20/23 09:27 ISSUES " Physical Exam Vitals: Vital Signs Temp Pulse Resp BP Pulse Ox 11/20/23 11:00 97.6 F 71 18 112/60 98 11/20/23 07:24 97.9 F 67 18 109/56 98 11/20/23 02:04 98.4 F 76 16 120/70 96 Intake and Output 11/19/23 11/20/23 11/20/23 22:59 06:59 14:59 Other: Weight 117.934 kg Results CBC & Chem 7: 11/20/23 02:11 11/20/23 02:11 Labs: Abnormal Lab Results - Last 24 Hours (Table) 11/20/23 11/20/23 11/20/23 Range/Units 02:11 02:11 02:11 RBC 3.40 L (4.30-5.90) m/uL Hgb 10.2 L (13.0-17.5) gm/dL Hct 31.8 L (39.0-53.0) % RDW 18.0 H (11.5-15.5) % Plt Count 95 L (150-450) k/uL PT 15.3 H (10.0-12.5) sec INR 1.5 H (<1.2) Potassium (3.5-5.1) mmol/L Chloride (98-107) mmol/L Creatinine (0.66-1.25) mg/dL Glucose (74-99) mg/dL Calcium (8.4-10.2) mg/dL Total Bilirubin (0.2-1.3) mg/dL Ammonia (<30) umol/L Total Protein (6.3-8.2) g/dL Albumin (3.5-5.0) g/dL Urine Protein Trace H (Negative) Urine Blood Trace H (Negative) Calcium Oxalate Crystal Few H (None) /hpf Urine Mucus Many H (None) /hpf 11/20/23 11/20/23 Range/Units 02:11 02:11 RBC (4.30-5.90) m/uL Hgb (13.0-17.5) gm/dL Hct (39.0-53.0) % RDW (11.5-15.5) % Plt Count (150-450) k/uL PT (10.0-12.5) sec INR (<1.2) Potassium 3.3 L (3.5-5.1) mmol/L Chloride 114 H (98-107) mmol/L Creatinine 0.54 L (0.66-1.25) mg/dL Glucose 61 L (74-99) mg/dL Calcium 8.2 L (8.4-10.2) mg/dL Total Bilirubin 3.0 H (0.2-1.3) mg/dL Ammonia 42 H (<30) umol/L Total Protein 5.7 L (6.3-8.2) g/dL Albumin 2.9 L (3.5-5.0) g/dL Urine Protein (Negative) Urine Blood (Negative) Calcium Oxalate Crystal (None) /hpf Urine Mucus (None) /hpf
--- NOTE | 2023-11-20 12:29 | P.DS ---
Providers Date of admission: 11/20/23 05:10 Attending physician: Fitz Felipe MD Primary care physician: [facility] Hospital Course: Patient is a 41-year-old male with known history of liver failure admitted for volume overload secondary to cirrhosis although I did not appreciate any ascites no significant pedal edema on exam and evaluated. Although patient states he was having significant ascites and pedal edema because of which patient was s tarted on IV Lasix with improvement in his ascites as well as pedal edema. Patient is fairly will make at this time. I do not believe patient will need an additional Lasix. Patient takes 40 mg of Lasix at home along with Aldactone 100 mg despite of which his potassium is still low. Because of this I will give him prescription of 20 mg of potassium chloride with repeat lab test in 3 days and results to be faxed to PCP. Patient has history of hepatic encephalopathy for which patient is on Xifaxan and lactulose with about 5-6 bowel movements which may be contributing to his low potassium. PHYSICAL EXAMINATION: GENERAL: The patient is alert and oriented x3, not in any acute distress. Well developed, well nourished. HEENT: Pupils are round and equally reacting to light. EOMI. No scleral icterus. No conjunctival pallor. Normocephalic, atraumatic. No pharyngeal erythema. No thyromegaly. CARDIOVASCULAR: S1 and S2 present. No murmurs, rubs, or gallops. PULMONARY: Chest is clear to auscultation, no wheezing or crackles. ABDOMEN: Soft, nontender, nondistended, normoactive bowel sounds. No palpable organomegaly. MUSCULOSKELETAL: No joint swelling or deformity. EXTREMITIES: No cyanosis, clubbing, or pedal edema. NEUROLOGICAL: Gross neurological examination did not reveal any focal deficits. SKIN: No rashes. Assessment and plan All volume overload secondary to cirrhosis which improved at this time further management as described above in the history itself Liver failure with hepatic encephalopathy history presently not encephalopathic patient does not have any asterixis at this time patient is alert oriented x 3 will resume his rifaximin and lactulose -Hypertension -Bipolar disorder Patient will be discharged with 20 mg of potassium patient will resume his home regimen of diuretics and repeat electrolytes in about 3 days send results to be faxed to PCP. - Patient Condition at Discharge: Stable Plan - Discharge Summary New Discharge Prescriptions: New Potassium Chloride ER [K-Dur 20] 20 meq PO DAILY #30 tab No Action Sertraline [Zoloft] 100 mg PO DAILY Dextroamphetamine/Amphetamine [Adderall] 30 mg PO BID Rifaximin [Xifaxan] 550 mg PO BID Furosemide [Lasix] 40 mg PO DAILY Lactulose [Cephulac] 30 gm PO TID 30 Days #900 ml Spironolactone [Aldactone] 100 mg PO DAILY Omeprazole [PriLOSEC] 20 mg PO BID Discharge Medication List Dextroamphetamine/Amphetamine [Adderall] 30 mg PO BID 01/27/23 [History] Rifaximin [Xifaxan] 550 mg PO BID 02/06/23 [History] Furosemide [Lasix] 40 mg PO DAILY 03/18/23 [History] Lactulose [Cephulac] 30 gm PO TID 30 Days #900 ml 03/21/23 [Rx] Omeprazole [PriLOSEC] 20 mg PO BID 11/20/23 [History] Potassium Chloride ER [K-Dur 20] 20 meq PO DAILY #30 tab 11/20/23 [Rx] Sertraline [Zoloft] 100 mg PO DAILY 11/20/23 [History] Spironolactone [Aldactone] 100 mg PO DAILY 11/20/23 [History] Follow up Appointment(s)/Referral(s): Angeline Nelson MD [Primary Care Provider] - 1 Week Ambulatory/Diagnostic Orders: Basic Metabolic Panel [LAB.AMB] Time Frame: 3 Days, Location: None Selected Discharge Disposition: HOME SELF-CARE
[2023-11-20 13:24] VITALS: BP 115/65; PULSE 72; TEMP 97.7
== END 2023-11-20 12:36 | disposition home or self-care (01) ==
LOC: EC 01:38 → 6NMEDSUR 05:10
PROVIDERS: ADMIT Internal Medicine; ATTEND Internal Medicine
DX: K72.10 Chronic hepatic failure without coma (principal); E87.70 Fluid overload, unspecified; K70.30 Alcoholic cirrhosis of liver without ascites; E87.6 Hypokalemia; K76.82 Hepatic encephalopathy; I10 Essential (primary) hypertension; F31.9 Bipolar disorder, unspecified; Z79.899 Other long term (current) drug therapy; Z88.6 Allergy status to analgesic agent; Z87.891 Personal history of nicotine dependence; Z76.82 Awaiting organ transplant status
CPT/HCPCS: 96376; 96374; 99284; 36415; 80053; 82140; 83690; 85025; 85610; 85730; 81001; G0378; J1940